=== PATIENT | female | born 1995 ===

== ENCOUNTER → 2020-08-11 12:49 | Outpatient (BNVA) | payer OTHER, SELFPAY | PROVIDERS: PCP Internal Medicine; Referring Provider Internal Medicine; Visit Provider Internal Medicine | DX: Z76.89 Persons encountering health services in other specified circumstances (principal) ==

== ENCOUNTER → 2021-01-26 15:01 | Outpatient (BNVA) | payer OTHER, SELFPAY | PROVIDERS: PCP Internal Medicine; Visit Provider Internal Medicine ==

== ENCOUNTER 2021-02-02 13:12 | Outpatient (REF) | payer OTHER, SELFPAY ==
[2021-02-02 14:24] LABS: Alanine Aminotransferase 112 U/L (0-31); Albumin Level 4.1 g/dL (3.5-5.0); Alkaline Phosphatase 104 U/L (39-117); Anion Gap 12 (12-20); Aspartate Amino Transferase 89 U/L (5-31); Bilirubin Total 0.3 mg/dL (0.0-1.0); Blood Urea Nitrogen 9 mg/dL (9-16); Calcium 9.2 mg/dL (8.4-10.2); Carbon Dioxide 24 mmol/L (22-29); Chloride 102 mmol/L (96-108); Cholesterol 163 mg/dL; Estimated Glomerular Filt Rate > 60; Glucose Random 227 mg/dL (60-115); HDL Cholesterol 39 mg/dL; LDL Cholesterol Calculated 110 mg/dl; Potassium 4.4 mmol/L (3.3-5.1); Sodium 134 mmol/L (135-145); Total Protein 7.5 g/dL (6.5-8.0); Triglycerides 71 mg/dL
[2021-02-02 14:26] LABS: Estimated Average Glucose 200 mg/dL; Hemoglobin A1c % 8.6 %
[2021-02-02 14:39] LABS: Vitamin D 25-OH Total 14.4 ng/mL (>30)
[2021-02-02 14:40] LABS: Creatinine Urine 184.51 mg/dL
[2021-02-03 05:42] LABS: LDL Cholesterol Direct 115 mg/dL (<100)
== END 2021-02-02 13:13 | disposition home or self-care (01) ==
LOC: HO.LAB 13:12
PROVIDERS: PCP Internal Medicine; Visit Provider Internal Medicine
DX: E11.65 Type 2 diabetes mellitus with hyperglycemia (principal); Z79.4 Long term (current) use of insulin; E55.9 Vitamin D deficiency, unspecified
CPT/HCPCS: 36415; 80053; 80061; 82043; 82306; 83036; 83721

== ENCOUNTER → 2021-02-16 14:17 | Outpatient (BNVA) | payer OTHER, SELFPAY | PROVIDERS: PCP Internal Medicine; Visit Provider Internal Medicine | DX: E11.65 Type 2 diabetes mellitus with hyperglycemia (principal); E78.5 Hyperlipidemia, unspecified; E55.9 Vitamin D deficiency, unspecified; I10 Essential (primary) hypertension; N25.81 Secondary hyperparathyroidism of renal origin; Z79.4 Long term (current) use of insulin | CPT/HCPCS: 82947; 99212 ==

== ENCOUNTER 2021-02-23 13:42 | Outpatient (REF) | payer OTHER, SELFPAY ==
[2021-02-23 16:11] LABS: C Reactive Protein 1.14 mg/dL (< or = 0.50); Gamma Glutamyl Transpeptidase 23 U/L (7-33); Lipase 4 U/L (8-78)
[2021-02-23 16:32] LABS: Ferritin 38 ng/mL (10-122); TSH reflex Free T4 0.78 uIU/mL (0.32-4.0)
[2021-02-24 03:52] LABS: HBc Num1 0.13 S/CO (0.00-0.79); HBsAGNum1 0.22 S/CO (0.00-0.99); Hepatitis B Core Antibody Nonreactive (Nonreactive); Hepatitis B Surface Antigen Negative (Negative)
[2021-02-24 03:53] LABS: HBS Num1 1.45 mIU/mL (0-7.99); HIV AB/AG Nonreactive (Nonreactive); HIV Num 1 0.09 S/CO (0.00-0.99); ~Hepatitis B Surface Antibody NONREACTIVE (Nonreactive); ~Hepatitis C Antibody Nonreactive (Nonreactive)
[2021-02-24 15:27] LABS: Mitochondrial Antibodies NEGATIVE (NEGATIVE)
[2021-02-25 03:56] LABS: Hepatitis A Antibody IgM 0.37 Index (0-0.79); ~Hepatitis A Antibody IgM Nonreactive (Nonreactive)
[2021-02-28 23:37] LABS: Smooth Muscle Antibody <20 U (<20)
== END 2021-02-23 13:43 | disposition home or self-care (01) ==
LOC: HO.LAB 13:42
PROVIDERS: PCP Internal Medicine; Referring Provider Internal Medicine; Visit Provider Nurse Practitioner Family
DX: Z11.4 Encounter for screening for human immunodeficiency virus [HIV] (principal); R74.8 Abnormal levels of other serum enzymes; R79.89 Other specified abnormal findings of blood chemistry; Z79.899 Other long term (current) drug therapy
CPT/HCPCS: 36415; 82105; 82728; 82977; 83690; 84443; 86140; 86255; 86256; 86704; 86706; 86709; 86803; 87340; 87389

== ENCOUNTER → 2021-06-14 10:29 | Outpatient (BNVA) | payer OTHER, SELFPAY | PROVIDERS: PCP Internal Medicine; Visit Provider Physician Assistant Surgical ==

== ENCOUNTER → 2021-06-23 08:07 | Outpatient (BNVA) | payer OTHER, SELFPAY | PROVIDERS: PCP Internal Medicine; Visit Provider Surgery ==

== ENCOUNTER → 2021-06-27 10:59 | Outpatient (BNVA) | payer OTHER, SELFPAY | PROVIDERS: PCP Internal Medicine; Visit Provider Surgery ==

== ENCOUNTER 2021-06-29 08:58 | Outpatient (REF) | payer OTHER, SELFPAY ==
[2021-06-29 09:14] LABS: MANUAL DIFF FLAG NO
[2021-06-29 10:08] LABS: Basophils Percent Auto 0.4 % (0-2); Eosinophils Percent Auto 1.2 % (0-4); Hematocrit 37.2 % (37-47); Hemoglobin 12.2 g/dl (12.0-16.0); Imm Gran Pct Auto 0.2 % (0.0-0.4); Lymphocytes Percent Auto 22.7 % (20-40); Mean Corpuscular HGB Conc 32.8 g/dl (31.0-35.0); Mean Corpuscular Volume 79.1 fL (80-98); Mean Platelet Volume 10.8 fL (9.4-12.3); Monocytes Percent Auto 8.1 % (2-11); Neutrophils Absolute Auto 6.2 X10*3/uL (2.0-8.3); Neutrophils Percent Auto 67.4 % (45-73); Platelet Count 419 X10*3/uL (160-400); Red Cell Distribution Width 13.7 % (11.0-16.0); White Blood Count 9.2 X10*3/uL (4.8-10.8)
[2021-06-29 10:09] LABS: Eosinophils Absolute Auto 0.1 X10*3/uL (0.0-0.4); Imm Gran Abs Auto 0.02 X10*3/uL (0.00-0.03); Lymphocytes Absolute Auto 2.1 X10*3/uL (1.2-4.9); Monocytes Absolute Auto 0.8 X10*3/uL (0.1-1.2)
[2021-06-29 10:40] LABS: Alanine Aminotransferase 29 U/L (0-31); Alkaline Phosphatase 92 U/L (39-117); Anion Gap 14 (12-20); Aspartate Amino Transferase 26 U/L (5-31); Bilirubin Total 0.7 mg/dL (0.0-1.0); Blood Urea Nitrogen 5 mg/dL (9-16); C Reactive Protein 1.35 mg/dL (< or = 0.50); Calcium 8.9 mg/dL (8.4-10.2); Carbon Dioxide 23 mmol/L (22-29); Chloride 105 mmol/L (96-108); Cholesterol 125 mg/dL; Estimated Glomerular Filt Rate > 60; Glucose Random 136 mg/dL (60-115); HDL Cholesterol 30 mg/dL; Iron 51 mcg/dL (30-160); LDL Cholesterol Calculated 85 mg/dl; Percent Iron Saturation 13 % (15-50); Sodium 138 mmol/L (135-145); Total Iron Binding Capacity 384 mcg/dL (228-428); Total Protein 7.5 g/dL (6.5-8.0); Triglycerides 52 mg/dL; Unsaturated Iron Binding 333 ug/dL
[2021-06-29 10:41] LABS: Creatinine Urine 229.01 mg/dL
[2021-06-29 10:45] LABS: Estimated Average Glucose 157 mg/dL; Hemoglobin A1c % 7.1 %
[2021-06-29 11:00] LABS: Ferritin 15 ng/mL (10-122); Insulin 45 uU/mL (2-29); TSH reflex Free T4 1.01 uIU/mL (0.32-4.0); Vitamin D 25-OH Total 13.8 ng/mL (>30)
[2021-06-29 11:13] LABS: Folate 8.7 ng/mL (> or = 4.0); Vitamin B12 321 pg/mL (200-900)
[2021-06-30 13:05] LABS: H Pylori Breath Test Negative (Negative)
[2021-07-01 14:37] LABS: Calcium (PTHI) 8.8 mg/dL (8.6-10.2); PTHI 72 pg/mL (14-64)
[2021-07-02 12:51] LABS: Zinc 70 mcg/dL (60-130)
[2021-07-04 01:47] LABS: Vitamin A 20 mcg/dL (38-98)
[2021-07-06 15:01] LABS: Vitamin B1 8 nmol/L (8-30)
== END 2021-06-29 08:59 | disposition home or self-care (01) ==
LOC: HO.LAB 08:58
PROVIDERS: Internal Medicine; PCP Internal Medicine; Visit Provider Surgery
DX: E11.65 Type 2 diabetes mellitus with hyperglycemia (principal); E78.5 Hyperlipidemia, unspecified; E66.01 Morbid (severe) obesity due to excess calories; K21.9 Gastro-esophageal reflux disease without esophagitis; E55.9 Vitamin D deficiency, unspecified; Z79.4 Long term (current) use of insulin
CPT/HCPCS: 36415; 80053; 80061; 82306; 82607; 82728; 82746; 83013; 83036; 83525; 83540; 83970; 84425; 84443; 84590; 84630; 85025; 86140; 99211

== ENCOUNTER → 2021-07-20 10:24 | Outpatient (BNVA) | payer OTHER, SELFPAY | PROVIDERS: PCP Internal Medicine; Visit Provider Surgery ==

== ENCOUNTER → 2021-08-17 08:09 | Outpatient (BNVA) | payer OTHER, SELFPAY | PROVIDERS: PCP Internal Medicine; Visit Provider Dietitian, Registered | DX: E66.01 Morbid (severe) obesity due to excess calories (principal) | CPT/HCPCS: 97802 ==

== ENCOUNTER 2021-08-24 08:12 | Outpatient (REF) | payer OTHER, SELFPAY ==
--- NOTE | ~2021-08-24 | XR_ITS ---
EXAMINATION: XR CHEST CLINICAL INFORMATION: Obesity is a history provided COMPARISON: None TECHNIQUE: 2 views of the chest were obtained. FINDINGS: No significant abnormality is noted involving the heart, lungs, mediastinum, bony thorax or soft tissues. XR/XR chest 2V IMPRESSION: Unremarkable examination.
--- NOTE | 2021-08-24 12:34 | ECG_ITS ---
Test Reason : obesity Blood Pressure : / mmHG Vent. Rate : 096 BPM Atrial Rate : 096 BPM P-R Int : 168 ms QRS Dur : 082 ms QT Int : 358 ms P-R-T Axes : 043 051 022 degrees QTc Int : 452 ms Normal sinus rhythm Possible Left atrial enlargement Borderline ECG When compared with ECG of 25-APR-2019 18:14, No significant change was found Referred By: Reuben Travis Electronically Signed By:SHERIE GIBSON MD
== END 2021-08-24 08:13 | disposition home or self-care (01) ==
LOC: HO.XRAY 08:12
PROVIDERS: PCP Internal Medicine; Visit Provider Surgery
DX: E66.01 Morbid (severe) obesity due to excess calories (principal); Z68.41 Body mass index [BMI] 40.0-44.9, adult; E11.65 Type 2 diabetes mellitus with hyperglycemia; K21.9 Gastro-esophageal reflux disease without esophagitis; Z79.4 Long term (current) use of insulin
CPT/HCPCS: 71046; 93005

== ENCOUNTER → 2021-09-08 15:20 | Outpatient (BNVA) | payer OTHER, SELFPAY | PROVIDERS: PCP Internal Medicine; Referring Provider Internal Medicine; Visit Provider Physician Assistant Surgical ==

== ENCOUNTER → 2021-09-20 08:12 | Outpatient (BNVA) | payer OTHER, SELFPAY | PROVIDERS: PCP Internal Medicine; Referring Provider Surgery; Visit Provider Dietitian, Registered ==

== ENCOUNTER → 2021-09-22 08:10 | Outpatient (BNVA) | payer OTHER, SELFPAY | PROVIDERS: PCP Internal Medicine; Referring Provider Surgery; Visit Provider Dietitian, Registered | DX: E66.01 Morbid (severe) obesity due to excess calories (principal) | CPT/HCPCS: 97803 ==

== ENCOUNTER 2021-09-22 20:58 | Emergency (ER) | payer OTHER, SELFPAY ==
[2021-09-22 22:40] VITALS: BP 141/69; PULSE 91; RESP 18; TEMP 36.7; O2SAT 98; BMI 46.0
[2021-09-22 23:15] LABS: COVID-19 Test Positive (Negative)
--- NOTE | 2021-09-22 23:34 | ED_ITS ---
HPI - URI/Sore Throat General Chief Complaint: Upper Respiratory Symptoms Stated Complaint: Flu like symptoms Time Seen by Provider: 09/22/21 23:34 Source: patient Mode of arrival: ambulatory Limitations: no limitations History of Present Illness HPI Narrative: Headache, fever, lost of taste and cough for 2 days. Patient is vaccinated MD elicited complaint: fever, cough and sore throat Onset (ago): day(s) Consistency: constant Severity: mild Exacerbating factors: nothing Relieving factors: nothing Associated symptoms: fever, myalgias, sore throat and cough Related Data Previous Rx's Medication Instructions Recorded pen needle, diabetic 31 gauge x #100 ea 11/24/2001/23 (1st Tier Unifine Pentips Plus) cholecalciferol (vitamin D3) 50 50 mcg PO DAILY #30 cap 11/25/20 mcg (2,000 unit) capsule flash glucose sensor (FreeStyle #2 ea 02/16/21 Edson 14 Day Sensor) insulin lispro 100 unit/mL 15 unit (0.15 mL) SUBCUT TID 30 02/23/21 subcutaneous pen (Humalog #13.5 ml (U-100) Insulin) vitamin E (dl, acetate) 45 mg (100 45 mg PO BID #60 cap 02/23/21 unit) capsule FreeStyle Precision Simba Strips #25 ea NS 03/09/21 (blood sugar diagnostic) cholecalciferol (vitamin D3) 125 125 mcg PO DAILY #30 cap 07/20/21 mcg (5,000 unit) capsule mecobalamin (vitamin B12) 1,000 1,000 mcg SUBLINGUAL DAILY #30 tab 07/20/21 mcg disintegrating tablet,sublingual vitamin A palmitate 10,000 unit 10,000 unit PO .COMPLEX #30 cap 07/20/21 capsule ergocalciferol (vitamin D2) 1,250 1,250 mcg PO QWEEK 90 Days #13 cap 09/07/21 mcg (50,000 unit) capsule insulin glargine 100 unit/mL (3 45 unit (0.45 mL) SUBCUT QPM #15 ml 09/07/21 mL) subcutaneous pen (Lantus Solostar U-100 Insulin) Allergies Allergy/AdvReac Type Severity Reaction Status Date / Time Iodinated Contrast Media Allergy Intermediate HIVES Verified 07/11/21 17:28 [IV CONTRAST] Review of Systems Constitutional: Constitutional: Reports no additional constitutional complaints Eyes: Eyes: Reports no additional eye complaints ENT: Denies dizziness Cardiovascular: Cardiovascular: Reports no additional cardiovascular complaints Respiratory: Respiratory: Reports as per HPI Gastrointestinal: Gastrointestinal: Reports no additional gastrointestinal complaints Genitourinary: Genitourinary: Reports no additional female genitourinary complaints Musculoskeletal: Musculoskeletal: Reports no additional musculoskeletal complaints Integumentary/Breasts: Skin/Breast: Denies rash Neurologic: Reports system reviewed and no additional complaints, except as documented, Denies dizziness and Denies Sensory deficit (Neuro) Psychiatric: Psychiatric: Denies anxiety [facility] Past Medical History Medical History Anxiety GERD (gastroesophageal reflux disease) HLD (hyperlipidemia) HTN (hypertension) Macromastia Morbid obesity Secondary hyperparathyroidism T2DM (type 2 diabetes mellitus) Transaminitis Vitamin D deficiency Surgical History Hx of cholecystectomy Presence of pancreatic duct stent Family History Family History Father Hypertension High cholesterol Mother Hypertension Diabetes High cholesterol Brother No problems noted. Brother No problems noted. Son No problems noted. Daughter No problems noted. Social History Social History Housing: Apartment Alcohol intake: never Patient Tobacco Use Status: Never used Tobacco Advance Directives: No Advance Directives Information Provided: No service: No Current occupational status: unemployed Physical Exam Vital Signs: Vital Signs: Last Vital Signs Temp 98.0 F 09/22/21 22:40 Pulse 91 09/22/21 22:40 Resp 18 09/22/21 22:40 BP 141/69 H 09/22/21 22:40 Pulse Ox 98 09/22/21 22:40 BMI result Body Mass Index 46.0 Const: General: healthy appearing Nutritional Appearance: obese Orientation/consciousness: oriented to person and patient oriented x3 Limitations: no limitations HENMT: Head: Yes normal to inspection Ears: external ears normal General nose exam: Normal external nose present Mouth: Normal oral and palatal mucosa present and oropharynx normal Throat: Yes posterior oropharynx normal Eyes: General: appearance normal, both eyes and all related structures Neck: Other: supple Neck: Yes normal visual inspection Chest: Chest palpation & inspection: normal inspection of the chest Resp: Auscultation: clear to auscultation bilaterally Cardio: Jugular venous distension: no JVD Rate: regular rate Rhythm: regular rhythm Heart sounds: S1 normal heart sound present and S2 normal heart sound present GI: Inspection: Yes normal to inspection Palpation (GI): Soft to palpation, nontender and No hepatosplenomegaly present Auscultation: normal bowel sounds : General: Yes no CVA tenderness Back/Spine/Pelvis: Back: no CVA tenderness Skin: General skin exam: no rashes or lesions noted Neuro: General: oriented to person and patient oriented x3 Cranial nerves: Yes CN's II-XII intact bilaterally Motor exam (neuro): 5/5 motor strength present throughout Sensory Exam: No Sensory deficit (Neuro) Extrem: General: Yes normal to inspection Psych: Appearance: grossly normal Course Reevaluation(s) Reevaluation #1: patient well appearing with covid will dc home Time: 23:39 MDM - URI/Sore Throat Lab Data Labs: Lab Results 09/22/21 Range/Units 22:56 COVID-19 ([facility]) Positive A (Negative) COVID-19 Clin Com See Note Discharge Plan Discharge Clinical Impression: COVID-19 Patient Disposition: Home, Self-Care Instructions: COVID-19 (Coronavirus Disease 2019) (ED) Prescriptions: No Action (DME) pen needle, diabetic [1st Tier Unifine Pentips Plus] 31 gauge x 5/16 needle See Rx Instructions .ROUTE .MEDSUPPLY Qty: 100 RF: 11 cholecalciferol (vitamin D3) 50 mcg (2,000 unit) capsule 50 mcg PO DAILY Qty: 30 RF: 11 insulin lispro [Humalog KwikPen Insulin] 100 unit/mL insulin pen 15 unit subcut TID 30 Days Qty: 13.5 RF: 11 (DME) FreeStyle Precision Simba Strips Strip See Rx Instructions .MEDSUPPLY Qty: 25 RF: 6 ergocalciferol (vitamin D2) 1,250 mcg (50,000 unit) capsule 1,250 mcg PO QWEEK 90 Days Qty: 13 RF: 0 Lantus Solostar U-100 Insulin 100 unit/mL (3 mL) insulin pen 45 unit subcut QPM Qty: 15 RF: 1 (DME) FreeStyle Edson 14 Day Sensor Kit See Rx Instructions .ROUTE .MEDSUPPLY Qty: 2 RF: 11 vitamin E (dl, acetate) 45 mg (100 unit) capsule 45 mg PO BID Qty: 60 RF: 0 vitamin A palmitate 10,000 unit capsule 10,000 unit PO .COMPLEX Qty: 30 RF: 2 cholecalciferol (vitamin D3) 125 mcg (5,000 unit) capsule 125 mcg PO DAILY Qty: 30 RF: 2 mecobalamin (vitamin B12) 1,000 mcg tablet,disintegrating 1,000 mcg sublingual DAILY Qty: 30 RF: 2 Referrals: Charity Willingham MD [Primary Care Provider] - 10 days
== END 2021-09-23 00:14 | disposition home or self-care (01) ==
PROVIDERS: Emergency Provider Emergency Medicine; PCP Internal Medicine
DX: U07.1 COVID-19 (principal); E11.9 Type 2 diabetes mellitus without complications; I10 Essential (primary) hypertension; E78.5 Hyperlipidemia, unspecified; Z79.4 Long term (current) use of insulin
CPT/HCPCS: 87635; 99283

== ENCOUNTER → 2021-10-04 11:10 | Outpatient (BNVA) | payer OTHER, SELFPAY | PROVIDERS: PCP Internal Medicine; Referring Provider Internal Medicine; Visit Provider Physician Assistant Surgical ==

== ENCOUNTER → 2021-10-12 08:31 | Outpatient (REF) | payer OTHER, SELFPAY ==
--- NOTE | 2021-10-12 08:33 | CA_ITS ---
Transthoracic Echocardiogram Patient (Last, First, Middle): Petra Lawrence, Gender: Female Date of : 1995 Age: 26 Procedure Date: 10/12/2021 Procedure Type: Transthoracic Echocardiogram Location: OP Height: 157.48 cm Weight: 122.47 kg BSA: 2.17 m2 Heart Rate: bpm BP: 136 / 70 mmHg [place] Layer: MARTHA Baez MD: Reuben Travis MD Symptoms: I51.7 - Cardiomegaly Study Quality: Technically Difficult/Contrast ECG Rhythm: Sinus Conclusions: - The left ventricular systolic function is normal. The visually estimated ejection fraction is between 55-60%. - No obvious valvular pathology seen on this study. Findings Procedure Information Contrast agent, definity, is being given per protocol without apparent complications. Left Ventricle Normal left ventricular cavity size. There is mildly increased left ventricular wall thickness. The left ventricular systolic function is normal. The visually estimated ejection fraction is between 55-60%. There is no evidence of regional wall motion abnormalities. Diastolic function is normal for age. Right Ventricle Normal right ventricular cavity size and systolic function. Atria Both atria are normal in size. Aortic Valve The aortic valve was not well visualized. The aortic valve structure and function is likely normal. There is no aortic valve stenosis. There is no aortic valve regurgitation. Mitral Valve There is mild anterior mitral leaflet thickening. There is no mitral valve regurgitation. There is no mitral valve stenosis. Pulmonic Valve The pulmonic valve was not well visualized. Tricuspid Valve There is trace tricuspid valve regurgitation. The pulmonary artery systolic pressure is normal. Great Vessels The aortic annulus, sinuses of valsalva, asc aorta, and aortic arch are normal in size. Venous The inferior vena cava is normal in size and collapses greater than 50% with inspiration. Pericardium/Pleural There is no evidence of pericardial effusion. Prior Study Comparison No prior study available for comparison. Recommendations, Care & Conclusions No obvious valvular pathology seen on this study. Measurements 2D Linear Measurements IVSd: 1.02 0.6-0.9/0.6-1.0 cm LVIDd: 4.19 3.9-5.3/4.2-5.9 cm LVIDd Index: 1.93 2.4-3.2/2.2-3.1 cm/m2 LVIDs: 2.85 2.0-3.6 cm LVPWd: 1.04 0.7-1.1 cm Ao Root: 3.00 2.1-3.5 cm LA Diam: 3.50 2.7-3.8/3.0-4.0 cm LAIDs Index: 1.61 1.5-2.3 cm/m2 LV Mass: 177.40 67-162/88-224 g LV Mass Index: 81.75 43-95/49-115 g/m2 LVOT Diam: 2.20 3.0+(-)1.3 cm 2D Systolic Function EF 4C: 64.70 >55% EF 2C: 64.80 >55% EF BiP: 64.90 >55% Mitral Valve E'Lateral: 13.40 E'Medial: 13.60 Aortic Valve AoV Pk Yunior: 1.49 AoV Mn Yunior: 1.05 AoV VTI: 0.30 AoV Pk Grad: 9.00 Aov Mn Grad: 5.00 SERVANDO Cont.VTI: 2.30 LVOT LVOT Pk Yunior: 0.95 LVOT Mn Yunior: 0.65 LVOT VTI: 0.18 LVOT Pk Grad: 4.00 LVOT Mn Grad: 2.00 LVOT Diam: 2.20 LVOT Area: 3.80 Diastolic Function E'Medial: 13.60 E' Laterial: 13.40 Right Ventricle TAPSE (mm): 23.00 TVS' Yunior: 12.40 Tricuspid Valve TR Pk Yunior: 1.94 TR Pk Grad: 15.00 RA Press: 3.00 RVSP: 18.00 Great Vessels Aorta Ao Root-2D: 3.00 2.0-3.7 cm Ao Asc: 2.70 2.1-3.4 cm Ao Arch: 2.40 Updated in Other Vendor System with Status of Final Andrew Carrizales MD electronically signed on 10/14/2021 12:10:01 PM with status of Final
== END ==
LOC: HO.CARD 08:31
PROVIDERS: Visit Provider Surgery
DX: I51.7 Cardiomegaly (principal); R94.31 Abnormal electrocardiogram [ECG] [EKG]
CPT/HCPCS: 93306; Q9957

== ENCOUNTER → 2021-10-27 08:08 | Outpatient (BNVA) | payer OTHER, SELFPAY | PROVIDERS: PCP Internal Medicine; Referring Provider Surgery; Visit Provider Dietitian, Registered | DX: E66.01 Morbid (severe) obesity due to excess calories (principal); Z68.43 Body mass index [BMI] 50.0-59.9, adult; E11.65 Type 2 diabetes mellitus with hyperglycemia; Z79.4 Long term (current) use of insulin; Z71.3 Dietary counseling and surveillance | CPT/HCPCS: 97803 ==

== ENCOUNTER 2021-11-07 10:36 | Outpatient (REF) | payer OTHER, SELFPAY ==
[2021-11-07 17:05] LABS: CT PCR NOT DETECTED (Not Detect.); NG PCR NOT DETECTED (Not Detect.)
== END 2021-11-07 10:37 | disposition home or self-care (01) ==
LOC: HO.LAB 10:36
PROVIDERS: PCP Internal Medicine; Visit Provider Obstetrics & Gynecology
DX: Z01.411 Encounter for gynecological examination (general) (routine) with abnormal findings (principal); N93.9 Abnormal uterine and vaginal bleeding, unspecified
CPT/HCPCS: 87491; 87591; 88142

== ENCOUNTER 2021-12-08 09:38 | Outpatient (REF) | payer OTHER, SELFPAY ==
[2021-12-08 10:17] LABS: MANUAL DIFF FLAG NO
[2021-12-08 10:22] LABS: Basophils Percent Auto 0.2 % (0-2); Eosinophils Absolute Auto 0.1 X10*3/uL (0.0-0.4); Eosinophils Percent Auto 1.3 % (0-4); Hematocrit 35.8 % (37.0-47.0); Hemoglobin 11.1 g/dl (12.0-16.0); Imm Gran Abs Auto 0.03 X10*3/uL (0.00-0.03); Imm Gran Pct Auto 0.3 % (0.0-0.4); Lymphocytes Absolute Auto 2.4 X10*3/uL (1.2-4.9); Lymphocytes Percent Auto 24.7 % (20-40); Mean Corpuscular Volume 77.5 fL (80.0-98.0); Mean Platelet Volume 10.6 fL (9.4-12.3); Monocytes Absolute Auto 0.7 X10*3/uL (0.1-1.2); Monocytes Percent Auto 7.2 % (2-11); Neutrophils Absolute Auto 6.5 x10*3/uL (2.0-8.3); Neutrophils Percent Auto 66.3 % (45-73); Platelet Count 418 X10*3/uL (160-400); Red Blood Count 4.62 X10*6/uL (4.20-5.50); Red Cell Distribution Width 13.5 % (11.0-16.0); White Blood Count 9.8 X10*3/uL (4.8-10.8)
[2021-12-08 10:33] LABS: Estimated Average Glucose 148 mg/dL; Hemoglobin A1c % 6.8 %
[2021-12-08 11:00] LABS: Alanine Aminotransferase 34 U/L (0-31); Alkaline Phosphatase 97 U/L (39-117); Anion Gap 12 (12-20); Aspartate Amino Transferase 25 U/L (5-31); Bilirubin Total 0.3 mg/dL (0.0-1.0); Blood Urea Nitrogen 7 mg/dL (9-16); Calcium 9.1 mg/dL (8.4-10.2); Carbon Dioxide 27 mmol/L (22-29); Chloride 102 mmol/L (96-108); Cholesterol 129 mg/dL; Estimated Glomerular Filt Rate > 60; Glucose Fasting 135 mg/dL (60-99); HDL Cholesterol 35 mg/dL; LDL Cholesterol Calculated 83 mg/dl; Sodium 137 mmol/L (135-145); Total Protein 7.6 g/dL (6.5-8.0); Triglycerides 56 mg/dL
[2021-12-08 11:08] LABS: HCG Quantitative < 2 mIU/mL; TSH reflex Free T4 1.71 uIU/mL (0.32-4.0)
[2021-12-08 11:10] LABS: Vitamin D 25-OH Total 9.4 ng/mL (>30)
[2021-12-08 11:30] LABS: Folate 9.1 ng/mL (> or = 4.0); Vitamin B12 370 pg/mL (200-900)
[2021-12-08 12:40] LABS: Creatinine Urine 206.33 mg/dL; Microalbum/Creatinine Ratio Ur 7.7 ug/mg cr
[2021-12-09 14:33] LABS: Calcium (PTHI) 8.8 mg/dL (8.6-10.2); PTHI 78 pg/mL (16-77)
[2021-12-09 19:06] LABS: DHEA Sulfate 168 mcg/dL (14-349); Prolactin 6.5 ng/mL
[2021-12-12 10:27] LABS: Calcium, Ionized 4.7 mg/dL (4.8-5.6)
[2021-12-13 17:22] LABS: Testosterone, Free 5.9 pg/mL (0.1-6.4); Testosterone, Total 40 ng/dL (2-45)
== END 2021-12-08 09:39 | disposition home or self-care (01) ==
LOC: HO.LAB 09:38
PROVIDERS: Internal Medicine; Absent Provider Internal Medicine; PCP Internal Medicine; Visit Provider Obstetrics & Gynecology
DX: N93.9 Abnormal uterine and vaginal bleeding, unspecified (principal); L68.0 Hirsutism; D64.9 Anemia, unspecified; E53.8 Deficiency of other specified B group vitamins; N25.81 Secondary hyperparathyroidism of renal origin; E78.5 Hyperlipidemia, unspecified; E55.9 Vitamin D deficiency, unspecified; E11.65 Type 2 diabetes mellitus with hyperglycemia; Z79.4 Long term (current) use of insulin
CPT/HCPCS: 36415; 80053; 80061; 82043; 82306; 82310; 82330; 82607; 82627; 82746; 83036; 83498; 83970; 84146; 84402; 84403; 84443; 84702; 85025

== ENCOUNTER 2021-12-19 10:48 | Outpatient (REF) | payer OTHER, SELFPAY | END 2021-12-19 10:49 | disposition home or self-care (01) | LOC: HO.LAB 10:48 | PROVIDERS: Visit Provider Obstetrics & Gynecology | DX: N93.9 Abnormal uterine and vaginal bleeding, unspecified (principal) | CPT/HCPCS: 58100; 81025; 88305 ==

== ENCOUNTER → 2021-12-21 15:28 | Outpatient (BNVA) | payer OTHER, SELFPAY | PROVIDERS: Visit Provider Counselor Mental Health | DX: F33.0 Major depressive disorder, recurrent, mild (principal); F41.1 Generalized anxiety disorder; F50.81 Binge eating disorder; E66.01 Morbid (severe) obesity due to excess calories | CPT/HCPCS: 90834 ==

== ENCOUNTER 2021-12-27 07:50 | Outpatient (REF) | payer OTHER, SELFPAY ==
--- NOTE | ~2021-12-27 | US_ITS ---
EXAMINATION: US COMPLETE ABDOMEN WITH LIVER ELASTOGRAPHY CLINICAL INFORMATION: Obesity. COMPARISON: None. TECHNIQUE: Real-time imaging of the abdominal viscera. Noninvasive ultrasound liver fibrosis assessment is performed using Arturo ElastPQ point quantification shear wave elastography (2D-SWE) with a C5-2 MHz transducer. Multiple elastography samples are obtained. FINDINGS: PANCREAS: Nonvisualized due to overlying bowel gas, accordingly not evaluated. ABDOMINAL AORTA: The proximal, middle, and distal aortic segments are normal in caliber. INFERIOR VENA CAVA: Visualized portions are normal. LIVER: Mild diffuse heterogeneous abnormal increased echotexture is present, consistent with diffuse liver disease without any sonographic evidence of superimposed focal liver lesion. The right lobe measures 18.4 cm in length. The left lobe measures 10.9 cm in length. Portal flow is towards the liver (hepatopetal). Shear wave liver elastography median stiffness is 1.65 m/s (reference: normal median stiffness is 1.3 m/s or less). IQR/median stiffness to assess sampling precision is 0.22 (reference: good quality data set is IQR/median stiffness of 0.15 or less). GALLBLADDER: Surgically absent. COMMON BILE DUCT: Normal in caliber measuring 0.4 cm in diameter. RIGHT KIDNEY: Normal. No hydronephrosis. No renal calculi or focal parenchymal lesions. The kidney measures 12.0 cm in maximum dimension. LEFT KIDNEY: Normal. No hydronephrosis. No renal calculi or focal parenchymal lesions. The kidney measures 14.2 cm in maximum dimension. SPLEEN: Normal. The spleen measures 10.8 cm in maximum dimension. FREE FLUID: None. US/US abdomen comp w elastography IMPRESSION: 1. 1. Nonvisualized pancreas due to overlying bowel gas, accordingly not evaluated 2. Mild diffuse heterogeneous abnormal increased echotexture within the liver, consistent with diffuse liver disease, without any sonographic evidence of superimposed focal liver lesion. 3. Surgically absent gallbladder and nondilated biliary tree. 2. Liver elastography: In the absence of other known clinical signs, measurements rule out compensated advanced chronic liver disease. If there are known clinical signs, further testing may be needed for confirmation. REFERENCE: Society of Radiologists in Ultrasound Liver Stiffness Thresholds (2020): LIVER STIFFNESS THRESHOLDS: *Liver Stiffness equal or less than 1.3 m/s: High probability of being normal. *Liver Stiffness less than 1.7 m/s: In the absence of other known clinical signs, rules out compensated advanced chronic liver disease. *Liver Stiffness 1.7-2.1 m/s: Suggestive of compensated advanced chronic liver disease but need further test for confirmation. *Liver Stiffness over 2.1 m/s: Rules in compensated advanced chronic liver disease. *Liver Stiffness over 2.4 m/s: Suggestive of clinically significant portal hypertension. QUALITY OF DATA SET: *IQR/Median value equal or less than 0.15 implies a quality data set. *IQR/Median value over 0.15 implies a poor quality data set. SIGNIFICANT CHANGE FROM PRIOR EXAM: Significant change if liver stiffness measurement is 10% or greater from prior exam. OTHER CONSIDERATIONS: The stage of liver fibrosis may be overestimated in the setting of acute hepatitis, liver inflammation, elevated liver function tests, hepatic vascular congestion, obstructive cholestasis, non-fasting state, and infiltrative diseases such as amyloidosis and lymphoma. In some patients with NAFLD, the liver stiffness thresholds for compensated advanced chronic liver disease may be lower. In causes other than viral hepatitis and NAFLD, liver stiffness thresholds are not well established.
== END 2021-12-27 07:51 | disposition home or self-care (01) ==
LOC: HO.US 07:50
PROVIDERS: PCP Internal Medicine; Visit Provider Surgery
DX: E66.01 Morbid (severe) obesity due to excess calories (principal); E11.65 Type 2 diabetes mellitus with hyperglycemia; K21.9 Gastro-esophageal reflux disease without esophagitis; Z79.4 Long term (current) use of insulin
CPT/HCPCS: 76705; 76981

== ENCOUNTER → 2021-12-30 08:17 | Outpatient (BNVA) | payer OTHER, SELFPAY | PROVIDERS: Visit Provider Dietitian, Registered | DX: E66.01 Morbid (severe) obesity due to excess calories (principal); E11.65 Type 2 diabetes mellitus with hyperglycemia; Z79.4 Long term (current) use of insulin; Z68.43 Body mass index [BMI] 50.0-59.9, adult | CPT/HCPCS: 97803 ==

== ENCOUNTER → 2022-01-04 13:45 | Outpatient (BNVA) | payer OTHER, SELFPAY | PROVIDERS: Visit Provider Counselor Mental Health | DX: F33.0 Major depressive disorder, recurrent, mild (principal); F41.1 Generalized anxiety disorder; F50.81 Binge eating disorder; E66.01 Morbid (severe) obesity due to excess calories | CPT/HCPCS: 90834 ==

== ENCOUNTER → 2022-01-18 13:28 | Outpatient (BNVA) | payer OTHER, SELFPAY | PROVIDERS: Visit Provider Obstetrics & Gynecology | DX: N93.9 Abnormal uterine and vaginal bleeding, unspecified (principal) | CPT/HCPCS: 99212 ==

== ENCOUNTER → 2022-01-25 08:29 | Outpatient (BNVA) | payer OTHER, SELFPAY | PROVIDERS: PCP Internal Medicine; Visit Provider Internal Medicine | DX: E11.65 Type 2 diabetes mellitus with hyperglycemia (principal) ==

== ENCOUNTER → 2022-01-30 08:28 | Outpatient (BNVA) | payer OTHER, SELFPAY | PROVIDERS: PCP Internal Medicine; Visit Provider Dietitian, Registered | DX: E66.01 Morbid (severe) obesity due to excess calories (principal); Z68.42 Body mass index [BMI] 45.0-49.9, adult | CPT/HCPCS: 97803 ==

== ENCOUNTER 2022-02-08 10:02 | Outpatient (REF) | payer OTHER, SELFPAY ==
[2022-02-14 21:36] LABS: Cortisol Free, 24 Hr Urine 45.7 mcg/24 h (4.0-50.0); Creatinine, 24 Hr Urine 1.63 g/24 h (0.50-2.15); Total Volume, 24 Hr Urine 1900 mL
== END 2022-02-08 10:03 | disposition home or self-care (01) ==
LOC: HO.LNP 10:02
PROVIDERS: Visit Provider Obstetrics & Gynecology
DX: L68.0 Hirsutism (principal)
CPT/HCPCS: 82530

== ENCOUNTER 2022-02-16 12:54 | Outpatient (REF) | payer OTHER, SELFPAY ==
--- NOTE | ~2022-02-16 | US_ITS ---
EXAMINATION: US PELVIS CLINICAL INFORMATION: Abnormal bleeding COMPARISON: Previous pelvic ultrasound most recent May 2019 TECHNIQUE: Ultrasound of the pelvis is performed using both transabdominal and transvaginal transducers along with Doppler. Transvaginal imaging is performed due to inadequate visualization transabdominally. FINDINGS: The uterus is anteverted and measures 9.3 x 4.3 x 5.4 cm in dimension. No focal uterine lesion is seen. Endometrial thickness is upper normal in size measuring 1.4 cm. The right ovary measures 3.6 x 1.8 x 1.5 cm. There is a question of a 2-1 x 2.3 x 2.8 cm right adnexal or paraovarian cyst. This is seen on transabdominal imaging only and could not be reproduced on transvaginal imaging. Left ovary is normal-appearing and measures 2.7 x 2.4 x 1.9 cm. There is no fluid in the pelvis. US/US pelvic and transvaginal IMPRESSION: Upper normal thickness endometrium. Question small 2.1 x 2.3 x 2.8 cm right paraovarian or adnexal cyst.
== END 2022-02-16 12:55 | disposition home or self-care (01) ==
LOC: HO.US 12:54
PROVIDERS: PCP Internal Medicine; Visit Provider Obstetrics & Gynecology
DX: N93.9 Abnormal uterine and vaginal bleeding, unspecified (principal)
CPT/HCPCS: 76830; 76856

== ENCOUNTER → 2022-02-21 15:24 | Outpatient (BNVA) | payer OTHER, SELFPAY | PROVIDERS: PCP Internal Medicine; Referring Provider Surgery; Visit Provider Dietitian, Registered | DX: E66.01 Morbid (severe) obesity due to excess calories (principal); Z68.42 Body mass index [BMI] 45.0-49.9, adult; E11.9 Type 2 diabetes mellitus without complications; Z71.3 Dietary counseling and surveillance | CPT/HCPCS: 97803 ==

== ENCOUNTER 2022-02-23 09:33 | Outpatient (REF) | payer OTHER, SELFPAY ==
--- NOTE | ~2022-02-23 | FL_ITS ---
EXAMINATION: XR FLUOROSCOPY UPPER GI WITH AIR CLINICAL INFORMATION: Obesity. COMPARISON: None TECHNIQUE: Upper GI was performed using thin and thick barium and effervescent granules. FINDINGS: Esophageal motility is normal. No hernia or reflux is seen. The stomach and duodenum are normal-appearing. No fold thickening, mass, ulcer or stricture is seen. FLUOROSCOPY TIME: 0.7 minutes. DOSE AREA PRODUCT: 7 Gy-cm2. 17 saved fluoroscopic images. FL/FL upper GI w air IMPRESSION: Unremarkable examination.
== END 2022-02-23 09:34 | disposition home or self-care (01) ==
LOC: HO.XRAY 09:33
PROVIDERS: Visit Provider Surgery
DX: E11.65 Type 2 diabetes mellitus with hyperglycemia (principal); E66.01 Morbid (severe) obesity due to excess calories; K21.9 Gastro-esophageal reflux disease without esophagitis; Z79.4 Long term (current) use of insulin
CPT/HCPCS: 74246

== ENCOUNTER 2022-03-09 16:23 | Outpatient (REF) | payer OTHER, SELFPAY ==
[2022-03-09 16:40] LABS: Hematocrit 34.7 % (37.0-47.0); Mean Corpuscular HGB Conc 31.7 g/dl (31.0-35.0); Mean Corpuscular Hemoglobin 23.3 pg (27.0-33.0); Mean Corpuscular Volume 73.4 fL (80.0-98.0); Mean Platelet Volume 10.2 fL (9.4-12.3); Platelet Count 440 X10*3/uL (160-400); Red Blood Count 4.73 X10*6/uL (4.20-5.50); White Blood Count 12.2 X10*3/uL (4.8-10.8)
[2022-03-09 17:07] LABS: Alanine Aminotransferase 29 U/L (0-31); Alkaline Phosphatase 94 U/L (39-117); Anion Gap 13 (12-20); Aspartate Amino Transferase 24 U/L (5-31); Bilirubin Total 0.4 mg/dL (0.0-1.0); Blood Urea Nitrogen 8 mg/dL (9-16); Calcium 8.9 mg/dL (8.4-10.2); Carbon Dioxide 24 mmol/L (22-29); Chloride 107 mmol/L (96-108); Cholesterol 134 mg/dL; Estimated Glomerular Filt Rate > 60; Glucose Random 108 mg/dL (60-115); HDL Cholesterol 32 mg/dL; LDL Cholesterol Calculated 81 mg/dl; Phosphorus 3.8 mg/dL (2.7-4.5); Potassium 3.8 mmol/L (3.3-5.1); Sodium 140 mmol/L (135-145); Total Protein 7.6 g/dL (6.5-8.0); Triglycerides 105 mg/dL
[2022-03-09 17:16] LABS: Microalbum/Creatinine Ratio Ur 34.6 ug/mg cr
[2022-03-09 17:19] LABS: Cortisol Random 7.5 ug/dL; Free T4 (Free Thyroxine) 1.28 ng/dL (0.71-1.85); Vitamin D 25-OH Total 23.1 ng/mL (>30)
[2022-03-09 17:20] LABS: HCG Quantitative < 2 mIU/mL
[2022-03-09 17:26] LABS: Vitamin B12 367 pg/mL (200-900)
[2022-03-10 12:02] LABS: PTHI 43 pg/mL (16-77)
[2022-03-10 13:31] LABS: Adrenocorticotropic Hormone 19 pg/mL (6-50)
[2022-03-11 06:57] LABS: DHEA Sulfate 221 mcg/dL (14-349); Follicle Stimulating Hormone 5.9 mIU/mL; Lutenizing Hormone 8.3 mIU/mL; Prolactin 6.4 ng/mL; Sex Hormone Binding Globulin 30 nmol/L (17-124)
[2022-03-11 09:18] LABS: LDL Cholesterol Direct 87 mg/dL (<100)
[2022-03-15 21:06] LABS: Estradiol Ultra Sensitive 42 pg/mL
[2022-03-16 13:02] LABS: Testosterone, Free 5.4 pg/mL (0.1-6.4); Testosterone, Total 35 ng/dL (2-45)
[2022-03-16 18:31] LABS: Androstenedione 109 ng/dL
== END 2022-03-09 16:24 | disposition home or self-care (01) ==
LOC: HO.LAB 16:23
PROVIDERS: Internal Medicine; PCP Internal Medicine; Visit Provider Obstetrics & Gynecology
DX: E11.65 Type 2 diabetes mellitus with hyperglycemia (principal); N93.9 Abnormal uterine and vaginal bleeding, unspecified; E55.9 Vitamin D deficiency, unspecified; Z79.4 Long term (current) use of insulin
CPT/HCPCS: 36415; 80053; 80061; 82024; 82043; 82157; 82306; 82533; 82607; 82627; 82670; 83001; 83002; 83498; 83721; 83970; 84100; 84146; 84270; 84402; 84403; 84439; 84443; 84702; 85027

== ENCOUNTER 2022-04-10 13:00 | Outpatient (REF) | payer OTHER, SELFPAY | END 2022-04-10 13:01 | disposition home or self-care (01) | LOC: HO.LAB 13:00 | PROVIDERS: PCP Student in an Organized Health Care Education/Training Program; Visit Provider Internal Medicine | DX: Z13.89 Encounter for screening for other disorder (principal) ==

== ENCOUNTER → 2022-04-17 13:29 | Outpatient (BNVA) | payer OTHER, SELFPAY | PROVIDERS: PCP Internal Medicine; Visit Provider Physician Assistant Surgical | DX: Z01.818 Encounter for other preprocedural examination (principal); E66.01 Morbid (severe) obesity due to excess calories; Z68.42 Body mass index [BMI] 45.0-49.9, adult | CPT/HCPCS: 99212; Q3014 ==

== ENCOUNTER 2022-04-21 09:42 | Outpatient (REF) | payer OTHER, SELFPAY ==
[2022-04-21 10:17] LABS: Hematocrit 31.8 % (37.0-47.0); Hemoglobin 9.8 g/dl (12.0-16.0); Mean Corpuscular HGB Conc 30.8 g/dl (31.0-35.0); Mean Corpuscular Hemoglobin 22.4 pg (27.0-33.0); Mean Corpuscular Volume 72.8 fL (80.0-98.0); Mean Platelet Volume 10.6 fL (9.4-12.3); Platelet Count 499 X10*3/uL (160-400); Red Blood Count 4.37 X10*6/uL (4.20-5.50); Red Cell Distribution Width 14.5 % (11.0-16.0); White Blood Count 11.3 X10*3/uL (4.8-10.8)
[2022-04-21 10:31] LABS: Estimated Average Glucose 131 mg/dL; Hemoglobin A1c % 6.2 %
[2022-04-21 11:26] LABS: Alanine Aminotransferase 22 U/L (0-31); Albumin Level 3.7 g/dL (3.5-5.0); Alkaline Phosphatase 83 U/L (39-117); Anion Gap 15 (12-20); Aspartate Amino Transferase 22 U/L (5-31); Bilirubin Total 0.2 mg/dL (0.0-1.0); Blood Urea Nitrogen 10 mg/dL (9-16); Calcium 8.5 mg/dL (8.4-10.2); Carbon Dioxide 22 mmol/L (22-29); Chloride 104 mmol/L (96-108); Estimated Glomerular Filt Rate > 60; Glucose Random 165 mg/dL (60-115); Potassium 4.2 mmol/L (3.3-5.1); Sodium 137 mmol/L (135-145); Total Protein 7.2 g/dL (6.5-8.0)
[2022-04-21 11:41] LABS: Cortisol Random 21.6 ug/dL
[2022-04-21 11:43] LABS: Vitamin D 25-OH Total 29.2 ng/mL (>30)
[2022-04-24 17:21] LABS: Adrenocorticotropic Hormone 21 pg/mL (6-50)
[2022-04-26 19:22] LABS: Dexamethasone <20 ng/dL
== END 2022-04-21 09:43 | disposition home or self-care (01) ==
LOC: HO.LAB 09:42
PROVIDERS: Obstetrics & Gynecology; PCP Internal Medicine; Visit Provider Internal Medicine
DX: Z01.818 Encounter for other preprocedural examination (principal); E11.65 Type 2 diabetes mellitus with hyperglycemia; N93.9 Abnormal uterine and vaginal bleeding, unspecified; E66.01 Morbid (severe) obesity due to excess calories; E55.9 Vitamin D deficiency, unspecified; Z79.4 Long term (current) use of insulin
CPT/HCPCS: 36415; 80053; 80299; 82024; 82306; 82533; 83036; 85027

== ENCOUNTER 2022-05-02 11:11 | Inpatient (IN) | payer OTHER, SELFPAY ==
[2022-04-19 12:02] VITALS: BMI 46.0
[2022-04-21 10:20] LABS: Prothrombin Time 11.6 SEC (10.0-13.1)
[2022-04-21 10:22] LABS: Partial Thromboplastin Time 29.9 SEC (26.0-36.4)
[2022-04-21 11:22] LABS: C Reactive Protein 1.55 mg/dL (< or = 0.50); Cholesterol 124 mg/dL; HDL Cholesterol 35 mg/dL; LDL Cholesterol Calculated 75 mg/dl; Triglycerides 73 mg/dL
[2022-04-21 11:43] LABS: TSH reflex Free T4 2.81 uIU/mL (0.32-4.0)
--- NOTE | 2022-04-29 15:21 | P.HPSUR_ITS ---
Pre-Procedural Eval Section A Date of Service: 04/29/22 The patient is an INPATIENT: Yes The History & Physical has been completed within 30 days and I have reviewed it.: Yes Section B Chief Complaint: obesity Relevant Family History (Specify if Yes): No Relevant Social History: None Present Medications: None Medical History: No relevant PMH History of Previous Operations: No relevant previous surgery Allergies: Allergies Allergy/AdvReac Type Severity Reaction Status Date / Time Iodinated Contrast Media Allergy Intermediate HIVES Verified 04/19/22 12:02 [IV CONTRAST] Review of Systems Sugical H&P ROS: Negative: Constitution, Cardiovascular, Respiratory, Neurological, Psychiatric, Hem-Onc, Allergic/Immunologic, Gastrointestinal, Genitourinary, Musculoskeletal, Integumentary, Endocrine and Eyes/Ear s/Nose/Throat Exam Surgical H&P Exam: Normal: HEENT, Normal: Heart, Normal: Lungs, Normal: Extremities, Normal: Abdomen, Normal: Skin and Normal: Neurological Plan Diagnosis/Plan: Unchanged I have reviewed the history and physical and performed a pertinent physical examination on my patient. No changes have occurred unless specified.
[2022-05-01 13:16] LABS: COVID-19 Test Negative (Negative); IDNOW Serial# 16C4AD1C
[2022-05-02] VITALS (33 sets, daily range): BP systolic 140–186; BP diastolic 90–120; PULSE 81–108; RESP 16–24; TEMP 36.1–36.8; O2SAT 97–100
[2022-05-02 11:31] LABS: Urine Pregnancy NEGATIVE (NEGATIVE)
[2022-05-02 11:32] LABS: UPreg QC Valid YES
[2022-05-02 12:02] LABS: Glucose, Whole Blood 91 mg/dL (60-115)
[2022-05-02] MEDS: Lactated Ringers 1,000 ML 999 ML IV (12:02)
--- NOTE | 2022-05-02 13:02 | P.CONAN_ITS ---
HPI - Anesthesia Eval Consult details Narrative: 26 yo female patient for EGD, Laparoscopic sleeve gastrectomy, possible diaphragmatic hernia , repair, possible ventral hernia repair, possible open PMFSH Active Problems Active Problems: All Active Problems (Updated 04/19/22 @ 12:08 by Zabrina Parra RN) Mild episode of recurrent major depressive disorder (Acute) TODD (generalized anxiety disorder) (Acute) Binge eating disorder (Acute) Vitamin A deficiency (Acute) Vitamin D deficiency (Acute) Vitamin B12 deficiency (Acute) Left atrial enlargement (Acute) Abnormal EKG (Acute) COVID-19 (Acute) Well woman exam (Acute) Abnormal uterine bleeding (Acute) Diabetes mellitus (Acute) Pre-op evaluation (Acute) Anxiety (Acute) GERD (gastroesophageal reflux disease) (Acute) Morbid obesity (Acute)- BMI 46.1 Transaminitis (Acute) Macromastia (Acute) Secondary hyperparathyroidism (Acute) Vitamin D deficiency (Acute) HLD (hyperlipidemia) (Acute) HTN (hypertension) (Acute) T2DM (type 2 diabetes mellitus) (Acute) Denies YURI- sleep study 'a while back' negative for YURI Past Medical History Medical History (Updated 05/02/22 @ 13:13 by Reuben Travis MD) Anxiety GERD (gastroesophageal reflux disease) History of blood transfusion HLD (hyperlipidemia) HTN (hypertension) Macromastia Morbid obesity Secondary hyperparathyroidism T2DM (type 2 diabetes mellitus) Transaminitis Vitamin D deficiency Family History Family History Father Hypertension High cholesterol Mother Hypertension Diabetes High cholesterol Brother No problems noted. Brother No problems noted. Son No problems noted. Daughter No problems noted. Family history of problems with anesthesia: No Surgical History Surgical History Hx of cholecystectomy Presence of pancreatic duct stent History of Problems with Anesthesia: No 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 nursing care partner to a significant other at home: Yes (2 children) Do you presently have visiting nurse or other home services: No Alcohol intake: never Patient Tobacco Use Status: Never used Tobacco e-Cigarette/Vaping Use: Never Used Second Hand Smoke Exposure: No Use of substances other than those prescribed or required for medical reasons: No Have you been hit, kicked, punched, or otherwise hurt by someone within the past year? If so, by whom?: No Are you DNR?: No Advance Directives: No Advance Directives Information Provided: Yes Advance Directives on File: No Recently lost weight without trying: No Nutrition Risks: No Nutritional Risk Patient : No FDLMP: 04/12/2022 : No Poor oral hygiene: No service: No Current occupational status: unemployed Cognitive needs: No Hearing needs: No Vision needs: Yes Meds Allergies Allergy/AdvReac Type Severity Reaction Status Date / Time Iodinated Contrast Media Allergy Intermediate HIVES Verified 05/02/22 13:23 [IV CONTRAST] Active Medications: Current Medications Lactated Ringer's (Lr) 1,000 mls @ 999 mls/hr IV .Q1H1M [facility] Stop: 05/02/22 13:15 Last Admin: 05/02/22 12:02 Dose: 999 mls/hr Lactated Ringer's (Lr) 1,000 mls @ 50 mls/hr IVCONT .Q20H [facility] Home Medications Medication Instructions Recorded Confirmed Last Taken Type insulin lispro 100 unit/mL 15 unit subcut TID 04/19/22 04/19/22 Unknown History subcutaneous pen Exam Exam Date and Time: May 02, 2022 1302 Height,Weight and Vital Signs: Height 5 ft 2 in Weight 114.305 kg Last Vital Signs Temp 97.5 F 05/02/22 12:03 Pulse 81 05/02/22 12:03 Resp 18 05/02/22 12:03 BP 144/91 H 05/02/22 12:03 Pulse Ox 100 05/02/22 12:03 O2 Del Method 05/02/22 12:03 Pertinent Lab Results Pertinent Lab Results: Laboratory Tests 04/21/22 04/21/22 04/21/22 10:00 10:00 10:00 PT 11.6 INR 1.0 APTT 29.9 POC Glucose C-Reactive Protein 1.55 H Triglycerides 73 Cholesterol 124 LDL Cholesterol, Calc 75 HDL Cholesterol 35 TSH 2.81 Urine Test COVID-19 ([facility]) COVID-19 Clin Com Blood Type O Positive Antibody Screen NEGATIVE 05/01/22 05/02/22 05/02/22 12:40 11:15 11:58 PT INR APTT POC Glucose 91 C-Reactive Protein Triglycerides Cholesterol LDL Cholesterol, Calc HDL Cholesterol TSH Urine Test NEGATIVE COVID-19 ([facility]) Negative COVID-19 Clin Com See Note Blood Type Antibody Screen Airway Mallampati Class: II (Small mouth opening ) TM Dist: >3cm Neck ROM: Full Loose/Missing/Broken Teeth: No (No broken, loose or missing teeth per patient ) Heart: RRR Lungs: CTAB Assessment and Plan Assessment Anesthesia Assessment: Anesthesia Plan Discussed and Chart Reviewed Final Anesthetic Review Family History of Problems with Anesthesia: No History of Problems with Anesthesia: No NPO: Yes ASA Class: III Final Preanesthetic Review: No Changes in Pt Med Stat, Meds/Allgs Chart Reviewed, Consent Obtained/Reviewed and Anes Risks/Benef Reviewed Patient Risk: Intermediate Procedure Risk: Intermediate Assessment/Block/Sedation in SS: Assess/Block/Sedation-SS Anesthetic Plan Anesthetic Plan: GA Disposition: Standard PACU and Inp. Admit - Standard Bed
--- NOTE | 2022-05-02 13:08 | P.BOP_ITS ---
Brief Operative Note Date of Service: 05/02/22 Pre-op diagnosis: Morbid obesity with comorbidities (see below) Post-op diagnosis: same (hepatomegaly and congenital abdominal adhesions) Procedure: INITIAL PATIENT BMI ON PRESENTATION AT OUR OFFICE: 48.9 kg/m2 LAST BMI BEFORE SURGERY: 41.6 kg/m2 COMORBIDITIES: insulin dependent diabetes, GERD, anxiety, liver steatosis, liver fibrosis, left ventricular hypertrophy ?The patient presented to the Weight Management Program with significant obesity that was negatively impacting the patient's comorbidities as listed above.? The program is a phased program with a special focus on preoperative medical weight management to promote substantial weight loss and prepare the patients for the second phase of the program: bariatric surgery. The patient participated in an intensive weekly lifestyle ?intervention and exercise program during which the patient ?has lost between the initial office visit and the last preoperative visit 17.8lbs, or 6.6% of initial actual body weight. It was deemed appropriate for the patient to now have bariatric surgery. In light of the current Covid-19 pandemic and the well documented strong association of obesity and increased risk of worse outcomes if infected with Covid-19 (REFERENCES: https://pubmed.ncbi.nlm.nih.gov/68968270/ ,? https://pubmed.ncbi.nlm.nih.gov/26835063/ ), any delay in undergoing bariatric surgery may lead to the patient's worsening health condition and increased?risk of more severe Covid-19 disease if infected. In addition a recent?study from [facility] published in [employer] on 09/05/2021 ([email or web address]) found that, among patients with obesity, substantial weight loss achieved with surgery was associated with improved outcomes of COVID-19 infection. The findings suggest that obesity can be a modifiable risk factor for the severity of COVID-19 infection. In addition, the patient met the BMI-criteria for bariatric surgery based on the BMI on initial presentation. The patient should not be penalized for achieving such weight loss because ?it is not sustainable long-term without surgical intervention and it was achieved in preparation for bariatric surgery ?under my direction and based on my published research ([email or web address]).[email or web address] and? http s://www.soard.org/article/[email or web address](05)[email or web address]-X/pdf ) ?that a 10% preoperative weight loss improves long-term weight loss after surgery and reduces perioperative complications.? Insurance carriers such as [facility] have endorsed my recommendations ?and have included in their policies criteria to include a 10% preoperative weight loss requirement. PROCEDURE: Esophago-gastroscopy, laparoscopic lysis of adhesions, laparoscopic sleeve gastrectomy and laparoscopic gastropexy INDICATIONS: This is a 26 year-old female who was electively scheduled for laparoscopic, possibly open sleeve gastrectomy. The risks and complications of the procedure were discussed with the patient in advance, particularly the possibility of ; pulmonary embolism; staple line leak; bleeding; GERD; cardiac, pulmonary, or renal complications; as well as long-term problems such as insufficient weight loss, vitamin deficiency, strictures, or ulcers. The patient understood all the risks, and was in agreement to proceed with surgery. DESCRIPTION OF PROCEDURE: After informed consent was obtained from the patient, the patient was given preoperative antibiotics, and was transferred to the operating room. After successful induction of general anesthesia, pneumatic compression devices were placed on both lower extremities. An upper endoscopy was performed next. The oropharynx and esophagus appeared to be within normal limits. There was no diaphragmatic hernia present consistent with the findings of the preoperative upper GI. The stomach was entered. Then after all fluid and air were suctioned and the stomach was fully decompressed, the scope was withdrawn and secured in the mid esophagus. The patient was then prepped and draped in the usual sterile manner, and abdominal access was established at the right upper quadrant with the Nandini technique. A 12 mm blunt port was inserted, and the abdomen was insufflated with CO2 to a pressure of 15 mmHg. Under direct visualization, additional ports were placed, specifically two 5 mm Versi-step ports to the left upper quadrant, and a 5 mm Versi-Step port to the right upper quadrant. 1% lidocaine plain was used to infiltrate all port sites as well as all fascia defects. Using the EndoClose suture passer device, I placed a #1 Polysorb tie across the falciform ligament in order to retract it up against the abdominal wall and prevent injury of the ligament with our instruments during the procedure. Following that, the patient was placed in a steep reverse Trendelenburg position. An additional 5 mm port was placed to the right flank for the Mediflex retractor that was used to retract the left lobe of the liver. There was significant hepatomegaly that made exposure to the hiatal area very difficult. Nevertheless adequate exposure was established. The gastro-esophageal fat pad was opened with the ultrasonic device (Thunderbeat, Olympus) and the anterior esophagus and hiatus were exposed. The angle of His was opened with the ultrasonic device the fundus of the stomach from any diaphragmatic and splenic attachments. I then opened the gastrocolic ligament between the transverse colon and the greater curvature of the stomach with the ultrasonic device to enter the lesser sac and facilitate the ligation of the short gastric vessels. I started at a mid-point along the greater curvature and using the Thunderbeat, all short ga stric vessels were divided all the way to the angle of His until the left sha was completely dissected at its entirety. This was extremely difficult. The patient had very large vessels especially in the upper pole of the spleen where a very large vessel twice the size of the expected was adherent to the posterior gastric wall. This required very tedious and careful dissection but eventually I was able to preserve the upper pole vessel and divide only the branches that were entering the gastric gall. The Thunderbeat was used to divide this vessel. Two pieces of Surgicel were left in the area prophylactically to reinforce the hemostasis. I then divided the gastro-colic ligament distally to a distance of about 3-4 cm proximal to the pylorus. There were also extensive congenital adhesions between the pancreas and posterior gastric wall.The posterior gastric wall was completely adherent to the pancreas and the lesser sac was completely obliterated. I was able to mobilize the posterior gastric wall off the pancreas. No injury occurred. Those were lysed completely with the ultrasonic device. Adhesiolysis took approximately 45 min to complete. The case was uniquely difficult due to the hepatomegaly, the dense posterior retrogastric adhesions and the large caliber upper pole splenic vessels as described previously. These prolonged the operation for an additional 70 minutes. The stomach was then divided transversely with two Endo NABIL-45 purple loads and five NABIL-45 articulating orange loads using the AEON stapler and loads. Every effort was made that the gastric sleeve had a tubular shape and an even caliber throughout. Once the sleeve resection was completed, the staple line of the gastric sleeve was reinforced with Hemoclips. The resected stomach was retrieved without difficulty from the Nandini port. A gastropexy was then performed in order to prevent postoperative GERD and partial gastric volvulus. Several interrupted 2.0 Surgidac sutures were placed between the sleeve's staple line and the previously divided greater omentum and gastro-colic ligament using the Endo-Stitch device. ?An upper endoscopy was performed. There was no narrowing at the GE junction. The scope was easily advanced all the way to the pylorus which was clearly visualized. There was no narrowing anywhere and the sleeve's caliber was even throughout. The sleeve's staple line was inspected and there was no evidence of ischemia, bleeding or dehiscence. At that point the gastroscope was withdrawn from the patient?s mouth while we were decompressing the bowel and the stomach from any remaining air. I looked into the lesser sac to see how the sleeve was situating and it was situating well. There was no bleeding from the staple line, spleen, or short gastric vessels. The Mediflex retractor was removed, and the undersurface of the liver was inspected and there was no bleeding. The patient was placed in supine position. I closed the fascial defect of the 12 mm port site with a figure of eight #1 Polysorb suture. Then 60cc of Ropivacaine plain with 10 mg of Dexamethasone were used to infiltrate the fascial closure as well as all skin incisions. At this point, the abdomen was deflated, all ports were removed under direct vision, and no bleeding was noted from any of the port sites. The skin incisions were irrigated with saline and were closed with 4-0 absorbable monofilament sutures. Steri-Strips and OpSites were used to cover all incisions. The patient was extubated and was transferred in stable condition to the recovery room for further care. I was present and performed all jacob parts of the procedure. Erika Brown was the certified surgical first assistant. There were no residents to assist with this case. Andrea Travis MD, PhD, FACS Surgeon: Reuben Travis MD Anesthesia: GETA, local and other (TAP block ) Was an Nuclear Process Engineer used for this Procedure?: No Nuclear Process Engineer: Julian Brown Estimated blood loss (mL): 10 IV fluids (mL): 3,000 Urine output (mL): 0 (No Yepez to record) Pathology: other (Stomach) Condition: stable Disposition: PACU
--- NOTE | 2022-05-02 13:11 | PM.PNGS ---
Subjective Subjective Date of Service: 05/03/22 Interval history: Patient has mild incisional pain, but was able to ambulate and use the incentive spirometer. She is tolerating phase 1 bariatric diet Physical Exam Vital Signs: Vital Signs: Last Vital Signs Temp 97.5 F 05/02/22 12:03 Pulse 81 05/02/22 12:03 Resp 18 05/02/22 12:03 BP 144/91 H 05/02/22 12:03 Pulse Ox 100 05/02/22 12:03 O2 Del Method 05/02/22 12:03 BMI result Body Mass Index 46.0 GI: Inspection: Yes normal to inspection, Yes incision (clean, dry and intact) and Yes obesity Extrem: Right lower extremity: normal to inspection (no calf tenderness) Left lower extremity: normal to inspection (no calf tenderness) Objective Data Active Medications Lactated Ringer's (Lr) 1,000 mls @ 999 mls/hr IV .Q1H1M JORGE Stop: 05/02/22 13:15 Last Admin: 05/02/22 12:02 Dose: 999 mls/hr Documented By: DEBBIE Lactated Ringer's (Lr) 1,000 mls @ 50 mls/hr IVCONT .Q20H [facility] Labs CBC & Chem 7: 05/03/22 05:16 05/03/22 05:16 Labs: Laboratory Results - last 24 hr 05/01/22 05/02/22 05/02/22 12:40 11:15 11:58 POC Glucose 91 Urine Test NEGATIVE COVID-19 (DICK) Negative COVID-19 Clin Com See Note Procedures Date of Service Date of Service: 05/03/22 Progress Note: A&P Assessment and plan (1) Morbid obesity: Status: Acute Assessment and Plan: s/p laparoscopic sleeve gastrectomy, lysis of adhesions and gastropexy Doing well Check am labs. If OK, will discharge home? (2) GERD (gastroesophageal reflux disease): Status: Acute (3) Insulin dependent type 2 diabetes mellitus: Status: Acute (4) TODD (generalized anxiety disorder): Status: Acute (5) Steatosis, liver: Status: Acute (6) Left atrial enlargement: Status: Acute (7) LVH (left ventricular hypertrophy): Status: Acute (8) S/P laparoscopic sleeve gastrectomy: Status: Acute (9) Intra-abdominal adhesions: Status: Acute (10) Congenital intra-abdominal adhesions: Status: Acute Time Spent With Patient Time: Total time spent is greater than 50% in coordination of care (as documented) at patient's floor/unit and/or counseling patient: Quality Stroke Does the patient have a stroke diagnosis?: No VTE Prior VTE?: No VTE Risk Level:: Surgical - moderate VTE Device Contraindication: N/A - Device Ordered VTE Drug Contraindication: Treatment Not Indicated
[2022-05-02] MEDS: ceFAZolin Sodium/Dextrose,Iso 2 GM/50 ML PIGGYBACK IV ×2 (13:33→19:34)
--- NOTE | 2022-05-02 16:47 | P.DS_ITS ---
DS: Providers Provider Date of Service: 05/03/22 Date of admission: 05/02/22 11:11 Primary care physician: Charity Juáerz MD DS: Diagnosis Discharge Diagnosis (1) Morbid obesity: Status: Acute (2) GERD (gastroesophageal reflux disease): Status: Acute (3) Insulin dependent type 2 diabetes mellitus: Status: Acute (4) TODD (generalized anxiety disorder): Status: Acute (5) Steatosis, liver: Status: Acute (6) Left atrial enlargement: Status: Acute (7) LVH (left ventricular hypertrophy): Status: Acute DS: Summary Hospital Course Hospital Course: ADMITTING DIAGNOSIS: morbid obesity, anxiety, depression, dm , htn ? DISCHARGE DIAGNOSIS: same, s/p laparoscopic sleeve gastrectomy ? PAST SURGICAL HISTORY: cholecystectomy ? PROCEDURE: upper endoscopy, laparoscopic sleeve gastrectomy ? DISCHARGE SUMMARY: ? History of Present Illness: ? The patient is a?26 year-old woman with a BMI of?48.8 kg/m2 and associated co- morbidities as described above. The patient had extensive work-up,lost?15 lbs pr eoperatively and was electively scheduled for laparoscopic, possible open sleeve gastrectomy and gastropexy. Risks and complications of the surgery were discussed with the patient in advance, particularly the possibility of , pulmonary embolism, anastomotic leak, bleeding, bowel injury, GERD, cardiac, renal or pulmonary complications. The patient understood all the risks and was in agreement with the surgical plan. ? Hospital Course: ? The patient underwent an uneventful laparoscopic sleeve gastrectomy with gastropexy on the day of admission. Postoperatively, the patient was transferred to the surgical floor. The patient received IV Acetaminophen and IV dilaudid for pain control. Patient was started on bariatric phase 1 diet POD #0. On postoperative day one, the patient was feeling well without nausea, vomiting, fevers, or tachycardia. The patient had some mild incisional pain and the abdomen was soft. She was found to have elevated blood pressures and upon d/c was started on Lisinopril. ? On the morning of postoperative day one, the patient was continued on 1 ounce of water or ice every half hour. During the day, the patient did fairly well, having some incisional pain, but able to ambulate adequately and to tolerate liquids well. ? Since the patient is doing well, we decided that the patient was ready to be discharged. The patient was given instructions to follow-up with me next week and to call my office for any fever over 101, persistent abdominal pain, nausea, vomiting, GERD, symptoms of DVT such as calf tenderness, or leg swelling, or pulmonary embolism such as chest pain or shortness of breath. The patient was also instructed to drink 40-60 ounces of liquids per day using the 1-ounce cups. The patient had been given prescriptions for Tylenol for pain, Zofran prn for nausea, and pantoprazole and carafate previously. The patient was encouraged to ambulate and use the incentive spirometer. The patient was allowed to shower, but no baths, and encouraged to stay active at home. All of these instructions were given to the patient personally. All questions were answered and the patient understood all instructions, the instructions were also given to the patient in print. Time Spent with Patient Time attestation: Total time spent providing and/or coordinating discharge services: Discharge coordination time: Less than 30 minutes Quality: Safe Use of Opioids Does Pt have an Active Cancer Diagnosis on the Problem List?: No Quality: Stroke Does the patient have a stroke diagnosis?: No Physical Exam Vital Signs: Vital Signs: Last Vital Signs Temp 97.5 F 05/02/22 12:03 Pulse 81 05/02/22 12:03 Resp 18 05/02/22 12:03 BP 144/91 H 05/02/22 12:03 Pulse Ox 100 05/02/22 12:03 O2 Del Method 05/02/22 12:03 BMI result Body Mass Index 46.0 DS: Data Data Completed and Pending Pending studies at discharge: Pending at discharge 05/02/22 16:10 Surgical [PTH] Routine Labs on day of discharge: Laboratory Results - last 24 hr 05/02/22 05/02/22 11:15 11:58 POC Glucose 91 Urine Test NEGATIVE Discharge Plan Discharge Patient Disposition: Home, Self-Care Discharge Diagnosis: s/p laparoscopic sleeve gastrectomy Referrals: Charity Willingham MD [Primary Care Provider] - 1 Week Discharge Medications: Continued (DME) pen needle, diabetic [1st Tier Unifine Pentips Plus] 31 gauge x 5/16 needle See Rx Instructions .ROUTE .MEDSUPPLY Qty: 100 11RF Rx Instructions: 4x a day insulin glargine [Lantus Solostar U-100 Insulin] 100 unit/mL (3 mL) insulin pen 45 unit subcut QPM Qty: 15 1RF (DME) blood-glucose meter [FreeStyle Lite Meter] Kit See Rx Instructions .Route Qty: 1 0RF Rx Instructions: as directed (DME) FreeStyle Lite Strips Strip See Rx Instructions .ROUTE .MEDSUPPLY Qty: 100 11RF Rx Instructions: 4x daily (DME) lancets [FreeStyle Lancets] 28 gauge misc See Rx Instructions .ROUTE .MEDSUPPLY Qty: 100 11RF Rx Instructions: 4x daily pantoprazole 40 mg tablet,delayed release (DR/EC) 40 mg PO DAILY Qty: 30 3RF sucralfate 100 mg/mL suspension 10 ml PO BID Qty: 400 3RF ondansetron HCl 4 mg tablet 4 mg PO Q6H PRN (Reason: nausea and vomiting) Qty: 20 0RF Held desogestrel-ethinyl estradiol [Apri] 0.15-0.03 mg tablet 1 tab PO DAILY 28 Days Qty: 28 2RF Hold Instructions: until discussed with Dr Travis insulin lispro 100 unit/mL insulin pen 15 unit subcut TID Hold Instructions: until discussed with Dr Travis Discontinued ferrous sulfate 325 mg (65 mg iron) tablet,delayed release (DR/EC) 325 mg PO BID 30 Days Qty: 60 1RF mecobalamin (vitamin B12) 1,000 mcg tablet,disintegrating 1,000 mcg sublingual DAILY Qty: 30 2RF Rx Instructions: place tablet under tongue and allow to dissolve for at least30 secs before swallowing cholecalciferol (vitamin D3) 1,250 mcg (50,000 unit) capsule 1,250 mcg PO QWEEK 56 Days Qty: 8 0RF cholecalciferol (vitamin D3) 50 mcg (2,000 unit) capsule 50 mcg PO DAILY Qty: 30 11RF polyethylene glycol 3350 [Miralax] 17 gram powder in packet 17 g PO DAILY Qty: 14 0RF Rx Instructions: 7 packets dissolved in 8 oz water each on 04/30/22. Repeat process on 05/01/22 No Action lisinopril 2.5 mg tablet 2.5 mg PO DAILY Qty: 30 2RF (DME) blood pressure monitor Kit See Rx Instructions .ROUTE .MEDSUPPLY Qty: 1 0RF Rx Instructions: As directed Discharge Orders: Discharge Order (Routine); Ordered 05/03/22 Ordered By: Reuben Travis Activity on Discharge: No heavy lifting Stand Alone Forms: Patient Portal Discharge page Care Plan Goals: weight loss Health Concerns: morbid obesity Plan of Treatment: No tub baths, sex or returning to work until discussed at first post op appointment. No exercise, alcohol, tobacco or illegal drug use. Continue to use incentive spirometer hourly while awake. Walk in home for 5- 10 minutes every 2 hours during the first week. Follow all instructions in the bariatric handbook and call with any questions.Discharge Instructions 1. Please call your doctor or come back to the emergency room should any new symptoms arise. 2. You will receive a courtesy call from [facility] [place] 24-48 hours after discharge. 3. Activity: abstain from alcohol, practice limited stair climbing, no bending, no driving, no exercise, no illicit substances, no lifting, no sex, no tub bath, no work. 4. Diet: continue as discussed with Dr. Travis. 5. Dressing Change/Wound Care: Your incision is covered by clear bandages and guaze underneath. If the area is tender, you may apply an ice pack for short intervals (no more than 20 minutes on, followed by at least 20 minutes off). Do not apply heat. Do not use creams, lotions, or topical antibiotics unless instructed to do so by your surgeon. These can cause infection or allergic reaction. 6. Call your doctor if: - Your temperature exceeds 101.5 F - You experience excessive pain or swelling - You have an unexpected reaction to medication - You have excessive bleeding - You experience continued vomiting/nausea - Your incision begins to separate - Your incision shows signs of infection such as increased redness, swelling, excessive pain, heat, or drainage (light blood or clear fluid is normal) 7. General instructions: No lifting greater than 5 lbs for the next 4 weeks[address] within 24 hours of taking narcotic pain medications. If you do not move your bowels in the next 2 days, please take milk of magnesia over the counter. Please follow the post op diet and do not advance your diet until you are seen in the office in about 2 weeks. Please walk around your home every hour or two to prevent blood clots from forming in your legs. You do not need to wake from sleeping to walk. Please sleep in a bed or couch to prevent kinking at the hips and knees. Please take your incentive spirometer (your lung vp director of finance) home with you and use it for the next few days to prevent pneumonias. You may shower, no hot tubs, baths or swimming pools. Please call the office with any questions or concerns such as increasing abdominal pain, fever, chills, shortness of breath, chest pain, leg pain or swelling, or redness or drainage from your incisions. Please stay on stage 3 diet which includes sugar free clear liquids such as ice pops and jello and broth and crystal light. Avoid all carbonation. Please drink 3 protein shakes with at least 25-30 grams of protein daily or 3 of the Celebrate 4:1 shakes which can be purchased in our office. The Celebrate shakes have all of the bariatric vitamins you need if you consume these shakes. If you are drinking other protein shakes, you will need to purchase the Celebrate multivitamins and calcium that we provide in the office (they will provide all the vitamins you need). Please make sure you are consuming at least 40-60 ounces of water in addition to your 3 protein shakes daily. Do not hesitate to contact the office with any questions at . The patient's medical history has been reviewed and they are considered low risk for post op DVT and therefore DVT prophylaxis is not considered necessary. Travel after surgery was reviewed. The patient has not disclosed any travel plans during the first 30 days after surgery and they have been advised that within the first 30 days after surgery any bus, plane, train or car travel over 2 hours in duration is contraindicated due to the possibility of developing blood clots from immobility. Any travel, needs to include periods of ambulation of 10 minutes in duration every 2 hours.? The patient was instructed to discuss any plans for travel during this period with their bariatric surgeon. Assessment: stable s/p laparoscopic sleeve gastrectomy Discharge Date/Time: 05/03/22 09:42
[2022-05-02] MEDS: HYDROmorphone HCl 0.5 MG/0.5 ML SYRINGE 0.25 MG IVPUSH ×4 (16:50→17:15)
[2022-05-02] MEDS: Famotidine/PF 20 MG/2 ML VIAL IVPUSH ×2 (17:02→22:01)
[2022-05-02] MEDS: Labetalol HCL 100 MG/20 ML VIAL 10 MG IVPUSH ×3 (17:40→18:10)
[2022-05-02 17:45] LABS: Anion Gap 17 (12-20); Blood Urea Nitrogen 5 mg/dL (9-16); Calcium 8.3 mg/dL (8.4-10.2); Carbon Dioxide 21 mmol/L (22-29); Chloride 103 mmol/L (96-108); Creatinine Clr Calc Pharmacy 149.9; Estimated Glomerular Filt Rate > 60; Glucose Random 177 mg/dL (60-115); Potassium 4.1 mmol/L (3.3-5.1); Sodium 137 mmol/L (135-145)
[2022-05-02] MEDS: Metoclopramide HCl 10 MG/2 ML VIAL IVPUSH (18:05)
[2022-05-02] MEDS: fentaNYL citrate/PF 100 MCG/2 ML VIAL 25 MCG IVPUSH ×2 (18:09→18:55)
[2022-05-02 18:56] LABS: Glucose, Whole Blood 204 mg/dL (60-115)
[2022-05-02] MEDS: Lactated Ringers 1,000 ML 125 ML IVCONT (19:03)
[2022-05-02] MEDS: Labetalol HCL 100 MG/20 ML VIAL 20 MG IVPUSH (19:05)
[2022-05-02] MEDS: Metoprolol Tartrate 5 MG in 0.9 % Sodium Chloride 50 ML 110 MG IV (19:58)
[2022-05-02 21:38] LABS: Glucose, Whole Blood 238 mg/dL (60-115)
[2022-05-02] MEDS: Insulin Glargine,Hum.rec.anlog 100 UNIT/ML 10 ML VIAL 20 UNIT SUBCUT (22:01)
[2022-05-02] MEDS: ondansetron HCL 4 MG/2 ML VIAL IVPUSH (22:01)
[2022-05-02] MEDS: Insulin Lispro 100 UNIT/ML 3 ML VIAL SUBCUT (22:02)
[2022-05-02] MEDS: 0.9 % Sodium Chloride Flush 3 ML SYRINGE IVFLUSH (22:02)
[2022-05-02 23:58] LABS: Glucose, Whole Blood 243 mg/dL (60-115)
[2022-05-03] MEDS: Insulin Lispro 100 UNIT/ML 3 ML VIAL SUBCUT ×3 (00:26→07:38)
[2022-05-03] MEDS: Metoprolol Tartrate 5 MG in 0.9 % Sodium Chloride 50 ML 110 MG IV ×2 (00:26→07:41)
[2022-05-03] MEDS: HYDROmorphone HCl 0.5 MG/0.5 ML SYRINGE 0.25 MG IVPUSH (00:26)
[2022-05-03] MEDS: Metoclopramide HCl 10 MG/2 ML VIAL IVPUSH (00:26)
[2022-05-03] MEDS: Lactated Ringers 1,000 ML 100 ML IVCONT (02:40)
[2022-05-03 03:36] LABS: Glucose, Whole Blood 246 mg/dL (60-115)
[2022-05-03 03:43] VITALS: BP 138/78; PULSE 96; RESP 18; TEMP 36.8; O2SAT 98
[2022-05-03] MEDS: ondansetron HCL 4 MG/2 ML VIAL IVPUSH (04:36)
[2022-05-03 05:52] LABS: MANUAL DIFF FLAG NO
[2022-05-03 05:59] LABS: Basophils Percent Auto 0.1 % (0-2); Hematocrit 29.2 % (37.0-47.0); Imm Gran Abs Auto 0.05 X10*3/uL (0.00-0.03); Imm Gran Pct Auto 0.4 % (0.0-0.4); Lymphocytes Absolute Auto 0.9 X10*3/uL (1.2-4.9); Lymphocytes Percent Auto 7.7 % (20-40); Mean Corpuscular HGB Conc 30.8 g/dl (31.0-35.0); Mean Corpuscular Hemoglobin 22.1 pg (27.0-33.0); Mean Corpuscular Volume 71.7 fL (80.0-98.0); Mean Platelet Volume 10.9 fL (9.4-12.3); Monocytes Absolute Auto 0.5 X10*3/uL (0.1-1.2); Monocytes Percent Auto 4.1 % (2-11); Neutrophils Absolute Auto 10.1 x10*3/uL (2.0-8.3); Neutrophils Percent Auto 87.7 % (45-73); Platelet Count 385 X10*3/uL (160-400); Red Blood Count 4.07 X10*6/uL (4.20-5.50); Red Cell Distribution Width 14.5 % (11.0-16.0); White Blood Count 11.5 X10*3/uL (4.8-10.8)
[2022-05-03 06:16] LABS: Anion Gap 15 (12-20); Blood Urea Nitrogen 3 mg/dL (9-16); Calcium 8.1 mg/dL (8.4-10.2); Carbon Dioxide 20 mmol/L (22-29); Chloride 101 mmol/L (96-108); Creatinine Clr Calc Pharmacy 172.8; Estimated Glomerular Filt Rate > 60; Glucose Random 241 mg/dL (60-115); Potassium 4.1 mmol/L (3.3-5.1); Sodium 132 mmol/L (135-145)
[2022-05-03 06:58] VITALS: BP 148/90; PULSE 90; RESP 16; TEMP 36.1; O2SAT 100
[2022-05-03 07:06] LABS: Glucose, Whole Blood 215 mg/dL (60-115)
--- NOTE | 2022-05-03 07:07 | PC.NURSE ---
pt c/o 06/19 pain, Reglan given at 0026, dilaudid given after and pt vomited about 1 minutes after dilaudid was given. pt continued to ask for pain meds throughout the night but I was hesitant to give because of the vomiting after the 0026 dose. encouraged pt to walk and she walked 2x in the hallway overnight. hot packs were given for her back pain.
[2022-05-03] MEDS: Famotidine/PF 20 MG/2 ML VIAL IVPUSH (07:34)
--- NOTE | 2022-05-03 08:44 | MHC.CM.PN ---
PATIENT LIVES WITH FAMILY, IS INDEPENDENT AT HOME AND COMMUNITY, DENIES USE OF DME OR RECEIVING HOME SERVICES, GREG BOYLE[employer]D X 2 PFIZER, PCP VERONA VILLAVICENCIO, HCP-PATIENT EDUCATED, SHE DECLINED TO COMPLETE ONE AT THIS TIME, FAMILY WILL TRANSPORT HOME. D/C PLAN: HOME SELF-CARE
--- NOTE | 2022-05-03 09:30 | MHC.CM.PN ---
PATIENT HAS BEEN MEDICALLY CLEARED FOR DISCHARGE TODAY; DISCHARGE DISPOSITION IS HOME SELF-CARE. FAMILY WILL TRANSPORT.
--- NOTE | 2022-05-03 10:32 | HO.POSTANES ---
Post Anesthesia Evaluation Post Anesthesia Evaluation Vital Signs: Vital Signs Temp Pulse Resp BP Pulse Ox O2 Del Method O2 Flow Rate 05/03/22 06:58 97 F 90 16 148/90 H 100 Nasal Cannula 2 05/03/22 03:43 98.3 F 96 18 138/78 98 Nasal Cannula 3 05/02/22 23:56 98.1 F 91 18 140/98 H 98 Room Air 2 Anesthesia: General Endotracheal-GETA Mental Status: Awake Pain Control: Satisfactory (mild incisional pain) Nausea/Vomiting: None Hydration: Adequate Anesthesia-Related Issues: No Anes. Related Issues
== END 2022-05-03 09:42 | disposition home or self-care (01) | DRG 403 ==
LOC: HO.SSSA 16:51 → HO.S3 16:55
PROVIDERS: Anesthesiology; Physician Assistant Surgical; Admitting Provider Surgery; PCP Internal Medicine; Visit Provider Surgery
PROC: 0DB64Z3 Excision of Stomach, Percutaneous Endoscopic Approach, Vertical (ICD-10-PCS; CPT 43845; principal; 2022-05-02 12:50)
DX: E66.01 Morbid (severe) obesity due to excess calories (principal); N25.81 Secondary hyperparathyroidism of renal origin; K74.00 Hepatic fibrosis, unspecified; K76.0 Fatty (change of) liver, not elsewhere classified; E78.5 Hyperlipidemia, unspecified; K21.9 Gastro-esophageal reflux disease without esophagitis; I10 Essential (primary) hypertension; F41.1 Generalized anxiety disorder; E11.9 Type 2 diabetes mellitus without complications; K66.0 Peritoneal adhesions (postprocedural) (postinfection); E55.9 Vitamin D deficiency, unspecified; N62 Hypertrophy of breast; Z20.822 Contact with and (suspected) exposure to COVID-19; Z68.41 Body mass index [BMI] 40.0-44.9, adult; Z91.041 Radiographic dye allergy status; Z79.4 Long term (current) use of insulin; Z79.899 Other long term (current) drug therapy
CPT/HCPCS: 36415; 80048; 80061; 81025; 82947; 84443; 85014; 85018; 85025; 85610; 85730; 86140; 86850; 86900; 86901; 87635; 88307; 88342; A4649; C9088; J0131; J0690; J1100; J1170; J2250; J2405; J2550; J2765; J2795; J3010

== ENCOUNTER → 2022-05-10 13:42 | Outpatient (BNVA) | payer OTHER, SELFPAY | PROVIDERS: PCP Internal Medicine; Visit Provider Obstetrics & Gynecology | DX: N93.9 Abnormal uterine and vaginal bleeding, unspecified (principal); Z32.02 Encounter for pregnancy test, result negative | CPT/HCPCS: 81025; 99212 ==

== ENCOUNTER 2022-06-05 11:09 | Outpatient (REF) | payer OTHER, SELFPAY ==
[2022-06-05 17:21] LABS: CT PCR NOT DETECTED (Not Detect.); NG PCR NOT DETECTED (Not Detect.)
== END 2022-06-05 11:10 | disposition home or self-care (01) ==
LOC: HO.LNP 11:09
PROVIDERS: PCP Internal Medicine; Visit Provider Obstetrics & Gynecology
DX: Z30.430 Encounter for insertion of intrauterine contraceptive device (principal); Z32.02 Encounter for pregnancy test, result negative; Z11.3 Encounter for screening for infections with a predominantly sexual mode of transmission
CPT/HCPCS: 58300; 81025; 87491; 87591; J7298

== ENCOUNTER → 2022-06-06 08:57 | Outpatient (BNVA) | payer OTHER, SELFPAY | PROVIDERS: PCP Internal Medicine; Visit Provider Internal Medicine | DX: E11.65 Type 2 diabetes mellitus with hyperglycemia (principal); E78.5 Hyperlipidemia, unspecified; I10 Essential (primary) hypertension; N25.81 Secondary hyperparathyroidism of renal origin; N93.9 Abnormal uterine and vaginal bleeding, unspecified; E55.9 Vitamin D deficiency, unspecified; E04.9 Nontoxic goiter, unspecified; Z79.4 Long term (current) use of insulin | CPT/HCPCS: 82947; 95250; 99212 ==

== ENCOUNTER 2022-07-05 09:59 | Outpatient (REF) | payer OTHER, SELFPAY ==
[2022-07-05 10:51] LABS: Hemoglobin 9.3 g/dl (12.0-16.0); Mean Corpuscular Hemoglobin 20.6 pg (27.0-33.0); Mean Corpuscular Volume 68.6 fL (80.0-98.0); Mean Platelet Volume 11.2 fL (9.4-12.3); Platelet Count 232 X10*3/uL (160-400); Red Blood Count 4.52 X10*6/uL (4.20-5.50); Red Cell Distribution Width 17.1 % (11.0-16.0); White Blood Count 8.4 X10*3/uL (4.8-10.8)
== END 2022-07-05 10:00 | disposition home or self-care (01) ==
LOC: HO.LAB 09:59
PROVIDERS: PCP Internal Medicine; Visit Provider Obstetrics & Gynecology
DX: D64.9 Anemia, unspecified (principal); Z30.431 Encounter for routine checking of intrauterine contraceptive device
CPT/HCPCS: 36415; 85027; 99212

== ENCOUNTER → 2022-10-03 14:36 | Outpatient (BNVA) | payer OTHER, SELFPAY | PROVIDERS: PCP Internal Medicine; Visit Provider Physician Assistant Surgical | DX: E66.9 Obesity, unspecified (principal); Z98.84 Bariatric surgery status ==

== ENCOUNTER → 2022-10-27 14:00 | Outpatient (BNVA) | payer OTHER, SELFPAY | PROVIDERS: PCP Internal Medicine; Visit Provider Physician Assistant | DX: Z13.89 Encounter for screening for other disorder (principal) ==

== ENCOUNTER 2022-12-19 09:04 | Outpatient (REF) | payer OTHER, SELFPAY ==
[2022-12-19 10:51] LABS: Estimated Average Glucose 177 mg/dL; Hemoglobin A1c % 7.8 %
[2022-12-19 11:31] LABS: Alanine Aminotransferase 11 U/L (0-31); Albumin Level 3.9 g/dL (3.5-5.0); Alkaline Phosphatase 77 U/L (39-117); Anion Gap 11 (12-20); Aspartate Amino Transferase 13 U/L (5-31); Bilirubin Total 0.5 mg/dL (0.0-1.0); Blood Urea Nitrogen 6 mg/dL (9-16); Calcium 8.6 mg/dL (8.4-10.2); Carbon Dioxide 25 mmol/L (22-29); Chloride 105 mmol/L (96-108); Cholesterol 112 mg/dL; Estimated Glomerular Filt Rate > 60; Glucose Random 160 mg/dL (60-115); HDL Cholesterol 28 mg/dL; LDL Cholesterol Calculated 76 mg/dl; Potassium 4.1 mmol/L (3.3-5.1); Sodium 137 mmol/L (135-145); Total Protein 7.1 g/dL (6.5-8.0); Triglycerides 42 mg/dL
[2022-12-19 11:38] LABS: Free T4 (Free Thyroxine) 1.06 ng/dL (0.71-1.85); Iron 27 mcg/dL (30-160); Percent Iron Saturation 8 % (15-50); Thyroid Stimulating Hormone 1.29 uIU/mL (0.32-4.0); Total Iron Binding Capacity 345 mcg/dL (228-428); Unsaturated Iron Binding 318 ug/dL; Vitamin D 25-OH Total 15.3 ng/mL (>30)
[2022-12-19 11:55] LABS: Ferritin 6 ng/mL (10-122); Folate 5.3 ng/mL (> or = 4.0); Vitamin B12 528 pg/mL (200-900)
[2022-12-19 12:25] LABS: Creatinine Urine 177.63 mg/dL; Microalbum/Creatinine Ratio Ur 10.6 ug/mg cr
[2022-12-20 13:49] LABS: Calcium (PTHI) 8.8 mg/dL (8.6-10.2); PTHI 72 pg/mL (16-77)
[2022-12-21 00:44] LABS: LDL Cholesterol Direct 68 mg/dL (<100)
[2022-12-23 15:24] LABS: Zinc 76 mcg/dL (60-130)
[2022-12-25 13:24] LABS: Vitamin B1 7 nmol/L (8-30)
[2022-12-26 06:23] LABS: Vitamin A 13 mcg/dL (38-98)
== END 2022-12-19 09:05 | disposition home or self-care (01) ==
LOC: HO.LAB 09:04
PROVIDERS: Physician Assistant Surgical; Absent Provider Internal Medicine; PCP Internal Medicine; Visit Provider Internal Medicine
DX: E66.9 Obesity, unspecified (principal); E55.9 Vitamin D deficiency, unspecified; E04.9 Nontoxic goiter, unspecified; E11.65 Type 2 diabetes mellitus with hyperglycemia; Z79.4 Long term (current) use of insulin; Z98.84 Bariatric surgery status
CPT/HCPCS: 36415; 80053; 80061; 82043; 82306; 82607; 82728; 82746; 83036; 83540; 83721; 83970; 84425; 84439; 84443; 84590; 84630

== ENCOUNTER → 2022-12-20 11:12 | Outpatient (BNVA) | payer OTHER, SELFPAY | PROVIDERS: PCP Internal Medicine; Visit Provider Internal Medicine | DX: E11.65 Type 2 diabetes mellitus with hyperglycemia (principal); E78.5 Hyperlipidemia, unspecified; E55.9 Vitamin D deficiency, unspecified; E04.9 Nontoxic goiter, unspecified; I10 Essential (primary) hypertension; N25.81 Secondary hyperparathyroidism of renal origin; N93.9 Abnormal uterine and vaginal bleeding, unspecified; Z79.4 Long term (current) use of insulin | CPT/HCPCS: 82947; 99212 ==

== ENCOUNTER → 2023-01-08 16:56 | Outpatient (BNVA) | payer OTHER, SELFPAY | PROVIDERS: PCP Internal Medicine; Visit Provider Physician Assistant | DX: E11.65 Type 2 diabetes mellitus with hyperglycemia (principal); Z79.4 Long term (current) use of insulin ==

== ENCOUNTER 2023-02-13 08:43 | Outpatient (REF) | payer OTHER, SELFPAY ==
[2023-02-13 14:32] LABS: CT PCR NOT DETECTED (Not Detect.); NG PCR NOT DETECTED (Not Detect.)
== END 2023-02-13 08:44 | disposition home or self-care (01) ==
LOC: HO.LNP 08:43
PROVIDERS: PCP Internal Medicine; Visit Provider Obstetrics & Gynecology
DX: Z32.02 Encounter for pregnancy test, result negative (principal); R10.2 Pelvic and perineal pain
CPT/HCPCS: 0353U; 81025; 99212

== ENCOUNTER → 2023-02-19 10:58 | Outpatient (BNV) | payer OTHER, SELFPAY | PROVIDERS: PCP Internal Medicine; Visit Provider Internal Medicine Medical Oncology | DX: D50.9 Iron deficiency anemia, unspecified (principal) | CPT/HCPCS: 99213; 99214 ==

== ENCOUNTER 2023-03-06 13:22 | Outpatient (REF) | payer OTHER, SELFPAY | END 2023-03-06 13:23 | disposition home or self-care (01) | LOC: HO.MDS 13:22 | PROVIDERS: Visit Provider Internal Medicine Medical Oncology | DX: D50.9 Iron deficiency anemia, unspecified (principal) | CPT/HCPCS: 96365; J1756 ==

== ENCOUNTER 2023-03-07 14:26 | Outpatient (REF) | payer OTHER, SELFPAY ==
--- NOTE | ~2023-03-07 | US_ITS ---
EXAMINATION: US PELVIS CLINICAL INFORMATION: Pelvic and perineal pain; the last menstrual period was on 02/27/2023. COMPARISON: None available. TECHNIQUE: Ultrasound of the pelvis is performed using both transabdominal and transvaginal transducers along with Doppler. Transvaginal imaging is performed due to inadequate visualization transabdominally. FINDINGS: Uterus: The uterus is anteverted and anteflexed. The uterus measures 9.5 x 4.3 x 5.2 cm. The double wall endometrial thickness is 3 mm. An intrauterine device is seen, situated somewhat low in the region of the lower uterine segment and cervix. The uterus is smooth in contour and has normal myometrial echogenicity. No visible fibroid. Adnexa: Both ovaries are visualized. There is normal color flow to the adnexa. There is no ovarian torsion. There is a small amount of nonspecific free fluid in the cul-de-sac. Right ovary measures 3.6 x 2.9 x 2.6 cm, volume 14.2 mL. The right ovary contains a 2.8 cm maximal diameter dominant simple follicle. Left ovary measures 3.7 x 2.1 x 2.3 cm, volume 9.4 mL. US/US pelvic and transvaginal IMPRESSION: 1. An intrauterine device is seen, situated somewhat low in the region of the lower uterine segment and cervix. 2. A 2.8 cm benign, simple dominant right ovarian follicle is seen. This requires no imaging follow-up. 3. There is a small amount nonspecific free fluid in the cul-de-sac.
== END 2023-03-07 14:27 | disposition home or self-care (01) ==
LOC: HO.US 14:26
PROVIDERS: PCP Internal Medicine; Visit Provider Obstetrics & Gynecology
DX: R10.2 Pelvic and perineal pain (principal)
CPT/HCPCS: 76830; 76856

== ENCOUNTER → 2023-03-09 14:20 | Outpatient (BNVA) | payer OTHER, SELFPAY | PROVIDERS: PCP Internal Medicine; Visit Provider Obstetrics & Gynecology | DX: Z30.432 Encounter for removal of intrauterine contraceptive device (principal); N93.9 Abnormal uterine and vaginal bleeding, unspecified; T83.32XA Displacement of intrauterine contraceptive device, initial encounter | CPT/HCPCS: 58301; 99212 ==

== ENCOUNTER 2023-03-19 13:12 | Outpatient (REF) | payer OTHER, SELFPAY | END 2023-03-19 13:13 | disposition home or self-care (01) | LOC: HO.MDS 13:12 | PROVIDERS: Visit Provider Internal Medicine Medical Oncology | DX: D50.9 Iron deficiency anemia, unspecified (principal) | CPT/HCPCS: 96365; J1756 ==

== ENCOUNTER 2023-04-04 14:26 | Outpatient (REF) | payer OTHER, SELFPAY | END 2023-04-04 14:27 | disposition home or self-care (01) | LOC: HO.MDS 14:26 | PROVIDERS: Visit Provider Internal Medicine Medical Oncology | DX: D50.8 Other iron deficiency anemias (principal) | CPT/HCPCS: 96365; J1756 ==

== ENCOUNTER 2023-04-09 08:38 | Outpatient (AMB) | payer OTHER, SELFPAY ==
--- NOTE | 2023-04-09 08:39 | A.OFFVIS_ITS ---
Intake Intake Visit Reasons: DM Allergies Iodinated Contrast Media [IV CONTRAST] Allergy (Intermediate, Verified 04/09/23 09:28) HIVES Medication List - Last Reconciled 04/09/23 by Nena Duarte, blood pressure monitor As directed blood sugar diagnostic (FreeStyle Lite Strips) 4x daily blood-glucose meter (FreeStyle Lite Meter kit) as directed cholecalciferol (vitamin D3) 50 mcg PO DAILY 90 days cholecalciferol (vitamin D3) 1,250 mcg PO QWEEK 8 weeks insulin glargine (Lantus Solostar U-100 Insulin) 25 units subcut QPM lancets (FreeStyle Lancets) 4x daily medroxyprogesterone (Depo-Provera) 150 mg IM [id number] multivitamin 1 tab PO DAILY pen needle, diabetic (1st Tier Unifine Pentips Plus) 4x a day sumatriptan succinate 25 mg PO Q2-4H PRN 30 days vitamin A palmitate 3,000 mcg PO DAILY HPI HPI Comments History of Present Illness Details 27 YO F with PMHx T2DM, secondary hyperparathyroidism who is seen in F/U. 1. T2DM: Initially diagnosed with T2DM in 2016 when she was hospitalized for pancreatitis due to gallstones. She later had a cholecystectomy. Was initially started on treatment with Metformin and insulin. She did formerly follow up with Endocrinology at [facility], but then was lost to F/U for over a year. Does have diarrhea with Metformin. She did recently have bariatric surgery with the gastric sleeve and has been able to decrease her insulin doses. Current regimen is Lantus 25 units qHS. She also uses Humalog 5 units as needed for hyperglycemia. Regimen was adjusted by her bariatric surgeon. Has not been checking sugars at all. Most recent A1C: 7.8% 12/19/2022, up from 6.2% 04/21/2022, down from 6.8% 12/08/2021. Family history of T2DM in her mother. She does have 2 children, and denies any history of GDM. Did have T2DM during her 2nd . Son was born LGA at 9 pounds. No issues of hypoglycemia after and required no time in the NICU. Has eyes checked yearly, last eye exam 10/2022, denies retinopathy. No history of neuropathy. Does not see podiatry. No history of nephropathy, not on LALITA/ARB. UAC 10.6 12/19/2022. Not on statin. LDL 76 12/19/2022. Denies history of CAD. She is sexually active, but does have an IUD in place. 2. Hyperparathyroidism: She has lab evidence of secondary hyperparathyroidism. Has never had kidney stones. Has never broken a bone. No family history of nephrolithiasis. Labs revealed evidence of secondary hyperparathyroidism. Vitamin D remains low. Menses currently regular. Labs: Laboratory Tests 02/19/23 11:33 Creatinine 0.63 Estimated GFR > 60 PFSH Medical History Abnormal uterine bleeding Anxiety Binge eating disorder COVID-19 GERD (gastroesophageal reflux disease) Goiter History of blood transfusion HLD (hyperlipidemia) HTN (hypertension) Hypertension Macromastia Morbid obesity Pre-op evaluation Secondary hyperparathyroidism T2DM (type 2 diabetes mellitus) Transaminitis Vitamin A deficiency Vitamin B12 deficiency Vitamin D deficiency Vitamin D deficiency Well woman exam Surgical History Hx of cholecystectomy Hx of gastric bypass Presence of pancreatic duct stent Family History Father Hypertension High cholesterol Mother Hypertension Diabetes High cholesterol Brother No problems noted. Brother No problems noted. Son No problems noted. Daughter No problems noted. 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 multi care technician to a significant other at home: Yes (2 children) Do you presently have visiting nurse or other home services: No Alcohol intake: never Patient Tobacco Use Status: Never used Tobacco e-Cigarette/Vaping Use: Never Used Second Hand Smoke Exposure: No service: No Current occupational status: unemployed Cognitive needs: No Hearing needs: No Vision needs: Yes Female Reproductive History Menstrual Age of Menarche: 10 Assessment & Plan Assessment & Plan (1) T2DM (type 2 diabetes mellitus): Code(s): E11.9 - Type 2 diabetes mellitus without complications Qualifiers: Diabetes mellitus 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 She is not checking her sugars at all. Her bariatric surgeon has been adjusting her Diabetes medications without reviewing sugars and with no communication with Endocrinology. The patient states she does not wish to follow with her bariatric surgeon for her Diabetes management. I advised her not to make any adjustments to her regimen without reviewing with us as this can lead to profound hypoglycemia. I advised she check her sugars 3x per day and bring her meter for me to review in 2 weeks time. I will call with adjustments. The importance of adherence to prescribed regimen was discussed with the patient including checking finger sticks 2 times per day, using medication as prescribed, monitoring for hypoglycemia and treating any episode of hypoglycemia according to the rule of 15's. The signs and symptoms of hypoglycemia were reviewed in detail, as well as the rule of 15's to treat. Proper foot care was also discussed with the patient, and the importance of yearly dilated eye exam. The patient was asked to have copy of eye exam sent to our office for review. All of her questions were answered. She is in agreement with this plan of care. I spent 20 minutes in reviewing the record, seeing the patient and documenting in the medical record, including 5 minutes on the phone with the Patient. (2) HLD (hyperlipidemia): Code(s): E78.5 - Hyperlipidemia, unspecified Qualifiers: Hyperlipidemia type: unspecified Qualified Code(s): E78.5 - Hyperlipidemia, unspecified Plan: Patient is considering conception in the near future. Statin contraindicated due to teratogenic profile. (3) HTN (hypertension): Code(s): I10 - Essential (primary) hypertension Qualifiers: Hypertension type: unspecified Qualified Code(s): I10 - Essential (primary) hypertension Plan: Patient is considering conception in the near future. LALITA/ARB contraindicated due to teratogenic profile. (4) Secondary hyperparathyroidism: Code(s): N25.81 - Secondary hyperparathyroidism of renal origin Plan: She has secondary hyperparathyroidism. Will replete Vitamin D >30 and then repeat levels. (5) Abnormal uterine bleeding: Comment: PCOS Code(s): N93.9 - Abnormal uterine and vaginal bleeding, unspecified Plan: Resolved. Now has monthly menses. Has IUD in place. (6) Vitamin D deficiency: Code(s): E55.9 - Vitamin D deficiency, unspecified Plan: Vitamin D levels are very low, and the Patient needs to start high dose replacement. We will start Vitamin D 50,000 IU once a week to be continued for 8 weeks, and Vitamin D 2000 IU daily to be continued indefinitely. Will repeat levels after next visit. (7) Goiter: Code(s): E04.9 - Nontoxic goiter, unspecified Plan: Will check a thyroid US. She did not complete this after her last visit. Coding Level of Care Code Tele Est Pt Level 3 (32717) Diagnoses T2DM (type 2 diabetes mellitus) E11.65; Z79.4 Diabetes mellitus chcf insulin use: with chcf use Diabetes mellitus complication status: with hyperglycemia HLD (hyperlipidemia) E78.5 Hyperlipidemia type: unspecified HTN (hypertension) I10 Hypertension type: unspecified Secondary hyperparathyroidism N25.81 Abnormal uterine bleeding N93.9 Vitamin D deficiency E55.9 Goiter E04.9
== END 2023-04-09 09:37 | disposition home or self-care (01) ==
LOC: HO.ENCR 08:38
PROVIDERS: PCP Internal Medicine; Visit Provider Internal Medicine
DX: E11.65 Type 2 diabetes mellitus with hyperglycemia (principal); Z79.4 Long term (current) use of insulin; E78.5 Hyperlipidemia, unspecified; I10 Essential (primary) hypertension; N25.81 Secondary hyperparathyroidism of renal origin; N93.9 Abnormal uterine and vaginal bleeding, unspecified; E55.9 Vitamin D deficiency, unspecified; E04.9 Nontoxic goiter, unspecified
CPT/HCPCS: 99213

== ENCOUNTER → 2023-04-09 08:38 | Outpatient (BNVA) | payer OTHER, SELFPAY | PROVIDERS: PCP Internal Medicine; Visit Provider Internal Medicine ==

== ENCOUNTER 2023-04-19 14:20 | Outpatient (REF) | payer OTHER, SELFPAY ==
[2023-04-19 14:36] LABS: MANUAL DIFF FLAG NO
[2023-04-19 14:38] LABS: Basophils Percent Auto 0.3 % (0-2); Eosinophils Absolute Auto 0.1 X10*3/uL (0.0-0.4); Hematocrit 33.6 % (37.0-47.0); Hemoglobin 10.5 g/dl (12.0-16.0); Imm Gran Abs Auto 0.03 X10*3/uL (0.00-0.03); Imm Gran Pct Auto 0.3 % (0.0-0.4); Lymphocytes Absolute Auto 2.5 X10*3/uL (1.2-4.9); Lymphocytes Percent Auto 27.4 % (20-40); Mean Corpuscular HGB Conc 31.3 g/dl (31.0-35.0); Mean Corpuscular Hemoglobin 23.9 pg (27.0-33.0); Mean Corpuscular Volume 76.5 fL (80.0-98.0); Monocytes Absolute Auto 0.6 X10*3/uL (0.1-1.2); Monocytes Percent Auto 6.3 % (2-11); Neutrophils Percent Auto 64.7 % (45-73); Platelet Count 282 X10*3/uL (160-400); Red Blood Count 4.39 X10*6/uL (4.20-5.50); Red Cell Distribution Width 19.6 % (11.0-16.0); White Blood Count 9.2 X10*3/uL (4.8-10.8)
[2023-04-19 15:18] LABS: Ferritin 33 ng/mL (10-122)
== END 2023-04-19 14:21 | disposition home or self-care (01) ==
LOC: HO.MDS 14:20
PROVIDERS: Visit Provider Internal Medicine Medical Oncology
DX: D50.8 Other iron deficiency anemias (principal)
CPT/HCPCS: 36415; 82728; 85025; 96365; J1756

== ENCOUNTER 2023-04-26 14:17 | Outpatient (REF) | payer OTHER, SELFPAY | END 2023-04-26 14:18 | disposition home or self-care (01) | LOC: HO.MDS 14:17 | PROVIDERS: Visit Provider Internal Medicine Medical Oncology | DX: D50.8 Other iron deficiency anemias (principal) | CPT/HCPCS: 96365; J1756 ==

== ENCOUNTER 2023-05-10 10:52 | Outpatient (REF) | payer OTHER, SELFPAY | END 2023-05-10 10:53 | disposition home or self-care (01) | LOC: HO.MDS 10:52 | PROVIDERS: Visit Provider Internal Medicine Medical Oncology | DX: D50.9 Iron deficiency anemia, unspecified (principal) | CPT/HCPCS: 96365; J1756 ==

== ENCOUNTER 2023-05-22 07:46 | Outpatient (AMB) | payer OTHER, SELFPAY ==
[2023-05-22 07:59] VITALS: BP 118/70; BMI 37.9
--- NOTE | 2023-05-22 07:59 | MHC.OFFVIS ---
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 No complaints. Last Pap smear was done in 11/29 was negative [facility] Medical History Goiter Goiter Hypertension History of blood transfusion Pre-op evaluation Abnormal uterine bleeding Well woman exam COVID-19 Vitamin B12 deficiency Vitamin D deficiency Vitamin A deficiency Binge eating disorder Anxiety GERD (gastroesophageal reflux disease) Morbid obesity Transaminitis Macromastia Secondary hyperparathyroidism Vitamin D deficiency HLD (hyperlipidemia) HTN (hypertension) T2DM (type 2 diabetes mellitus) Surgical History Hx of gastric bypass Presence of pancreatic duct stent Hx of cholecystectomy Family History Father Hypertension High cholesterol Mother Hypertension Diabetes High cholesterol Brother No problems noted. Brother No problems noted. Son No problems noted. Daughter No problems noted. 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 childcare center administrator to a significant other at home: Yes (2 children) Do you presently have visiting nurse or other home services: No Alcohol intake: never Patient Tobacco Use Status: Never used Tobacco e-Cigarette/Vaping Use: Never Used Second Hand Smoke Exposure: No service: No Current occupational status: unemployed Cognitive needs: No Hearing needs: No Vision needs: Yes Female Reproductive History Menstrual Age of Menarche: 10 Date of last menstrual period: 04/29/23 control method: none Total pregnancies: 2 Full term: 2 Number of Living Children: 2 Date of last pap smear: 11/08/21 Review of Systems Const All systems reviewed & are unremarkable except as noted in HPI and below Card Reports as per HPI Resp Reports as per HPI GI Reports as per HPI and Reports no additional complaints Reports as per HPI Physical Exam Const General: cooperative, healthy appearing and comfortable Chest Chest palpation & inspection: normal inspection of the chest and normal palpation of entire chest wall Breast/axilla inspection: normal inspection of the breasts and normal inspection of the axillae Breast/axilla palpation: normal palpation of the breasts, normal palpation of the axillae and no axillary lymphadenopathy Resp Effort & Inspection: normal respiratory effort Auscultation: clear to auscultation bilaterally Percussion: percussion normal Cardio Palpation: normal PMI Rate: regular rate Rhythm: regular rhythm Heart sounds: no murmurs and no rubs Peripheral pulses: Peripheral pulses 2+ throughout GI Inspection: Yes normal to inspection Palpation (GI): Soft to palpation, nontender, no guarding, not rigid and No hepatosplenomegaly present Percussion: Yes normal to percussion Auscultation: normal bowel sounds Rectal Exam - Female: deferred General: Yes bladder normal to palpation External Female Exam: No lesion Speculum Exam - Vagina: normal appearance of the vagina, normal palpation, normal vaginal discharge and not erythematous Speculum Exam - Cervix: normal appearance of the cervix and normal palpation Bimanual exam- vagina & uterus: normal bimanual exam, normal palpation, uterine size normal, bladder normal to palpation, consistency normal and normal palpation Bimanual Exam- Adnexa, other: normal adnexae, no masses and no tenderness Assessment & Plan Assessment & Plan (1) Well woman exam: Code(s): Z01.419 - Encounter for gynecological examination (general) (routine) without abnormal findings Plan: Pap smear not indicated this. Counseled the patient about the recommended dietary allowance of 1000 mg of Calcium & 600 IU of vitamin D. The patient was instructed to perform monthly self-breast exams , to call for any changes in menstrual patterns and to schedule an annual exam in a year; all questions answered and the patient verbalized understanding. Coding Level of Care Code Est Pt Prev Care 18-39y(29625) Diagnoses Well woman exam Z01.419
== END 2023-05-22 08:14 | disposition home or self-care (01) ==
PROVIDERS: PCP Internal Medicine; Visit Provider Obstetrics & Gynecology
DX: Z01.419 Encounter for gynecological examination (general) (routine) without abnormal findings (principal)
CPT/HCPCS: 99395

== ENCOUNTER → 2023-05-22 07:46 | Outpatient (BNVA) | payer OTHER, SELFPAY | PROVIDERS: PCP Internal Medicine; Visit Provider Obstetrics & Gynecology ==

== ENCOUNTER 2023-05-28 07:29 | Outpatient (AMB) | payer OTHER, SELFPAY ==
--- NOTE | 2023-05-28 07:30 | A.OFFVIS_ITS ---
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 Her periods are regular and non-painful, no other complaints. [facility] Medical History Goiter Goiter Hypertension History of blood transfusion Pre-op evaluation Abnormal uterine bleeding Well woman exam COVID-19 Vitamin B12 deficiency Vitamin D deficiency Vitamin A deficiency Binge eating disorder Anxiety GERD (gastroesophageal reflux disease) Morbid obesity Transaminitis Macromastia Secondary hyperparathyroidism Vitamin D deficiency HLD (hyperlipidemia) HTN (hypertension) T2DM (type 2 diabetes mellitus) Surgical History Hx of gastric bypass Presence of pancreatic duct stent Hx of cholecystectomy Family History Father Hypertension High cholesterol Mother Hypertension Diabetes High cholesterol Brother No problems noted. Brother No problems noted. Son No problems noted. Daughter No problems noted. 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 career professional to a significant other at home: Yes (2 children) Do you presently have visiting nurse or other home services: No Alcohol intake: never Patient Tobacco Use Status: Never used Tobacco e-Cigarette/Vaping Use: Never Used Second Hand Smoke Exposure: No service: No Current occupational status: unemployed Cognitive needs: No Hearing needs: No Vision needs: Yes Female Reproductive History Menstrual Age of Menarche: 10 Date of last menstrual period: 04/29/23 Review of Systems Const All systems reviewed & are unremarkable except as noted in HPI and below Reports as per HPI and Reports no additional complaints GI Reports no additional complaints Reports no additional complaints Physical Exam Vital Signs: Last Vital Signs BP 120/82 05/28/23 07:31 BMI result Body Mass Index 37.9 Assessment & Plan Assessment & Plan (1) Infertility, female: Code(s): N97.9 - Female infertility, unspecified Plan: Discussed with the patient the causes of infertility, and the workup needed. Will start with semen analysis, paper order given to the patient for her partner to be done at [facility] and to bring back the results, instructions given the patient to check her ovulation using [id number] urine LH test for the coming 3 months, and to schedule day 8 hysterosalpingogram. All questions answered, the patient verbalized understanding Orders: Orders [place] hysterosalpingography Today N97.9 - Female infertility, unspecified Coding Level of Care Code Est Pt Level 3 (73451) Diagnoses Infertility, female N97.9
[2023-05-28 07:31] VITALS: BP 120/82; BMI 37.9
== END 2023-05-28 07:41 | disposition home or self-care (01) ==
PROVIDERS: PCP Internal Medicine; Visit Provider Obstetrics & Gynecology
DX: N97.9 Female infertility, unspecified (principal)
CPT/HCPCS: 99213

== ENCOUNTER → 2023-05-28 07:29 | Outpatient (BNVA) | payer OTHER, SELFPAY | PROVIDERS: PCP Internal Medicine; Visit Provider Obstetrics & Gynecology | DX: N97.9 Female infertility, unspecified (principal) | CPT/HCPCS: 99212 ==

== ENCOUNTER 2023-06-07 | Outpatient (REF) | payer OTHER, SELFPAY | END 2023-06-07 00:01 | LOC: CF | PROVIDERS: PCP Internal Medicine; Visit Provider Obstetrics & Gynecology | DX: N97.9 Female infertility, unspecified (principal); Z32.02 Encounter for pregnancy test, result negative | CPT/HCPCS: 81025; 99212 ==

== ENCOUNTER 2023-06-07 12:33 | Outpatient (AMB) | payer OTHER, SELFPAY ==
--- NOTE | 2023-06-07 12:55 | MHC.OFFVIS ---
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 Semen analysis of the patient's partner showed following: High viscosity, low pH, low concentration and 0% normal morphology . PFSH Medical History Goiter Goiter Hypertension History of blood transfusion Pre-op evaluation Abnormal uterine bleeding Well woman exam COVID-19 Vitamin B12 deficiency Vitamin D deficiency Vitamin A deficiency Binge eating disorder Anxiety GERD (gastroesophageal reflux disease) Morbid obesity Transaminitis Macromastia Secondary hyperparathyroidism Vitamin D deficiency HLD (hyperlipidemia) HTN (hypertension) T2DM (type 2 diabetes mellitus) Surgical History Hx of gastric bypass Presence of pancreatic duct stent Hx of cholecystectomy Family History Father Hypertension High cholesterol Mother Hypertension Diabetes High cholesterol Brother No problems noted. Brother No problems noted. Son No problems noted. Daughter No problems noted. 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 transition of care specialist to a significant other at home: Yes (2 children) Do you presently have visiting nurse or other home services: No Alcohol intake: never Patient Tobacco Use Status: Never used Tobacco e-Cigarette/Vaping Use: Never Used Second Hand Smoke Exposure: No Patient : No service: No Current occupational status: unemployed Cognitive needs: No Hearing needs: No Vision needs: Yes Female Reproductive History Menstrual Age of Menarche: 10 Results AMB Test Urine AMB Test Urine Negative Last Edit by SHAKIRA Walker on 06/07/23 12:57 Results Reviewed Results Reviewed: Laboratory Last Values [facility]st Clinic Negative 06/07/23 12:56 Assessment & Plan Assessment & Plan (1) Infertility, female: Code(s): N97.9 - Female infertility, unspecified Plan: Discussed with the patient the results of the partner semen analysis, recommended for the patient's partner to call his PCP for urology referral. Given the abnormal semen analysis and the patient iodine contrast allergy, will cancel hysterosalpingogram and refer the patient to Reproductive Endocrinology for infertility management. All questions answered, the patient verbalized understanding agreed with the plan. Orders: Orders AMB HCG Urine Test Today Z32.02 - Encounter for test, result negative Referrals Infertility Reproductive Referral (female) N97.9 - Female infertility, unspecified Coding Level of Care Code Est Pt Level 3 (13411) Diagnoses Infertility, female N97.9
== END 2023-06-07 14:30 | disposition left against medical advice (07) ==
PROVIDERS: PCP Internal Medicine; Visit Provider Obstetrics & Gynecology
DX: N97.9 Female infertility, unspecified (principal); Z32.02 Encounter for pregnancy test, result negative
CPT/HCPCS: 99213

== ENCOUNTER 2023-07-11 09:43 | Outpatient (REF) | payer OTHER, SELFPAY ==
--- NOTE | ~2023-07-11 | US_ITS ---
EXAMINATION: US THYROID CLINICAL INFORMATION: Nontoxic goiter, unspecified. COMPARISON: None available. TECHNIQUE: Linear transducer grayscale and color Doppler examination with attention to the region of the thyroid. FINDINGS: SIZE: Measurements of the thyroid lobes and nodules are given in sagittal, anteroposterior and transverse dimensions respectively. Right Thyroid Lobe: 4.4 x 1.6 x 1.5 cm, volume 5.5 mL. Parenchyma: The gland echotexture is homogeneous. Thyroid vascularity is normal. Left Thyroid Lobe: 4.4 x 1.4 x 1.6 cm, volume 5.2 mL. Parenchyma: The gland echotexture is homogeneous. Thyroid vascularity is normal. Isthmus: 0.4 cm in maximum AP dimension. No focal thyroid nodule is seen. A small colloid cyst is seen within the left lobe. NODES: No lymphadenopathy is seen in the tissue surrounding the thyroid gland. US/US thyroid IMPRESSION: Unremarkable examination. ACR TI-RADS RECOMMENDATION REFERENCE: Ultrasound-guided fine-needle aspiration, followup ultrasound, no further follow up. * TR1 (0 point) and TR2 (2 points): No FNA or follow up. * TR3 (3 points): FNA if more than or equal to 2.5 cm in maximum dimension, followup ultrasound in 1, 3 and 5 years if 1.5 to 2.4 cm in maximum dimension. * TR4 (4-6 points): FNA if more than or equal to 1.5 cm in maximum dimension, followup ultrasound in 1, 2, 3 and 5 years if 1 to 1.4 cm in maximum dimension. * TR5 (more than or equal to 7 points): FNA if more than or equal to 1 cm in maximum dimension, followup ultrasound every year for 5 years if 0.5 to 0.9 cm in maximum dimension. * TR3, TR4 or TR5 nodules that are below the size threshold for followup receive no follow up.
== END 2023-07-11 09:44 | disposition home or self-care (01) ==
LOC: HO.US 09:43
PROVIDERS: PCP Internal Medicine; Visit Provider Internal Medicine
DX: E04.9 Nontoxic goiter, unspecified (principal)
CPT/HCPCS: 76536

== ENCOUNTER 2023-08-14 10:56 | Outpatient (AMB) | payer OTHER, SELFPAY ==
--- NOTE | 2023-08-14 11:35 | MHC.AMDMED ---
Intake Intake Visit Reasons: T2DM/CONFIRMED Allergies Iodinated Contrast Media [IV CONTRAST] Allergy (Intermediate, Verified 08/13/23 10:49) [facility] Comprehensive Diabetes Asmnt Most Recent Diabetes Results: Microalb/Creat Ratio 10.6 ug/mg cr 12/19/22 Cholesterol 112 mg/dL 12/19/22 HDL Cholesterol 28 mg/dL 12/19/22 Triglycerides 42 mg/dL 12/19/22 Creatinine 0.69 mg/dL (0.5-1.4) 08/13/23 Blood Urea Nitrogen 8 mg/dL (9-16) L 08/13/23 Sodium 142 mmol/L (135-145) 08/13/23 Potassium 4.3 mmol/L (3.3-5.1) 08/13/23 Chloride 108 mmol/L (96-108) 08/13/23 Carbon Dioxide 29 mmol/L (22-29) 08/13/23 Calcium 9.4 mg/dL (8.4-10.2) 08/13/23 AST 13 U/L (5-31) 08/13/23 ALT 11 U/L (0-31) 08/13/23 Total Protein 7.5 g/dL (6.5-8.0) 08/13/23 Albumin 4.1 g/dL (3.5-5.0) 08/13/23 [facility] Medical History Goiter Goiter Hypertension History of blood transfusion Pre-op evaluation Abnormal uterine bleeding Well woman exam COVID-19 Vitamin B12 deficiency Vitamin D deficiency Vitamin A deficiency Binge eating disorder Anxiety GERD (gastroesophageal reflux disease) Morbid obesity Transaminitis Macromastia Secondary hyperparathyroidism Vitamin D deficiency HLD (hyperlipidemia) HTN (hypertension) T2DM (type 2 diabetes mellitus) Surgical History Hx of gastric bypass Presence of pancreatic duct stent Hx of cholecystectomy Family History Father Hypertension High cholesterol Mother Hypertension Diabetes High cholesterol Brother No problems noted. Brother No problems noted. Son No problems noted. Daughter No problems noted. 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 family day care provider to a significant other at home: Yes (2 children) Do you presently have visiting nurse or other home services: No Alcohol intake: never Patient Tobacco Use Status: Never used Tobacco e-Cigarette/Vaping Use: Never Used Second Hand Smoke Exposure: No service: No Current occupational status: unemployed Cognitive needs: No Hearing needs: No Vision needs: Yes Female Reproductive History Menstrual Age of Menarche: 10 Assessment & Plan Assessment & Plan (1) T2DM (type 2 diabetes mellitus): Code(s): E11.9 - Type 2 diabetes mellitus without complications Qualifiers: Diabetes mellitus intermodal dispatcher insulin use: with intermodal dispatcher use Diabetes mellitus complication status: with hyperglycemia Qualified Code(s): E11.65 - Type 2 diabetes mellitus with hyperglycemia; 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 checks BG with Edson 2 Downloaded meter today?yes patient's average glucose for the past 2 weeks 148 mg/dL patient is above target 31% patient is at target 55% patient's below target 14% patient is having prolonged hypoglycemia overnight, currently reports taking 45 units of Lantus daily instructed patient to reduce Lantus to 30 units daily Patient? reports glycemic control as: fair Most recent Hgb A1C: 7.8% Frequency of low BG: daily Low BG treatment: friut juice or candy Frequency of high BG: daily Does patient check Ketones? No Has pt been on a pump in the past? no Reviewed insulin pump basics today with Patient. Explained pros and cons of insulin pumps. Showed pt various pumps, infusion sets, and cgms currently available. Reviewed need to wear pump 24/ and need to change infusion set every 3 days. Also stressed importance of frequent BG checks, 4x daily minimum or use pump that is integrated with CGM.? Patient demonstrated motivation for continued insulin pump education and understands the need to complete education prior to starting insulin pump for best outcome. Will follow up for continued education. Next visit will include review of Advanced Carb Counting. TDD 75 units starting insulin to carb ratio 1-6 starting correction factor 1-20 patient corrects to 150 mg/dL patient stated she is interested in the Omnipod 5, will follow-up in 1 month carb counting work sheet given to patient Patient Instructions: Reduce Lantus from 45 units to 30 units, due to overnight and fasting hypoglycemia. after 3 days if fasting glucose remains above 150 mg/dL increase Lantus to 35 units follow-up with inclusion special educator in 1 month Coding Level of Care Code Est Pt Level 1 (55073) Diagnoses Type 2 diabetes mellitus with hyperglycemia, with long-term current use of insulin E11.65; Z79.4 Diabetes mellitus intermodal dispatcher insulin use: with alf use Diabetes mellitus complication status: with hyperglycemia
== END 2023-08-14 11:45 | disposition home or self-care (01) ==
PROVIDERS: PCP Internal Medicine; Visit Provider Registered Nurse Diabetes Educator
DX: E11.65 Type 2 diabetes mellitus with hyperglycemia (principal); Z79.4 Long term (current) use of insulin

== ENCOUNTER → 2023-08-14 10:56 | Outpatient (BNVA) | payer OTHER, SELFPAY | PROVIDERS: PCP Internal Medicine; Visit Provider Registered Nurse Diabetes Educator | DX: E11.65 Type 2 diabetes mellitus with hyperglycemia (principal); Z79.4 Long term (current) use of insulin | CPT/HCPCS: 99211 ==

== ENCOUNTER 2023-11-08 08:56 | Emergency (ER) | payer OTHER, SELFPAY ==
--- NOTE | ~2023-11-08 | CT_ITS ---
EXAMINATION: CT HEAD WITHOUT CONTRAST CLINICAL INFORMATION: Headache. COMPARISON: No relevant prior imaging. TECHNIQUE: Contiguous axial imaging was performed from the skull base to vertex without intravenous administration of contrast. This CT examination was performed using dose optimization techniques as appropriate, variously including the following: *Automated exposure control *Adjustment of mA and/or kV according to patient size (this includes techniques or standardized protocols for targeted exams where dose is matched to indication/reason for exam; i.e. extremities or head) *Use of iterative reconstruction technique DLP: 638 mGy-cm FINDINGS: There is no acute intracranial hemorrhage or abnormal extra-axial collection. No intracranial mass effect or midline shift. Lateral and third ventricles are normal. No hydrocephalus. [place]-white matter differentiation is preserved and there is no evidence of acute territorial infarct. The calvarium and skull base are intact. Mastoid air cells and middle ear cavities are well aerated. Moderate paranasal sinus disease is partially included within the [id number] of this examination. CT/CT head/brain wo IV con IMPRESSION: Unremarkable CT scan of the head. No evidence of acute territorial infarct or hemorrhage. Moderate paranasal sinus disease is partially included within the [id number] of this examination.
--- NOTE | 2023-11-08 09:23 | ED_ITS ---
HPI - General Adult General Chief complaint: Headache Stated complaint: Headache, lightheaded Time Seen by Provider: 11/08/23 09:23 Source: patient Mode of arrival: ambulatory Limitations: no limitations History of Present Illness HPI narrative: Patient is a 28 year old assigned female at with a history of DM presenting to the emergency department today with a right sided headache. Patient states that she has had a right sided headache for a few days that is not resolving. Patient denies any dizziness, lightheadedness, abdominal pain, nausea, vomiting, fever, chills, blurry vision, double vision, loss of vision, chest pain, difficulty breathing, shortness of breath, back pain, night sweats, pain with urination, increased urinary frequency, increased urinary urgency, blood in her urine or stool, syncope or a near syncopal episode, recent trauma or falls, bowel incontinence, bladder incontinence, bowel retention, bladder retention, or any other complaints at this time. Onset (ago): day(s) Location: head Radiation: non-radiation Severity: mild Severity scale (1-10): 3 Quality: aching and dull Pain Consistency: constant Relieving factors: none Exacerbating factors: none Associated symptoms: headaches Treatments prior to arrival: none Related Data Home Medications Medication Instructions Recorded Confirmed multivitamin 1 tab PO DAILY 01/08/23 08/13/23 Previous Rx's Medication Instructions Recorded blood pressure monitor #1 ea 05/03/22 blood-glucose meter (FreeStyle #1 12/20/22 Lite Meter kit) cholecalciferol (vitamin D3) 1,250 1,250 mcg PO QWEEK 8 weeks #8 caps 12/20/22 mcg (50,000 unit) capsule cholecalciferol (vitamin D3) 50 50 mcg PO DAILY 90 days #90 caps 12/20/22 mcg (2,000 unit) capsule lancets 28 gauge (FreeStyle #100 ea 12/20/22 Lancets) vitamin A palmitate 3,000 mcg 3,000 mcg PO DAILY #30 tabs 12/26/22 (10,000 unit) tablet flash glucose scanning reader #1 ea 07/02/23 (FreeStyle Edson 2 [place]) flash glucose sensor (FreeStyle #2 ea 07/02/23 Edson 2 Sensor kit) insulin glargine 100 unit/mL (3 45 unit (0.45 mL) subcut QPM #45 mL 11/02/23 mL) subcutaneous pen (Lantus Solostar U-100 Insulin) pen needle, diabetic 31 gauge x #100 ea 07/19/2301/23 (1st Tier Unifine Pentips Plus) blood sugar diagnostic (FreeStyle #100 ea 09/04/23 Lite Strips) bupropion HCl 150 mg 24 hr tablet, 150 mg PO QAM 90 days #90 tabs 10/03/23 extended release sumatriptan succinate 25 mg tablet 25 mg PO Q2-4H PRN migraine 10/13/23 headache 30 days #9 tabs rizatriptan 10 mg tablet 10 mg PO Q2-4H PRN migraine 10/14/23 headache 30 days #9 tabs Allergies Allergy/AdvReac Type Severity Reaction Status Date / Time Iodinated Contrast Media Allergy Intermediate [facility]ES Verified 11/08/23 09:26 [IV CONTRAST] Review of Systems 2 Constitutional: Constitutional: Reports no additional constitutional complaints, Denies chills, Denies fever(s), Reports headache(s) and Denies night sweats Eyes: Eyes: Reports no additional eye complaints, Denies blurry vision, Denies change in vision, Denies diplopia, Denies eye discharge, Denies loss of vision and Denies eye pain ENT: Denies dizziness and Reports headache(s) Cardiovascular: Cardiovascular: Reports no additional cardiovascular complaints, Denies chest pain, Denies lightheadedness, Denies Loss of Consciousness and Denies dyspnea Respiratory: Respiratory: Reports no additional respiratory complaints and Denies dyspnea Gastrointestinal: Gastrointestinal: Reports no additional gastrointestinal complaints, Denies abdominal pain, Denies melena, Denies hematochezia, Denies change in bowel habits and Denies change in stool character Genitourinary: Genitourinary: Denies hematuria, Denies urinary frequency, Denies dysuria, Denies urinary incontinence, Denies urinary hesitancy and Denies urinary urgency Musculoskeletal: Musculoskeletal: Reports no additional musculoskeletal complaints, Denies numbness and Denies tingling Neurologic: Denies dizziness, Reports headache(s), Denies loss of vision, Denies numbness and Denies tingling Psychiatric: Psychiatric: Reports no additional psychiatric complaints Endocrine: Endocrine: Reports no additional endocrine complaints Hematologic/Lymphatic: Hematologic/Lymphatic: Reports no additional hematologic/lymphatic complaints Allergic/Immunologic: Allergic/Immunologic: Reports no additional allergic/immunologic complaints [facility] Past Medical History Attestation statement: The following information was validated with the patient. Source: old records reviewed and nursing notes reviewed Medical History Goiter Goiter Hypertension History of blood transfusion Pre-op evaluation Abnormal uterine bleeding Well woman exam COVID-19 Vitamin B12 deficiency Vitamin D deficiency Vitamin A deficiency Binge eating disorder Anxiety GERD (gastroesophageal reflux disease) Morbid obesity Transaminitis Macromastia Secondary hyperparathyroidism Vitamin D deficiency HLD (hyperlipidemia) HTN (hypertension) T2DM (type 2 diabetes mellitus) Surgical History Hx of gastric bypass Presence of pancreatic duct stent Hx of cholecystectomy Family History Family History Father Hypertension High cholesterol Mother Hypertension Diabetes High cholesterol Brother No problems noted. Brother No problems noted. Son No problems noted. Daughter No problems noted. 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 daycare director to a significant other at home: Yes (2 children) Do you presently have visiting nurse or other home services: No Alcohol intake: never Patient Tobacco Use Status: Never used Tobacco Smoked in Last 30 Days: No e-Cigarette/Vaping Use: Never Used Second Hand Smoke Exposure: No Use of substances other than those prescribed or required for medical reasons: No Advance Directives: No Advance Directives Information Provided: No Patient : No service: No Current occupational status: unemployed Cognitive needs: No Hearing needs: No Vision needs: Yes Physical Exam ED Vital Signs: Vital Signs - 24 hr 11/08/23 09:30 11/08/23 14:13 Temperature 97.8 F 98.7 F Pulse Rate 79 74 Respiratory Rate 20 16 Blood Pressure 143/94 H 145/94 H Pulse Oximetry 98 100 Oxygen Delivery Method Room Air Room Air BMI result Body Mass Index 41.4 Const General: cooperative, no acute distress, alert and awake Nutritional Appearance: well nourished Orientation/consciousness: patient oriented x3 Limitations: no limitations HENMT Head: Yes normal to inspection and Yes atraumatic Ears: hearing grossly normal bilaterally and external ears normal General nose exam: Normal external nose present, no nasal discharge noted and no epistaxis Face and sinus: Yes normal facial exam, No abrasion and No laceration Mouth: Normal oral and palatal mucosa present, no drooling and no muffled voice Eyes General: appearance normal, both eyes and all related structures Periorbital: periorbital findings normal Eyelids: Yes eyelids normal Conjunctivae: conjunctivae normal Pupils: Equal, round and reactive pupils present EOM: EOMs intact bilaterally Neck Neck: Yes normal visual inspection, Yes full ROM and Yes no lymphadenopathy Chest Chest palpation & inspection: normal inspection of the chest Resp Effort & Inspection: normal respiratory effort and able to speak in complete sentences GI Inspection: Yes normal to inspection Neuro General: patient oriented x3 and moves all extremities Cranial nerves: Yes Equal, round and reactive pupils present Cognition (Neuro): normal cognition Motor exam (neuro): 5/5 motor strength present throughout Sensory Exam: Normal double simultaneous stimulation for sensation Coordination: [id number] test normal Extrem General: Yes normal to inspection, Yes full ROM and Yes capillary refill normal Psych Appearance: grossly normal Mental Status: mental status grossly normal Affect: normal affect Attitude: cooperative Thought process: Normal thought process present Thought content: Normal thought content present Insight: Good insight present (Psych) Medications Administered Discontinued Medications Generic Name Dose Route Start Last Admin Trade Name Freq PRN Reason Stop Dose Admin Diphenhydramine HCl 25 mg 11/08/23 09:40 11/08/23 10:31 Diphenhydramine Hcl 50 Mg/Ml Vial IVPUSH 11/08/23 09:41 25 mg ONCE ONE Administration Sodium Chloride 1,000 mls @ 999 mls/hr 11/08/23 09:45 11/08/23 12:46 Ns IV 11/08/23 10:45 Infused .Q1H1M JORGE Infusion Ketorolac Tromethamine 15 mg 11/08/23 09:40 11/08/23 10:31 Ketorolac Tromethamine 15 Mg/Ml Vial IVPUSH 11/08/23 09:41 15 mg ONCE ONE Administration Medical Decision Making Medical Decision Making [facility] Narrative: Patient is a 28 year old assigned female at with a history of DM presenting to the emergency department today with a headache. Patient's physical exam was unremarkable. Patient's blood work was unremarkable. Patient's head CT showed no acute process. Patient's COVID-19 test was positive. Patient's RSV and influenza tests were negative. I explained my physical exam findings as well as all test results to the patient. I answered all questions asked by the patient. I stressed the importance of the patient taking her medication as prescribed. I stressed the importance of the patient following up with her primary care provider. I stressed the importance of the patient returning to the emergency department immediately if her symptoms were to worsen or if she were to develop any dizziness, shortness of breath, difficulty breathing, chest pain, blurry vision, loss of vision, nausea, vomiting, abdominal pain, fever, chills, back pain, or any other complaints. Patient verbalized agreement and understanding with this treatment plan and discharge. Differential Diagnosis Differential Diagnoses: The differential diagnosis associated with the presentation includes COVID-19 Influenza RSV Headache Admission/Observation Consideration of admission/observation: Escalation of care including admission/observation considered Patient would have been admitted to the hospital had her work up had any findings where hospital admission was appropriate and her clinical presentation warranted hospital admission. Lab Data [facility] Lab Attestation statement: I reviewed the patient's lab results. My interpretation of these results are in the [facility] Rationale portion of this note. 11/08/23 10:33 11/08/23 10:33 Labs: Lab Results 11/08/23 Range/Units 10:33 WBC 8.7 (4.8-10.8) X10*3/uL RBC 4.73 (4.20-5.50) X10*6/uL Hgb 12.5 (12.0-16.0) g/dl Hct 38.6 (37.0-47.0) % MCV 81.6 (80.0-98.0) fL MCH 26.4 L (27.0-33.0) pg MCHC 32.4 (31.0-35.0) g/dl RDW 12.9 (11.0-16.0) % Plt Count 362 (160-400) X10*3/uL MPV 10.9 (9.4-12.3) fL Immature Gran % (Auto) 0.2 (0.0-0.4) % Neut % (Auto) 68.3 (45-73) % Lymph % (Auto) 24.4 (20-40) % Sheridan % (Auto) 6.0 (2-11) % Eos % (Auto) 0.8 (0-4) % Baso % (Auto) 0.3 (0-2) % Lymph # (Auto) 2.1 (1.2-4.9) X10*3/uL [place] # (Auto) 0.5 (0.1-1.2) X10*3/uL Eos # (Auto) 0.1 (0.0-0.4) X10*3/uL Baso # (Auto) 0.0 (0.0-0.2) X10*3/uL Abs Immat Gran (auto) 0.02 (0.00-0.03) X10*3/uL Absolute Neuts (auto) 6.0 (2.0-8.3) x10*3/uL Absolute Nucleated RBC 0.000 (0.0-0.012) X10*3/uL Nucleated RBC % (auto) 0.0 (0.0-0.2) /100WBC Sodium 141 (135-145) mmol/L Potassium 4.0 (3.3-5.1) mmol/L Chloride 106 (96-108) mmol/L Carbon Dioxide 27 (22-29) mmol/L Anion Gap 12 (12-20) BUN 8 L (9-16) mg/dL Creatinine 0.62 (0.5-1.4) mg/dL Estim Creat Clear Calc 151.7 Estimated GFR > 60 Random Glucose 71 (60-115) mg/dL Calcium 8.8 D (8.4-10.2) mg/dL Total Bilirubin 0.4 (0.0-1.0) mg/dL AST 16 (5-31) U/L ALT 12 (0-31) U/L Alkaline Phosphatase 73 (39-117) U/L Total Protein 7.9 (6.5-8.0) g/dL Albumin 4.1 (3.5-5.0) g/dL Beta HCG, Quant < 2 mIU/mL Influenza Type A (PCR) NEGATIVE (Negative) Influenza Type B (PCR) NEGATIVE (Negative) RSV RNA Qual (PCR) NEGATIVE (Negative) SARS-CoV-2 RNA (RT-PCR) POSITIVE A (Negative) Independent Interpretation I performed an independent interpretation of an: CT Scan Interpretation: My interpretation is in agreement with the radiologist's impression of this imaging study. - EXAMINATION: CT HEAD WITHOUT CONTRAST CLINICAL INFORMATION: Headache. COMPARISON: No relevant prior imaging. TECHNIQUE: Contiguous axial imaging was performed from the skull base to vertex without intravenous administration of contrast. This CT examination was performed using dose optimization techniques as appropriate, variously including the following: *Automated exposure control *Adjustment of mA and/or kV according to patient size (this includes techniques or standardized protocols for targeted exams where dose is matched to indication/reason for exam; i.e. extremities or head) *Use of iterative reconstruction technique DLP: 638 mGy-cm FINDINGS: There is no acute intracranial hemorrhage or abnormal extra-axial collection. No intracranial mass effect or midline shift. Lateral and third ventricles are normal. No hydrocephalus. [place]-white matter differentiation is preserved and there is no evidence of acute territorial infarct. The calvarium and skull base are intact. Mastoid air cells and middle ear cavities are well aerated. Moderate paranasal sinus disease is partially included within the [id number] of this examination. CT/CT head/brain wo IV con IMPRESSION: Unremarkable CT scan of the head. No evidence of acute territorial infarct or hemorrhage. Moderate paranasal sinus disease is partially included within the [id number] of this examination. Dictated By: Bert Munguia MD Signed By: Electronically signed by Bert Munguia MD 11/08/23 8516 Radiology Impression Discussion of test interpretation with radiology: I have reviewed the radiologist's reading. Discharge Plan Discharge Clinical Impression: COVID-19, Head ache Patient Disposition: Home, Self-Care Instructions: Acute Headache (DC), COVID-19 (Coronavirus Disease 2019) (ED) Additional Instructions: Follow up with your primary care provider. Return to the emergency department immediately if your symptoms worsen or if you develop any dizziness, shortness of breath, difficulty breathing, chest pain, blurry vision, loss of vision, nausea, vomiting, abdominal pain, fever, chills, back pain, or any other complaints. Prescriptions: No Action (DME) blood pressure monitor Kit See Rx Instructions .ROUTE .MEDSUPPLY Qty: 1 0RF Rx Instructions: As directed vitamin A palmitate 3,000 mcg (10,000 unit) tablet 3,000 mcg PO DAILY Qty: 30 6RF (DME) FreeStyle Edson 2 Sensor Kit See Rx Instructions .Route Qty: 2 4RF Rx Instructions: As directed change every 14 days (DME) FreeStyle Edson 2 [place] Misc See Rx Instructions .Route Qty: 1 0RF Rx Instructions: As directed insulin glargine [Lantus Solostar U-100 Insulin] 100 unit/mL (3 mL) insulin pen 45 unit subcut QPM Qty: 45 5RF (DME) pen needle, diabetic [1st Tier Unifine Pentips Plus] 31 gauge x 5/16 needle See Rx Instructions .ROUTE .MEDSUPPLY Qty: 100 11RF Rx Instructions: 4x a day (DME) FreeStyle Lite Strips Strip See Rx Instructions .ROUTE .MEDSUPPLY Qty: 100 11RF Rx Instructions: 3x daily bupropion HCl 150 mg tablet extended release 24 hr 150 mg PO QAM 90 Days Qty: 90 0RF sumatriptan succinate 25 mg tablet 25 mg PO Q2-4H PRN (Reason: migraine headache) 30 Days Qty: 9 0RF Rx Instructions: do not exceed 8 doses per 24 hrs rizatriptan 10 mg tablet 10 mg PO Q2-4H PRN (Reason: migraine headache) 30 Days Qty: 9 0RF Rx Instructions: do not exceed 3 doses per 24 hrs multivitamin Tablet 1 tab PO DAILY (DME) blood-glucose meter [FreeStyle Lite Meter] Kit See Rx Instructions .Route Qty: 1 0RF Rx Instructions: as directed cholecalciferol (vitamin D3) 1,250 mcg (50,000 unit) capsule 1,250 mcg PO QWEEK 56 Days Qty: 8 0RF cholecalciferol (vitamin D3) 50 mcg (2,000 unit) capsule 50 mcg PO DAILY 90 Days Qty: 90 0RF (DME) lancets [FreeStyle Lancets] 28 gauge misc See Rx Instructions .ROUTE .MEDSUPPLY Qty: 100 11RF Rx Instructions: 4x daily Referrals: Charity Willingham MD [Primary Care Provider] - Stand Alone Forms: Work/School Release Interventions: ED Discharge Assessment Last Done: 11/08/23 14:14 Discharge Date/Time: 11/08/23 14:14 Print Language: [place]
[2023-11-08 09:30] VITALS: BP 143/94; PULSE 79; RESP 20; TEMP 36.6; O2SAT 98; BMI 41.4
[2023-11-08] MEDS: 0.9 % Sodium Chloride 1,000 ML 999 ML IV (10:30)
[2023-11-08] MEDS: diphenhydrAMINE HCL 50 MG/ML VIAL 25 MG IVPUSH (10:31)
[2023-11-08] MEDS: Ketorolac Tromethamine 15 MG/ML VIAL IVPUSH (10:31)
[2023-11-08 10:40] LABS: MANUAL DIFF FLAG NO
[2023-11-08 10:46] LABS: Basophils Percent Auto 0.3 % (0-2); Eosinophils Absolute Auto 0.1 X10*3/uL (0.0-0.4); Eosinophils Percent Auto 0.8 % (0-4); Hematocrit 38.6 % (37.0-47.0); Hemoglobin 12.5 g/dl (12.0-16.0); Imm Gran Abs Auto 0.02 X10*3/uL (0.00-0.03); Imm Gran Pct Auto 0.2 % (0.0-0.4); Lymphocytes Absolute Auto 2.1 X10*3/uL (1.2-4.9); Lymphocytes Percent Auto 24.4 % (20-40); Mean Corpuscular HGB Conc 32.4 g/dl (31.0-35.0); Mean Corpuscular Hemoglobin 26.4 pg (27.0-33.0); Mean Corpuscular Volume 81.6 fL (80.0-98.0); Mean Platelet Volume 10.9 fL (9.4-12.3); Monocytes Absolute Auto 0.5 X10*3/uL (0.1-1.2); Neutrophils Percent Auto 68.3 % (45-73); Platelet Count 362 X10*3/uL (160-400); Red Blood Count 4.73 X10*6/uL (4.20-5.50); Red Cell Distribution Width 12.9 % (11.0-16.0); White Blood Count 8.7 X10*3/uL (4.8-10.8)
[2023-11-08 10:58] LABS: Alanine Aminotransferase 12 U/L (0-31); Albumin Level 4.1 g/dL (3.5-5.0); Alkaline Phosphatase 73 U/L (39-117); Anion Gap 12 (12-20); Aspartate Amino Transferase 16 U/L (5-31); Bilirubin Total 0.4 mg/dL (0.0-1.0); Blood Urea Nitrogen 8 mg/dL (9-16); Calcium 8.8 mg/dL (8.4-10.2); Carbon Dioxide 27 mmol/L (22-29); Chloride 106 mmol/L (96-108); Creatinine Clr Calc Pharmacy 151.7; Estimated Glomerular Filt Rate > 60; Glucose Random 71 mg/dL (60-115); Sodium 141 mmol/L (135-145); Total Protein 7.9 g/dL (6.5-8.0)
--- NOTE | 2023-11-08 10:59 | PC.NURSE ---
#20 IV placed in L-AC, labs drawn and sent. Meds administered as ordered
[2023-11-08 11:04] LABS: HCG Quantitative < 2 mIU/mL
[2023-11-08 11:24] LABS: Influenza A PCR NEGATIVE (Negative); Influenza B PCR NEGATIVE (Negative); Resp Syncy Virus RNA Qual PCR NEGATIVE (Negative); SARS COV2 PCR INHOUSE POSITIVE (Negative)
[2023-11-08 14:13] VITALS: BP 145/94; PULSE 74; RESP 16; TEMP 37.1; O2SAT 100
== END 2023-11-08 14:14 | disposition home or self-care (01) ==
PROVIDERS: Physician Assistant Medical; Emergency Provider Emergency Medicine; PCP Internal Medicine
DX: U07.1 COVID-19 (principal); R51.9 Headache, unspecified; R42 Dizziness and giddiness; Z79.899 Other long term (current) drug therapy
CPT/HCPCS: 0241U; 36415; 70450; 80053; 84702; 85025; 96361; 96374; 96375; 99284; 99285; J1200; J1885

== ENCOUNTER 2024-02-26 09:01 | Outpatient (AMB) | payer OTHER, SELFPAY ==
[2024-02-26 09:10] VITALS: BP 112/84; PULSE 90; BMI 43.3
--- NOTE | 2024-02-26 09:10 | MHC.OFFVIS ---
Vital Signs 02/26/24 09:10 Height 5 ft 2 in Weight 236 lb 8.896 oz BMI 43.3 BP 112/84 Blood Pressure Location Rt brachial Position Sitting Pulse 90 Pulse Source Pulse Oximeter Intake Visit Reasons: DM Intake Note: Patient present today to follow up on Type 2 Diabetes Mellitus. Last seen by Dr. Ayala on 04/09/2023. Patient receives DME supplies through: Pharmacy Last Diabetic Eye exam: 11/05/2023 [facility] Last Podiatry Visit: Does not see a Lace Winder Random Glucose: 109 mg/dl HgA1C: 8.2% Software Engineer Mobile Required: No Accompanied by: Children Allergies Iodinated Contrast Media [IV CONTRAST] Allergy (Intermediate, Verified 02/26/24 09:11) HIVES HPI Comments Details: [28] YO [Female] who is seen in f/u for T2DM. She was last seen by CDE in August of last year and by Endo SERVOMECHANISM DESIGNER 04/01. She is s/p bariatric surgery. Current regimen [Lantus 44 units]. She was recommended to start a short acting insulin by primary care and is here today to start this. Per the CGM Edson CGMS is active % of time . data the patient's predicted A1C is [6.6]% which is compared to the patients previous A1C [8.2%] dated [today]. Avg glucose is 137, The patient's blood sugars were in target [53]% of the time, above target [24]% of the time, and below target [23]% of the time Reports low sugars [every morning]. She has lows later in the day when she skips meals. Treats lows with [glucose tablets]. [Checks] sugar after to ensure it is rising. [Treats] according to rule of 15's. Most recent A1C [8.2%] Has eyes checked yearly, last eye exam [11/03], [denies] retinopathy. [Denies ] neuropathy, last foot exam [today], she does not see podiatry [Denies] nephropathy,]. No recent lipid profile. [Denies] CAD. Diet: [at times eats just once daily, very inconsistent with diet] Weight:has increased since last visit, Desires nutrition referral She denies numbness and tingling, cramping in legs. Denies cp Walks with her children but not daily [facility] Medical History Goiter Goiter Hypertension History of blood transfusion Pre-op evaluation Abnormal uterine bleeding Well woman exam COVID-19 Vitamin B12 deficiency Vitamin D deficiency Vitamin A deficiency Binge eating disorder Anxiety GERD (gastroesophageal reflux disease) Morbid obesity Transaminitis Macromastia Secondary hyperparathyroidism Vitamin D deficiency HLD (hyperlipidemia) HTN (hypertension) T2DM (type 2 diabetes mellitus) Surgical History Hx of gastric bypass Presence of pancreatic duct stent Hx of cholecystectomy Family History Father Hypertension High cholesterol Mother Hypertension Diabetes High cholesterol Brother No problems noted. Brother No problems noted. Son No problems noted. Daughter No problems noted. 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 child care development specialist to a significant other at home: Yes (2 children) Do you presently have visiting nurse or other home services: No Alcohol intake: never Patient Tobacco Use Status: Never used Tobacco e-Cigarette/Vaping Use: Never Used Second Hand Smoke Exposure: No service: No Current occupational status: unemployed Cognitive needs: No Hearing needs: No Vision needs: Yes Female Reproductive History Menstrual Age of Menarche: 10 Physical Exam Vital Signs: Last Vital Signs Pulse 90 02/26/24 09:10 BP 112/84 02/26/24 09:10 BMI result Body Mass Index 43.3 Const General: cooperative, healthy appearing, no acute distress, well developed, alert and awake; No acute distress Orientation/consciousness: patient oriented x3 HEENT Other: NC/AT, no deformity Head: Yes normal to inspection, Yes normocephalic and Yes atraumatic Mouth: moist mucous membranes Eyes Other: Sclera anicteric, no exophthalmos, proptotis, chemosis or periorbital edema Pupils: Equal, round and reactive pupils present Neck Other: Trachea midline with full ROM. No thyromegaly, no palpable thyroid nodules, thyroid nontender to palpation. Neck: Yes no lymphadenopathy, Yes trachea midline and Yes supple Thyroid: Thyroid normal Resp Effort & Inspection: normal respiratory effort Auscultation: clear to auscultation bilaterally, no rales, no rhonchi and no wheezes Cardio Rate: regular rate Rhythm: regular rhythm Heart sounds: no gallops, no murmurs and no rubs GI Inspection: Yes normal to inspection and No distended Palpation (GI): Soft to palpation and nontender Auscultation: normal bowel sounds Skin General skin exam: no rashes or lesions noted Hair: normal Neuro General: patient oriented x3 Cranial nerves: Yes Equal, round and reactive pupils present Extrem General: No edema Psych Speech and movement: Normal speech and movement present Affect: normal affect Thought process: Normal thought process present Results AMB Hemoglobin A1c AMB Hemoglobin A1c 8.2 % Last Edit by SHAKIRA Tapia on 02/26/24 09:28 Results Reviewed Results Reviewed: Laboratory Last Values Glucose (Clinic) 109 mg/dL (60-115) 02/26/24 09:17 Hgb A1c (Clinic) 8.2 % (4.0-6.0) H 02/26/24 09:20 Assessment & Plan Assessment & Plan (1) Insulin dependent type 2 diabetes mellitus: Code(s): E11.9 - Type 2 diabetes mellitus without complications; Z79.4 - nursing home (current) use of insulin Category: Medical Plan: She was advised to reduce her dose of Lantus to 40 units at night. Will start on empagliflozin 10mg. She was advised to have her labs checked in 4-6 weeks. I reviewed side effects of medication. She was asked to stop empagliflozin if she developes a uti or fungal infection and to contact her primary for treatment. If her sugars rise with discontinuation, she will contact our office. If her sugars continue to drop she will lower insulin to 36 units. We discussed need to exercise daily. Strategies to incorporate excercise with young children was reviewed. Orders: Orders AMB Hemoglobin A1c 02/26/24 E11.9 - Type 2 diabetes mellitus without complications, Z79.4 - nursing home (current) use of insulin Lipid Panel 4 Weeks E11.65 - Type 2 diabetes mellitus with hyperglycemia, Z79.4 - extermination inspector (current) use of insulin Basic Metabolic Panel 4 Weeks E11.65 - Type 2 diabetes mellitus with hyperglycemia, Z79.4 - extermination inspector (current) use of insulin Medications: New empagliflozin 10 mg PO DAILY 30 tabs 3RF diabetes E11.9 - Type 2 diabetes mellitus without complications, Z79.4 - nursing home (current) use of insulin empagliflozin 10 mg PO DAILY 30 tabs 3RF E11.9 - Type 2 diabetes mellitus without complications, Z79.4 - nursing home (current) use of insulin Coding Level of Care Code Est Pt Level 3 (92354) Complex EM visit Add On G2211 Diagnoses Insulin dependent type 2 diabetes mellitus E11.9; Z79.4 Time Spent (min) 40 Comment 10 chart review 20 min face to face
[2024-02-26 09:21] LABS: Glucose, Whole Blood 109 mg/dL (60-115)
== END 2024-02-26 09:48 | disposition home or self-care (01) ==
PROVIDERS: PCP Internal Medicine; Visit Provider Nurse Practitioner Adult Health
DX: E11.9 Type 2 diabetes mellitus without complications (principal); Z79.4 Long term (current) use of insulin
CPT/HCPCS: 99215; G2211

== ENCOUNTER → 2024-02-26 09:01 | Outpatient (BNVA) | payer OTHER, SELFPAY | PROVIDERS: PCP Internal Medicine; Visit Provider Nurse Practitioner Adult Health | DX: E11.9 Type 2 diabetes mellitus without complications (principal); Z79.4 Long term (current) use of insulin | CPT/HCPCS: 82947; 83036; 99212 ==

== ENCOUNTER 2024-03-07 14:19 | Outpatient (AMB) | payer OTHER, SELFPAY ==
[2024-03-07 14:23] VITALS: BMI 42.1
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
[2024-03-07 14:34] VITALS: BP 108/74; PULSE 80; TEMP 36.9; O2SAT 98; BMI 42.1
== END 2024-03-07 15:01 | disposition home or self-care (01) ==
PROVIDERS: PCP Internal Medicine; Visit Provider Physician Assistant
DX: S13.9XXA Sprain of joints and ligaments of unspecified parts of neck, initial encounter (principal); S06.0X0A Concussion without loss of consciousness, initial encounter
CPT/HCPCS: 99214

== ENCOUNTER 2024-03-18 12:10 | Outpatient (AMB) | payer OTHER, SELFPAY ==
[2024-03-18 12:33] VITALS: BMI 42.5
--- NOTE | 2024-03-18 12:33 | A.OFFVIS_ITS ---
VS Expanded 03/18/24 12:33 Height 5 ft 2 in Weight 232 lb 9.403 oz BMI 42.5 Intake Visit Reasons: DM/CONFIRMED Allergies Iodinated Contrast Media [IV CONTRAST] Allergy (Intermediate, Verified 03/07/24 14:32) CARSON Nutrition Presentation Details: Pt presents for MNT for T2DM. Pt was referred by carroter specialist. RezaErika Isbelln Pt reports having dm for 8 years Typical meal intake * Skips meals in the day and then has increased appetite in the evening. * Not counting carbs * physical activity: sedentary Food frequency fast foods: 2-3x/wk fruits: 0-1/d dairy: 5 +/d vex/wk pastries: 3+/d beverages: water, juice,soda MVI: no BS Monitoring Most Recent Diabetes Results: Creatinine 0.60 mg/dL (0.5-1.4) 02/12/24 Blood Urea Nitrogen 6 mg/dL (9-16) L 02/12/24 Sodium 141 mmol/L (135-145) 02/12/24 Potassium 3.5 mmol/L (3.3-5.1) 02/12/24 Chloride 105 mmol/L (96-108) 02/12/24 Carbon Dioxide 29 mmol/L (22-29) 02/12/24 Calcium 9.2 mg/dL (8.4-10.2) 02/12/24 AST 18 U/L (5-31) 02/12/24 ALT 17 U/L (0-31) 02/12/24 Total Protein 7.3 g/dL (6.5-8.0) 02/12/24 Albumin 4.0 g/dL (3.5-5.0) 02/12/24 MES-Pzyrsfi-Ms.Jeor Equation Height: 5 ft 2 in Weight: 233 lb Resting Metabolic Rate: 1741.30 Calculated Activity Level: Sedentary Calories Needed to Maintain Weight: 2089.56 Diagnosis Nutrition problem #1: excessive energy intake As related to (etiology) #1: diagnosis and physical inactivity As evidenced by (sign/symptom) #1: elevated HgbA1c Monitoring/Goals Nutrition problem monitoring: HgbA1c Nutrition goal/outcome: HgbA1c <7% in 3 months Outcome progress: verbalized understanding Learning/Education Readiness to learn: good [facility] Medical History Goiter Goiter Hypertension History of blood transfusion Pre-op evaluation Abnormal uterine bleeding Well woman exam COVID-19 Vitamin B12 deficiency Vitamin D deficiency Vitamin A deficiency Binge eating disorder Anxiety GERD (gastroesophageal reflux disease) Morbid obesity Transaminitis Macromastia Secondary hyperparathyroidism Vitamin D deficiency HLD (hyperlipidemia) HTN (hypertension) T2DM (type 2 diabetes mellitus) Surgical History Hx of gastric bypass Presence of pancreatic duct stent Hx of cholecystectomy Family History Father Hypertension High cholesterol Mother Hypertension Diabetes High cholesterol Brother No problems noted. Brother No problems noted. Son No problems noted. Daughter No problems noted. 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 nurse behavioral health care to a significant other at home: Yes (2 children) Do you presently have visiting nurse or other home services: No Alcohol intake: never Patient Tobacco Use Status: Never used Tobacco e-Cigarette/Vaping Use: Never Used Second Hand Smoke Exposure: No service: No Current occupational status: unemployed Cognitive needs: No Hearing needs: No Vision needs: Yes Female Reproductive History Menstrual Age of Menarche: 10 Assessment & Plan Assessment & Plan (1) T2DM (type 2 diabetes mellitus): Code(s): E11.9 - Type 2 diabetes mellitus without complications Category: Medical Qualifiers: Diabetes mellitus extermination inspector insulin use: with extermination inspector use Diabetes mellitus complication status: with hyperglycemia Qualified Code(s): E11.65 - Type 2 diabetes mellitus with hyperglycemia; Z79.4 - senior care (current) use of insulin Plan: Wt: 106 Kg ( 03/2024 ) Est kcal needs as per MSJ: 2100 (40% carb, 30% protein/fat) Est fluid needs as per 25-30 ml/d: 3200 Est prot per day as per 1 g/kg bw: 106 Recommend fiber intake : 8-10 g per day and gradually increase to 25-28 g per day for women and 35-38 g for men or as tolerated Recommend sodium intake per day : less than 2000 mg Educated patient on: ( R = reviewed V = verbalizes understanding N/R = needs review N/A = not applicable * Food sources of carbohydrate, adequate serving sizes and its role in various health conditions: R * Differences between complex carbohydrates a simple carbohydrates, role of fi vick in diet: R V N/R * Lean protein sources of foods: R * Differences between types of fats and role in diet (mono on saturated fat fatty acids, saturated fatty acids, trans fats): R V N/R * Food sources of sodium in salt and healthy modifications for heart health in kidney health: R V R/V * Vitamins and minerals: R V N/R * Healthy plate method concept: R V N/R * Physical activity: Benefits a precaution: R * Hypoglycemia protocol (rule of 15): R V N/R * Dietary prevention of Hyperglycemia: R V R/V Patient Instructions: Work on mindful eating Have a meal replacement once a day Engage in physical activity as a routine, start with 10 minutes and gradually increase to 30 min daily Coding Level of Care Code Nutr Indiv Intake (93206) Diagnoses Type 2 diabetes mellitus with hyperglycemia, with long-term current use of insulin E11.65; Z79.4 Diabetes mellitus extermination inspector insulin use: with extermination inspector use Diabetes mellitus complication status: with hyperglycemia Time Spent (min) 30
[2024-03-18 13:15] VITALS: BMI 42.6
== END 2024-03-18 13:04 | disposition home or self-care (01) ==
PROVIDERS: PCP Internal Medicine; Visit Provider Dietitian, Registered
DX: E11.65 Type 2 diabetes mellitus with hyperglycemia (principal); Z79.4 Long term (current) use of insulin

== ENCOUNTER → 2024-03-18 12:10 | Outpatient (BNVA) | payer OTHER, SELFPAY | PROVIDERS: PCP Internal Medicine; Visit Provider Dietitian, Registered | DX: E11.65 Type 2 diabetes mellitus with hyperglycemia (principal); Z79.4 Long term (current) use of insulin; Z71.3 Dietary counseling and surveillance | CPT/HCPCS: 97802 ==

== ENCOUNTER 2024-03-19 09:47 | Outpatient (AMB) | payer OTHER, SELFPAY ==
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
[2024-03-19 09:53] VITALS: BP 108/76; PULSE 72; O2SAT 99; BMI 42.1
== END 2024-03-19 10:28 | disposition home or self-care (01) ==
PROVIDERS: PCP Internal Medicine; Visit Provider Internal Medicine
DX: M54.2 Cervicalgia (principal); E11.9 Type 2 diabetes mellitus without complications; Z79.4 Long term (current) use of insulin; F33.0 Major depressive disorder, recurrent, mild
CPT/HCPCS: 99214; G2211

== ENCOUNTER 2024-05-06 14:00 | Outpatient (RCR) | payer OTHER, SELFPAY ==
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
--- NOTE | 2024-05-06 14:54 | MHC.PT.DC ---
[facility] [place] Office [place] Office [place] Office [address] [phone] F: [phone] F: [phone] F: [phone] F: [phone] Physical Therapy Discharge Report Diagnosis: cervicalgia Date of Surgery: n/a Date of Evaluation: 04/08/24 Date of Discharge: 05/06/24 Treatments to Date: 5 Cancellations to Date: 1 No Shows to Date: 0 Discharge Status: Achieved Goals Improved Function Independent with HEP Discharge Summary: 05/06/2024: She has made some improvements since start of care. Her pain is improved but she is still experiencing soreness at times. She has made improvements towards her goals. At this time max benefits of PT have been provided and skilled PT is no longer indicated. Pt is in agreement with d/c today. Reminder her to continue with program to maintain gains made thus far. Electronically signed by: Laura Rowley, PT, DPT, ATC Please sign and return to therapist. Thank you for your referral.
== END 2024-05-06 14:54 | disposition home or self-care (01) ==
LOC: HO.PTCHIC 14:00
PROVIDERS: PCP Internal Medicine; Visit Provider Internal Medicine
DX: M54.2 Cervicalgia (principal)
CPT/HCPCS: 97110; 97140; 97161

== ENCOUNTER 2024-05-20 10:15 | Outpatient (AMB) | payer OTHER, SELFPAY ==
--- NOTE | 2024-05-20 07:38 | A.OFFVIS_ITS ---
Vital Signs 05/20/24 10:38 05/20/24 11:01 Height 5 ft 2 in 5 ft 2 in Weight 236 lb BMI 43.2 BP 114/78 Blood Pressure Location Rt brachial Pulse 82 Pulse Source Pulse Oximeter Intake Visit Reasons: DM/CONFIRMED Intake Note: Patient present today to follow up on Type 2 Diabetes Mellitus. Patient receives DME supplies through: Pharmacy Last Diabetic Eye exam: 11/05/2023 at [facility]. Last Podiatry Visit: Does not see a Clinical Systems Analyst Random Glucose: 85mg/dL, Today Most Recent HgA1C: 8.2%, 02/26/2024 Clinical Studies Specialist Required: No Accompanied by: Self / Same As Patient Allergies Iodinated Contrast Media [IV CONTRAST] Allergy (Intermediate, Verified 05/20/24 10:35) HIVES empagliflozin Adverse Reaction (Intermediate, Verified 05/20/24 10:35) LIGHT HEADED HPI Comments Details: 28 YO Female who is seen in f/u for T2DM. She was last seen by myself April 02 and was started on empagliflozin at that time. She unfortunately had a reaction with lightheadedness and was feeling poorly and discontinued the medication. By telephone we re-initiated Humalog with meals. Most recent A1C was 8.2% on 03/07/24 prior to restarting Humalog. She is s/p bariatric surgery. She has a prior history of pancreatitis Had been on metformin in the past which was stopped and she does not remember the reason why. Current regimen: Lantus 45 units Humalog 6 unit tid as needed Tests glucose 3 times per day 100-130am during the day 100-130 before dinner 200 after dinner 200+ Reports low sugars [every morning]. She has lows later in the day when she skips meals. Treats lows with [glucose tablets]. [Checks] sugar after to ensure it is ris ing. [Treats] according to rule of 15's. Has eyes checked yearly, last eye exam [11/03], scheduled for next October [denies] retinopathy. Denies neuropathy, last foot exam 06/03 in [facility] she does not see podiatry No nephropathy ill truly he has No recent lipid profile. [Denies] CAD. Diet: [at times eats just once daily, very inconsistent with diet] Weight:has increased since last visit, Desires nutrition referral She denies numbness and tingling, cramping in legs. Denies cp Walks with her children but not daily [facility] screen Fibrosis-4 (Fib-4) Index for liver fibrosis (calculated on lab work done: 02/2024) [0.38 ] points Advanced fibrosis [n/a secondary to age ] Approximate Fibrosis stage Hansel [0-1 ] *Use with caution in patients <35 or >65 years old, as the score has been shown to be less reliable in these patients. Prior Imaging [] Action Plan: [] rescreen two years from date of screening labs[02/2026 ] [facility] Medical History Goiter Goiter Hypertension History of blood transfusion Pre-op evaluation Abnormal uterine bleeding Well woman exam COVID-19 Vitamin B12 deficiency Vitamin D deficiency Vitamin A deficiency Binge eating disorder Anxiety GERD (gastroesophageal reflux disease) Morbid obesity Transaminitis Macromastia Secondary hyperparathyroidism Vitamin D deficiency HLD (hyperlipidemia) HTN (hypertension) T2DM (type 2 diabetes mellitus) Surgical History Hx of gastric bypass Presence of pancreatic duct stent Hx of cholecystectomy Family History Father Hypertension High cholesterol Mother Hypertension Diabetes High cholesterol Brother No problems noted. Brother No problems noted. Son No problems noted. Daughter No problems noted. 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 critical care rn to a significant other at home: Yes (2 children) Do you presently have visiting nurse or other home services: No Alcohol intake: never Patient Tobacco Use Status: Never used Tobacco e-Cigarette/Vaping Use: Never Used Second Hand Smoke Exposure: No service: No Current occupational status: unemployed Cognitive needs: No Hearing needs: No Vision needs: Yes Female Reproductive History Menstrual Age of Menarche: 10 Physical Exam Vital Signs: Last Vital Signs Pulse 82 05/20/24 11:01 BP 114/78 05/20/24 11:01 BMI result Body Mass Index 43.2 Const Other: Absence of Cushingoid features. Absence of acromegalic features. Neck exam reveals nl size thyroid about 15 gms. No thyroid nodules palpable. No carotid bruits present. Lungs CTA. Heart S1 S2, Reg R/R. No M/R G. Skin exam reveals absence of vitiligo or acanthosis nigricans. No edema Extrem Other: Visual exam of foot performed. No ulcerations or open lesions. No onchomycosis, no callouses. Sensation intact to monofilament exam. Vibratory sensation is normal with 128 Hz tuning fork. Results Reviewed Results Reviewed: Laboratory Last Values Glucose (Clinic) 85 mg/dL (60-115) 05/20/24 11:05 Laboratory Tests 12/19/22 02/12/24 02/26/24 09:33 11:07 09:20 Plt Count 324 Potassium 3.5 Creatinine 0.60 Estim Creat Clear Calc 160.2 Estimated GFR > 60 Hgb A1c (Clinic) 8.2 H Calcium 9.2 AST 18 ALT 17 Albumin 4.0 Urine Creatinine 177.63 Urine Microalbumin 19.0 Microalb/Creat Ratio 10.6 Assessment & Plan Assessment & Plan (1) Insulin dependent type 2 diabetes mellitus: Code(s): E11.9 - Type 2 diabetes mellitus without complications; Z79.4 - group home (current) use of insulin Category: Medical Plan: Type 2 diabetic now on basal bolus insulin. Continue same dose of Lantus, can increase humalog to 6-8 units daily. We briefly discussed insulin pump but she is not interested in at this time but would like to try CeQur 4 day insulin patch as she is finding keeping up with 4 shots per day to be difficult. Medications: New Humalog KwikPen Insulin (insulin lispro) 6-8 units tid prn before meals subcutaneously use as directed; 30 days 6 mL 6RF NS E11.9 - Type 2 diabetes mellitus without complications CeQur Simplicity Professor Of Voice (diabetic supplies, miscellan.) As directed every 4 days 8 ea 11RF NS E11.9 - Type 2 diabetes mellitus without complications, Z79.4 - group home (current) use of insulin diabetic supplies, miscellan. (CeQur Simplicity Professor Of Voice) As directed 1 ea 1RF insulin lispro (Humalog U-100 Insulin) 6-8 units tid before meals as needed (each click equals 2 units, 3-4 clicks tid prn subcutaneously use as directed; 20 mL 6RF Patient Instructions: The patient was counseled to achieve a target A1C of 7% (154 avg). Fasting blood sugars should be 90-130 in the morning and less than 180 two hours after meals. Reviewed the relationship between poor diabetic control and the developement of complications The patient was counseled to always carry a source of sugar and on the rule of 15's: Take 3 glucose tablets and repeat again in 15 minutes if blood sugar is not in normal range. Continue to repeat every 15 minutes until blood sugar is normal. Coding Level of Care Code Est Pt Level 4 (73132) Complex EM visit Add On G2211 Diagnoses Insulin dependent type 2 diabetes mellitus E11.9; Z79.4 Time Spent (min) 30 Comment Time spent reviewing labs/provider notes, face to face, chart doc
[2024-05-20 11:01] VITALS: BP 114/78; PULSE 82; BMI 43.2
[2024-05-20 11:09] LABS: Glucose, Whole Blood 85 mg/dL (60-115)
== END 2024-05-20 11:28 | disposition home or self-care (01) ==
PROVIDERS: PCP Internal Medicine; Visit Provider Nurse Practitioner Adult Health
DX: E11.9 Type 2 diabetes mellitus without complications (principal); Z79.4 Long term (current) use of insulin
CPT/HCPCS: 99214; G2211

== ENCOUNTER 2024-05-20 10:15 | Outpatient (AMB) | payer OTHER, SELFPAY ==
[2024-05-20 10:34] VITALS: BMI 43.2
--- NOTE | 2024-05-20 10:34 | A.OFFVIS_ITS ---
VS Expanded 05/20/24 10:34 05/20/24 10:55 Height 5 ft 2 in 5 ft 2 in Weight 236 lb 5.369 oz 236 lb BMI 43.2 43.2 Intake Visit Reasons: DM/CONFIRMED Allergies Iodinated Contrast Media [IV CONTRAST] Allergy (Intermediate, Verified 05/20/24 10:35) HIVES empagliflozin Adverse Reaction (Intermediate, Verified 05/20/24 10:35) LIGHT HEADED Nutrition Presentation Details: Pt presents for MNT f/u for T2DM Pt reports having made minimal diet modifications Has exercise equipment at home- not utilizing BS Monitoring Most Recent Diabetes Results: Creatinine 0.60 mg/dL (0.5-1.4) 02/12/24 Blood Urea Nitrogen 6 mg/dL (9-16) L 02/12/24 Sodium 141 mmol/L (135-145) 02/12/24 Potassium 3.5 mmol/L (3.3-5.1) 02/12/24 Chloride 105 mmol/L (96-108) 02/12/24 Carbon Dioxide 29 mmol/L (22-29) 02/12/24 Calcium 9.2 mg/dL (8.4-10.2) 02/12/24 AST 18 U/L (5-31) 02/12/24 ALT 17 U/L (0-31) 02/12/24 Total Protein 7.3 g/dL (6.5-8.0) 02/12/24 Albumin 4.0 g/dL (3.5-5.0) 02/12/24 STI-Dlyciqv-Ku.Jeor Equation Height: 5 ft 2 in Weight: 236 lb Resting Metabolic Rate: 1754.90 Calculated Activity Level: Sedentary Calories Needed to Maintain Weight: 2105.88 [facility] Medical History Goiter Goiter Hypertension History of blood transfusion Pre-op evaluation Abnormal uterine bleeding Well woman exam COVID-19 Vitamin B12 deficiency Vitamin D deficiency Vitamin A deficiency Binge eating disorder Anxiety GERD (gastroesophageal reflux disease) Morbid obesity Transaminitis Macromastia Secondary hyperparathyroidism Vitamin D deficiency HLD (hyperlipidemia) HTN (hypertension) T2DM (type 2 diabetes mellitus) Surgical History Hx of gastric bypass Presence of pancreatic duct stent Hx of cholecystectomy Family History Father Hypertension High cholesterol Mother Hypertension Diabetes High cholesterol Brother No problems noted. Brother No problems noted. Son No problems noted. Daughter No problems noted. 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 career based intervention coordinator to a significant other at home: Yes (2 children) Do you presently have visiting nurse or other home services: No Alcohol intake: never Patient Tobacco Use Status: Never used Tobacco e-Cigarette/Vaping Use: Never Used Second Hand Smoke Exposure: No service: No Current occupational status: unemployed Cognitive needs: No Hearing needs: No Vision needs: Yes Female Reproductive History Menstrual Age of Menarche: 10 Assessment & Plan Assessment & Plan (1) T2DM (type 2 diabetes mellitus): Code(s): E11.9 - Type 2 diabetes mellitus without complications Category: Medical Qualifiers: Diabetes mellitus longterm insulin use: with longterm use Diabetes mellitus complication status: with hyperglycemia Qualified Code(s): E11.65 - Type 2 diabetes mellitus with hyperglycemia; Z79.4 - buttermaker continuous churn (current) use of insulin Plan: Wt: 106 Kg ( 03/2024 ), 107 kg (06/03) Est kcal needs as per MSJ: 2100 (40% carb, 30% protein/fat) Est fluid needs as per 25-30 ml/d: 3200 Est prot per day as per 1 g/kg bw: 106 Recommend fiber intake : 8-10 g per day and gradually increase to 25-28 g per day for women and 35-38 g for men or as tolerated Recommend sodium intake per day : less than 2000 mg Educated patient on: ( R = reviewed V = verbalizes understanding N/R = needs review N/A = not applicable * Food sources of carbohydrate, adequate serving sizes and its role in various health conditions: R * Differences between complex carbohydrates a simple carbohydrates, role of fiber in diet: R V N/R * Lean protein sources of foods: R * Differences between types of fats and role in diet (mono on saturated fat fatty acids, saturated fatty acids, trans fats): R V N/R * Food sources of sodium in salt and healthy modifications for heart health in kidney health: R V R/V * Vitamins and minerals: R V N/R * Healthy plate method concept: R * Physical activity: Benefits a precaution: R * Hypoglycemia protocol (rule of 15): R V N/R * Dietary prevention of Hyperglycemia: R Patient Instructions: Engage in physical activity 10 minute daily and gradually increase to 30 min daily Follow healthy plate method, working on reducing on total carbs to less than 60 g at dinner Coding Level of Care Code Nutr Indiv Subseq (76948) Diagnoses Type 2 diabetes mellitus with hyperglycemia, with long-term current use of insulin E11.65; Z79.4 Diabetes mellitus longterm insulin use: with superintendent terminal use Diabetes mellitus complication status: with hyperglycemia Time Spent (min) 30
[2024-05-20 10:55] VITALS: BMI 43.2
== END 2024-05-20 11:29 | disposition home or self-care (01) ==
PROVIDERS: PCP Internal Medicine; Visit Provider Dietitian, Registered
DX: E11.65 Type 2 diabetes mellitus with hyperglycemia (principal); Z79.4 Long term (current) use of insulin

== ENCOUNTER → 2024-05-20 10:15 | Outpatient (BNVA) | payer OTHER, SELFPAY | PROVIDERS: PCP Internal Medicine; Visit Provider Dietitian, Registered | DX: E11.65 Type 2 diabetes mellitus with hyperglycemia (principal); Z79.4 Long term (current) use of insulin; Z71.3 Dietary counseling and surveillance | CPT/HCPCS: 82947; 97803; 99212 ==

== ENCOUNTER 2024-06-06 09:52 | Outpatient (AMB) | payer OTHER, SELFPAY ==
--- NOTE | 2024-06-06 10:01 | A.OFFVIS_ITS ---
Vital Signs 06/06/24 10:02 Height 5 ft 2 in Weight 238 lb 1.588 oz BMI 43.5 BP 108/72 Blood Pressure Location Rt brachial Position Sitting Pulse 82 Pulse Source Pulse Oximeter Intake Visit Reasons: T2DM Intake Note: Patient present today to follow up on Type 2 Diabetes Mellitus. Possible skin infection in sensor area Patient receives DME supplies through: Pharmacy Last Diabetic Eye exam: 11/05/2023 at [facility]. Last Podiatry Visit: Does not see a Cloth Feeder Most Recent HgA1C: 7.8%, 06/06/2024 Random Glucose: 221 mg/dL, Today Cash Applications Manager Required: No Accompanied by: Self / Same As Patient Allergies Iodinated Contrast Media [IV CONTRAST] Allergy (Intermediate, Verified 05/20/24 10:35) HIVES empagliflozin Adverse Reaction (Intermediate, Verified 05/20/24 10:35) LIGHT HEADED HPI Comments Details: 28 YO Female who is seen for an infection in her left arm at the site of her freestyle Edson. She took the Edson off yesterday and noticed some purulence and redness around the site. She denies fever, chills or pain in the arm. She continues follow her diabetes regime. [facility] Medical History Goiter Goiter Hypertension History of blood transfusion Pre-op evaluation Abnormal uterine bleeding Well woman exam COVID-19 Vitamin B12 deficiency Vitamin D deficiency Vitamin A deficiency Binge eating disorder Anxiety GERD (gastroesophageal reflux disease) Morbid obesity Transaminitis Macromastia Secondary hyperparathyroidism Vitamin D deficiency HLD (hyperlipidemia) HTN (hypertension) T2DM (type 2 diabetes mellitus) Surgical History Hx of gastric bypass Presence of pancreatic duct stent Hx of cholecystectomy Family History Father Hypertension High cholesterol Mother Hypertension Diabetes High cholesterol Brother No problems noted. Brother No problems noted. Son No problems noted. Daughter No problems noted. 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 rn homecare to a significant other at home: Yes (2 children) Do you presently have visiting nurse or other home services: No Alcohol intake: never Patient Tobacco Use Status: Never used Tobacco e-Cigarette/Vaping Use: Never Used Second Hand Smoke Exposure: No service: No Current occupational status: unemployed Cognitive needs: No Hearing needs: No Vision needs: Yes Female Reproductive History Menstrual Age of Menarche: 10 Physical Exam Vital Signs: Last Vital Signs Pulse 82 06/06/24 10:02 BP 108/72 06/06/24 10:02 BMI result Body Mass Index 43.5 Const Other: Absence of Cushingoid features. Absence of acromegalic features. . No thyroid nodules palpable. No carotid bruits present. Heart S1 S2, Reg R/R. No M/R G. Skin exam: right arm 2mm area of redness, no purulence was expressed from area, no fluctuance Results AMB Hemoglobin A1c AMB Hemoglobin A1c 7.8 % Last Edit by SHAKIRA Serrato on 06/06/24 10:16 Results Reviewed Results Reviewed: Laboratory Last Values Glucose (Clinic) 221 mg/dL (60-115) H 06/06/24 10:08 Assessment & Plan Assessment & Plan (1) Acute cellulitis: Code(s): L03.90 - Cellulitis, unspecified Plan: very minimal cellulitis at insertion point of freestyle edson 3. She was advised not to use this arm for a few weeks for sensor placement. She has no systemic symptoms. Will treat empirically with bactrim ds bid for one week. We reviewed technique for insertion which patient had been following correctly. She will call if symptoms worsen or go to ER. She is not on control. Orders: Orders AMB Hemoglobin A1c Today E11.65 - Type 2 diabetes mellitus with hyperglycemia, E11.9 - Type 2 diabetes mellitus without complications, Z79.4 - director long term care (current) use of insulin Medications: New sulfamethoxazole-trimethoprim 800-160 mg (Bactrim DS) 1 tab PO BID 7 days 14 tabs 0RF E11.65 - Type 2 diabetes mellitus with hyperglycemia, L03.90 - Cellulitis, unspecified, Z79.4 - director long term care (current) use of insulin Coding Level of Care Code Est Pt Level 2 (66769) Diagnoses Acute cellulitis L03.90 Time Spent (min) 10 Comment Time spent face to face, chart doc
[2024-06-06 10:02] VITALS: BP 108/72; PULSE 82; BMI 43.5
[2024-06-06 10:12] LABS: Glucose, Whole Blood 221 mg/dL (60-115)
== END 2024-06-06 10:17 | disposition home or self-care (01) ==
PROVIDERS: PCP Internal Medicine; Visit Provider Nurse Practitioner Adult Health
DX: E11.9 Type 2 diabetes mellitus without complications (principal); Z79.4 Long term (current) use of insulin; E11.65 Type 2 diabetes mellitus with hyperglycemia; L03.90 Cellulitis, unspecified
CPT/HCPCS: 99212

== ENCOUNTER → 2024-06-06 09:52 | Outpatient (BNVA) | payer OTHER, SELFPAY | PROVIDERS: PCP Internal Medicine; Visit Provider Nurse Practitioner Adult Health | DX: L03.90 Cellulitis, unspecified (principal) | CPT/HCPCS: 82947; 83036; 99212 ==

== ENCOUNTER 2024-07-08 11:12 | Outpatient (AMB) | payer OTHER, SELFPAY ==
--- NOTE | 2024-07-08 07:40 | A.OFFVIS_ITS ---
Vital Signs 07/08/24 11:16 Height 5 ft 2 in Weight 240 lb 1.334 oz BMI 43.9 BP 118/78 Blood Pressure Location Lt brachial Position Sitting Pulse 60 Pulse Source Pulse Oximeter Intake Visit Reasons: T2DM/CONFIRMED Intake Note: Patient presents today for D2MT follow up visit. Last Diabetic Eye exam: 11/2023 Last Podiatry Visit: Doesn't have one Random Glucose: 192 mg/dl HgA1c: 7.8% 06/06/24 Grab Jack Worker Required: No Accompanied by: Self / Same As Patient Allergies Iodinated Contrast Media [IV CONTRAST] Allergy (Intermediate, Verified 07/08/24 11:20) HIVES empagliflozin Adverse Reaction (Intermediate, Verified 07/08/24 11:20) LIGHT HEADED Medication List - Last Reconciled 07/08/24 by Jennifer Palmer NP alprazolam 0.5 mg PO DAILY PRN 2 days blood pressure monitor As directed blood sugar diagnostic (FreeStyle Lite Strips) USE DIRECTED 4X DAILY blood-glucose meter (FreeStyle Lite Meter kit) as directed blood-glucose sensor (FreeStyle Edson 3 Plus Sensor device) As directed bupropion HCl XL 300 mg PO QAM 90 days CeQur Simplicity Nocturnist Physician (diabetic supplies, miscellan.) As directed every 4 days NS cetirizine (Allergy Relief (cetirizine)) 10 mg PO DAILY PRN 30 days cholecalciferol (vitamin D3) 50 mcg PO DAILY 90 days cholecalciferol (vitamin D3) 1,250 mcg PO QWEEK 8 weeks cyclobenzaprine 5 mg PO TID PRN diabetic supplies, miscellan. (CeQur Simplicity Nocturnist Physician) As directed flash glucose scanning reader (FreeStyle Edson 2 [place]) As directed flash glucose sensor (FreeStyle Edson 2 Sensor kit) As directed change every 14 days insulin glargine (Lantus Solostar U-100 Insulin) 45 units (0.45 mL) subcut QPM insulin lispro (Humalog U-100 Insulin) 8-14 units tid before meals as needed (e ach click equals 2 units, 3-7 clicks tid prn subcutaneously use as directed; 30 days insulin lispro 1 sliding scale dose subcut TIDWMEAL 30 days MDD 24 NS lancets (FreeStyle Lancets) 4x daily lancing device As directed for use with free style lancets multivitamin 1 tab PO DAILY pen needle, diabetic (1st Tier Unifine Pentips Plus) 4x a day rizatriptan 10 mg PO Q2-4H PRN 30 days sulfamethoxazole-trimethoprim 800-160 mg (Bactrim DS) 1 tab PO BID 7 days sumatriptan succinate 25 mg PO Q2-4H PRN 30 days HPI Comments Details: 28 YO Female who is seen in f/u for T2DM. She was last seen May 2024 at which time Humalog who has started with meals. Hemoglobin A1c 06/06/2024 7.8%, A1C was 8.2% on 03/07/24 prior to restarting Humalog. She was given a prescription for CeQur at her last visit which the pharmacist was unable to fill or order. She checked with several other pharmacist. She is s/p bariatric surgery. She has a prior history of pancreatitis Had been on metformin in the past which was stopped and she does not remember the reason why. Failed trial of Jardiance 04/2024 due to side effects. Current regimen: Lantus 45 units Humalog 5-8 unit tid Freestyle edson sensor 3 average glucose: 190 14 day continuous glucose sensor report reviewed TIme in ranges: 29 % very high (above 250) 24 % high (181-250) 42 % in range (70-180] 5 % low (69-55) 0 % very low (below 54) 49 Glucose variability(target <36%) Interpretation of CGMS glucose at night is close to 240 and gradually decreases down to target range by morning, throughout the day she is progressively getting higher Rare lows Treats lows with candy. Checks sugar after to ensure it is rising. Treats with several oreo cookies Denies retinopathy: Has eyes checked yearly, last eye exam 10/30 4, scheduled for next October Denies neuropathy, last foot exam 06/03 in [facility] she does not see podiatry No nephropathy No recent lipid profile. [Denies] CAD. Diet: at times eats just once daily, very inconsistent with diet Weight: Desires nutrition referral She denies numbness and tingling, cramping in legs. Denies cp Walks with her children but not daily [facility] screen Fibrosis-4 (Fib-4) Index for liver fibrosis (calculated on lab work done: 02/2024) [0.38 ] points Advanced fibrosis [n/a secondary to age ] Approximate Fibrosis stage Hansel [0-1 ] *Use with caution in patients <35 or >65 years old, as the score has been shown to be less reliable in these patients. Prior Imaging [] Action Plan: [] rescreen two years from date of screening labs[02/2026 ] Hyperparathyroidism: She had lab evidence of secondary hyperparathyroidism. Has never had kidney stones. Has never broken a bone. No family history of nephrolithiasis. Labs revealed evidence of secondary hyperparathyroidism. Vitamin D has now been repleted since bariatric surgery and Calcium is WNL. 02/2021 9.2 no recent Vitamin D [facility] Medical History Goiter Goiter Hypertension History of blood transfusion Pre-op evaluation Abnormal uterine bleeding Well woman exam COVID-19 Vitamin B12 deficiency Vitamin D deficiency Vitamin A deficiency Binge eating disorder Anxiety GERD (gastroesophageal reflux disease) Morbid obesity Transaminitis Macromastia Secondary hyperparathyroidism Vitamin D deficiency HLD (hyperlipidemia) HTN (hypertension) T2DM (type 2 diabetes mellitus) Surgical History Hx of gastric bypass Presence of pancreatic duct stent Hx of cholecystectomy Family History Father Hypertension High cholesterol Mother Hypertension Diabetes High cholesterol Brother No problems noted. Brother No problems noted. Son No problems noted. Daughter No problems noted. 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 managed care coordinator to a significant other at home: Yes (2 children) Do you presently have visiting nurse or other home services: No Alcohol intake: never Patient Tobacco Use Status: Never used Tobacco e-Cigarette/Vaping Use: Never Used Second Hand Smoke Exposure: No service: No Current occupational status: unemployed Cognitive needs: No Hearing needs: No Vision needs: Yes Female Reproductive History Menstrual Age of Menarche: 10 Physical Exam Vital Signs: Last Vital Signs Pulse 60 07/08/24 11:16 BP 118/78 07/08/24 11:16 BMI result Body Mass Index 43.9 Const Other: Absence of Cushingoid features. Absence of acromegalic features. Neck exam reveals nl size thyroid about 15 gms. No thyroid nodules palpable. Heart S1 S2, Reg R/R. No M/R G. Skin exam reveals absence of vitiligo or acanthosis nigricans. Visual exam of foot performed. No ulcerations or open lesions. No inter digit maceration or fissuring. No onychomycosis, no callouses. Sensation intact to monofilament exam. Vibratory sensation is normal with 128 Hz tuning fork. Assessment & Plan Assessment & Plan (1) Insulin dependent type 2 diabetes mellitus: Code(s): E11.9 - Type 2 diabetes mellitus without complications; Z79.4 - longterm (current) use of insulin Category: Medical Plan: 20-year-old obese type 2 diabetic with no known macro or microvascular complications 7.8%. Humalog dosing was adjusted upward and I have sent an inquiry to the REP for CeQur to get this insulin patch device approved and have the patient trained. New dosing of insulin: Lantus 45 units at night Humalog t.i.d. before meals 80-150 6 units 3 clicks 151-200 8 units 4 clicks 201 -250 10 units 5 clicks 251-300 12 units 6 clicks Over 300 14 units 7 clicks Today in the office she was shown how to check her average glucose and advised that her target is 154. If she is running higher than target when she sits started on this she would be a call the office otherwise I will see her back week of August. She has been recommended to have fasting blood work to check a lipid profile C-peptide TODD and insulin antibodies and a urine for microalbumin (2) Hypercalcemia: Code(s): E83.52 - Hypercalcemia Plan: She has a history of elevated calcium with low vitamin-D. Calcium returned to normal once she was replaced with vitamin-D. It has been several years since this has been rechecked and lab orders were placed to check calcium, albumin, vitamin-D and PTH Orders: Orders Vitamin D 25-OH Total Today E83.52 - Hypercalcemia Albumin Level Today E83.52 - Hypercalcemia Creatinine Urine Today E11.9 - Type 2 diabetes mellitus without complications, Z79.4 - longterm (current) use of insulin Parathyroid Hormone Intact Today E83.52 - Hypercalcemia Calcium Today E83.52 - Hypercalcemia Microalbumin, Random (w Creat) Today E11.9 - Type 2 diabetes mellitus without complications, Z79.4 - longterm (current) use of insulin Medications: Changed From insulin lispro (Humalog U-100 Insulin) 6-8 units tid before meals as needed (each click equals 2 units, 3-4 clicks tid prn subcutaneously use as directed; 20 mL 6RF To insulin lispro (Humalog U-100 Insulin) 8-14 units tid before meals as needed (each click equals 2 units, 3-7 clicks tid prn subcutaneously use as directed; 20 mL 6RF 30 days Patient Instructions: The patient was counseled to always carry a source of sugar and on the rule of 15's: Take 3 glucose tablets and repeat again in 15 minutes if blood sugar is not in normal range. Continue to repeat every 15 minutes until blood sugar is normal. The patient was counseled to achieve a target A1C of 7% (154 avg). Fasting blood sugars should be 90-130 in the morning and less than 180 two hours after meals. Reviewed the relationship between poor diabetic control and the development of complications. Could care I Coding Level of Care Code Est Pt Level 5 (25046) Complex EM visit Add On G2211 Diagnoses Insulin dependent type 2 diabetes mellitus E11.9; Z79.4 Hypercalcemia E83.52 Time Spent (min) 45 Comment Time spent reviewing labs/provider notes, glucose,sensor reports, face to face, chart doc
[2024-07-08 11:16] VITALS: BP 118/78; PULSE 60; BMI 43.9
[2024-07-08 11:26] LABS: Glucose, Whole Blood 192 mg/dL (60-115)
== END 2024-07-08 11:49 | disposition home or self-care (01) ==
LOC: HO.ENCR 11:12
PROVIDERS: PCP Internal Medicine; Visit Provider Nurse Practitioner Adult Health
DX: E11.9 Type 2 diabetes mellitus without complications (principal); Z79.4 Long term (current) use of insulin; E83.52 Hypercalcemia
CPT/HCPCS: 99215; G2211

== ENCOUNTER → 2024-07-08 11:12 | Outpatient (BNVA) | payer OTHER, SELFPAY | PROVIDERS: PCP Internal Medicine; Visit Provider Nurse Practitioner Adult Health | DX: E83.52 Hypercalcemia (principal); E11.9 Type 2 diabetes mellitus without complications; Z79.4 Long term (current) use of insulin | CPT/HCPCS: 82947; 99212 ==

== ENCOUNTER 2024-07-09 09:02 | Outpatient (REF) | payer OTHER, SELFPAY ==
[2024-07-09 09:49] LABS: Appearance Urine Clear; Color Urine Dark Yellow; Glucose Urine UA Negative (Negative); Leukocyte Esterase Urine Trace (Negative); Nitrite Urine Negative (Negative); PH 5.5 (5.0-9.0); Specific Gravity - Urine >= 1.030 (1.005-1.025); UMIC TRIGGER UACC YES; Urine Blood Negative (Negative); Urine Ketones Trace mg/dL (Negative); Urine Protein Negative (Neg-Trace)
[2024-07-09 09:52] LABS: Bacteria Urine None Seen (None Seen); Hyaline Casts Urine 0-2 /LPF (0-2); RBC Urine 0-2 /HPF (0-2); WBC Urine 0-5 /HPF (0-5)
[2024-07-09 10:43] LABS: Creatinine Urine 226.58 mg/dL; Microalbum/Creatinine Ratio Ur 6.6 ug/mg cr (<30)
[2024-07-09 11:04] LABS: Parathyroid Hormone Intact 79.3 pg/mL (8.7-77.1)
[2024-07-09 12:13] LABS: Albumin Level 4.1 g/dL (3.5-5.0); Anion Gap 14 (12-20); Blood Urea Nitrogen 10 mg/dL (9-16); Calcium 8.8 mg/dL (8.4-10.2); Carbon Dioxide 21 mmol/L (22-29); Chloride 109 mmol/L (96-108); Cholesterol 120 mg/dL (<200); Estimated Glomerular Filt Rate > 60; Glucose Random 111 mg/dL (60-115); HDL Cholesterol 38 mg/dL (>40); LDL Cholesterol Calculated 73 mg/dL (<100); Sodium 140 mmol/L (135-145); Triglycerides 45 mg/dL (<150)
[2024-07-11 00:08] LABS: C Peptide 0.24 ng/mL (0.80-3.85)
[2024-07-14 22:18] LABS: Glutamic acid decarboxylase Ab <5 IU/mL (<5)
[2024-07-18 00:58] LABS: Islet Cell Antibody Screen NEGATIVE (NEGATIVE)
== END 2024-07-09 09:03 | disposition home or self-care (01) ==
LOC: HO.LAB 09:02
PROVIDERS: PCP Internal Medicine; Visit Provider Nurse Practitioner Adult Health
DX: E83.52 Hypercalcemia (principal); E11.9 Type 2 diabetes mellitus without complications; Z79.4 Long term (current) use of insulin; E11.65 Type 2 diabetes mellitus with hyperglycemia
CPT/HCPCS: 36415; 80048; 80061; 81001; 82040; 82043; 82306; 82570; 83970; 84681; 86337; 86341

== ENCOUNTER 2024-07-16 10:39 | Outpatient (AMB) | payer OTHER, SELFPAY ==
--- NOTE | 2024-07-16 11:25 | MHC.AMDMED ---
Intake Intake Visit Reasons: 60 min-conf Allergies Iodinated Contrast Media [IV CONTRAST] Allergy (Intermediate, Verified 07/08/24 11:20) HIVES empagliflozin Adverse Reaction (Intermediate, Verified 07/08/24 11:20) LIGHT HEADED HPI Comprehensive Diabetes Asmnt Most Recent Diabetes Results: Microalb/Creat Ratio 6.6 ug/mg cr (<30) 07/09/24 Cholesterol 120 mg/dL (<200) 07/09/24 HDL Cholesterol 38 mg/dL (>40) L 07/09/24 Triglycerides 45 mg/dL (<150) 07/09/24 Creatinine 0.59 mg/dL (0.5-1.4) 07/09/24 Blood Urea Nitrogen 10 mg/dL (9-16) 07/09/24 Sodium 140 mmol/L (135-145) 07/09/24 Potassium 4.0 mmol/L (3.3-5.1) 07/09/24 Chloride 109 mmol/L (96-108) H 07/09/24 Carbon Dioxide 21 mmol/L (22-29) L 07/09/24 Calcium 8.8 mg/dL (8.4-10.2) 07/09/24 AST 18 U/L (5-31) 02/12/24 ALT 17 U/L (0-31) 02/12/24 Total Protein 7.3 g/dL (6.5-8.0) 02/12/24 Albumin 4.1 g/dL (3.5-5.0) 07/09/24 [facility] Medical History (Updated 07/10/24 @ 08:09 by Jennifer Palmer NP) Low vitamin D level Goiter Goiter Hypertension History of blood transfusion Pre-op evaluation Abnormal uterine bleeding Well woman exam COVID-19 Vitamin B12 deficiency Vitamin D deficiency Vitamin A deficiency Binge eating disorder Anxiety GERD (gastroesophageal reflux disease) Morbid obesity Transaminitis Macromastia Secondary hyperparathyroidism Vitamin D deficiency HLD (hyperlipidemia) HTN (hypertension) T2DM (type 2 diabetes mellitus) Surgical History Hx of gastric bypass Presence of pancreatic duct stent Hx of cholecystectomy Family History Father Hypertension High cholesterol Mother Hypertension Diabetes High cholesterol Brother No problems noted. Brother No problems noted. Son No problems noted. Daughter No problems noted. 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 restorative care technician to a significant other at home: Yes (2 children) Do you presently have visiting nurse or other home services: No Alcohol intake: never Patient Tobacco Use Status: Never used Tobacco e-Cigarette/Vaping Use: Never Used Second Hand Smoke Exposure: No service: No Current occupational status: unemployed Cognitive needs: No Hearing needs: No Vision needs: Yes Female Reproductive History Menstrual Age of Menarche: 10 Assessment & Plan Assessment & Plan (1) Insulin dependent type 2 diabetes mellitus: Code(s): E11.9 - Type 2 diabetes mellitus without complications; Z79.4 - senior care (current) use of insulin Plan Pt at visit Nadia Marshall Training Pt brought CeQue patch, program production specialist, vial of mealtime insulin and change by stickers Patient's prescription reads take Instructed patient to wash your hands Demonstrated for patient how to fill syringe from vial, and insert, needle to fill patch Then remove air bubbles from patch, by viewing through clear window below blue cap To prime patch after air bubble has been removed proceed with 4 clicks Apply placed sticker, to patch, count forward 4 days Prepare site where you will place patch with either alcohol or soap and water, avoid waist band and belt line Do not insert through scar tissue, piercings and tattoos be sure to place patch at least 2 in from belly button. If you have excess body hair adhesive will attach better to clean shaven skin Instructed patient to be sure to rotate patch regularly Place patch in program production specialist while holding program production specialist with both hands use thumbs to push down on blue cap in on patch Push until you hear a click Instructed patient not to unlock green button until program production specialist is against prepared site Squeeze at both ends a blue cap and carefully began to pull cap, this should also remove adhesive pad liner. Be cautious of exposed needle, check to make sure needle is not bent Please patch on your body, slide yellow safety and press green button down Press program production specialist firmly for 10 seconds, remove program production specialist by lifting it away To remove needle squeeze clear sides of risk reduction counselor at the base Discard needle in sharps container Press down firmly on patch with palm of your hand for 10 seconds Patient left visit with CeQue patch in place Instructed patient on how to administer mealtime insulin, instructed patient that each click is equal to 2 units of mealtime insulin Patient will follow-up with certified adapted physical educator as instructed Portions of this note were created using voice recognition software, please excuse any words or phrases that may have been misinterpreted. Patient Instructions: Prepare site where you will place patch with either alcohol or soap and water, avoid waist band and belt line Do not insert through scar tissue, piercings and tattoos be sure to place patch at least 2 in from belly button. If you have excess body hair adhesive will attach better to clean shaven skin Instructed patient to be sure to rotate patch regularly Place patch in program production specialist while holding program production specialist with both hands use thumbs to push down on blue cap in on patch Push until you hear a click Do not to unlock green button until program production specialist is against prepared site Squeeze at both ends a blue cap and carefully began to pull cap, this should also remove adhesive pad liner. Be cautious of exposed needle, check to make sure needle is not bent Please patch on your body, slide yellow safety and press green button down Press program production specialist firmly for 10 seconds, remove program production specialist by lifting it away To remove needle squeeze clear sides of risk reduction counselor at the base Discard needle in sharps container Press down firmly on patch with palm of your hand for 10 seconds Coding Level of Care Code Est Pt Level 1 (52763) Diagnoses Insulin dependent type 2 diabetes mellitus E11.9; Z79.4
== END 2024-07-16 11:27 | disposition home or self-care (01) ==
LOC: HO.ENCR 10:39
PROVIDERS: PCP Internal Medicine; Visit Provider Registered Nurse Diabetes Educator
DX: E11.9 Type 2 diabetes mellitus without complications (principal); Z79.4 Long term (current) use of insulin

== ENCOUNTER → 2024-07-16 10:39 | Outpatient (BNVA) | payer OTHER, SELFPAY | PROVIDERS: PCP Internal Medicine; Visit Provider Registered Nurse Diabetes Educator | DX: E11.9 Type 2 diabetes mellitus without complications (principal); Z79.4 Long term (current) use of insulin | CPT/HCPCS: 99211 ==

== ENCOUNTER 2024-07-24 15:03 | Outpatient (AMB) | payer OTHER, SELFPAY ==
[2024-07-24 15:07] VITALS: BP 122/80; BMI 44.1
--- NOTE | 2024-07-24 15:07 | MHC.PC.OV ---
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: No Accompanied by: Self / Same As Patient Allergies Iodinated Contrast Media [IV CONTRAST] Allergy (Intermediate, Verified 07/24/24 15:33) HIVES empagliflozin Adverse Reaction (Intermediate, Verified 07/24/24 15:33) LIGHT HEADED Medication List - Last Reconciled 07/24/24 by Charity Juárez MD alprazolam 0.5 mg PO DAILY PRN 2 days blood pressure monitor As directed blood sugar diagnostic (FreeStyle Lite Strips) USE DIRECTED 4X DAILY blood-glucose meter (FreeStyle Lite Meter kit) as directed blood-glucose sensor (FreeStyle Edson 3 Plus Sensor device) As directed bupropion HCl XL 300 mg PO QAM 90 days CeQur Simplicity Retail Reset Merchandiser (diabetic supplies, miscellan.) As directed every 4 days NS cetirizine (Allergy Relief (cetirizine)) 10 mg PO DAILY PRN 30 days cholecalciferol (vitamin D3) 50 mcg PO DAILY 90 days cyclobenzaprine 5 mg PO TID PRN diabetic supplies, miscellan. (CeQur Simplicity Retail Reset Merchandiser) As directed flash glucose scanning reader (FreeStyle Edson 2 [place]) As directed flash glucose sensor (FreeStyle Edson 2 Sensor kit) As directed change every 14 days insulin glargine (Lantus Solostar U-100 Insulin) 45 units (0.45 mL) subcut QPM insulin lispro (Humalog U-100 Insulin) 8-14 units tid before meals as needed (each click equals 2 units, 3-7 clicks tid prn subcutaneously use as directed; 30 days insulin lispro 1 sliding scale dose subcut TIDWMEAL 30 days MDD 24 NS lancets (FreeStyle Lancets) 4x daily lancing device As directed for use with free style lancets multivitamin 1 tab PO DAILY pen needle, diabetic (1st Tier Unifine Pentips Plus) 4x a day rizatriptan 10 mg PO Q2-4H PRN 30 days sulfamethoxazole-trimethoprim 800-160 mg (Bactrim DS) 1 tab PO BID 7 days sumatriptan succinate 25 mg PO Q2-4H PRN 30 days Tobacco use date assessed: 07/24/24 Dental Screening Dental Screen Date: 07/24/24 Did you have a dental visit in the last 12 months?: No Did you have a dental problem in the last 6 months where you did not have access to dental care?: No Was dental information given to patient?: Patient has dentist HPI HPI Comments History of Present Illness Details This is a 28-year-old female with morbid obesity that comes today for her physical exam. Last Pap smear was 2021 and was normal. She also has diabetes mellitus type 1 and last A1c was 7.8% and this is follow by endocrinology. She will be referred to weight management for her morbid obesity. She also has mild major depression on bupropion. [facility] Medical History (Updated 07/25/24 @ 18:21 by Charity Juárez MD) Type 1 diabetes mellitus Low vitamin D level Goiter Goiter Hypertension History of blood transfusion Pre-op evaluation Abnormal uterine bleeding Well woman exam COVID-19 Vitamin B12 deficiency Vitamin D deficiency Vitamin A deficiency Binge eating disorder Anxiety GERD (gastroesophageal reflux disease) Morbid obesity Transaminitis Macromastia Secondary hyperparathyroidism Vitamin D deficiency HLD (hyperlipidemia) HTN (hypertension) Surgical History Hx of gastric bypass Presence of pancreatic duct stent Hx of cholecystectomy Family History Father Hypertension High cholesterol Mother Hypertension Diabetes High cholesterol Brother No problems noted. Brother No problems noted. Son No problems noted. Daughter No problems noted. 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 1. Little interest or pleasure in doing things: more than half the days 2. Feeling down, depressed, or hopeless: more than half the days 3. Trouble falling or staying asleep, or sleeping too much: more than half the days 4. Feeling tired or having little energy: more than half the days 5. Poor appetite or overeating: more than half the days 6. Feeling bad about yourself - or that you are a failure or have let yourself or your family down: more than half the days 7. Trouble concentrating on things, such as reading the newspaper or watching television: more than half the days 8. Moving or speaking so slowly that other people could have noticed. Or the opposite - being so fidgety or restless that you have been moving around a lot more than usual: more than half the days 9. Thoughts that you would be better off or of hurting yourself in some way: not at all Total score: 16 Depression Screening Interpretation: Positive (no suicidal thoughts) Depression Screening Follow-up: Existing condition, In treatment and Follow-up Visit Requested Depression Screening Done: Yes 55018 - PHQ-9 Billing: Yes Source: Developed by Drs. Bert Quintana, Sulma Trinh, Kaden Henry and colleagues, with an educational ángel from [employer]. Thrive Questionnaire Date Thrive assessed: 07/24/24 I am a: Patient What is your living situation today?: I have a steady place to live Within the past 12 months, did the food you bought not last and you didn't have the money to get more?: Never true Within the past 12 months, did you worry whether your food would run out before you got money to buy more?: Never true Do you have trouble paying for medicines?: No Do you have trouble getting transportation to medical appointments?: No Do you have trouble paying your heating and electricity bill?: No Do you have trouble taking care of your child, family member or friend?: No Do you have trouble with day-to-day activities such as bathing, preparing meals, shopping, managing finances, etc.?: No Are you currently unemployed and looking for a job?: No Are you interested in more education?: No Please select the resources that you would like help with: Utilities Currently or been in a relationship where the following occur: No concerns reported THRIVE Score: 0 AUDIT C Alcohol Use Questionnaire (AUDIT-C) 1. How often do you have a drink containing alcohol?: Never Total Score: 0 Score Reviewed/Action Taken: No TODD-7 AMB Questionnaire TODD-7 Date TODD - 7 assessed: 03/19/24 Feeling nervous, anxious, or on edge: 1 = Several days Not being able to stop or control worryin = Several days Worrying too much about different things: 1 = Several days Trouble relaxin = More than half the days Being so restless that it is hard to sit still: 2 = More than half the days Becoming easily annoyed or irritable: 2 = More than half the days Feeling afraid as if something awful might happen: 0 = Not at all Total TODD-7 score (0-4 normal; 5-9 mild; 10-14 moderate; 15-21 severe): 9 Source: Developed by Drs. Bert Quintana, Sulma Trinh, Kaden Henry and colleagues, with an educational ángel from [employer]. TODD-7 Assessment Billing TODD-7 Assessment Tool: TODD-7 Assessment 56279 Review of Systems Const All systems reviewed & are unremarkable except as noted in HPI and below Card Denies chest pain at rest, Denies chest pain with activity, Denies edema, Denies irregular heart rhythm, Denies claudication, Denies dyspnea, Denies dyspnea on exertion, Denies orthopnea, Denies paroxysmal nocturnal dyspnea and Denies slow heart rate Resp Denies cough, Denies dyspnea and Denies dyspnea on exertion GI Denies abdominal pain, Denies change in bowel habits, Denies excessive flatus, Denies nausea and Denies vomiting Physical exam (Primary Care) Vital Signs: Last Vital Signs BP 122/80 07/24/24 15:07 BMI result Body Mass Index 44.1 BMI Assessment/Plan discussion: High BMI High, discussed plan: lifestyle, weight reduction, dietary and physical activity Tobacco/Smoking Status: Tobacco use Status Tobacco use date assessed 07/24/24 07/24/24 15:12 Patient Tobacco Use Status Never used Tobacco 07/24/24 15:12 e-Cigarette/Vaping Use Never Used 07/24/24 15:12 PHQ-9: PHQ-9 Score PHQ-9: Total score 16 07/24/24 15:36 Depression Screening Interpretation: Positive (no suicidal thoughts) Depression Screening Follow-up: Existing condition, In treatment and Follow-up Visit Requested Thrive Assessment: Date of Thrive Assessment Date Thrive assessed 07/24/24 07/24/24 15:12 Currently or been in a relationship where the following occur: No concerns reported [facility] Head: Yes normal to inspection, Yes normocephalic and Yes atraumatic Ears: external ears normal Eyes General: appearance normal, both eyes and all related structures Eyelids: Yes eyelids normal Conjunctivae: conjunctivae normal Neck Neck: Yes normal visual inspection and Yes supple Resp Effort & Inspection: normal respiratory effort Auscultation: clear to auscultation bilaterally Cardio Jugular venous distension: no JVD Rate: regular rate Rhythm: regular rhythm Heart sounds: S1 normal heart sound present and S2 normal heart sound present GI Inspection: Yes normal to inspection Palpation (GI): Soft to palpation and nontender Auscultation: normal bowel sounds Skin General skin exam: no rashes or lesions noted Neuro General: no focal motor deficits Extrem General: Yes full ROM Psych Appearance: grossly normal Office Procedures Flu Questionnaire Does the patient have a severe egg allergy?: No Immunizations Fluarix Triv 2099-1208 (PF) 45 mcg (15 mcg x 3)/0.5 mL IM syringe Performing Provider: Charity Juárez MD [facility] Documented (not given) by: SHAKIRA Reyes on 07/24/24 15:12 Reason Not Given: Patient Refused Coding Level of Care Code Est Pt Prev Care 18-39y(03520) Diagnoses Physical exam Z00.00 Type 1 diabetes mellitus E10.9 Mild episode of recurrent major depressive disorder F33.0 Morbid obesity E66.01 Additional Codes TODD-7 Assessment Billing - TODD-7 Assessment Tool: TODD-7 Assessment 32612 ([id number]) PHQ-9 - 09375 - PHQ-9 Billing: Yes ([id number]) Time Spent (min) 31 Assessment & Plan Assessment & Plan (1) Physical exam: Code(s): Z00.00 - Encounter for general adult medical examination without abnormal findings Category: Medical Plan: Repeat in a year. (2) Type 1 diabetes mellitus: Code(s): E10.9 - Type 1 diabetes mellitus without complications Category: Medical Plan: Continue insulin. Follow-up with endocrinology. A1c goal is equal or less than 7%. (3) Mild episode of recurrent major depressive disorder: Code(s): F33.0 - Major depressive disorder, recurrent, mild Category: Medical Plan: Continue bupropion. (4) Morbid obesity: Code(s): E66.01 - Morbid (severe) obesity due to excess calories Category: Medical Plan: Referred to weight management. BMI goal is less than 30. Orders: Orders Influenza [id number] Immunization 07/24/24 Z23 - Encounter for immunization Lipid Panel 4 Months E78.5 - Hyperlipidemia, unspecified Comprehensive Gamaliel. Panel Fast 4 Months E10.9 - Type 1 diabetes mellitus without complications Microalbumin, Random (w Creat) 4 Months R80.9 - Proteinuria, unspecified Vitamin D 25-OH Total 4 Months E55.9 - Vitamin D deficiency, unspecified Referrals Medical Weight Management Referral E66.01 - Morbid (severe) obesity due to excess calories
== END 2024-07-24 15:45 | disposition home or self-care (01) ==
PROVIDERS: PCP Internal Medicine; Visit Provider Internal Medicine
DX: Z00.00 Encounter for general adult medical examination without abnormal findings (principal); E10.9 Type 1 diabetes mellitus without complications; F33.0 Major depressive disorder, recurrent, mild; E66.01 Morbid (severe) obesity due to excess calories; Z68.41 Body mass index [BMI] 40.0-44.9, adult

== ENCOUNTER → 2024-07-24 15:03 | Outpatient (BNVA) | payer OTHER, SELFPAY | PROVIDERS: PCP Internal Medicine; Visit Provider Internal Medicine | DX: Z00.00 Encounter for general adult medical examination without abnormal findings (principal); E10.9 Type 1 diabetes mellitus without complications; F33.0 Major depressive disorder, recurrent, mild; E66.01 Morbid (severe) obesity due to excess calories; Z68.41 Body mass index [BMI] 40.0-44.9, adult; Z71.3 Dietary counseling and surveillance | CPT/HCPCS: 90471; 96127; 99395 ==

== ENCOUNTER 2024-08-13 11:24 | Outpatient (AMB) | payer OTHER, SELFPAY ==
--- NOTE | 2024-08-13 08:06 | A.OFFVIS_ITS ---
Vital Signs 08/13/24 11:31 Height 5 ft 2 in Weight 242 lb 8.136 oz BMI 44.4 BP 118/78 Blood Pressure Location Rt brachial Position Sitting Pulse 70 Pulse Source Pulse Oximeter Intake Visit Reasons: DM Intake Note: Patient present today to follow up on Type 1 Diabetes Mellitus. Patient receives DME supplies through: Pharmacy Last Diabetic Eye exam: 11/05/2023 at [facility]. Last Podiatry Visit: Does not see a Emt Intermediate Most Recent HgA1C: 8.2%, 08/13/2024 Random Glucose: 248 mg/dL, Today Supply Analyst Required: No Accompanied by: Self / Same As Patient Allergies Iodinated Contrast Media [IV CONTRAST] Allergy (Intermediate, Verified 08/13/24 11:32) HIVES empagliflozin Adverse Reaction (Intermediate, Verified 08/13/24 11:32) LIGHT HEADED HPI Comments Details: 28 YO Female who is seen in f/u for T1DM. She was previously treated as a type 2 diabetic and has recently been started o Basal/bolus insulin using a 4 day insulin patch. Hemoglobin A1c 06/06/2024 7.8%, A1C was 8.2% on 03/07/24 prior to restarting Humalog. 2023 low C-peptide 0.24, positive insulin auto antibodies, negative gada She is s/p bariatric surgery. She has a prior history of pancreatitis Had been on metformin in the past which was stopped and she does not remember the reason why. Failed trial of Jardiance 04/2024 due to side effects. Current regimen: Lantus 45 units Humalog 4-14 unit tid Freestyle nathan sensor 3 average glucose: [ ] 14 day continuous glucose sensor report reviewed Glucose Management indicator [ ] % Time CGM active [ ] % TIme in ranges: [ ] % very high (above 250) [ ] % high (181-250) [ ] % in range (70-180] [ ] % low (69-55) [ ] % very low (below 54) [ ] Glucose variability [ ] (target <36%) Interpretation of CGMS [ ] Treats lows with candy. Checks sugar after to ensure it is rising. Treats with several oreo cookies Denies retinopathy: Has eyes checked yearly, last eye exam 10/2023, scheduled for next October Denies neuropathy, last foot exam 06/03 in [facility] she does not see podiatry No nephropathy No recent lipid profile. [Denies] CAD. Diet: at times eats just once daily, very inconsistent with diet Weight: Desires nutrition referral She denies numbness and tingling, cramping in legs. Denies cp Walks with her children but not daily [facility] screen Fibrosis-4 (Fib-4) Index for liver fibrosis (calculated on lab work done: 02/2024) [0.38 ] points Advanced fibrosis [n/a secondary to age ] Approximate Fibrosis stage Hansel [0-1 ] *Use with caution in patients <35 or >65 years old, as the score has been shown to be less reliable in these patients. Prior Imaging [] Action Plan: [] rescreen two years from date of screening labs[02/2026 ] Hyperparathyroidism: She had lab evidence of secondary hyperparathyroidism. Has never had kidney stones. Has never broken a bone. No family history of nephrolithiasis. Labs revealed evidence of secondary hyperparathyroidism. Vitamin D has now been repleted since bariatric surgery and Calcium repeated has been normal. Recent vit d 20 PTH 79.3 PFSH Medical History (Updated 08/13/24 @ 08:14 by Jennifer Palmer NP) Diabetes mellitus Insulin dependent type 2 diabetes mellitus Type 1 diabetes mellitus Low vitamin D level Goiter Goiter Hypertension History of blood transfusion Pre-op evaluation Abnormal uterine bleeding Well woman exam COVID-19 Vitamin B12 deficiency Vitamin D deficiency Vitamin A deficiency Binge eating disorder Anxiety GERD (gastroesophageal reflux disease) Morbid obesity Transaminitis Macromastia Secondary hyperparathyroidism Vitamin D deficiency HLD (hyperlipidemia) HTN (hypertension) Surgical History Hx of gastric bypass Presence of pancreatic duct stent Hx of cholecystectomy Family History Father Hypertension High cholesterol Mother Hypertension Diabetes High cholesterol Brother No problems noted. Brother No problems noted. Son No problems noted. Daughter No problems noted. 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 Absence of acromegalic features. Neck exam reveals nl size thyroid about 15 gms. No thyroid nodules palpable. Heart S1 S2, Reg R/R. No M/R G. Skin exam reveals absence of vitiligo or acanthosis nigricans. Visual exam of foot performed. No ulcerations or open lesions. No inter digit maceration or fissuring. No onychomycosis, no callouses. Sensation intact to monofilament exam. Vibratory sensation is normal with 128 Hz tuning fork. Results AMB Hemoglobin A1c AMB Hemoglobin A1c 8.2 % Last Edit by SHAKIRA Serrato on 08/13/24 11:44 Results Reviewed Results Reviewed: Laboratory Last Values Glucose (Clinic) 248 mg/dL (60-115) H 08/13/24 11:35 Assessment & Plan Assessment & Plan Orders: Orders AMB Hemoglobin A1c Today E10.9 - Type 1 diabetes mellitus without complications Medications: New insulin degludec (Tresiba FlexTouch U-200 insulin) 45 units (0.225 mL) subcut DAILY 90 days 21 mL 3RF Changed From lancets (FreeStyle Lancets) 4x daily 100 ea 11 E11.65 - Type 2 diabetes mellitus with hyperglycemia, Z79.4 - assisted (current) use of insulin To lancets (FreeStyle Lancets) 3 times daily 100 ea 11RF E11.65 - Type 2 diabetes mellitus with hyperglycemia, Z79.4 - dispensing audiologist (current) use of insulin From blood sugar diagnostic (FreeStyle Lite Strips) USE DIRECTED 4X DAILY 100 strips 11RF E11.65 - Type 2 diabetes mellitus with hyperglycemia, Z79.4 - dispensing audiologist (current) use of insulin To blood sugar diagnostic (FreeStyle Lite Strips) USE DIRECTED 3x DAILY 100 strips 11RF E11.65 - Type 2 diabetes mellitus with hyperglycemia, Z79.4 - assisted (current) use of insulin Refilled blood-glucose meter (FreeStyle Lite Meter kit) as directed 1 ea 0RF E11.65 - Type 2 diabetes mellitus with hyperglycemia, Z79.4 - assisted (current) use of insulin blood-glucose meter (FreeStyle Lite Meter kit) as directed 1 ea 0RF E11.65 - Type 2 diabetes mellitus with hyperglycemia, Z79.4 - dispensing audiologist (current) use of insulin blood sugar diagnostic (FreeStyle Lite Strips) USE DIRECTED 3x DAILY 100 strips 11RF E11.65 - Type 2 diabetes mellitus with hyperglycemia, Z79.4 - assisted (current) use of insulin lancets (FreeStyle Lancets) 3 times daily 100 ea 11RF E11.65 - Type 2 diabetes mellitus with hyperglycemia, Z79.4 - dispensing audiologist (current) use of insulin Coding
[2024-08-13 11:31] VITALS: BP 118/78; PULSE 70; BMI 44.4
[2024-08-13 11:39] LABS: Glucose, Whole Blood 248 mg/dL (60-115)
== END 2024-08-13 11:57 | disposition home or self-care (01) ==
PROVIDERS: PCP Internal Medicine; Visit Provider Nurse Practitioner Adult Health
DX: E10.9 Type 1 diabetes mellitus without complications (principal)

== ENCOUNTER → 2024-08-13 11:24 | Outpatient (BNVA) | payer OTHER, SELFPAY | PROVIDERS: PCP Internal Medicine; Visit Provider Nurse Practitioner Adult Health | DX: E10.9 Type 1 diabetes mellitus without complications (principal); Z79.4 Long term (current) use of insulin; Z96.41 Presence of insulin pump (external) (internal) | CPT/HCPCS: 82947; 83036; 99212 ==

== ENCOUNTER 2024-09-24 11:18 | Outpatient (AMB) | payer OTHER, SELFPAY ==
[2024-09-24 11:20] VITALS: BP 120/72; PULSE 90; BMI 43.5
--- NOTE | 2024-09-24 11:20 | A.OFFVIS_ITS ---
Vital Signs 09/24/24 11:20 Height 5 ft 2 in Weight 238 lb 1.588 oz BMI 43.5 BP 120/72 Blood Pressure Location Rt brachial Position Sitting Pulse 90 Pulse Source Pulse Oximeter Intake Visit Reasons: DM Intake Note: Patient present today to follow up on Type 1 Diabetes Mellitus. Patient receives DME supplies through: Pharmacy Last Diabetic Eye exam: 11/05/2023 at [facility]. Last Podiatry Visit: Does not see a Director [employer] Most Recent HgA1C: 8.2%, 08/13/2024 Random Glucose: 159 mg/dL, Today [employer] Required: No Accompanied by: Self / Same As Patient Allergies Iodinated Contrast Media [IV CONTRAST] Allergy (Intermediate, Verified 09/24/24 11:20) HIVES empagliflozin Adverse Reaction (Intermediate, Verified 09/24/24 11:20) LIGHT HEADED HPI Comments Details: 28 YO Female who is seen in f/u for T1DM. She was previously treated as a type 2 diabetic and has recently been started o Basal/bolus insulin using a 4 day insulin patch. A1C 8.2% dec Hemoglobin A1c 06/06/2024 7.8%, A1C was 8.2% on 03/07/24 prior to restarting Humalog. 2023 low C-peptide 0.24, positive insulin auto antibodies, negative gada She is s/p bariatric surgery. She has a prior history of pancreatitis Had been on metformin in the past which was stopped and she does not remember the reason why. Failed trial of Jardiance 04/2024 due to side effects. Current regimen: Lantus 45 units Humalog 6-8 units tid has been taking 4-6 units at bedtime when needed she lorenzo s been reluctant to take more than 8 units with meals for fear she might drop low and subsequently runs higher later in the evening and takes 4-6 units at bedtime which can drop her low in the morning Freestyle edson sensor 3 average glucose: 159 14 day continuous glucose sensor report reviewed Glucose Management indicator 7.1 % Time CGM active [ ] % TIme in ranges: Twelve % very high (above 250) 28 % high (181-250) 49 % in range (70-180] 10 % low (69-55) 1 % very low (below 54) 46 Glucose variability (target <36%) Interpretation of CGMS having lows in the morning but only after she doses the 4-6 units for higher glucose in the evening Denies retinopathy: Has eyes checked yearly, last eye exam 10/2023, scheduled for this October Denies neuropathy, last foot exam today in [facility] she does not see podiatry No nephropathy No recent lipid profile. [Denies] CAD. Diet: at times eats just once daily, very inconsistent with diet Weight:stable She reports she has a history of depression in his currently off her antidepressant. No current or past suicidal thoughts. She has trouble getting motivated to exercise. She will contact her PCP about resuming antidepressant. She denies numbness and tingling, cramping in legs. Denies cp Walks with her children but not daily [facility] screen Fibrosis-4 (Fib-4) Index for liver fibrosis (calculated on lab work done: 02/2024) [0.38 ] points Advanced fibrosis [n/a secondary to age ] Approximate Fibrosis stage Hansel [0-1 ] *Use with caution in patients <35 or >65 years old, as the score has been shown to be less reliable in these patients. Prior Imaging [] Action Plan: [] rescreen two years from date of screening labs[02/2026 ] Exercises on elliptical Hyperparathyroidism: She had lab evidence of secondary hyperparathyroidism. Has never had kidney stones. Has never broken a bone. No family history of nephrolithiasis. Labs revealed evidence of secondary hyperparathyroidism. Vitamin D has now been repleted since bariatric surgery and Calcium repeated has been normal. Recent vit d 20 PTH 79.3 PFSH Medical History Diabetes mellitus Insulin dependent type 2 diabetes mellitus Type 1 diabetes mellitus Low vitamin D level Goiter Goiter Hypertension History of blood transfusion Pre-op evaluation Abnormal uterine bleeding Well woman exam COVID-19 Vitamin B12 deficiency Vitamin D deficiency Vitamin A deficiency Binge eating disorder Anxiety GERD (gastroesophageal reflux disease) Morbid obesity Transaminitis Macromastia Secondary hyperparathyroidism Vitamin D deficiency HLD (hyperlipidemia) HTN (hypertension) Surgical History Hx of gastric bypass Presence of pancreatic duct stent Hx of cholecystectomy Family History Father Hypertension High cholesterol Mother Hypertension Diabetes High cholesterol Brother No problems noted. Brother No problems noted. Son No problems noted. Daughter No problems noted. 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 healthcare management consultant to a significant other at home: Yes (2 children) Do you presently have visiting nurse or other home services: No Alcohol intake: never Patient Tobacco Use Status: Never used Tobacco e-Cigarette/Vaping Use: Never Used Second Hand Smoke Exposure: No service: No Current occupational status: unemployed Cognitive needs: No Hearing needs: No Vision needs: Yes Female Reproductive History Menstrual Age of Menarche: 10 Physical Exam Vital Signs: Last Vital Signs Pulse 90 09/24/24 11:20 BP 120/72 09/24/24 11:20 BMI result Body Mass Index 43.5 Const Other: Absence of Cushingoid features. Absence of acromegalic features. Neck exam reveals nl size thyroid about 15 gms. No thyroid nodules palpable. Heart S1 S2, Reg R/R. No M/R G. Skin exam reveals absence of vitiligo or acanthosis nigricans. Visual exam of foot performed. No ulcerations or open lesions. No inter digit maceration or fissuring. No onychomycosis, no callouses. Sensation intact to monofilament exam. Vibratory sensation is normal with 128 Hz tuning fork. Positive pulse good cap refill Assessment & Plan Assessment & Plan (1) Type 1 diabetes mellitus: Code(s): E10.9 - Type 1 diabetes mellitus without complications Category: Medical Plan: 28-year-old type 1 diabetic on basal bolus insulin using CeQur patch. Last 2 week average is 159 with a GMI glucose management indicator (coincides with A1C) 7.1%Ce. Patient is having improve glucose numbers on CeQur and would recommend that she stay on the insulin patch pump. We will fax over office notes and gluc ose sensor as patient needs additional approval by insurance company. We very briefly discussed an islet which is a consideration. She was asked to add several additional units of insulin to her lunch and dinner meal. If she is elevated at bedtime to just dose with 2 units of insulin. Recommended increasing exercise. She will discuss with PCP going back on antidepressant. Medications: Discontinued sumatriptan succinate do not exceed 8 doses per 24 hrs Discontinued Reason: Change Referral Type 25 mg PO Q2-4H 30 days PRN 9 tabs 0RF migraine headache cyclobenzaprine Discontinued Reason: Doctor's Order 5 mg PO TID PRN 14 tabs 0RF muscle spasm rizatriptan do not exceed 3 doses per 24 hrs Discontinued Reason: Doctor's Order 10 mg PO Q2-4H 30 days PRN 9 tabs 3RF migraine headache flash glucose sensor (FreeStyle Edson 2 Sensor kit) Discontinued Reason: Doctor's Order As directed change every 14 days 2 ea 4RF sulfamethoxazole-trimethoprim 800-160 mg (Bactrim DS) Discontinued Reason: Doctor's Order 1 tab PO BID 7 days 14 tabs 0RF E11.65 - Type 2 diabetes mellitus with hyperglycemia, L03.90 - Cellulitis, unspecified, Z79.4 - nursing home (current) use of insulin Patient Instructions: The patient was counseled to achieve a target A1C of 7% (154 avg). Fasting blood sugars should be 90-130 in the morning and less than 180 two hours after meals. Reviewed the relationship between poor diabetic control and the development of complications. The patient was counseled to always carry a source of sugar and on the rule of 15's: Take 3 glucose tablets and repeat again in 15 minutes if blood sugar is not in normal range. Continue to repeat every 15 minutes until blood sugar is normal. Coding Level of Care Code Est Pt Level 4 (87976) Complex EM visit Add On G2211 Diagnoses Type 1 diabetes mellitus E10.9 Time Spent (min) 35 Comment Time spent reviewing labs/provider notes, glucose,sensor reports, face to face, chart doc
[2024-09-24 11:33] LABS: Glucose, Whole Blood 159 mg/dL (60-115)
== END 2024-09-24 11:49 | disposition home or self-care (01) ==
PROVIDERS: PCP Internal Medicine; Visit Provider Nurse Practitioner Adult Health
DX: E10.9 Type 1 diabetes mellitus without complications (principal)
CPT/HCPCS: 99214; G2211

== ENCOUNTER → 2024-09-24 11:18 | Outpatient (BNVA) | payer OTHER, SELFPAY | PROVIDERS: PCP Internal Medicine; Visit Provider Nurse Practitioner Adult Health | DX: E10.65 Type 1 diabetes mellitus with hyperglycemia (principal); L03.90 Cellulitis, unspecified; Z79.4 Long term (current) use of insulin | CPT/HCPCS: 82947; 99212 ==

== ENCOUNTER 2024-11-10 08:57 | Outpatient (REF) | payer OTHER, SELFPAY ==
[2024-11-10 14:02] LABS: Influenza A PCR NEGATIVE (Negative); Influenza B PCR NEGATIVE (Negative); Resp Syncy Virus RNA Qual PCR NEGATIVE (Negative); SARS COV2 PCR INHOUSE NEGATIVE (Negative)
--- OUTSIDE RECORDS SUMMARY | 2024-11-10 15:31 | XMS_ITS | Encounter Summary ---
Demographics Address [address] [facility] [place] [address] Home Phone Preferred Language South Sudanese Marital Status Unknown Zoroastrianism Affiliation Unknown Race Unknown Ethnic Group Unknown Author Organization [facility] Address [address] [place], [place] [phone] Phone Care Team Providers Care School Photograph Editor Name Role Phone Miriam Unger MD Primary Care Provider Unavailabl e Encounter Details Date Type Department Care Team (Late st Contact Info) Description 07/11/2013 Documentation EM Family Medicine [address] [place] [address] Family Medicine, Physician [address] [place] [address] Social History Tobacco Use Types Packs/Day Years [...] on filedocumented in this encounter Care Teams School Photograph Editor Relationship Specialty Start Date End Date Miriam Unger MD PCP - General 04/20/17 documented as of this encounter
--- OUTSIDE RECORDS SUMMARY | 2024-11-10 15:31 | XMS_ITS | Clinical Summary ---
Demographics Address [address] [place] [address] Home Phone Mobile Phone Home Phone Preferred Language en Marital Status Single Voodoo Affiliation Unknown Race Unknown Ethnic Group or Author Organization [facility] Address [address] [place] [address] Care Team Providers Care Field Support Technician Name Role Phone Unavailable Primary Care Provider [...]
--- OUTSIDE RECORDS SUMMARY | 2024-11-10 15:31 | XMS_ITS | Encounter Summary ---
Demographics Address [address] [facility] [place] [address] Home Phone Preferred Language Mohawk Marital Status Unknown Bahai Affiliation Unknown Race Unknown Ethnic Group Unknown Author Organization [facility] Address [address] [place] [address] Phone Care Team Providers Care Fashion Consultant Name Role Phone Miriam Unger MD Primary Care Provider Unavailabl e Encounter Details Date Type Department Care Team (Late st Contact Info) Description 06/17/2013 Conversion Encounter [facility] [address] [place] [address] Tigre Mckeon MD [address] [place] [address] Social History Tobacco Use Types Packs/Day Years [...] on filedocumented in this encounter Care Teams Fashion Consultant Relationship Specialty Start Date End Date Miriam Unger MD PCP - General 04/20/17 documented as of this encounter
--- OUTSIDE RECORDS SUMMARY | 2024-11-10 15:31 | XMS_ITS | Encounter Summary ---
Demographics Address [address] [address] Home Phone Preferred Language Turkish Marital Status Unknown Mormonism Affiliation Unknown Race Unknown Ethnic Group Unknown Author Organization [facility] Address [address] [place], [place] [phone] Phone Care Team Providers Care Sales Engineering Manager Name Role Phone Miriam Unger MD Primary Care Provider Unavailabl e Encounter Details Date Type Department Care Team (Late st Contact Info) Description 07/11/2013 Documentation EM Family Medicine [address] [place] [address] Family Medicine, Physician [address] [place] [address] Social History Tobacco Use Types Packs/Day Years [...] on filedocumented in this encounter Care Teams Sales Engineering Manager Relationship Specialty Start Date End Date Miriam Unger MD PCP - General 04/20/17 documented as of this encounter
--- OUTSIDE RECORDS SUMMARY | 2024-11-10 15:32 | XMS_ITS | Encounter Summary ---
Demographics Address [address] [place] [address] Home Phone Preferred Language Burkinan Marital Status Unknown Lutheran Affiliation Unknown Race Unknown Ethnic Group Unknown Author Organization [facility] Address [address] [place], [place] [address] Phone Care Team Providers Care Beam Sealer Name Role Phone Miriam Unger MD Primary Care Provider Unavailabl e Encounter Details Date Type Department Care Team (Late st Contact Info) Description 03/23/2016 Documentation EM Family Medicine [address] [place] [address] Family Medicine, Physician [address] [place] [address] Social History Tobacco Use Types Packs/Day Years [...] on filedocumented in this encounter Care Teams Beam Sealer Relationship Specialty Start Date End Date Miriam Unger MD PCP - General 04/20/17 documented as of this encounter
--- OUTSIDE RECORDS SUMMARY | 2024-11-10 15:32 | XMS_ITS | Encounter Summary ---
Demographics Address [address] [place] [address] Home Phone Preferred Language Israeli Marital Status Unknown Hindu Affiliation Unknown Race Unknown Ethnic Group Unknown Author Organization [facility] Address [address] [place], [place] [phone] Phone Care Team Providers Care Hardboard Grinder Name Role Phone Miriam Unger MD Primary Care Provider Unavailabl e Encounter Details Date Type Department Care Team (Late st Contact Info) Description 12/17/2009 Documentation [facility] [address] [place] [address] Family Medicine, Physician [address] [place] [address] Social History Tobacco Use Types Packs/Day Years [...] on filedocumented in this encounter Care Teams Hardboard Grinder Relationship Specialty Start Date End Date Miriam Unger MD PCP - General 04/20/17 documented as of this encounter
--- OUTSIDE RECORDS SUMMARY | 2024-11-10 15:32 | XMS_ITS | Encounter Summary ---
Demographics Address [address] [place] [address] Home Phone Preferred Language Hong Konger Marital Status Unknown Sikh Affiliation Unknown Race Unknown Ethnic Group Unknown Author Organization [facility] Address [address] [place], [place] [phone] Phone Care Team Providers Care Swiss Machinist Name Role Phone Miriam Unger MD Primary Care Provider Unavailabl e Encounter Details Date Type Department Care Team (Late st Contact Info) Description 11/22/2011 Documentation EM Family Medicine [address] [place] [address] Family Medicine, Physician [address] [place] [address] Social History Tobacco Use Types Packs/Day Years [...] on filedocumented in this encounter Care Teams Swiss Machinist Relationship Specialty Start Date End Date Miriam Unger MD PCP - General 04/20/17 documented as of this encounter
--- OUTSIDE RECORDS SUMMARY | 2024-11-10 15:32 | XMS_ITS | Encounter Summary ---
Demographics Address [address] [facility] [address] Home Phone Preferred Language Senegalese Marital Status Unknown Muslim Affiliation Unknown Race Unknown Ethnic Group Unknown Author Organization [facility] Address [address] [place], [place] [address] Phone Care Team Providers Care Hand Glove Cleaner Name Role Phone Miriam Unger MD Primary Care Provider Unavailabl e Encounter Details Date Type Department Care Team (Late st Contact Info) Description 04/24/2016 Documentation EM Family Medicine [address] [place] [address] Family Medicine, Physician [address] [place] [address] Social History Tobacco Use Types Packs/Day Years [...] on filedocumented in this encounter Care Teams Hand Glove Cleaner Relationship Specialty Start Date End Date Miriam Unger MD PCP - General 04/20/17 documented as of this encounter
--- OUTSIDE RECORDS SUMMARY | 2024-11-10 15:32 | XMS_ITS | Encounter Summary ---
Demographics Address [address] [facility] [place] [address] Home Phone Preferred Language Welsh Marital Status Unknown Taoism Affiliation Unknown Race Unknown Ethnic Group Unknown Author Organization [facility] Address [address] [place], [place] [phone] Phone Care Team Providers Care Content Management Specialist Name Role Phone Miriam Unger MD Primary Care Provider Unavailabl e Encounter Details Date Type Department Care Team (Late st Contact Info) Description 03/27/2016 Documentation EM Family Medicine [address] [place] [address] Family Medicine, Physician [address] [place] [address] Social History Tobacco Use Types Packs/Day Years [...] on filedocumented in this encounter Care Teams Content Management Specialist Relationship Specialty Start Date End Date Miriam Unger MD PCP - General 04/20/17 documented as of this encounter
--- OUTSIDE RECORDS SUMMARY | 2024-11-10 15:32 | XMS_ITS | Clinical Summary ---
Demographics Address [address] [place] [address] Home Phone Preferred Language Bulgarian Marital Status Unknown Presybeterian Affiliation Unknown Race Unknown Ethnic Group Unknown Author Organization [facility] Address [address] [place] [address] Phone Care Team Providers Care Weatherization Installer Name Role Phone Miriam Unger MD [...] of Strabismus, No family history of *Sudden /IA under 55, No family history of Seizure [...] complete this topic Procedures * Due to [facility] law, this organization might not be sharing sensitive test results. Procedure Name Priority Date/Time Associated Diagnosis Comments CHLAMYDIA AND GONORRHEA, AMPLIFIED Routine 02/04/2015 1:03 PM EDT from Last 3 Months or Most Recently Relevant to Health Maintenance Results * Due to [place] [employer] law, this organization might not be sharing sensitive test results. * Chlamydia and Gonorrhoea, Amplified (02/04/2015 1:03 PM EDT) Pathologist [facility] URINE GC AMP [facility]BE [facility]IVE [facility] Comment: No Neisseria Gonorrhoeae RNA detected in this patient's sample (REFERENCE RANGE/NORMAL VALUE: NOT DETECTED) NOTE: This test uses prevention rn-mediated amplification method to detect rRNA from C.Trachomatis [...] without risk of sexual abuse. Consult the [facility] if needed. Contact phone number . Therapeutic failure or success cannot be determined with the Aptima Combo2 assay since nucleic acid may persist following appropriate antimicrobial therapy. The Centers for Disease Control and Prevention (CDC) recommends confirmatory retesting using culture or a different nucleic acid amplification test when positive results occur, if indicated. Testing performed or reported by [facility], a Service of [facility], [address] [place] [id number] Jordon Briones MD, PhD, Support Services Specialist URINE CHLAMYDIA AMP PROBE POSITIVE [facility] Comment: Chlamydia Trachomatis RNA detected in this patient's sample (REFERENCE RANGE/NORMAL VALUE: NOT DETECTED) . PURSUANT TO [id number], THESE CLINICAL LABORATORY RESULTS HAVE BEEN REPORTED TO THE [place] [facility] OF PUBLIC HEALTH. PLEASE BE AWARE THAT HEALTHCARE PROVIDERS HAVE ADDITIONAL PUBLIC HEALTH REPORTING REQUIREMENTS. 02/04/2015 1:03 PM EDT Narrative [facility] - 02/04/2015 1:03 PM EDT URINE CHLAMYDIA GC AMP PROBE us Sravanthi Mariscal [facility] MICROBIOLOGY - GENERAL ORDER JANEL Final Result [facility] [address] [id number], from Last 3 Months or Most Recently Relevant to Health Maintenance Care Teams Weatherization Installer Relationship Specialty Start Date End Date Miriam Unger MD PCP - General 04/20/17
--- OUTSIDE RECORDS SUMMARY | 2024-11-10 15:32 | XMS_ITS | Encounter Summary ---
Demographics Address [address] [place] [address] Home Phone Preferred Language Croatian Marital Status Unknown Samaritan Affiliation Unknown Race Unknown Ethnic Group Unknown Author Organization [facility] Address [address] [place], [place] [phone] Phone Care Team Providers Care Water Resource Manager Name Role Phone Miriam Unger MD Primary Care Provider Unavailabl e Encounter Details Date Type Department Care Team (Late st Contact Info) Description 06/28/2015 Documentation EM Family Medicine [address] [place] [address] Family Medicine, Physician [address] [place] [address] Social History Tobacco Use Types Packs/Day Years [...] on filedocumented in this encounter Care Teams Water Resource Manager Relationship Specialty Start Date End Date Miriam Unger MD PCP - General 04/20/17 documented as of this encounter
--- OUTSIDE RECORDS SUMMARY | 2024-11-10 15:32 | XMS_ITS | Encounter Summary ---
Demographics Address [address] [facility] [place] [address] Home Phone Preferred Language Equatorial Guinean Marital Status Unknown Sikh Affiliation Unknown Race Unknown Ethnic Group Unknown Author Organization [facility] Address [address] [place], [place] [address] Phone Care Team Providers Care Chemical Recovery Operator Name Role Phone Miriam Unger MD Primary Care Provider Unavailabl e Encounter Details Date Type Department Care Team (Late st Contact Info) Description 04/26/2017 Conversion Encounter [facility] - [address] [address] Social History Tobacco Use Types Packs/Day Years [...] on filedocumented in this encounter Care Teams Chemical Recovery Operator Relationship Specialty Start Date End Date Miriam Unger MD PCP - General 04/20/17 documented as of this encounter
--- OUTSIDE RECORDS SUMMARY | 2024-11-10 15:32 | XMS_ITS | Encounter Summary ---
Demographics Address [address] [facility] [place] [address] Home Phone Preferred Language Macedonian Marital Status Unknown Taoist Affiliation Unknown Race Unknown Ethnic Group Unknown Author Organization [facility] Address [address] [place], [place] [phone] Phone Care Team Providers Care Engraver Signature Name Role Phone Miriam Unger MD Primary Care Provider Unavailabl e Encounter Details Date Type Department Care Team (Late st Contact Info) Description 12/31/2013 Documentation [facility] Family [facility] [address] [place] [address] Family Medicine, Physician [address] [place] [address] Social History Tobacco Use Types Packs/Day Years [...] on filedocumented in this encounter Care Teams Engraver Signature Relationship Specialty Start Date End Date Miriam Unger MD PCP - General 04/20/17 documented as of this encounter
--- OUTSIDE RECORDS SUMMARY | 2024-11-10 15:32 | XMS_ITS | Encounter Summary ---
Demographics Address [address] [place] [address] Home Phone Preferred Language Mosotho Marital Status Unknown Mormonism Affiliation Unknown Race Unknown Ethnic Group Unknown Author Organization [facility] Address [address] [place], [place] [phone] Phone Care Team Providers Care Gambling Supervisor Name Role Phone Miriam Unger MD Primary Care Provider Unavailabl e Encounter Details Date Type Department Care Team (Late st Contact Info) Description 09/22/2013 Documentation [facility] [address] [place] [address] Family Medicine, Physician [address] [place] [address] Social History Tobacco Use Types Packs/Day Years [...] on filedocumented in this encounter Care Teams Gambling Supervisor Relationship Specialty Start Date End Date Miriam Unger MD PCP - General 04/20/17 documented as of this encounter
--- OUTSIDE RECORDS SUMMARY | 2024-11-10 15:32 | XMS_ITS | Encounter Summary ---
Demographics Address [address] [place] [address] Home Phone Preferred Language Monegasque Marital Status Unknown Religion Affiliation Unknown Race Unknown Ethnic Group Unknown Author Organization [facility] Address [address] [place], [place] [phone] Phone Care Team Providers Care Mailing Machine Assistant Name Role Phone Miriam Unger MD Primary Care Provider Unavailabl e Encounter Details Date Type Department Care Team (Late st Contact Info) Description 07/05/2011 Documentation [facility] [address] [place] [address] Family Medicine, Physician [address] [place] [address] Social History Tobacco Use Types Packs/Day Years [...] on filedocumented in this encounter Care Teams Mailing Machine Assistant Relationship Specialty Start Date End Date Miriam Unger MD PCP - General 04/20/17 documented as of this encounter
== END 2024-11-10 08:58 | disposition home or self-care (01) ==
LOC: HO.LNP 08:57
PROVIDERS: PCP Internal Medicine; Visit Provider Physician Assistant
DX: J01.00 Acute maxillary sinusitis, unspecified (principal); R09.89 Other specified symptoms and signs involving the circulatory and respiratory systems
CPT/HCPCS: 0241U; 99212

== ENCOUNTER 2024-11-10 08:57 | Outpatient (AMB) | payer OTHER, SELFPAY ==
[2024-11-10 09:09] VITALS: BP 130/90; PULSE 79; TEMP 36.9; O2SAT 98; BMI 44.1
--- NOTE | 2024-11-10 09:09 | MHC.OFFWIV ---
Intake Vital Signs 11/10/24 09:09 Height 5 ft 2 in Weight 241 lb BMI 44.1 BP 130/90 H Blood Pressure Location Rt brachial Position Sitting Pulse 79 Pulse Source Pulse Oximeter Temp 98.5 F Temp Source Oral Pulse Oximetry (%) 98 Oxygen Delivery Method Room Air Intake Visit Reasons: EP-rt face pain, sore throat, rt ear pain Intake Note: Patient here for right face pain, right ear pain, sinus pressure, loss of smell that started Sunday. Patient Tobacco Use Status: Never used Tobacco Allergies Iodinated Contrast Media [IV CONTRAST] Allergy (Intermediate, Verified 11/10/24 09:16) HIVES empagliflozin Adverse Reaction (Intermediate, Verified 11/10/24 09:16) LIGHT HEADED Do you need a note to return to daycare/school/sports/work: No HPI HPI Comments History of Present Illness Details History - The patient is a 29-year-old female presenting with acute sinusitis and right ear pain. - She reports right-sided ear pain, nasal pressure, and reduced olfactory senses, with symptoms persisting for three days. - The patient has been taking Tylenol for pain relief, although without significant improvement. - There is no fever or cough, and the patient denies prior sinus or ear infections. - Differential diagnosis includes viral causes such as COVID, flu, and RSV, for which testing was performed. Physical Exam General: Cooperative, healthy appearing, comfortable and no acute distress Orientation/consciousness: Patient oriented x3 Limitations: No limitations Head: Normal to inspection Ears: Right ear pain, right ear slightly red but not infected Nose: Normal external nose present, Normal nares present, No nasal discharge present, difficulty smelling Face and sinus: Normal facial exam and Yes sinuses nontender, sinus pressure present Mouth: Normal oral and palatal mucosa present and moist mucous membranes Throat: Yes tonsils normal, Yes uvula midline. Posterior oropharynx erythema Eyes: Appearance normal, both eyes and all related structures Neck: Normal visual inspection, patient reports swelling in the left side of the neck Respiratory: Clear to auscultation bilaterally. Normal respiratory effort, able to speak in complete sentences, No respiratory distress, not tachypneic, no tripod positioning and no use of accessory muscles Cardiovascular: Regular rate and rhythm. Normal S1 and S2 Skin: No rashes or lesions noted Neuro: Patient oriented x3, reports feeling lightheaded at times Extremities: Normal to inspection and Yes no clubbing, cyanosis or edema PFSH Medical History Diabetes mellitus Insulin dependent type 2 diabetes mellitus Type 1 diabetes mellitus Low vitamin D level Goiter Goiter Hypertension History of blood transfusion Pre-op evaluation Abnormal uterine bleeding Well woman exam COVID-19 Vitamin B12 deficiency Vitamin D deficiency Vitamin A deficiency Binge eating disorder Anxiety GERD (gastroesophageal reflux disease) Morbid obesity Transaminitis Macromastia Secondary hyperparathyroidism Vitamin D deficiency HLD (hyperlipidemia) HTN (hypertension) Surgical History Hx of gastric bypass Presence of pancreatic duct stent Hx of cholecystectomy Family History Father Hypertension High cholesterol Mother Hypertension Diabetes High cholesterol Brother No problems noted. Brother No problems noted. Son No problems noted. Daughter No problems noted. 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 residential care officer to a significant other at home: Yes (2 children) Do you presently have visiting nurse or other home services: No Alcohol intake: never Patient Tobacco Use Status: Never used Tobacco e-Cigarette/Vaping Use: Never Used Second Hand Smoke Exposure: No service: No Current occupational status: unemployed Cognitive needs: No Hearing needs: No Vision needs: Yes Female Reproductive History Menstrual Age of Menarche: 10 Review of Systems Const All systems reviewed & are unremarkable except as noted in HPI and below Physical Exam Vital Signs: Last Vital Signs Temp 98.5 F 11/10/24 09:09 Pulse 79 11/10/24 09:09 BP 130/90 H 11/10/24 09:09 Pulse Ox 98 11/10/24 09:09 Oxygen Delivery Method Room Air 11/10/24 09:09 BMI result Body Mass Index 44.1 Assessment & Plan Assessment & Plan (1) Sinusitis, acute: Code(s): J01.90 - Acute sinusitis, unspecified Qualifiers: Sinusitis location: maxillary Recurrence: non-recurrent Qualified Code(s): J01.00 - Acute maxillary sinusitis, unspecified Plan: The patient is assessed with acute sinusitis and right ear pain, potentially of viral origin. There is instruction on the use of Flonase to reduce sinus inflammation and improve drainage, alongside a continued regimen of Tylenol and ibuprofen to manage pain and inflammation. Saline nasal spray is recommended to assist in nasal clearance. Testing for flu, COVID, and RSV was conducted to rule out correlating viral etiologies, with results pending. Communication of these results will occur once available. The patient opted out of requiring documentation for work absence. Patient was informed and verbally consented to the use of an ambient scribe for clinic note documentation during this visit Medications: New fluticasone propionate 50 mcg/actuation administer into each nostril 1 spray intranasal Q12H 16 grams 0RF Coding Level of Care Code Est Pt Level 3 (30648) Diagnoses Acute non-recurrent maxillary sinusitis J01.00 Sinusitis location: maxillary Recurrence: non-recurrent
--- OUTSIDE RECORDS SUMMARY | 2024-11-10 09:32 | XMS_ITS | Encounter Summary ---
Demographics Address [address] [place] [address] Home Phone Preferred Language Chadian Marital Status Unknown Jehovah'S Witness Affiliation Unknown Race Unknown Ethnic Group Unknown Author Organization [facility] Address [address] [place], [place] [phone] Phone Care Team Providers Care Vehicle Calibration Engineer Name Role Phone Miriam Unger MD Primary Care Provider Unavailabl e Encounter Details Date Type Department Care Team (Late st Contact Info) Description 03/23/2016 Documentation EM Family Medicine [address] [place] [address] Family Medicine, Physician [address] [place] [address] Social History Tobacco Use Types Packs/Day Years Used Date Smoking Tobacco: Never Comments:Never smoker Comments Unknown Sex and Gender Information Value Date Recorded Sex Assigned at Not on file Legal Sex Female 4:57 PM EDT Gender Identity Not on file Sexual Orientation Not on file documented as of this encounter Plan of Treatment Not on file documented as of this encounter Visit Diagnoses Not on filedocumented in this encounter Care Teams Vehicle Calibration Engineer Relationship Specialty Start Date End Date Miriam Unger MD PCP - General 04/20/17 documented as of this encounter
--- OUTSIDE RECORDS SUMMARY | 2024-11-10 09:32 | XMS_ITS | Clinical Summary ---
Demographics Address [address] [facility] [place] [address] Home Phone Preferred Language Kyrgyz Marital Status Unknown [employer] Affiliation Unknown Race Unknown Ethnic Group Unknown Author Organization [facility] Address [address] [place] [phone] Phone Care Team Providers Care Impregnator Operator Name Role Phone Miriam Unger MD Primary Care Provider Unavailabl e Immunizations Immunization Administration Dates Next Due DTP 06/03/1996,03/06/1996,1995 DTaP 5 04/06/2000,12/03/1997 H1N1 07/09/2009 HPV, Quadrivalent 07/13/2008,01/17/2008,11/11/19 08 Hep A, Adult 02/09/2015 Hep B, ped/adol 08/21/1996,1995,1995 Hib (PRP-T) 02/26/1997, 6,03/06/1996,12/06 IPV 04/06/2000 Influenza Split 05/23/2012 Influenza, injectable, quadr ivalent, preservative free 06/24/2013 Influenza, injectable, trivalent 06/22/2009,11/2007 Influenza, injectable, triva lent, preservative free 07/23/2014 MMR 04/06/2000,01/06/1997 Meningococcal Conj (Menactra) MCV4P 11/11/2007 OPV 06/03/1996,03/06/1996,1995 Tdap 11/11/2007 Varicella 01/06/1997 Family History Relation Name Status Comments Brother 1 Brother: ADD/AD HD, Asthma, ADD/ADHD Brother 2 Brother: ADD/AD HD, Asthma, ADD/ADHD Brother 3 Brother: ADD/AD HD, Asthma, ADD/ADHD Father Father: Obesity , Hypertension, Hyperlipidemia Mother Mother: Asthma, Hypertension, Diabetes mellitus Other Family history of *Thrombophilia, Family history of Cancer, lung, Family history of *CVA/Stroke, No family history of Migraines, No family history of Deafness, No family history of ADD/ADHD, Family history of Strabismus, No family history of *Sudden /TX under 55, No family history of Seizure disorder, Family history of *Heart Disease Social History Tobacco Use Types Packs/Day Years Used Date Smoking Tobacco: Never Comments:Never smoker Comments Unknown Sex and Gender Information Value Date Recorded Sex Assigned at Not on file Legal Sex Female 4:57 PM EDT Gender Identity Not on file Sexual Orientation Not on file Last Filed Vital Signs Vital Sign Reading Time Taken Comments Blood Pressure 122/76 03/23/2015 12:00 AM EDT Pulse 91 03/23/2015 12:00 AM EDT Temperature 35.9 ??C (96.6 ??F) 02/09/2015 12:00 AM E DT Respiratory Rate - - Oxygen Saturation - - Inhaled Oxygen Concentration - - Weight 93.6 kg (206 lb 6.4 oz) 03/23/2015 12:00 AM EDT Height 158.8 cm (5' 2.5 ) 02/09/2015 12:00 AM ED T Body Mass Index 37.15 02/09/2015 12:00 AM EDT Plan of Treatment Health Maintenance Due Date Last Done Comments Varicella Vaccines (2 of 2 - 2-dose childhood series) 05/04/2000 01/06/1997 DTaP,Tdap,and Td Vaccines (7 - Td or Tdap) 11/10/2017 11/11/2007, 04/06/2000, 12/03/1997, Additional history exists Influenza Vaccines (#1) 2024 07/23/20 14, 06/24/2013, 05/23/2012, Additional history exists COVID-19 Vaccine ( season) 2024 Hepatitis B Vaccines Completed 08/21/1996, 1995, 1995 HIB Vaccines Completed 02/26/1997, 05/12, 03/06/1996, Additional history exists IPV Vaccines Completed 04/06/2000, 05/12, 03/06/1996, Additional history exists MMR Vaccines Completed 04/06/2000, 01/06/1997 Meningococcal Vaccine Aged Out 11/11/2007 No shiloh dori eligible based on patient's age to complete this topic HPV Vaccines Completed 07/13/2008, 05/2008, 11/11/2007 Hepatitis A Vaccines Aged Out 02/09/2015 No long er eligible based on patient's age to complete this topic Men B Vaccine Aged Out No longer elig ible based on patient's age to complete this topic Pneumococcal Vaccine Aged Out No long er eligible based on patient's age to complete this topic Procedures * Due to [facility] law, this organization might not be sharing sensitive test results. Procedure Name Priority Date/Time Associated Diagnosis Comments CHLAMYDIA AND GONORRHEA, AMPLIFIED Routine 02/04/2015 1:03 PM EDT from Last 3 Months or Most Recently Relevant to Health Maintenance Results * Due to [place] [employer] law, this organization might not be sharing sensitive test results. * Chlamydia and Gonorrhoea, Amplified (02/04/2015 1:03 PM EDT) Pathologist [facility] URINE GC AMP PROBE NEGATIVE [facility] Comment: No Neisseria Gonorrhoeae RNA detected in this patient's sample (REFERENCE RANGE/NORMAL VALUE: NOT DETECTED) NOTE: This test uses medical transcriber-mediated amplification method to detect rRNA from C.Trachomatis and N.Gonorrhoeae. A negative result does not preclude infection. In the case of a negative urine result, testing of an endocervical(female) or urethral(male) specimen is recommended if there is high clinical suspicion of infection. The performance characteristics of this test have not been evaluated in children. The Aptima Combo2 assay is not intended for the evaluation of suspected sexual abuse or for other medico-legal indications. The ordering provider should assess if the patient had consensual sex without risk of sexual abuse. Consult the [facility] if needed. Contact phone number . Therapeutic failure or success cannot be determined with the Aptima Combo2 assay since nucleic acid may persist following appropriate antimicrobial therapy. The Centers for Disease Control and Prevention (CDC) recommends confirmatory retesting using culture or a different nucleic acid amplification test when positive results occur, if indicated. Testing performed or reported by [facility], a Service of [facility], [address] [place] [id number] Jordon Briones MD, PhD, [employer] URINE CHLAMYDIA AMP PROBE POSITIVE [facility] Comment: Chlamydia Trachomatis RNA detected in this patient's sample (REFERENCE RANGE/NORMAL VALUE: NOT DETECTED) . PURSUANT TO [id number], THESE CLINICAL LABORATORY RESULTS HAVE BEEN REPORTED TO THE [place] DEPARTMENT OF PUBLIC HEALTH. PLEASE BE AWARE THAT HEALTHCARE PROVIDERS HAVE ADDITIONAL PUBLIC HEALTH REPORTING REQUIREMENTS. 02/04/2015 1:03 PM EDT Narrative [facility] - 02/04/2015 1:03 PM EDT URINE CHLAMYDIA GC AMP PROBE us Sravanthi Mariscal [facility] - GENERAL ORDER JANEL Final Result [facility] [address] [id number], from Last 3 Months or Most Recently Relevant to Health Maintenance Care Teams Impregnator Operator Relationship Specialty Start Date End Date Miriam Unger MD PCP - General 04/20/17
--- OUTSIDE RECORDS SUMMARY | 2024-11-10 09:32 | XMS_ITS | Encounter Summary ---
Demographics Address [address] [place] [address] Home Phone Preferred Language Bengali Marital Status Unknown Rastafari Affiliation Unknown Race Unknown Ethnic Group Unknown Author Organization [facility] Address [address] [place] [phone] Phone Care Team Providers Care Vice President Quality Assurance Name Role Phone Miriam Unger MD Primary Care Provider Unavailabl e Encounter Details Date Type Department Care Team (Late st Contact Info) Description 06/17/2013 Conversion Encounter [facility] [place] [address] [place] [address] Tigre Mckeon MD [address] [place] [address] Social History Tobacco Use Types Packs/Day Years Used Date Smoking Tobacco: Never Assessed Comments Unknown Sex and Gender Information Value Date Recorded Sex Assigned at Not on file Legal Sex Female 4:57 PM EDT Gender Identity Not on file Sexual Orientation Not on file documented as of this encounter Plan of Treatment Not on file documented as of this encounter Visit Diagnoses Not on filedocumented in this encounter Care Teams Vice President Quality Assurance Relationship Specialty Start Date End Date Miriam Unger MD PCP - General 04/20/17 documented as of this encounter
--- OUTSIDE RECORDS SUMMARY | 2024-11-10 09:32 | XMS_ITS | Encounter Summary ---
Demographics Address [address] [facility] [place] [address] Home Phone Preferred Language Angolan Marital Status Unknown Jehovah'S Witness Affiliation Unknown Race Unknown Ethnic Group Unknown Author Organization [facility] Address [address] [place], [place] [phone] Phone Care Team Providers Care Bulk Cooler Installer Name Role Phone Miriam Unger MD Primary Care Provider Unavailabl e Encounter Details Date Type Department Care Team (Late st Contact Info) Description 04/24/2016 Documentation EM Family Medicine [address] [place] [address] Family Medicine, Physician [address] [place] [address] Social History Tobacco Use Types Packs/Day Years [...] on filedocumented in this encounter Care Teams Bulk Cooler Installer Relationship Specialty Start Date End Date Miriam Unger MD PCP - General 04/20/17 documented as of this encounter
--- OUTSIDE RECORDS SUMMARY | 2024-11-10 09:32 | XMS_ITS | Clinical Summary ---
Demographics Address [address] [place] [address] Home Phone Mobile Phone Home Phone Preferred Language en Marital Status Single Sikhism Affiliation Unknown Race Unknown Ethnic Group or Author Organization [facility] Address [address] [place] [address] Care Team Providers Care Employment Specialist Name Role Phone Unavailable Primary Care Provider Unavailabl e Surgical History Surgery Date Site/Laterality Comments CHOLECYSTECTOMY PROCEDURE: HISTORICAL CHOLECYSTECTOMY Family History Medical History Relation Name Comments Diabetes Mother Relation Name Status Comments Mother Social History Tobacco Use Types Packs/Day Years Used Date Smoking Tobacco: Never Smokeless Tobacco: Never Alcohol Use Standard Drinks/Week Comments No 0 (1 standard drink = 0.6 oz pur e alcohol) Comments Unknown Sex and Gender Information Value Date Recorded Sex Assigned at Not on file Legal Sex Female 3:22 AM EST Gender Identity Not on file Sexual Orientation Not on file Obstetrics History Plan of Treatment Health Maintenance Due Date Last Done Comments Diabetes: Annual GFR (Glomer ular Filtration Rate) 1995 Diabetes: Annual Foot Exam 2005 Diabetes: Annual Retina Eye Exam 2005 DTaP,Tdap,and Td Vaccines (1 - Tdap) 2014 Hepatitis B Vaccines (1 of 3 - 19+ 3-dose series) 2014 Cervical Cancer Screening: P ap Smear 2016 Cholesterol Screening (Lipid Panel) 08/13/2022 Depression Screening 08/13/2022 HIV Screening 08/13/2022 Hepatitis C Screening 08/13/2022 Social Influencers of Health Screening 08/13/2022 Diabetes: Annual Urine Albumin-Creatinine Ratio (uACR) 08/26/2022 Diabetes: Blood Sugar Contro l Test (HGBA1C) 08/26/2022 COVID-19 Vaccine ( - 2023-2 5 season) 2024 Influenza Vaccine (#1) 2024 07/10/2016 Pneumococcal Vaccine: Pediat rics (0 to 5 Years) and At-Risk Patients (6 to 64 Years) Aged Out 07/10/2016 No longer eligi ble based on patient's age to complete this topic HIB Vaccines Aged Out No longer eligi ble based on patient's age to complete this topic HPV Vaccines Aged Out No longer eligi ble based on patient's age to complete this topic Hepatitis A Vaccines Aged Out No long er eligible based on patient's age to complete this topic IPV Vaccines Aged Out No longer eligi ble based on patient's age to complete this topic MMR Vaccines Aged Out No longer eligi ble based on patient's age to complete this topic Meningococcal ACWY Vaccine Aged Out N o longer eligible based on patient's age to complete this topic Meningococcal B Vacine Aged Out No lo nger eligible based on patient's age to complete this topic RSV Immunization Patients Un gonzalez 20 months Aged Out No longer eligible b ased on patient's age to complete this topic Varicella Vaccines Aged Out No longer eligible based on patient's age to complete this topic
--- OUTSIDE RECORDS SUMMARY | 2024-11-10 09:32 | XMS_ITS | Encounter Summary ---
Demographics Address [address] [facility] [place] [address] Home Phone Preferred Language Martiniquais Marital Status Unknown Church Affiliation Unknown Race Unknown Ethnic Group Unknown Author Organization [facility] Address [address] [place], [place] [phone] Phone Care Team Providers Care Sugar House Supervisor Name Role Phone Miriam Unger MD Primary Care Provider Unavailabl e Encounter Details Date Type Department Care Team (Late st Contact Info) Description 07/11/2013 Documentation [facility] Family Medicine [address] [place] [address] Family Medicine, Physician [address] [place] [address] Social History Tobacco Use Types Packs/Day Years [...] on filedocumented in this encounter Care Teams Sugar House Supervisor Relationship Specialty Start Date End Date Miriam Unger MD PCP - General 04/20/17 documented as of this encounter
--- OUTSIDE RECORDS SUMMARY | 2024-11-10 09:32 | XMS_ITS | Encounter Summary ---
Demographics Address [address] [facility] [place] [address] Home Phone Preferred Language Greenlandic Marital Status Unknown Hindu Affiliation Unknown Race Unknown Ethnic Group Unknown Author Organization [facility] Address [address] [place], [place] [phone] Phone Care Team Providers Care Sheriff'S Sergeant Name Role Phone Miriam Unger MD Primary Care Provider Unavailabl e Encounter Details Date Type Department Care Team (Late st Contact Info) Description 03/27/2016 Documentation EM Family Medicine [address] [place] [address] Family Medicine, Physician [address] [place] [address] Social History Tobacco Use Types Packs/Day Years [...] on filedocumented in this encounter Care Teams Sheriff'S Sergeant Relationship Specialty Start Date End Date Miriam Ugner MD PCP - General 04/20/17 documented as of this encounter
--- OUTSIDE RECORDS SUMMARY | 2024-11-10 09:32 | XMS_ITS | Encounter Summary ---
Demographics Address [address] [place] [address] Home Phone Preferred Language Burmese Marital Status Unknown Gnosticist Affiliation Unknown Race Unknown Ethnic Group Unknown Author Organization [facility] Address [address] [place], [place] [phone] Phone Care Team Providers Care Private Advisor Name Role Phone Miriam Unger MD Primary Care Provider Unavailabl e Encounter Details Date Type Department Care Team (Late st Contact Info) Description 09/22/2013 Documentation [facility] [address] [place] [address] Family Medicine, Physician [address] [place] [address] Social History Tobacco Use Types Packs/Day Years [...] on filedocumented in this encounter Care Teams Private Advisor Relationship Specialty Start Date End Date Miriam Unger MD PCP - General 04/20/17 documented as of this encounter
--- OUTSIDE RECORDS SUMMARY | 2024-11-10 09:32 | XMS_ITS | Encounter Summary ---
Demographics Address [address] [address] Home Phone Preferred Language Jamaican Marital Status Unknown Yazdanism Affiliation Unknown Race Unknown Ethnic Group Unknown Author Organization [facility] Address [address] [place], [place] [address] Phone Care Team Providers Care Dining Service Inspector Name Role Phone Miriam Unger MD Primary Care Provider Unavailabl e Encounter Details Date Type Department Care Team (Late st Contact Info) Description 06/28/2015 Documentation EM Family Medicine [address] [place] [address] Family Medicine, Physician [address] [place] [address] Social History Tobacco Use Types Packs/Day Years [...] on filedocumented in this encounter Care Teams Dining Service Inspector Relationship Specialty Start Date End Date Miriam Unger MD PCP - General 04/20/17 documented as of this encounter
--- OUTSIDE RECORDS SUMMARY | 2024-11-10 09:32 | XMS_ITS | Encounter Summary ---
Demographics Address [address] [facility] [place] [address] Home Phone Preferred Language Swazi Marital Status Unknown Buddhism Affiliation Unknown Race Unknown Ethnic Group Unknown Author Organization [facility] Address [address] [place], [place] [phone] Phone Care Team Providers Care Tape Librarian Name Role Phone Miriam Unger MD Primary Care Provider Unavailabl e Encounter Details Date Type Department Care Team (Late st Contact Info) Description 12/31/2013 Documentation [facility] [address] [place] [address] Family Medicine, Physician [address] [place] [address] Social History Tobacco Use Types Packs/Day Years [...] on filedocumented in this encounter Care Teams Tape Librarian Relationship Specialty Start Date End Date Miriam Unger MD PCP - General 04/20/17 documented as of this encounter
--- OUTSIDE RECORDS SUMMARY | 2024-11-10 09:32 | XMS_ITS | Encounter Summary ---
Demographics Address [address] [place] [address] Home Phone Preferred Language Venezuelan Marital Status Unknown Cheondoism Affiliation Unknown Race Unknown Ethnic Group Unknown Author Organization [facility] Address [address] [place], [place] [phone] Phone Care Team Providers Care Multiple Needle Stitcher Name Role Phone Miriam Unger MD Primary Care Provider Unavailabl e Encounter Details Date Type Department Care Team (Late st Contact Info) Description 04/26/2017 Conversion Encounter [facility] - [address] [address] Social History Tobacco Use Types Packs/Day Years [...] on filedocumented in this encounter Care Teams Multiple Needle Stitcher Relationship Specialty Start Date End Date Miriam Unger MD PCP - General 04/20/17 documented as of this encounter
--- OUTSIDE RECORDS SUMMARY | 2024-11-10 09:32 | XMS_ITS | Encounter Summary ---
Demographics Address [address] [place] [place] [address] Home Phone Preferred Language Citizen Of [place] Marital Status Unknown Anglican Affiliation Unknown Race Unknown Ethnic Group Unknown Author Organization [facility] Address [address] [place], [place] [address] Phone Care Team Providers Care Specification Manager Name Role Phone Miriam Unger MD Primary Care Provider Unavailabl e Encounter Details Date Type Department Care Team (Late st Contact Info) Description 07/11/2013 Documentation EM Family Medicine [address] [place] [address] Family Medicine, Physician [address] [place] [address] Social History Tobacco Use Types Packs/Day Years [...] on filedocumented in this encounter Care Teams Specification Manager Relationship Specialty Start Date End Date Miriam Unger MD PCP - General 04/20/17 documented as of this encounter
--- OUTSIDE RECORDS SUMMARY | 2024-11-10 09:33 | XMS_ITS | Encounter Summary ---
Demographics Address [address] [address] Home Phone Preferred Language Croatian Marital Status Unknown Spiritism Affiliation Unknown Race Unknown Ethnic Group Unknown Author Organization [facility] Address [address] [place], [place] [address] Phone Care Team Providers Care District Leader Name Role Phone Miriam Unger MD Primary Care Provider Unavailabl e Encounter Details Date Type Department Care Team (Late st Contact Info) Description 12/17/2009 Documentation [facility] [address] [place] [address] Family Medicine, Physician [address] [place] [address] Social History Tobacco Use Types Packs/Day Years [...] on filedocumented in this encounter Care Teams District Leader Relationship Specialty Start Date End Date Miriam Unger MD PCP - General 04/20/17 documented as of this encounter
--- OUTSIDE RECORDS SUMMARY | 2024-11-10 09:33 | XMS_ITS | Encounter Summary ---
Demographics Address [address] [facility] [address] Home Phone Preferred Language Namibian Marital Status Unknown Islam Affiliation Unknown Race Unknown Ethnic Group Unknown Author Organization [facility] Address [address] [place], [place] [phone] Phone Care Team Providers Care Fender Mechanic Apprentice Name Role Phone Miriam Unger MD Primary Care Provider Unavailabl e Encounter Details Date Type Department Care Team (Late st Contact Info) Description 11/22/2011 Documentation EM Family Medicine [address] [place] [address] Family Medicine, Physician [address] [place] [address] Social History Tobacco Use Types Packs/Day Years [...] on filedocumented in this encounter Care Teams Fender Mechanic Apprentice Relationship Specialty Start Date End Date Miriam Unger MD PCP - General 04/20/17 documented as of this encounter
--- OUTSIDE RECORDS SUMMARY | 2024-11-10 09:33 | XMS_ITS | Encounter Summary ---
Demographics Address [address] [place] [address] Home Phone Preferred Language Iraqi Marital Status Unknown Faith Affiliation Unknown Race Unknown Ethnic Group Unknown Author Organization [facility] Address [address] [place], [place] [address] Phone Care Team Providers Care Bosom Presser Name Role Phone Miriam Unger MD Primary Care Provider Unavailabl e Encounter Details Date Type Department Care Team (Late st Contact Info) Description 07/05/2011 Documentation [facility] [address] [place] [address] Family Medicine, Physician [address] [place] [address] Social History Tobacco Use Types Packs/Day Years [...] on filedocumented in this encounter Care Teams Bosom Presser Relationship Specialty Start Date End Date Miriam Unger MD PCP - General 04/20/17 documented as of this encounter
== END 2024-11-10 09:38 | disposition home or self-care (01) ==
PROVIDERS: PCP Internal Medicine; Visit Provider Physician Assistant
DX: J01.00 Acute maxillary sinusitis, unspecified (principal)

== ENCOUNTER 2024-12-23 09:12 | Outpatient (AMB) | payer OTHER, SELFPAY ==
[2024-12-23 09:22] VITALS: BP 112/78; PULSE 77; O2SAT 96
--- NOTE | 2024-12-23 09:22 | AM.OFFWIN_ITS ---
Intake Vital Signs 12/23/24 09:22 Weight 254 lb BP 112/78 Blood Pressure Location Rt brachial Position Sitting Pulse 77 Pulse Source Pulse Oximeter Pulse Oximetry (%) 96 Oxygen Delivery Method Room Air Intake Visit Reasons: EP-lt underarm abscess Intake Note: Patient here for abscess under left arm that has been present for at least 2 months. Patient Tobacco Use Status: Never used Tobacco Allergies Iodinated Contrast Media [IV CONTRAST] Allergy (Intermediate, Verified 12/23/24 09:23) HIVES empagliflozin Adverse Reaction (Intermediate, Verified 12/23/24 09:23) LIGHT HEADED Do you need a note to return to daycare/school/sports/work: No HPI HPI Comments History of Present Illness Details History of Present Illness - The patient is a 29-year-old female wi th a past med hx of T1D presenting with a persistent and recurrent left armpit abscess over the past two to three months. - Initially presenting as a pimple, the lesion resolves upon drainage but recurs with adjacent hard bumps, causing significant discomfort. - The lesion reappeared two days ago, wi th the presence of surrounding lumps. - Previous interventions, including warm compresses and pharmacy-bought oin tments, have been ineffective. - She denies any history of MRSA infecti ons and has not received dermatological consultation. - She reports no other similar lesions o n her body and has not previously experienced any related adverse effects from antibiotic treatments such as yeast infections. - Aggrieving factors may be environmenta l or physiological, such as exposure to heat and sweating. - No antibiotics have been utilized to d ate. Physical Exam General: Cooperative, healthy appearing, comfortable, no acute distress and well developed Orientation: Patient oriented x3 Limitations: No limitations Head: Normal to inspection Ears: Hearing grossly normal bilaterally Nose: Normal External nose present Face and sinus: Normal facial exam Eyes: Appearance normal, both eyes and all related structures Neck: Normal visual inspection and Yes full ROM Respiratory: Normal respiratory effort and able to speak in complete sentences. Skin: left axilla has indurated 1cm round deep abscess, 0.5cm flat area of erythema adjacent to it, warmth, no drainage noted. Neuro: Patient oriented x3 Extremities: Normal to inspection [facility] Medical History Diabetes mellitus Insulin dependent type 2 diabetes mellitus Type 1 diabetes mellitus Low vitamin D level Goiter Goiter Hypertension History of blood transfusion Pre-op evaluation Abnormal uterine bleeding Well woman exam COVID-19 Vitamin B12 deficiency Vitamin D deficiency Vitamin A deficiency Binge eating disorder Anxiety GERD (gastroesophageal reflux disease) Morbid obesity Transaminitis Macromastia Secondary hyperparathyroidism Vitamin D deficiency HLD (hyperlipidemia) HTN (hypertension) Surgical History Hx of gastric bypass Presence of pancreatic duct stent Hx of cholecystectomy Family History Father Hypertension High cholesterol Mother Hypertension Diabetes High cholesterol Brother No problems noted. Brother No problems noted. Son No problems noted. Daughter No problems noted. 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 career services representative to a significant other at home: Yes (2 children) Do you presently have visiting nurse or other home services: No Alcohol intake: never Patient Tobacco Use Status: Never used Tobacco e-Cigarette/Vaping Use: Never Used Second Hand Smoke Exposure: No service: No Current occupational status: unemployed Cognitive needs: No Hearing needs: No Vision needs: Yes Female Reproductive History Menstrual Age of Menarche: 10 Review of Systems Const All systems reviewed & are unremarkable except as noted in HPI and below Physical Exam Vital Signs: Last Vital Signs Pulse 77 12/23/24 09:22 BP 112/78 12/23/24 09:22 Pulse Ox 96 12/23/24 09:22 Oxygen Delivery Method Room Air 12/23/24 09:22 Assessment & Plan Assessment & Plan (1) Abscess of left axilla: Code(s): L02.412 - Cutaneous abscess of left axilla Plan: The patient will begin treatment for the recurrent axillary abscess with a dual antibiotic regimen, including Doxycycline 100 mg twice daily and Cephalexin 500 mg every six hours for seven days. She will monitor for and report any side effects, such as yeast infections, for which Fluconazole can be prescribed. Should the condition persist despite treatment, a potential dermatological consultation may be necessary to assess for underlying chronic abscesses or cystic structures requiring surgical intervention but she should check with her PCP if symptoms continue. Open communication via the healthcare portal is encouraged for questions or further concerns. Patient was informed and verbally consented to the use of an ambient scribe for clinic note documentation during this visit. Medications: New cephalexin 500 mg PO Q6H 28 caps 0RF doxycycline hyclate 100 mg PO BID 14 tabs 0RF Coding Level of Care Code Est Pt Level 3 (80267) Diagnoses Abscess of left axilla L02.412
--- OUTSIDE RECORDS SUMMARY | 2024-12-23 09:53 | XMS_ITS | Encounter Summary ---
Demographics Address [address] [place] [address] Home Phone Preferred Language Urdu Marital Status Unknown Episcopal Affiliation Unknown Race Unknown Ethnic Group Unknown Author Organization [facility] Address [address] [place], [place] [phone] Phone Care Team Providers Care Reference And Instruction Librarian Name Role Phone Miriam Unger MD Primary Care Provider Unavailabl e Encounter Details Date Type Department Care Team (Late st Contact Info) Description 12/17/2009 Documentation [facility] [address] [place] [address] Family Medicine, Physician [address] [place] [address] Social History Tobacco Use Types Packs/Day Years [...] on filedocumented in this encounter Care Teams Reference And Instruction Librarian Relationship Specialty Start Date End Date Miriam Unger MD PCP - General 04/20/17 documented as of this encounter
--- OUTSIDE RECORDS SUMMARY | 2024-12-23 09:53 | XMS_ITS | Encounter Summary ---
Demographics Address [address] [facility] [place] [address] Home Phone Preferred Language Mongolian Marital Status Unknown Adventism Affiliation Unknown Race Unknown Ethnic Group Unknown Author Organization [facility] Address [address] [place], [place] [phone] Phone Care Team Providers Care Supervisor Industrial Arts Education Name Role Phone Miriam Unger MD Primary Care Provider Unavailabl e Encounter Details Date Type Department Care Team (Late st Contact Info) Description 12/31/2013 Documentation [facility] [address] [place] [address] Family Medicine, Physician [address] [place] [address] Social History Tobacco Use Types Packs/Day Years [...] on filedocumented in this encounter Care Teams Supervisor Industrial Arts Education Relationship Specialty Start Date End Date Miriam Unger MD PCP - General 04/20/17 documented as of this encounter
--- OUTSIDE RECORDS SUMMARY | 2024-12-23 09:53 | XMS_ITS | Encounter Summary ---
Demographics Address [address] [place] [address] Home Phone Preferred Language Hebrew Marital Status Unknown Cheondoism Affiliation Unknown Race Unknown Ethnic Group Unknown Author Organization [facility] Address [address] [place], [place] [address] Phone Care Team Providers Care Direct Sales Consultant Name Role Phone Miriam Unger MD Primary Care Provider Unavailabl e Encounter Details Date Type Department Care Team (Late st Contact Info) Description 07/11/2013 Documentation EM Family Medicine [address] [place] [address] Family Medicine, Physician [address] [place] [address] Social History Tobacco Use Types Packs/Day Years [...] on filedocumented in this encounter Care Teams Direct Sales Consultant Relationship Specialty Start Date End Date Miriam Unger MD PCP - General 04/20/17 documented as of this encounter
--- OUTSIDE RECORDS SUMMARY | 2024-12-23 09:53 | XMS_ITS | Encounter Summary ---
Demographics Address [address] [place] [address] Home Phone Preferred Language Serbian Marital Status Unknown Congregation Affiliation Unknown Race Unknown Ethnic Group Unknown Author Organization [facility] Address [address] [place], [place] [phone] Phone Care Team Providers Care Sausage Inspector Name Role Phone Miriam Unger MD Primary Care Provider Unavailabl e Encounter Details Date Type Department Care Team (Late st Contact Info) Description 04/26/2017 Conversion Encounter [facility] - [address] [address] Social History Tobacco Use Types Packs/Day Years [...] on filedocumented in this encounter Care Teams Sausage Inspector Relationship Specialty Start Date End Date Miriam Unger MD PCP - General 04/20/17 documented as of this encounter
--- OUTSIDE RECORDS SUMMARY | 2024-12-23 09:53 | XMS_ITS | Encounter Summary ---
Demographics Address [address] [address] Home Phone Preferred Language Amharic Marital Status Unknown Congregation Affiliation Unknown Race Unknown Ethnic Group Unknown Author Organization [facility] Address [address] [place], [place] [address] Phone Care Team Providers Care Hose Cementer Name Role Phone Miriam Unger MD Primary Care Provider Unavailabl e Encounter Details Date Type Department Care Team (Late st Contact Info) Description 07/05/2011 Documentation [facility] [address] [place] [address] Family Medicine, Physician [address] [place] [address] Social History Tobacco Use Types Packs/Day Years [...] on filedocumented in this encounter Care Teams Hose Cementer Relationship Specialty Start Date End Date Miriam Unger MD PCP - General 04/20/17 documented as of this encounter
--- OUTSIDE RECORDS SUMMARY | 2024-12-23 09:53 | XMS_ITS | Clinical Summary ---
Demographics Address [address] [place] [address] Home Phone Mobile Phone Home Phone Preferred Language en Marital Status Single Confucianist Affiliation Unknown Race Unknown Ethnic Group or Author Organization [facility] Address [address] [place] [address] Care Team Providers Care Marble Carver Name Role Phone Unavailable Primary Care Provider [...] Contro l Test (HGBA1C) 08/26/2022 COVID-19 Vaccine (2023-2 5 season) 2024 Influenza Vaccine (Season Ended) 2025 07/10/20 16 Pneumococcal Vaccine: Pediat rics (0 to 5 [...] age to complete this topic Meningococcal B Vaccine Aged Out No l onger eligible based on patient's age to complete this topic RSV Immunization Patients Un gonzalez 20 months Aged Out No longer eligible b ased on patient's age to complete this topic Varicella Vaccines Aged Out No longer eligible based on patient's age to complete this topic
--- OUTSIDE RECORDS SUMMARY | 2024-12-23 09:53 | XMS_ITS | Encounter Summary ---
Demographics Address [address] [facility] [place] [address] Home Phone Preferred Language Polish Marital Status Unknown Faith Affiliation Unknown Race Unknown Ethnic Group Unknown Author Organization [facility] Address [address] [place], [place] [phone] Phone Care Team Providers Care Cartographic Technician Name Role Phone Miriam Unger MD Primary Care Provider Unavailabl e Encounter Details Date Type Department Care Team (Late st Contact Info) Description 04/24/2016 Documentation EM Family Medicine [address] [place] [address] Family Medicine, Physician [address] [place] [address] Social History Tobacco Use Types Packs/Day Years [...] on filedocumented in this encounter Care Teams Cartographic Technician Relationship Specialty Start Date End Date Miriam Unger MD PCP - General 04/20/17 documented as of this encounter
--- OUTSIDE RECORDS SUMMARY | 2024-12-23 09:53 | XMS_ITS | Clinical Summary ---
Demographics Address [address] [place] [address] Home Phone Preferred Language Sinhala Marital Status Unknown Uatsdin Affiliation Unknown Race Unknown Ethnic Group Unknown Author Organization [facility] Address [address] [place] [address] Phone Care Team Providers Care Teasel Gig Operator Name Role Phone Miriam Unger MD [...] of Strabismus, No family history of *Sudden /SC under 55, No family history of Seizure [...] complete this topic Procedures * Due to [facility] law, this organization might not be sharing sensitive test results. Procedure Name Priority Date/Time Associated Diagnosis Comments CHLAMYDIA AND GONORRHEA, AMPLIFIED Routine 02/04/2015 1:03 PM EDT from Last 3 Months or Most Recently Relevant to Health Maintenance Results * Due to [place] [facility] [email or web address] law, this organization might not be sharing sensitive test results. * Chlamydia and Gonorrhoea, Amplified (02/04/2015 1:03 PM EDT) Pathologist [facility] URINE GC AMP PROBE NEGATIVE [facility] Comment: No Neisseria Gonorrhoeae RNA detected in this patient's sample (REFERENCE RANGE/NORMAL VALUE: NOT DETECTED) NOTE: This test uses decal decorator-mediated amplification method to detect rRNA from C.Trachomatis [...] without risk of sexual abuse. Consult the [facility] if needed. Contact phone number . Therapeutic failure or success cannot be determined with the Aptima Combo2 assay since nucleic acid may persist following appropriate antimicrobial therapy. The Centers for Disease Control and Prevention (CDC) recommends confirmatory retesting using culture or a different nucleic acid amplification test when positive results occur, if indicated. Testing performed or reported by [facility], a Service of [facility], [address] [place] [address] Jordon Briones MD, PhD, Drywall Sprayer URINE CHLAMYDIA AMP PROBE POSITIVE [facility] Comment: Chlamydia Trachomatis RNA detected in this patient's sample (REFERENCE RANGE/NORMAL VALUE: NOT DETECTED) . PURSUANT TO [id number], THESE CLINICAL LABORATORY RESULTS HAVE BEEN REPORTED TO THE [place] [facility] OF PUBLIC HEALTH. PLEASE BE AWARE THAT HEALTHCARE PROVIDERS HAVE ADDITIONAL PUBLIC HEALTH REPORTING REQUIREMENTS. 02/04/2015 1:03 PM EDT Narrative [facility] - 02/04/2015 1:03 PM EDT URINE CHLAMYDIA GC AMP PROBE us Sravanthi Mariscal DRAWING FRAME TENDER LAB MICROBIOLOGY - GENERAL ORDER JANEL Final Result [facility] [address] [id number], from Last 3 Months or Most Recently Relevant to Health Maintenance Care Teams Teasel Gig Operator Relationship Specialty Start Date End Date Miriam Unger MD PCP - General 04/20/17
--- OUTSIDE RECORDS SUMMARY | 2024-12-23 09:53 | XMS_ITS | Encounter Summary ---
Demographics Address [address] [place] [address] Home Phone Preferred Language Kyrgyz Marital Status Unknown Mandaen Affiliation Unknown Race Unknown Ethnic Group Unknown Author Organization [facility] Address [address] [place], [place] [phone] Phone Care Team Providers Care Snake Charmer Name Role Phone Miriam Unger MD Primary Care Provider Unavailabl e Encounter Details Date Type Department Care Team (Late st Contact Info) Description 03/27/2016 Documentation EM Family Medicine [address] [place] [address] Family Medicine, Physician [address] [place] [address] Social History Tobacco Use Types Packs/Day Years [...] on filedocumented in this encounter Care Teams Snake Charmer Relationship Specialty Start Date End Date Miriam Unger MD PCP - General 04/20/17 documented as of this encounter
--- OUTSIDE RECORDS SUMMARY | 2024-12-23 09:53 | XMS_ITS | Encounter Summary ---
Demographics Address [address] [facility] [place] [address] Home Phone Preferred Language Irish Marital Status Unknown Catholic Affiliation Unknown Race Unknown Ethnic Group Unknown Author Organization [facility] Address [address] [place], [place] [phone] Phone Care Team Providers Care Automobile Mechanic Helper Name Role Phone Miriam Unger MD Primary Care Provider Unavailabl e Encounter Details Date Type Department Care Team (Late st Contact Info) Description 11/22/2011 Documentation EM Family Medicine [address] [place] [address] Family Medicine, Physician [address] [place] [address] Social History Tobacco Use Types Packs/Day Years [...] on filedocumented in this encounter Care Teams Automobile Mechanic Helper Relationship Specialty Start Date End Date Miriam Unger MD PCP - General 04/20/17 documented as of this encounter
--- OUTSIDE RECORDS SUMMARY | 2024-12-23 09:53 | XMS_ITS | Encounter Summary ---
Demographics Address [address] [facility] [place] [address] Home Phone Preferred Language Indonesian Marital Status Unknown Episcopalian Affiliation Unknown Race Unknown Ethnic Group Unknown Author Organization [facility] Address [address] [place] [address] Phone Care Team Providers Care Wage Hand Name Role Phone Miriam Unger MD Primary Care Provider Unavailabl e Encounter Details Date Type Department Care Team (Late st Contact Info) Description 06/17/2013 Conversion Encounter [facility] [address] [place] [address] Tigre Mckeon MD [address] [place] [address] Social History Tobacco Use Types Packs/Day Years [...] on filedocumented in this encounter Care Teams Wage Hand Relationship Specialty Start Date End Date Miriam Unger MD PCP - General 04/20/17 documented as of this encounter
--- OUTSIDE RECORDS SUMMARY | 2024-12-23 09:53 | XMS_ITS | Encounter Summary ---
Demographics Address [address] [place] [address] Home Phone Preferred Language Setswana Marital Status Unknown Rastafari Affiliation Unknown Race Unknown Ethnic Group Unknown Author Organization [facility] Address [address] [place], [place] [phone] Phone Care Team Providers Care Arabic Professor Name Role Phone Miriam Unger MD Primary Care Provider Unavailabl e Encounter Details Date Type Department Care Team (Late st Contact Info) Description 07/11/2013 Documentation EM Family Medicine [address] [place] [address] Family Medicine, Physician [address] [place] [address] Social History Tobacco Use Types Packs/Day Years [...] on filedocumented in this encounter Care Teams Arabic Professor Relationship Specialty Start Date End Date Miriam Unger MD PCP - General 04/20/17 documented as of this encounter
--- OUTSIDE RECORDS SUMMARY | 2024-12-23 09:53 | XMS_ITS | Encounter Summary ---
Demographics Address [address] [facility] [address] Home Phone Preferred Language Maori Marital Status Unknown Mandaen Affiliation Unknown Race Unknown Ethnic Group Unknown Author Organization [facility] Address [address] [place], [place] [address] Phone Care Team Providers Care Reference Assistant Name Role Phone Miriam Unger MD Primary Care Provider Unavailabl e Encounter Details Date Type Department Care Team (Late st Contact Info) Description 03/23/2016 Documentation EM Family Medicine [address] [place] [address] Family Medicine, Physician [address] [place] [address] Social History Tobacco Use Types Packs/Day Years [...] filedocumented in this encounter Care Teams Reference Assistant Relationship Specialty Start Date End Date Miriam Unger MD PCP - General 04/20/17 documented as of this encounter
--- OUTSIDE RECORDS SUMMARY | 2024-12-23 09:53 | XMS_ITS | Encounter Summary ---
Demographics Address [address] [facility] [address] Home Phone Preferred Language Serbian Marital Status Unknown Zoroastrian Affiliation Unknown Race Unknown Ethnic Group Unknown Author Organization [facility] Address [address] [place], [place] [phone] Phone Care Team Providers Care Anthropologist Name Role Phone Miriam Unger MD Primary Care Provider Unavailabl e Encounter Details Date Type Department Care Team (Late st Contact Info) Description 06/28/2015 Documentation EM Family Medicine [address] [place] [address] Family Medicine, Physician [address] [place] [address] Social History Tobacco Use Types Packs/Day Years [...] on filedocumented in this encounter Care Teams Anthropologist Relationship Specialty Start Date End Date Miriam Unger MD PCP - General 04/20/17 documented as of this encounter
--- OUTSIDE RECORDS SUMMARY | 2024-12-23 09:53 | XMS_ITS | Encounter Summary ---
Demographics Address [address] [place] [place] [address] Home Phone Preferred Language Tajik Marital Status Unknown Druze Affiliation Unknown Race Unknown Ethnic Group Unknown Author Organization [facility] Address [address] [place], [place] [address] Phone Care Team Providers Care Residential Care Officer Name Role Phone Miriam Unger MD Primary Care Provider Unavailabl e Encounter Details Date Type Department Care Team (Late st Contact Info) Description 09/22/2013 Documentation [facility] Family [facility] [address] [place] [address] Family Medicine, Physician [address] [place] [address] Social History Tobacco Use Types Packs/Day Years [...] on filedocumented in this encounter Care Teams Residential Care Officer Relationship Specialty Start Date End Date Miriam Unger MD PCP - General 04/20/17 documented as of this encounter
== END 2024-12-23 10:17 | disposition home or self-care (01) ==
PROVIDERS: PCP Internal Medicine; Visit Provider Physician Assistant
DX: L02.412 Cutaneous abscess of left axilla (principal)

== ENCOUNTER → 2024-12-23 09:12 | Outpatient (BNVA) | payer OTHER, SELFPAY | PROVIDERS: PCP Internal Medicine; Visit Provider Physician Assistant | DX: L02.412 Cutaneous abscess of left axilla (principal) | CPT/HCPCS: 99212 ==

== ENCOUNTER 2025-01-06 11:15 | Outpatient (AMB) | payer OTHER, SELFPAY ==
--- NOTE | 2025-01-06 07:49 | MHC.OFFVIS ---
Vital Signs 01/06/25 11:19 Height 5 ft 2 in Weight 256 lb 6.362 oz BMI 46.9 BP 110/68 Blood Pressure Location Rt brachial Position Sitting Pulse 94 Pulse Source Pulse Oximeter Pulse Oximetry (%) 98 Oxygen Delivery Method Room Air Intake Visit Reasons: DM Intake Note: Patient present today for Type 1 Diabetes Mellitus Last Diabetic eye exam: 10/2024 Last Podiatry Visit: Doesn't have one Random Glucose: 309 mg/dl HgA1C: 8.4% Dairy Chemist Required: No Accompanied by: Self / Same As Patient Allergies Iodinated Contrast Media [IV CONTRAST] Allergy (Intermediate, Verified 01/06/25 11:23) HIVES empagliflozin Adverse Reaction (Intermediate, Verified 01/06/25 11:23) LIGHT HEADED insulin degludec [From Tresiba FlexTouch U-100] Adverse Reaction (Intermediate, Verified 01/06/25 11:48) felt poorly HPI Comments Details: 29 YO Female who is seen in f/u for T1DM. She was previously treated as a type 2 diabetic. She was started in 2023 on Basal/bolus insulin using a 4 day insulin patch. 08/13/24 A1C 8.2% 2023 low C-peptide 0.24, positive insulin auto antibodies, negative gada She is s/p bariatric surgery. She has a prior history of pancreatitis Had been on metformin in the past which was stopped and she does not remember the reason why. Failed trial of Jardiance 04/2024 due to side effects. Current regimen: Lantus 45 units Humalog 4-10 units tid generally doesn't take units unless she is at home and not driving Denies retinopathy: Has eyes checked yearly, last eye exam 10/2023, scheduled for this October Denies neuropathy, last foot exam today in [facility] she does not see podiatry No nephropathy No recent lipid profile. [Denies] CAD. Diet: at times eats just once daily, very inconsistent with diet Weight:stable She reports she has a history of depression in his currently off her antidepressant. No current or past suicidal thoughts. She has trouble getting motivated to exercise. She will contact her PCP about resuming antidepressant. She denies numbness and tingling, cramping in legs. Denies cp Walks with her children but not daily [facility] screen Fibrosis-4 (Fib-4) Index for liver fibrosis (calculated on lab work done: 02/2024) [0.38 ] points Advanced fibrosis [n/a secondary to age ] Approximate Fibrosis stage Hansel [0-1 ] *Use with caution in patients <35 or >65 years old, as the score has been shown to be less reliable in these patients. Prior Imaging [] Action Plan: [] rescreen two years from date of screening labs[02/2026 ] Exercises on elliptical Hyperparathyroidism: She had lab evidence of secondary hyperparathyroidism. Has never had kidney stones. Has never broken a bone. No family history of nephrolithiasis. Labs revealed evidence of secondary hyperparathyroidism. Vitamin D has now been repleted since bariatric surgery and Calcium repeated has been normal. Recent vit d 20 PTH 79.3 PFSH Medical History Diabetes mellitus Insulin dependent type 2 diabetes mellitus Type 1 diabetes mellitus Low vitamin D level Goiter Goiter Hypertension History of blood transfusion Pre-op evaluation Abnormal uterine bleeding Well woman exam COVID-19 Vitamin B12 deficiency Vitamin D deficiency Vitamin A deficiency Binge eating disorder Anxiety GERD (gastroesophageal reflux disease) Morbid obesity Transaminitis Macromastia Secondary hyperparathyroidism Vitamin D deficiency HLD (hyperlipidemia) HTN (hypertension) Surgical History Hx of gastric bypass Presence of pancreatic duct stent Hx of cholecystectomy Family History Father Hypertension High cholesterol Mother Hypertension Diabetes High cholesterol Brother No problems noted. Brother No problems noted. Son No problems noted. Daughter No problems noted. 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 veterinarian laboratory animal care to a significant other at home: Yes (2 children) Do you presently have visiting nurse or other home services: No Alcohol intake: never Patient Tobacco Use Status: Never used Tobacco e-Cigarette/Vaping Use: Never Used Second Hand Smoke Exposure: No service: No Current occupational status: unemployed Cognitive needs: No Hearing needs: No Vision needs: Yes Female Reproductive History Menstrual Age of Menarche: 10 Physical Exam Vital Signs: Last Vital Signs Pulse 94 01/06/25 11:19 BP 110/68 01/06/25 11:19 Pulse Ox 98 01/06/25 11:19 Oxygen Delivery Method Room Air 04/29/25 11:19 BMI result Body Mass Index 46.9 Results AMB Hemoglobin A1c AMB Hemoglobin A1c 8.4 % Last Edit by SHAKIRA Calderon on 01/06/25 11:34 Results Reviewed Results Reviewed: Laboratory Last Values Glucose (Clinic) 309 mg/dL (60-115) H 01/06/25 11:25 Hgb A1c (Clinic) 8.4 % (4.0-6.0) H 01/06/25 11:28 Assessment & Plan Assessment & Plan (1) Type 1 diabetes mellitus: Code(s): E10.9 - Type 1 diabetes mellitus without complications Category: Medical Plan: 29-year-old type 1 diabetic on basal bolus insulin with a Cequr insulin patch A1c today in the office is The patient had an opportunity to ask questions regarding treatment plan. The patient expressed understanding and agreement with the above treatment plan. The patient is aware they should contact our office by phone for worsening glucose readings or for any low blood sugars which may warrant a change in diabetes medication. Compliance is encouraged with medications and any followup testing/consults which may have been ordered. Orders: Orders AMB Hemoglobin A1c Today E10.9 - Type 1 diabetes mellitus without complications, Z13.9 - Encounter for screening, unspecified Coding Diagnoses Type 1 diabetes mellitus E10.9
[2025-01-06 11:19] VITALS: BP 110/68; PULSE 94; O2SAT 98; BMI 46.9
[2025-01-06 11:28] LABS: Glucose, Whole Blood 309 mg/dL (60-115)
--- OUTSIDE RECORDS SUMMARY | 2025-01-06 13:16 | XMS_ITS | Encounter Summary ---
Demographics Address [address] [place] [address] Home Phone Preferred Language Swedish Marital Status Unknown Mu-Ism Affiliation Unknown Race Unknown Ethnic Group Unknown Author Organization [facility] Address [address] [place], [place] [phone] Phone Care Team Providers Care Biological Photographer Name Role Phone Miriam Unger MD Primary Care Provider Unavailabl e Encounter Details Date Type Department Care Team (Late st Contact Info) Description 03/27/2016 Documentation EM Family Medicine [address] [place] [address] Family Medicine, Physician [address] [place] [address] Social History Tobacco Use Types Packs/Day Years [...] on filedocumented in this encounter Care Teams Biological Photographer Relationship Specialty Start Date End Date Miriam Unger MD PCP - General 04/20/17 documented as of this encounter
--- OUTSIDE RECORDS SUMMARY | 2025-01-06 13:16 | XMS_ITS | Encounter Summary ---
Demographics Address [address] [place] [address] Home Phone Preferred Language Telugu Marital Status Unknown Scientology Affiliation Unknown Race Unknown Ethnic Group Unknown Author Organization [facility] Address [address] [place], [place] [phone] Phone Care Team Providers Care Early Childhood Director Name Role Phone Miriam Unger MD Primary Care Provider Unavailabl e Encounter Details Date Type Department Care Team (Late st Contact Info) Description 07/11/2013 Documentation EM Family Medicine [address] [place] [address] Family Medicine, Physician [address] [place] [address] Social History Tobacco Use Types Packs/Day Years [...] on filedocumented in this encounter Care Teams Early Childhood Director Relationship Specialty Start Date End Date Miriam Unger MD PCP - General 04/20/17 documented as of this encounter
--- OUTSIDE RECORDS SUMMARY | 2025-01-06 13:16 | XMS_ITS | Encounter Summary ---
Demographics Address [address] [facility] [place] [address] Home Phone Preferred Language Croatian Marital Status Unknown Catholic Affiliation Unknown Race Unknown Ethnic Group Unknown Author Organization [facility] Address [address] [place], [place] [phone] Phone Care Team Providers Care Furnace Helper Name Role Phone Miriam Unger MD Primary Care Provider Unavailabl e Encounter Details Date Type Department Care Team (Late st Contact Info) Description 12/31/2013 Documentation [facility] [address] [place] [address] Family Medicine, Physician [address] [place] [address] Social History Tobacco Use Types Packs/Day Years [...] on filedocumented in this encounter Care Teams Furnace Helper Relationship Specialty Start Date End Date Miriam Unger MD PCP - General 04/20/17 documented as of this encounter
--- OUTSIDE RECORDS SUMMARY | 2025-01-06 13:16 | XMS_ITS | Encounter Summary ---
Demographics Address [address] [facility] [place] [address] Home Phone Preferred Language Yakut Marital Status Unknown Confucianist Affiliation Unknown Race Unknown Ethnic Group Unknown Author Organization [facility] Address [address] [place], [place] [address] Phone Care Team Providers Care Motorcycle Tester Name Role Phone Miriam Unger MD Primary Care Provider Unavailabl e Encounter Details Date Type Department Care Team (Late st Contact Info) Description 11/22/2011 Documentation EM Family Medicine [address] [place] [address] Family Medicine, Physician [address] [place] [address] Social History Tobacco Use Types Packs/Day Years [...] on filedocumented in this encounter Care Teams Motorcycle Tester Relationship Specialty Start Date End Date Miriam Unger MD PCP - General 04/20/17 documented as of this encounter
--- OUTSIDE RECORDS SUMMARY | 2025-01-06 13:16 | XMS_ITS | Encounter Summary ---
Demographics Address [address] [place] [address] Home Phone Preferred Language Hebrew Marital Status Unknown Yazidi Affiliation Unknown Race Unknown Ethnic Group Unknown Author Organization [facility] Address [address] [place], [place] [address] Phone Care Team Providers Care Manager Supply Chain Planning Name Role Phone Miriam Unger MD Primary Care Provider Unavailabl e Encounter Details Date Type Department Care Team (Late st Contact Info) Description 09/22/2013 Documentation EM Family Medicine [address] [place] [address] Family Medicine, Physician [address] [place] [address] Social History Tobacco Use Types Packs/Day Years [...] on filedocumented in this encounter Care Teams Manager Supply Chain Planning Relationship Specialty Start Date End Date Miriam Unger MD PCP - General 04/20/17 documented as of this encounter
--- OUTSIDE RECORDS SUMMARY | 2025-01-06 13:16 | XMS_ITS | Encounter Summary ---
Demographics Address [address] [facility] [place] [address] Home Phone Preferred Language Czech Marital Status Unknown Anabaptism Affiliation Unknown Race Unknown Ethnic Group Unknown Author Organization [facility] Address [address] [place], [place] [address] Phone Care Team Providers Care Fabric Machine Operator Name Role Phone Miriam Unger MD Primary Care Provider Unavailabl e Encounter Details Date Type Department Care Team (Late st Contact Info) Description 07/05/2011 Documentation [facility] [address] [place] [address] Family Medicine, Physician [address] [place] [address] Social History Tobacco Use Types Packs/Day Years [...] on filedocumented in this encounter Care Teams Fabric Machine Operator Relationship Specialty Start Date End Date Miriam Unger MD PCP - General 04/20/17 documented as of this encounter
--- OUTSIDE RECORDS SUMMARY | 2025-01-06 13:16 | XMS_ITS | Encounter Summary ---
Demographics Address [address] [facility] [place] [address] Home Phone Preferred Language Uzbek Marital Status Unknown Hindu Affiliation Unknown Race Unknown Ethnic Group Unknown Author Organization [facility] Address [address] [place] [phone] Phone Care Team Providers Care Correction Officer Supervisor Name Role Phone Miriam Unger MD Primary Care Provider Unavailabl e Encounter Details Date Type Department Care Team (Late st Contact Info) Description 06/17/2013 Conversion Encounter [facility] [place] [address] [place] [address] Tigre Mckeon MD [address] [place] [address] Social History Tobacco Use Types Packs/Day Years [...] on filedocumented in this encounter Care Teams Correction Officer Supervisor Relationship Specialty Start Date End Date Miriam Unger MD PCP - General 04/20/17 documented as of this encounter
--- OUTSIDE RECORDS SUMMARY | 2025-01-06 13:16 | XMS_ITS | Encounter Summary ---
Demographics Address [address] [facility] [place] [address] Home Phone Preferred Language Mongolian Marital Status Unknown Hinduism Affiliation Unknown Race Unknown Ethnic Group Unknown Author Organization [facility] Address [address] [place], [place] [address] Phone Care Team Providers Care Field Sales Representative Name Role Phone Miriam Unger MD Primary Care Provider Unavailabl e Encounter Details Date Type Department Care Team (Late st Contact Info) Description 12/17/2009 Documentation [facility] [address] [place] [address] Family Medicine, Physician [address] [place] [address] Social History Tobacco Use Types Packs/Day Years [...] on filedocumented in this encounter Care Teams Field Sales Representative Relationship Specialty Start Date End Date Miriam Unger MD PCP - General 04/20/17 documented as of this encounter
--- OUTSIDE RECORDS SUMMARY | 2025-01-06 13:16 | XMS_ITS | Encounter Summary ---
Demographics Address [address] [place] [address] Home Phone Preferred Language Turkmen Marital Status Unknown Restorationist Affiliation Unknown Race Unknown Ethnic Group Unknown Author Organization [facility] Address [address] [place], [place] [address] Phone Care Team Providers Care Unit Manager Name Role Phone Miriam Unger MD Primary Care Provider Unavailabl e Encounter Details Date Type Department Care Team (Late st Contact Info) Description 03/23/2016 Documentation EM Family Medicine [address] [place] [address] Family Medicine, Physician [address] [place] [address] Social History Tobacco Use Types [...] on filedocumented in this encounter Care Teams Unit Manager Relationship Specialty Start Date End Date Miriam Unger MD PCP - General 04/20/17 documented as of this encounter
--- OUTSIDE RECORDS SUMMARY | 2025-01-06 13:16 | XMS_ITS | Encounter Summary ---
Demographics Address [address] [place] [address] Home Phone Preferred Language Turkmen Marital Status Unknown Christianity Affiliation Unknown Race Unknown Ethnic Group Unknown Author Organization [facility] Address [address] [place], [place] [address] Phone Care Team Providers Care Laundry Helper Name Role Phone Miriam Unger MD Primary Care Provider Unavailabl e Encounter Details Date Type Department Care Team (Late st Contact Info) Description 06/28/2015 Documentation EM Family Medicine [address] [place] [address] Family Medicine, Physician [address] [place] [address] Social History Tobacco Use Types Packs/Day Years [...] on filedocumented in this encounter Care Teams Laundry Helper Relationship Specialty Start Date End Date Miriam Unger MD PCP - General 04/20/17 documented as of this encounter
--- OUTSIDE RECORDS SUMMARY | 2025-01-06 13:16 | XMS_ITS | Encounter Summary ---
Demographics Address [address] [place] [address] Home Phone Preferred Language Malay Marital Status Unknown Church Affiliation Unknown Race Unknown Ethnic Group Unknown Author Organization [facility] Address [address] [place], [place] [address] Phone Care Team Providers Care Physician Practice Consultant Name Role Phone Miriam Unger MD Primary Care Provider Unavailabl e Encounter Details Date Type Department Care Team (Late st Contact Info) Description 04/24/2016 Documentation EM Family Medicine [address] [place] [address] Family Medicine, Physician [address] [place] [address] Social History Tobacco Use Types Packs/Day Years [...] on filedocumented in this encounter Care Teams Physician Practice Consultant Relationship Specialty Start Date End Date Miriam Unger MD PCP - General 04/20/17 documented as of this encounter
--- OUTSIDE RECORDS SUMMARY | 2025-01-06 13:16 | XMS_ITS | Clinical Summary ---
Demographics Address [address] [place] [address] Home Phone Mobile Phone Home Phone Preferred Language en Marital Status Single Restorationism Affiliation Unknown Race Unknown Ethnic Group or Author Organization [facility] Address [address] [place] [address] Care Team Providers Care Manager Stylist Name Role Phone Unavailable Primary Care Provider [...] Health Maintenance Due Date Last Done Comments DTaP,Tdap,and Td Vaccines (1 - Tdap) 2014 Hepatitis B Vaccines (1 of 3 - 19+ 3-dose series) 2014 Cervical Cancer Screening: P ap Smear 2016 COVID-19 Vaccine (2023-2 5 season) 2024 Influenza [...]
--- OUTSIDE RECORDS SUMMARY | 2025-01-06 13:16 | XMS_ITS | Clinical Summary ---
Demographics Address [address] [place] [address] Home Phone Preferred Language Upper Sorbian Marital Status Unknown Mormon Affiliation Unknown Race Unknown Ethnic Group Unknown Author Organization [facility] Address [address] [place] [address] Phone Care Team Providers Care Kiln Furniture Saw Tender Name Role Phone Miriam Unger MD Primary [...] of Strabismus, No family history of *Sudden /[place] under 55, No family history of Seizure [...] complete this topic Procedures * Due to [facility] law, this organization might not be sharing sensitive test results. Procedure Name Priority Date/Time Associated Diagnosis Comments CHLAMYDIA AND GONORRHEA, AMPLIFIED Routine 02/04/2015 1:03 PM EDT from Last 3 Months or Most Recently Relevant to Health Maintenance Results * Due to [employer] law, this organization might not be sharing sensitive test results. * Chlamydia and Gonorrhoea, Amplified (02/04/2015 1:03 PM EDT) Pathologist [facility] URINE GC AMP PROBE [facility]GATIVE [facility] Comment: No Neisseria Gonorrhoeae RNA detected in this patient's sample (REFERENCE RANGE/NORMAL VALUE: NOT DETECTED) NOTE: This test uses dinkey engine operator-mediated amplification method to detect rRNA from C.Trachomatis [...] without risk of sexual abuse. Consult the [facility] [place] [facility] if needed. Contact phone number . Therapeutic failure or success cannot be determined with the Aptima Combo2 assay since nucleic acid may persist following appropriate antimicrobial therapy. The Centers for Disease Control and Prevention (CDC) recommends confirmatory retesting using culture or a different nucleic acid amplification test when positive results occur, if indicated. Testing performed or reported by [facility], a Service of [facility], [address] [place] [address] Jordon Briones MD, PhD, Systems Development Manager URINE CHLAMYDIA AMP PROBE POSITIVE [facility] Comment: Chlamydia Trachomatis RNA detected in this patient's sample (REFERENCE RANGE/NORMAL VALUE: NOT DETECTED) . PURSUANT TO [id number], THESE CLINICAL LABORATORY RESULTS HAVE BEEN REPORTED TO THE [place] [facility] OF PUBLIC HEALTH. PLEASE BE AWARE THAT HEALTHCARE PROVIDERS HAVE ADDITIONAL PUBLIC HEALTH REPORTING REQUIREMENTS. 02/04/2015 1:03 PM EDT Narrative [facility] - 02/04/2015 1:03 PM EDT URINE CHLAMYDIA GC AMP PROBE us Sravanthi Mariscal SECRET SERVICE AGENT LAB MICROBIOLOGY - GENERAL ORDER JANEL Final Result [facility] [address] [place] [id number], from Last 3 Months or Most Recently Relevant to Health Maintenance Care Teams Kiln Furniture Saw Tender Relationship Specialty Start Date End Date Miriam Unger MD PCP - General 04/20/17
--- OUTSIDE RECORDS SUMMARY | 2025-01-06 13:16 | XMS_ITS | Encounter Summary ---
Demographics Address [address] [facility] [place] [address] Home Phone Preferred Language Irish Marital Status Unknown Faith Affiliation Unknown Race Unknown Ethnic Group Unknown Author Organization [facility] Address [address] [place], [place] [phone] Phone Care Team Providers Care Mine Inspector Name Role Phone Miriam Unger MD Primary Care Provider Unavailabl e Encounter Details Date Type Department Care Team (Late st Contact Info) Description 07/11/2013 Documentation EM Family Medicine [address] [place] [address] Family Medicine, Physician [address] [place] [address] Social History Tobacco Use Types Packs/Day Years [...] on filedocumented in this encounter Care Teams Mine Inspector Relationship Specialty Start Date End Date Miriam Unger MD PCP - General 04/20/17 documented as of this encounter
--- OUTSIDE RECORDS SUMMARY | 2025-01-06 13:16 | XMS_ITS | Encounter Summary ---
Demographics Address [address] [facility] [address] Home Phone Preferred Language Persian Marital Status Unknown Caodaism Affiliation Unknown Race Unknown Ethnic Group Unknown Author Organization [facility] Address [address] [place], [place] [phone] Phone Care Team Providers Care Huller Operator Name Role Phone Miriam Unger MD Primary Care Provider Unavailabl e Encounter Details Date Type Department Care Team (Late st Contact Info) Description 04/26/2017 Conversion Encounter [facility] - [address] [address] Social History Tobacco Use Types Packs/Day Years [...] on filedocumented in this encounter Care Teams Huller Operator Relationship Specialty Start Date End Date Miriam Unger MD PCP - General 04/20/17 documented as of this encounter
== END 2025-01-06 12:01 | disposition home or self-care (01) ==
LOC: HO.ENCR 11:16
PROVIDERS: PCP Internal Medicine; Visit Provider Nurse Practitioner Adult Health
DX: Z13.9 Encounter for screening, unspecified (principal); E10.9 Type 1 diabetes mellitus without complications

== ENCOUNTER → 2025-01-06 11:15 | Outpatient (BNVA) | payer OTHER, SELFPAY | PROVIDERS: PCP Internal Medicine; Visit Provider Nurse Practitioner Adult Health | DX: E10.9 Type 1 diabetes mellitus without complications (principal); Z79.4 Long term (current) use of insulin | CPT/HCPCS: 82947; 83036; 99212 ==

== ENCOUNTER 2025-02-04 09:49 | Outpatient (AMB) | payer OTHER, SELFPAY ==
--- NOTE | 2025-02-04 10:26 | MHC.AMDMED ---
Intake Intake Visit Reasons: 60 min Market Relationship Manager Required: No Accompanied by: Self / Same As Patient Allergies Iodinated Contrast Media [IV CONTRAST] Allergy (Intermediate, Verified 01/06/25 11:23) HIVES empagliflozin Adverse Reaction (Intermediate, Verified 01/06/25 11:23) LIGHT HEADED insulin degludec [From Tresiba FlexTouch U-100] Adverse Reaction (Intermediate, Verified 01/06/25 11:48) felt poorly HPI Comprehensive Diabetes Asmnt Most Recent Diabetes Results: Microalb/Creat Ratio 6.6 ug/mg cr (<30) 07/09/24 Cholesterol 120 mg/dL (<200) 07/09/24 HDL Cholesterol 38 mg/dL (>40) L 07/09/24 Triglycerides 45 mg/dL (<150) 07/09/24 Creatinine 0.59 mg/dL (0.5-1.4) 07/09/24 Blood Urea Nitrogen 10 mg/dL (9-16) 07/09/24 Sodium 140 mmol/L (135-145) 07/09/24 Potassium 4.0 mmol/L (3.3-5.1) 07/09/24 Chloride 109 mmol/L (96-108) H 07/09/24 Carbon Dioxide 21 mmol/L (22-29) L 07/09/24 Calcium 8.8 mg/dL (8.4-10.2) 07/09/24 AST 18 U/L (5-31) 02/12/24 ALT 17 U/L (0-31) 02/12/24 Total Protein 7.3 g/dL (6.5-8.0) 02/12/24 Albumin 4.1 g/dL (3.5-5.0) 07/09/24 [facility]LY [facility] Medical History Diabetes mellitus Insulin dependent type 2 diabetes mellitus Type 1 diabetes mellitus Low vitamin D level Goiter Goiter Hypertension History of blood transfusion Pre-op evaluation Abnormal uterine bleeding Well woman exam COVID-19 Vitamin B12 deficiency Vitamin D deficiency Vitamin A deficiency Binge eating disorder Anxiety GERD (gastroesophageal reflux disease) Morbid obesity Transaminitis Macromastia Secondary hyperparathyroidism Vitamin D deficiency HLD (hyperlipidemia) HTN (hypertension) Surgical History Hx of gastric bypass Presence of pancreatic duct stent Hx of cholecystectomy Family History Father Hypertension High cholesterol Mother Hypertension Diabetes High cholesterol Brother No problems noted. Brother No problems noted. Son No problems noted. Daughter No problems noted. 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 transitional care nurse to a significant other at home: Yes (2 children) Do you presently have visiting nurse or other home services: No Alcohol intake: never Patient Tobacco Use Status: Never used Tobacco e-Cigarette/Vaping Use: Never Used Second Hand Smoke Exposure: No service: No Current occupational status: unemployed Cognitive needs: No Hearing needs: No Vision needs: Yes Female Reproductive History Menstrual Age of Menarche: 10 Assessment & Plan Assessment & Plan (1) Type 1 diabetes mellitus: Code(s): E10.9 - Type 1 diabetes mellitus without complications Plan: Carb Counting Basic Patient presents for appointment carbohydrate counting education. Reviewed the basic principles of carbohydrate counting.? Insulin to carb ratio, and insulin sensitivity factor calculated based on rule of 450 for insulin to carb ratio, and rule of 1500 for insulin sensitivity factor. Instructed patient on the importance of accurate calculation of the amount of carbs per meal for optimal glucose control Reviewed how to calculate mealtime bolus with insulin to carb ratio Reviewed how to calculate correction dose with insulin sensitivity factor Patient's TDD estimate 60 units Insulin to Carbohydrate ratio: 1:8 Correction factor:1:25 Target: 120 mg/dL Diet Recall: Lunch: sandwich with small apple 45 gms Dinner: Chicken with mac&cheese 75 gms Patient given healthy plate handout, for resource for carbohydrate counting Encourage patient to fill out food logs, estimating carbohydrates at meals, noting glucose number prior to meal, and how many units of insulin taken prior to meals Boluscalc magali downloaded on Pt's cellphone Pt able to calculated needed insulin based on estimated carbohydrate content Instructed patient that there may need to be adjustment to insulin to carb ratio and sensitivity factor based on blood glucose trends. Patient is interested in Omnipod 5 Patient is currently using Edson 3 +sensor. Did discuss at today's visit that Edson 3 is not currently compatible with Omnipod 5. Patient will have to switch to Edson 2+ or Dexcom G7 Portions of this note were created using voice recognition software, please excuse any words or phrases that may have been misinterpreted. Patient Instructions: Fill out carb counting work sheet Follow-up with coding educator in 2 weeks Coding Level of Care Code Est Pt Level 1 (04347) Diagnoses Type 1 diabetes mellitus E10.9
--- OUTSIDE RECORDS SUMMARY | 2025-02-04 10:36 | XMS_ITS | Encounter Summary ---
Demographics Address [address] [place] [address] Home Phone Preferred Language Tristanian Marital Status Unknown Yarsani Affiliation Unknown Race Unknown Ethnic Group Unknown Author Organization [facility] Address [address] [place] [phone] Phone Care Team Providers Care Cook Ice Cream Name Role Phone Miriam Unger MD Primary Care Provider Unavailabl e Encounter Details Date Type Department Care Team (Late st Contact Info) Description 06/17/2013 Conversion Encounter [facility] [place] [address] [place] [address] Tigre Mckeon MD [address] [place] [address] Social History Tobacco Use Types Packs/Day Years [...] on filedocumented in this encounter Care Teams Cook Ice Cream Relationship Specialty Start Date End Date Miriam Unger MD PCP - General 04/20/17 documented as of this encounter
== END 2025-02-04 10:30 | disposition home or self-care (01) ==
LOC: HO.ENCR 09:50
PROVIDERS: PCP Internal Medicine; Visit Provider Registered Nurse Diabetes Educator
DX: E10.9 Type 1 diabetes mellitus without complications (principal)

== ENCOUNTER → 2025-02-04 09:49 | Outpatient (BNVA) | payer OTHER, SELFPAY | PROVIDERS: PCP Internal Medicine; Visit Provider Registered Nurse Diabetes Educator | DX: E10.9 Type 1 diabetes mellitus without complications (principal) | CPT/HCPCS: 99211 ==

== ENCOUNTER 2025-05-20 15:34 | Outpatient (REF) | payer OTHER, SELFPAY ==
[2025-05-20 16:24] LABS: Hematocrit 34.5 % (37.0-47.0); Hemoglobin 11.6 g/dl (12.0-16.0); Mean Corpuscular HGB Conc 33.6 g/dl (31.0-35.0); Mean Corpuscular Hemoglobin 25.1 pg (27.0-33.0); Mean Corpuscular Volume 74.7 fL (80.0-98.0); Red Blood Count 4.62 X10*6/uL (4.20-5.50); White Blood Count 11.2 X10*3/uL (4.8-10.8)
[2025-05-20 16:25] LABS: NRBC Abs Auto 0.000 X10*3/uL (0.0-0.012); NRBC Pct Auto 0.0 /100WBC (0.0-0.2); Platelet Count 353 X10*3/uL (160-400)
--- OUTSIDE RECORDS SUMMARY | 2025-05-20 18:26 | XMS_ITS | Encounter Summary ---
Demographics Address [address] [place] [address] Home Phone Preferred Language [place] Citizen Marital Status Unknown Christianity Affiliation Unknown Race Unknown Ethnic Group Unknown Author Organization [facility] Address [address] [place], [place] [phone] Phone Care Team Providers Care Recruitment Consultant Name Role Phone Miriam Unger MD Primary Care Provider Unavailabl e Encounter Details Date Type Department Care Team (Late st Contact Info) Description 06/28/2015 Documentation [facility] [address] [place] [address] Family Medicine, Physician [address] [place] [address] Social History Tobacco Use Types Packs/Day Years [...] on filedocumented in this encounter Care Teams Recruitment Consultant Relationship Specialty Start Date End Date Miriam Unger MD PCP - General 04/20/17 documented as of this encounter
--- OUTSIDE RECORDS SUMMARY | 2025-05-20 18:26 | XMS_ITS | Encounter Summary ---
Demographics Address [address] [place] [address] Home Phone Preferred Language Somali Marital Status Unknown Pentecostal Affiliation Unknown Race Unknown Ethnic Group Unknown Author Organization [facility] Address [address] [place], [place] [phone] Phone Care Team Providers Care Laboratory Immunologist Name Role Phone Miriam Unger MD Primary Care Provider Unavailabl e Encounter Details Date Type Department Care Team (Late st Contact Info) Description 07/05/2011 Documentation [facility] [address] [place] [address] Family Medicine, Physician [address] [place] [address] Social History Tobacco Use Types Packs/Day Years [...] on filedocumented in this encounter Care Teams Laboratory Immunologist Relationship Specialty Start Date End Date Miriam Unger MD PCP - General 04/20/17 documented as of this encounter
--- OUTSIDE RECORDS SUMMARY | 2025-05-20 18:26 | XMS_ITS | Encounter Summary ---
Demographics Address [address] [place] [address] Home Phone Preferred Language Sierra Leonean Marital Status Unknown Christian Affiliation Unknown Race Unknown Ethnic Group Unknown Author Organization [facility] Address [address] [place], [place] [phone] Phone Care Team Providers Care Taxi Servicer Name Role Phone Miriam Unger MD Primary Care Provider Unavailabl e Encounter Details Date Type Department Care Team (Late st Contact Info) Description 11/22/2011 Documentation [facility] [address] [place] [address] Family Medicine, Physician [address] [place] [address] Social History Tobacco Use Types Packs/Day Years [...] on filedocumented in this encounter Care Teams Taxi Servicer Relationship Specialty Start Date End Date Miriam Unger MD PCP - General 04/20/17 documented as of this encounter
--- OUTSIDE RECORDS SUMMARY | 2025-05-20 18:26 | XMS_ITS | Clinical Summary ---
Author Organization [facility] Address [address] [place] [address] Phone Care Team Providers Care Sprigger Name Role Phone Charity Willingham MD Primary Care Provid er Allergies Active Allergy Reactions Criticality Noted Date Comments Gadolinium-Containing Contrast Media Hives 09/28/2023 Medications FREESTYLE HAMZAH 2 SENSOR kit DIRECTED CHANGE EVERY 14 DAYS 3 Active LANTUS SOLOSTAR U-100 INSULIN 100 unit/mL (3 mL) InPn injection pen Inject 45 Units under the skin nightly at bedtime. 3 Active FREESTYLE 28 gauge lancets USE DIRECTED 4X DAILY 3 Active BD INSULIN PEN NEEDLE UF SHORT 31 gauge x 5/16 Ndle 4 Active SUMAtriptan (IMITREX) 25 MG tablet Take 25 mg by mouth once as needed. 3 Active terconazole (TERAZOL 7) 0.4 % vaginal cream Place 1 applicator vaginally nightly at bedtime. 45 g 4 Active Active Problems Problem Noted Date Diagnosed Date Vaginitis and vulvovaginitis 11/23/2023 Assessment & Plan (11/23/2023 9:56 AM EDT): Presumed yeast given the diabetes symptoms and a small amount of clumped discharge, recommend treatment with Terazol, prescription sent Type 2 diabetes mellitus wit hout complication, with long-term current use of insulin 09/28/2023 Overview (10/17/2023): Requiring insulin, using only once nightly dosing after gastric sleeve and weight loss September 2023: A1c 7.8 Assessment & Plan (10/17/2023 12:50 PM EST): Will follow-up with her doctor regarding adjusting medication and other measures to reduce this prior to conceiving, due to increased risk of cardiac and spinal abnormalities with an elevated A1c at time of conception Assessment & Plan (09/28/2023 12:40 PM EST): Reports fastings 95 and most postprandials are 1 20-1 40. There is a blood test done randomly at [place] that was low 200s, and advised that is very high especially if she is trying to conceive Class 3 severe obesity with body mass index (BMI) of 40.0 to 44.9 in adult 09/28/2023 Overview (09/28/2023): Lost 80 pounds in a year after gastric sleeve Encounter for preconception consultation 024 Overview (09/28/2023): History of PCOS, no regular monthly periods after gastric sleeve with subsequent weight loss Assessment & Plan (10/17/2023 12:51 PM EST): Recommend using condoms in the short-term until A1c is lower. If A1c is still elevated in March, would be a year after trying to conceive, would not recommend pursuing any fertility treatments at that time due to increased risks Assessment & Plan (09/28/2023 12:40 PM EST): Advised that she is ovulatory, and that infertility evaluation and potential treatment are done after 1 full year. Very important to check her A1c, because of elevated would recommend actively using contraception until that is in the normal range to reduce risk of embryonic neural tube defect or structural heart defect. Also check TSH, steps of an infertility evaluation were reviewed with her and information also placed in the after visit summary. Recommend having at least 400 mcg of folate daily History of PCOS 09/28/2023 Overview (09/28/2023): Diagnosis noted in 2020, after the of her children; now currently having monthly periods after weight loss with gastric sleeve Social History Tobacco Use Types Packs/Day Years Used Date Smoking Tobacco: Never Smokeless Tobacco: Never Tobacco Cessation:Counseling Given: Not Answered Alcohol Use Standard Drinks/Week Comments Not Currently 0 (1 standard drink = 0.6 oz pur e alcohol) Education Answer Date Recorded Are you interested in more education? Not on alexandra e 09/06/2023 Are you concerned about learning? Not on file 09/06/2023 No 09/06/2023 No 09/06/2023 Digital Access Answer Date Recorded No 09/06/2023 No 09/06/2023 Reliable internet access at home? Not on file 09/06/2023 Device with a working camera? Not on file Comments Unknown Sex and Gender Information Value Date Recorded Sex Assigned at Not on file Legal Sex Female 1:36 PM EST Gender Identity Not on file Sexual Orientation Not on file Last Filed Vital Signs Vital Sign Reading Time Taken Comments Blood Pressure 132/88 10/17/2023 11:00 AM EST Pulse - - Temperature - - Respiratory Rate - - Oxygen Saturation - - Inhaled Oxygen Concentration - - Weight 103.4 kg (228 lb) 11/23/2023 9:16 AM EDT Height 157.5 cm (5' 2 ) 11/23/2023 9:16 AM EDT Body Mass Index 41.7 11/23/2023 9:16 AM EDT Plan of Treatment Health Maintenance Due Date Last Done Comments DEPRESSION SCREENING 2007 HEPATITIS C SCREENING 2013 HIV ONE-TIME SCREENING (18-6 5 YEARS) 2013 LIPID PANEL 2013 PNEUMOCOCCAL VACCINES (0-49 years) (2 of 2 - PCV) 07/10/2017 07/10/2016, 02/13/2016 Adult Td,Tdap Booster 11/10/2017 11/11/2007 DIABETIC EYE EXAM 09/28/2023 URINE MICROALBUMIN/CREATININ E RATIO 09/28/2023 HEMOGLOBIN A1C 03/28/2024 09/28/2023 BLOOD PRESSURE 04/16/2024 10/17/2023 INFLUENZA VACCINE (#1) 2025 8, 07/10/2016 COVID-19 VACCINE (2024-2 6 season) 2025 06/10/2021, 05/19/2021 PAP SMEAR 10/17/2026 10/17/2023 HEPATITIS A VACCINES Aged Out 02/09/2015 No long er eligible based on patient's age to complete this topic SMOKING STATUS SCREENING (On ce After 26 Yrs) Completed 11/23/2023 HIB VACCINES Aged Out No longer eligi ble based on patient's age to complete this topic MENINGOCOCCAL VACCINES (ACWY) Aged Out No longer eligible based on patient's age to complete this topic MENINGOCOCCAL VACCINES (B) Aged Out N o longer eligible based on patient's age to complete this topic Medical Devices Not on file Procedures Procedure Name Priority Date/Time Associated Diagnosis Comments PAP TEST Routine 10/17/2023 12:00 AM EST HEMOGLOBIN A1C Routine 09/28/2023 11:47 AM EST Encounter for preconception consultation Type 2 diabetes mellitus without complication, with long-term current use of insulin from Last 3 Months or Most Recently Relevant to Health Maintenance Results * Pap Test (10/17/2023 12:00 AM EST) 10/17/2023 10/18/2023 10: 00 AM EST Narrative SEE NARRATIVE - 10/23/2023 9:55 AM EST [address] [address] Fitter/Welder: Kaylee Srinivasan MD RADIO INTERFERENCE INVESTIGATOR Cytology Report FINAL DIAGNOSIS A. PAP SMEAR (SUREPATH) CE: SPECIMEN ADEQUACY: Satisfactory for evaluation; transformation zone absent/insufficient. INTERPRETATION: NEGATIVE FOR INTRAEPITHELIAL LESION OR MALIGNANCY. Fungal organisms morphologically consistent with Eva species. Electronically Signed Out By: BRANDEE Villafana(ASCP) The Pap test is a screening test primarily for squamous cancers and precursors and has associated false-negative and false-positive results. New technologies such as liquid-based preparations may decrease but will not eliminate all false-negative results. Regular sampling and follow-up of unexplained clinical signs and symptoms are recommended to minimize false negative results. CLINICAL HISTORY Date of Last Menstrual Period: Not Provided Menstrual History: Unknown Other Clinical Conditions: Screening Pap SPECIMEN SOURCE A: PAP SMEAR (SUREPATH) CE Patient Name: RASHEL CORTES : 1995 (Age: 28) Sex: F Institution[facility] Location: [facility] Date of Collection: 10/17/2023 Date of Reported: 10/23/2023 09:55 Results to: Josee Franks MD us Josee Franks MD CYTOLOGY ORDERABLES Final Result SEE NARRATIVE * (ABNORMAL) Hemoglobin A1c (09/28/2023 11:47 AM EST) HEMOGLOBIN A1C 7.4(H) 4.3 - 5.8 % [facility] Blood 09/28/2023 11:4 7 AM EST 09/28/2023 11:51 AM EST us Josee Franks MD LAB BLOOD ORDERABLES Final Resul t [address] [id number] from Last 3 Months or Most Recently Relevant to Health Maintenance [place] [place] [address] [address] [place] [address] [place] [address] [place] [address] ACO ACO [facility] Care Teams Sprigger Relationship Specialty Start Date End Date Charity Willingham MD [address] [place] [address] PCP - General Internal Medicine 09/05/23 Additional Source Comments The information contained in this document represents components of the legal health record. It is not the complete legal health record.[facility]
--- OUTSIDE RECORDS SUMMARY | 2025-05-20 18:26 | XMS_ITS | Encounter Summary ---
Demographics Address [address] [place] [address] Home Phone Preferred Language Cymro Marital Status Unknown Spiritism Affiliation Unknown Race Unknown Ethnic Group Unknown Author Organization [facility] Address [address] [place], [place] [phone] Phone Care Team Providers Care Dining Room Attendant Name Role Phone Miriam Unger MD Primary Care Provider Unavailabl e Encounter Details Date Type Department Care Team (Late st Contact Info) Description 03/23/2016 Documentation [facility] Family [facility] [address] [place] [address] Family Medicine, Physician [address] [place] [address] Social History Tobacco Use Types Packs/Day Years [...] filedocumented in this encounter Care Teams Dining Room Attendant Relationship Specialty Start Date End Date Miriam Unger MD PCP - General 04/20/17 documented as of this encounter
--- OUTSIDE RECORDS SUMMARY | 2025-05-20 18:26 | XMS_ITS | Encounter Summary ---
Demographics Address [address] [place] [address] Home Phone Preferred Language Australian Marital Status Unknown Jew Affiliation Unknown Race Unknown Ethnic Group Unknown Author Organization [facility] Address [address] [place], [place] [phone] Phone Care Team Providers Care Lumber Straightened Name Role Phone Miriam Unger MD Primary Care Provider Unavailabl e Encounter Details Date Type Department Care Team (Late st Contact Info) Description 12/17/2009 Documentation [facility] [address] [place] [address] Family Medicine, Physician [address] [place] [address] Social History Tobacco Use Types Packs/Day Years [...] on filedocumented in this encounter Care Teams Lumber Straightened Relationship Specialty Start Date End Date Miriam Unger MD PCP - General 04/20/17 documented as of this encounter
--- OUTSIDE RECORDS SUMMARY | 2025-05-20 18:26 | XMS_ITS | Encounter Summary ---
Demographics Address [address] [place] [address] Home Phone Preferred Language [place] Citizen Marital Status Unknown Orthodoxy Affiliation Unknown Race Unknown Ethnic Group Unknown Author Organization [facility] Address [address] [place], [place] [phone] Phone Care Team Providers Care Sas Programmer Name Role Phone Miriam Unger MD Primary Care Provider Unavailabl e Encounter Details Date Type Department Care Team (Late st Contact Info) Description 04/26/2017 Conversion Encounter [facility] - [address] [address] Social History Tobacco Use Types Packs/Day Years [...] on filedocumented in this encounter Care Teams Sas Programmer Relationship Specialty Start Date End Date Miriam Unger MD PCP - General 04/20/17 documented as of this encounter
--- OUTSIDE RECORDS SUMMARY | 2025-05-20 18:26 | XMS_ITS | Clinical Summary ---
Demographics Address [address] [place] [address] Home Phone Mobile Phone Home Phone Preferred Language en Marital Status Single Scientology Affiliation Unknown Race Unknown Ethnic Group or Author Organization [facility] it Address [address] [place] [address] Care Team Providers Care Parking Station Attendant Name Role Phone Unavailable Primary Care Provider [...] Cervical Cancer Screening: P ap Smear 2016 Depression Screening 09/10/2024 COVID-19 Vaccine ( - 2023-2 5 season) 2025 Influenza Vaccine (#1) 2025 07/10/2016 Pneumococcal Vaccine: Pediat rics (0 to 5 Years) and At-Risk Patients (6 to 49 Years) Aged Out 07/10/2016 No longer eligi [...]
--- OUTSIDE RECORDS SUMMARY | 2025-05-20 18:26 | XMS_ITS | Encounter Summary ---
Demographics Address [address] [facility] [place] [address] Home Phone Preferred Language Paraguayan Marital Status Unknown Taoist Affiliation Unknown Race Unknown Ethnic Group Unknown Author Organization [facility] Address [address] [place], [place] [phone] Phone Care Team Providers Care Business Project Analyst Name Role Phone Miriam Unger MD Primary Care Provider Unavailabl e Encounter Details Date Type Department Care Team (Late st Contact Info) Description 12/31/2013 Documentation [facility] [address] [place] [address] Family Medicine, Physician [address] [place] [address] Social History Tobacco Use Types Packs/Day Years [...] on filedocumented in this encounter Care Teams Business Project Analyst Relationship Specialty Start Date End Date Miriam Unger MD PCP - General 04/20/17 documented as of this encounter
--- OUTSIDE RECORDS SUMMARY | 2025-05-20 18:26 | XMS_ITS | Clinical Summary ---
Demographics Address [address] [place] [place] [address] Home Phone Preferred Language Kyrgyz Marital Status Unknown Baptist Affiliation Unknown Race Unknown Ethnic Group Unknown Author Organization [facility] Address [address] [place] [address] Phone Care Team Providers Care Truck Assembler Name Role Phone Miriam Unger MD Primary [...] of Strabismus, No family history of *Sudden /NC under 55, No family history of Seizure [...] 91 03/23/2015 12:00 AM EDT Temperature 35.9 C (96.6 F) 02/09/2015 12:00 AM EDT Respiratory Rate - - Oxygen Saturation - [...] 12/03/1997, Additional history exists Influenza Vaccines (#1) 2025 07/23/20 14, 06/24/2013, 05/23/2012, Additional history exists COVID-19 Vaccine ( season) 2025 Hepatitis B Vaccines Completed 08/21/1996, 1995, 1995 HIB Vaccines Completed 02/26/1997, 05/12, 03/06/1996, Additional history exists IPV Vaccines Completed 04/06/2000, 05/12, 03/06/1996, Additional history exists MMR Vaccines Completed 04/06/2000, 01/06/1997 Meningococcal Vaccine Aged Out 11/11/2007 No shiloh dori eligible based on patient's age to complete this topic HPV Vaccines Completed 07/13/2008, 050 05/2008, 11/11/2007 Hepatitis A Vaccines Aged Out 02/09/2015 No long er eligible based on patient's age to complete this topic Men B Vaccine Aged Out No longer elig ible based on patient's age to complete this topic Pneumococcal Vaccine Aged Out No long er eligible based on patient's age to complete this topic Procedures * Due to [facility] law, this organization might not be sharing sensitive test results. Procedure Name Priority Date/Time Associated Diagnosis Comments CHLAMYDIA AND GONORRHEA, AMPLIFIED Routine 02/04/2015 1:03 PM EDT from Last 3 Months or Most Recently Relevant to Health Maintenance Results * Due to [place] [employer] law, this organization might not be sharing sensitive test results. * Chlamydia and Gonorrhoea, Amplified (02/04/2015 1:03 PM EDT) Pathologist [facility] URINE GC AMP PROBE NEGATIVE F [facility] Comment: No Neisseria Gonorrhoeae RNA detected in this patient's sample (REFERENCE RANGE/NORMAL VALUE: NOT DETECTED) NOTE: This test uses contract negotiation specialist-mediated amplification method to detect rRNA from C.Trachomatis [...] without risk of sexual abuse. Consult the [facility] if needed. Contact phone number . Therapeutic failure or success cannot be determined with the Aptima Combo2 assay since nucleic acid may persist following appropriate antimicrobial therapy. The Centers for Disease Control and Prevention (CDC) recommends confirmatory retesting using culture or a different nucleic acid amplification test when positive results occur, if indicated. Testing performed or reported by [facility], a Service of [facility], [address] [place] [id number] Jordon Briones MD, PhD, Telephone Clerks Supervisor URINE CHLAMYDIA AMP PROBE POSITIVE [facility] Comment: Chlamydia Trachomatis RNA detected in this patient's sample (REFERENCE RANGE/NORMAL VALUE: NOT DETECTED) . PURSUANT TO [id number], THESE CLINICAL LABORATORY RESULTS HAVE BEEN REPORTED TO THE [place] [employer]MENT OF PUBLIC HEALTH. PLEASE BE AWARE THAT HEALTHCARE PROVIDERS HAVE ADDITIONAL PUBLIC HEALTH REPORTING REQUIREMENTS. 02/04/2015 1:03 PM EDT Narrative [facility] - 02/04/2015 1:03 PM EDT URINE CHLAMYDIA GC AMP PROBE us Sravanthi Mariscal NP LAB MICROBIOLOGY - GENERAL ORDER JANEL Final Result [facility] [address] [place] [address], from Last 3 Months or Most Recently Relevant to Health Maintenance Care Teams Truck Assembler Relationship Specialty Start Date End Date Miriam Unger MD PCP - General 04/20/17
--- OUTSIDE RECORDS SUMMARY | 2025-05-20 18:26 | XMS_ITS | Encounter Summary ---
Demographics Address [address] [place] [address] Home Phone Preferred Language Belarusian Marital Status Unknown Episcopalian Affiliation Unknown Race Unknown Ethnic Group Unknown Author Organization [facility] Address [address] [place], [place] [phone] Phone Care Team Providers Care Process Control Manager Name Role Phone Miriam Unger MD Primary Care Provider Unavailabl e Encounter Details Date Type Department Care Team (Late st Contact Info) Description 04/24/2016 Documentation EM Family Medicine [address] [place] [address] Family Medicine, Physician [address] [place] [address] Social History Tobacco Use Types Packs/Day Years [...] on filedocumented in this encounter Care Teams Process Control Manager Relationship Specialty Start Date End Date Miriam Unger MD PCP - General 04/20/17 documented as of this encounter
--- OUTSIDE RECORDS SUMMARY | 2025-05-20 18:26 | XMS_ITS | Encounter Summary ---
Demographics Address [address] [place] [address] Home Phone Preferred Language Finnish Marital Status Unknown Taoism Affiliation Unknown Race Unknown Ethnic Group Unknown Author Organization [facility] Address [address] [place], [place] [phone] Phone Care Team Providers Care Repairing Calibrator Name Role Phone Miriam Unger MD Primary Care Provider Unavailabl e Encounter Details Date Type Department Care Team (Late st Contact Info) Description 07/11/2013 Documentation EM Family Medicine [address] [place] [address] Family Medicine, Physician [address] [place] [address] Social History Tobacco Use Types Packs/Day Years [...] on filedocumented in this encounter Care Teams Repairing Calibrator Relationship Specialty Start Date End Date Miriam Unger MD PCP - General 04/20/17 documented as of this encounter
--- OUTSIDE RECORDS SUMMARY | 2025-05-20 18:26 | XMS_ITS | Encounter Summary ---
Demographics Address [address] [place] [address] Home Phone Preferred Language Saudi Arabian Marital Status Unknown Buddhist Affiliation Unknown Race Unknown Ethnic Group Unknown Author Organization [facility] Address [address] [place], [place] [phone] Phone Care Team Providers Care Colon Therapist Name Role Phone Miriam Unger MD Primary Care Provider Unavailabl e Encounter Details Date Type Department Care Team (Late st Contact Info) Description 07/11/2013 Documentation EM Family Medicine [address] [place] [address] Family Medicine, Physician [address] [place] [address] Social History Tobacco Use Types Packs/Day Years [...] on filedocumented in this encounter Care Teams Colon Therapist Relationship Specialty Start Date End Date Miriam Unger MD PCP - General 04/20/17 documented as of this encounter
--- OUTSIDE RECORDS SUMMARY | 2025-05-20 18:26 | XMS_ITS | Encounter Summary ---
Author Organization [facility] Address [address] [place] [address] Phone Care Team Providers Care Clinical Programmer Name Role Phone Charity Willingham MD Primary Care Provid er Encounter Details Date Type Department Care Team (Late st Contact Info) Description 11/26/2023 Transcribe Orders [facility] Specimen Processing [address] [place] [address] Charity Willingham MD [address] [place] [address] Social History Tobacco Use Types Packs/Day Years Used Date Smoking Tobacco: Never Smokeless Tobacco: Never Alcohol Use Standard Drinks/Week Comments Not Currently [...] on filedocumented in this encounter Care Teams Clinical Programmer Relationship Specialty Start Date End Date Charity Willingham MD [address] [place] [address] PCP - General Internal Medicine 09/05/23 documented as of this encounter Additional Source Comments The information contained in this document represents components of the legal health record. It is not the complete legal health record.[facility]
--- OUTSIDE RECORDS SUMMARY | 2025-05-20 18:26 | XMS_ITS | Encounter Summary ---
Demographics Address [address] [facility] [place] [address] Home Phone Preferred Language Tongan Marital Status Unknown Restorationist Affiliation Unknown Race Unknown Ethnic Group Unknown Author Organization [facility] Address [address] [place] [address] Phone Care Team Providers Care Pulp Mill Operator Name Role Phone Miriam Unger MD Primary Care Provider Unavailabl e Encounter Details Date Type Department Care Team (Late st Contact Info) Description 06/17/2013 Conversion Encounter [facility] [place] [address] [place] [address] Tigre Mckeon MD [address] [place] [address] Social History Tobacco Use Types Packs/Day Years [...] on filedocumented in this encounter Care Teams Pulp Mill Operator Relationship Specialty Start Date End Date Miriam Unger MD PCP - General 04/20/17 documented as of this encounter
--- OUTSIDE RECORDS SUMMARY | 2025-05-20 18:26 | XMS_ITS | Encounter Summary ---
Demographics Address [address] [place] [address] Home Phone Preferred Language [place] Islander Marital Status Unknown Gnosticist Affiliation Unknown Race Unknown Ethnic Group Unknown Author Organization [facility] Address [address] [place], [place] [phone] Phone Care Team Providers Care Audit Associate Name Role Phone Miriam Unger MD Primary Care Provider Unavailabl e Encounter Details Date Type Department Care Team (Late st Contact Info) Description 03/27/2016 Documentation EM Family Medicine [address] [place] [address] Family Medicine, Physician [address] [place] [address] Social History Tobacco Use Types Packs/Day Years [...] on filedocumented in this encounter Care Teams Audit Associate Relationship Specialty Start Date End Date Miriam Unger MD PCP - General 04/20/17 documented as of this encounter
--- OUTSIDE RECORDS SUMMARY | 2025-05-20 18:26 | XMS_ITS | Encounter Summary ---
Demographics Address [address] [place] [place] [address] Home Phone Preferred Language Bolivian Marital Status Unknown Latter Day Affiliation Unknown Race Unknown Ethnic Group Unknown Author Organization [facility] Address [address] [place], [place] [phone] Phone Care Team Providers Care Grades 7 And 8 Teacher Name Role Phone Miriam Unger MD Primary Care Provider Unavailabl e Encounter Details Date Type Department Care Team (Late st Contact Info) Description 09/22/2013 Documentation [facility] [address] [place] [address] Family Medicine, Physician [address] [place] [address] Social History Tobacco Use Types Packs/Day Years [...] on filedocumented in this encounter Care Teams Grades 7 And 8 Teacher Relationship Specialty Start Date End Date Miriam Unger MD PCP - General 04/20/17 documented as of this encounter
== END 2025-05-20 15:35 | disposition home or self-care (01) ==
LOC: HO.LAB 15:34
PROVIDERS: PCP Internal Medicine; Visit Provider Obstetrics & Gynecology
DX: N93.9 Abnormal uterine and vaginal bleeding, unspecified (principal)
CPT/HCPCS: 36415; 85027

== ENCOUNTER 2025-05-21 10:23 | Outpatient (AMB) | payer OTHER, SELFPAY ==
--- NOTE | 2025-05-21 10:25 | MHC.OFFVIS ---
Vital Signs 05/21/25 10:40 Height 5 ft 2 in Weight 247 lb 2.211 oz BMI 45.2 BP 114/78 Blood Pressure Location Rt brachial Position Sitting Intake Visit Reasons: T1DM Intake Note: Patient present today for Type 1 Diabetes Mellitus Last Diabetic eye exam: 10/2024 Last Podiatry Visit: Doesn't have one Random Glucose: 285 mg/dl HgA1C: 9.1% 05/21/2025 Child And Family Services Specialist Required: No Accompanied by: Self / Same As Patient Allergies Iodinated Contrast Media (IV CONTRAST) Allergy (Intermediate, Verified 05/21/25 10:41) HIVES empagliflozin Adverse Reaction (Intermediate, Verified 05/21/25 10:41) LIGHT HEADED insulin degludec (From Tresiba FlexTouch U-100) Adverse Reaction (Intermediate, Verified 05/21/25 10:41) felt poorly Medication List - Last Reconciled 05/21/25 by Bert Fernandez MD alprazolam 0.5 mg PO DAILY PRN 2 days blood pressure monitor As directed blood sugar diagnostic (FreeStyle Lite Strips) USE DIRECTED 3x DAILY blood-glucose meter (FreeStyle Lite Meter kit) as directed blood-glucose sensor (ePantryStyle Edson 3 Plus Sensor device) As directed bolus insulin pump, 200 unit (CeQur Simplicity) For continuous use with insulin change every 4 day bupropion HCl XL 300 mg PO QAM 90 days CeQur Simplicity Soap Press Feeder (diabetic supplies, [facility] As directed every 4 days NS cetirizine (Allergy Relief (cetirizine)) 10 mg PO DAILY PRN 30 days cholecalciferol (vitamin D3) 50 mcg PO DAILY 90 days flash glucose scanning reader (FreeStyle Edson 2 [place]) As directed fluticasone propionate 50 mcg/actuation 1 spray intranasal Q12H hydroxyzine HCl 25 mg PO TID PRN 30 days insulin glargine (Lantus Solostar U-100 Insulin) 45 units (0.45 mL) subcut QPM 30 days insulin lispro (Humalog U-100 Insulin) 8-14 units tid before meals as needed (each click equals 2 units, 3-7 clicks tid prn subcutaneously use as directed; 30 days insulin lispro 1 sliding scale dose subcut TIDWMEAL 30 days MDD 24 NS lancets (FreeStyle Lancets) 3 times daily lancing device As directed for use with free style lancets montelukast 10 mg PO BEDTIME 90 days pen needle, diabetic (BD Ultra-Fine Short Pen Needle) USE DIRECTED 4 TIMES A DAY HPI Comments Details: 29 YO Female who is seen in f/u for T1DM. She was previously treated as a type 2 diabetic. She was started in 2023 on Basal/bolus insulin using a 4 day insulin patch. The patient last saw Jennifer Owens NP on 02/17/252023 low C-peptide 0.24, positive insulin auto antibodies, negative gada She is s/p bariatric surgery. She has a prior history of pancreatitis Had been on metformin in the past which was stopped and she does not remember the reason why. Failed trial of Jardiance 04/2024 due to side effects. Current regimen: Lantus 45 units Humalog 4-10 units tid generally doesn't take units unless she is at home and not driving as she is fearful of lows, Nightime hypoglycemia Sensor download shows she is using the sensor 80% of the time Edson. Average glucose is 224 with G mi of 8.7% and variability 34.7%. 30% range with 33% hyperglycemia and 36% very hyperglycemic and 1% hypoglycemia. Pen shows decreasing blood sugars overnight with elevation post-meals. Denies retinopathy: Has eyes checked yearly, last eye exam 10/2024 , scheduled for this October Denies neuropathy, last foot exam today in [facility] she does not see podiatry No nephropathy No recent lipid profile. [Denies] CAD. Diet: at times eats just once daily, very inconsistent with diet Weight:stable She denies numbness and tingling, cramping in legs. Denies cp Walks with her children but not daily [facility] screen Fibrosis-4 (Fib-4) Index for liver fibrosis (calculated on lab work done: 02/2024) [0.38 ] points Advanced fibrosis [n/a secondary to age ] Approximate Fibrosis stage Hansel [0-1 ] *Use with caution in patients <35 or >65 years old, as the score has been shown to be less reliable in these patients. Prior Imaging [] Action Plan: [] rescreen two years from date of screening labs[02/2026 ] Exercises on elliptical Hyperparathyroidism: She had lab evidence of secondary hyperparathyroidism. Has never had kidney stones. Has never broken a bone. No family history of nephrolithiasis. Labs revealed evidence of secondary hyperparathyroidism. Vitamin D has now been repleted since bariatric surgery and Calcium repeated has been normal. Recent vit d 20 PTH 79.3 PFSH Medical History (Updated 05/20/25 @ 15:09 by Foster Arguello MD) Abnormal uterine bleeding Diabetes mellitus Insulin dependent type 2 diabetes mellitus Type 1 diabetes mellitus Low vitamin D level Goiter Goiter Hypertension History of blood transfusion Pre-op evaluation Well woman exam COVID-19 Vitamin B12 deficiency Vitamin D deficiency Vitamin A deficiency Binge eating disorder Anxiety GERD (gastroesophageal reflux disease) Morbid obesity Transaminitis Macromastia Secondary hyperparathyroidism Vitamin D deficiency HLD (hyperlipidemia) HTN (hypertension) Surgical History Hx of gastric bypass Presence of pancreatic duct stent Hx of cholecystectomy Family History Father Hypertension High cholesterol Mother Hypertension Diabetes High cholesterol Brother No problems noted. Brother No problems noted. Son No problems noted. Daughter No problems noted. 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 child care director to a significant other at home: Yes (2 children) Do you presently have visiting nurse or other home services: No Alcohol intake: never Patient Tobacco Use Status: Never used Tobacco e-Cigarette/Vaping Use: Never Used Second Hand Smoke Exposure: No service: No Current occupational status: unemployed Cognitive needs: No Hearing needs: No Vision needs: Yes Female Reproductive History Menstrual Age of Menarche: 10 Physical Exam Vital Signs: Last Vital Signs BP 114/78 05/21/25 10:40 BMI result Body Mass Index 45.2 Const Other: Absence of Cushingoid features. Absence of acromegalic features. Neck exam reveals nl size thyroid about 15 gms. No thyroid nodules palpable. Heart S1 S2, Reg R/R. No M/R G. Skin exam reveals absence of vitiligo or acanthosis nigricans. Visual exam of foot performed. No ulcerations or open lesions. No inter digit maceration or fissuring. No onychomycosis, no callouses. Sensation intact to monofilament exam. Vibratory sensation is normal with 128 Hz tuning fork. Results AMB Hemoglobin A1c AMB Hemoglobin A1c 9.1 % Last Edit by SHAKIRA Tapia on 05/21/25 11:03 Results Reviewed Results Reviewed: Laboratory Last Values Glucose (Clinic) 285 mg/dL (60-115) H 05/21/25 10:46 Hgb A1c (Clinic) 9.1 % (4.0-6.0) H 05/21/25 10:57 Assessment & Plan Assessment & Plan (1) Type 1 diabetes mellitus: Code(s): E10.9 - Type 1 diabetes mellitus without complications Category: Medical Plan: This is a 29-year-old female with a history of type 1 diabetes being treated with basal-bolus insulin with poor glycemic control and no known microvascular or macrovascular complication The plan is to stressed with the patient the take her prandial insulin before meals. Also prescribed Baqimi rescue. She is currently being evaluated for an Omnipod 5 pump by the certified adapted physical educator and we will follow up for that. We will check lipid profile and microalbumin to creatinine ratio. Went over with the patient the correlation of poor glycemic control to development of progression of complications Plan This is a 29-year-old Orders: Orders Microalbumin, Random (w Creat) Today E10.9 - Type 1 diabetes mellitus without complications AMB Hemoglobin A1c Today E10.9 - Type 1 diabetes mellitus without complications Lipid Panel Today E10.9 - Type 1 diabetes mellitus without complications Medications: New glucagon 3 mg/actuation (Baqsimi) 3 mg intranasal ONCE 2 ea 4RF Coding Level of Care Code Est Pt Level 4 (54977) Complex EM visit Add On G2211 Diagnoses Type 1 diabetes mellitus E10.9
[2025-05-21 10:40] VITALS: BP 114/78; BMI 45.2
[2025-05-21 10:50] LABS: Glucose, Whole Blood 285 mg/dL (60-115)
--- OUTSIDE RECORDS SUMMARY | 2025-05-21 13:13 | XMS_ITS | Encounter Summary ---
Demographics Address [address] [place] [address] Home Phone Preferred Language Algerian Marital Status Unknown Adventist Affiliation Unknown Race Unknown Ethnic Group Unknown Author Organization [facility] Address [address] [place], [place] [phone] Phone Care Team Providers Care Stripping Cutter And Winder Name Role Phone Miriam Unger MD Primary Care Provider Unavailabl e Encounter Details Date Type Department Care Team (Late st Contact Info) Description 03/23/2016 Documentation EM Family Medicine [address] [place] [address] Family Medicine, Physician [address] [place] [address] Social History Tobacco Use Types Packs/Day Years [...] on filedocumented in this encounter Care Teams Stripping Cutter And Winder Relationship Specialty Start Date End Date Miriam Unger MD PCP - General 04/20/17 documented as of this encounter
--- OUTSIDE RECORDS SUMMARY | 2025-05-21 13:13 | XMS_ITS | Encounter Summary ---
Demographics Address [address] [facility] [address] Home Phone Preferred Language Maldivian Marital Status Unknown Jainism Affiliation Unknown Race Unknown Ethnic Group Unknown Author Organization [facility] Address [address] [place] [phone] Phone Care Team Providers Care Fac Engineer Name Role Phone Miriam Unger MD Primary Care Provider Unavailabl e Encounter Details Date Type Department Care Team (Late st Contact Info) Description 06/17/2013 Conversion Encounter [facility] [address] [place] [address] Tigre Mckeon MD [address] [place] [address] Social History Tobacco Use Types Packs/Day Years [...] on filedocumented in this encounter Care Teams Fac Engineer Relationship Specialty Start Date End Date Miriam Unger MD PCP - General 04/20/17 documented as of this encounter
--- OUTSIDE RECORDS SUMMARY | 2025-05-21 13:13 | XMS_ITS | Encounter Summary ---
Demographics Address [address] [place] [address] Home Phone Preferred Language Serbian Marital Status Unknown Jain Affiliation Unknown Race Unknown Ethnic Group Unknown Author Organization [facility] Address [address] [place], [place] [phone] Phone Care Team Providers Care Payroll Benefits Clerk Name Role Phone Miriam Unger MD Primary Care Provider Unavailabl e Encounter Details Date Type Department Care Team (Late st Contact Info) Description 04/26/2017 Conversion Encounter [facility] - [address] [address] Social History Tobacco Use Types Packs/Day Years [...] on filedocumented in this encounter Care Teams Payroll Benefits Clerk Relationship Specialty Start Date End Date Miriam Unger MD PCP - General 04/20/17 documented as of this encounter
--- OUTSIDE RECORDS SUMMARY | 2025-05-21 13:13 | XMS_ITS | Encounter Summary ---
Demographics Address [address] [place] [address] Home Phone Preferred Language Sammarinese Marital Status Unknown Anglican Affiliation Unknown Race Unknown Ethnic Group Unknown Author Organization [facility] Address [address] [place], [place] [phone] Phone Care Team Providers Care Transformer Inspector Name Role Phone Miriam Unger MD Primary Care Provider Unavailabl e Encounter Details Date Type Department Care Team (Late st Contact Info) Description 07/11/2013 Documentation EM Family Medicine [address] [place] [address] Family Medicine, Physician [address] [place] [address] Social History Tobacco Use Types Packs/Day Years [...] on filedocumented in this encounter Care Teams Transformer Inspector Relationship Specialty Start Date End Date Miriam Unger MD PCP - General 04/20/17 documented as of this encounter
--- OUTSIDE RECORDS SUMMARY | 2025-05-21 13:13 | XMS_ITS | Encounter Summary ---
Demographics Address [address] [place] [address] Home Phone Preferred Language Cayman Islander Marital Status Unknown Mandaen Affiliation Unknown Race Unknown Ethnic Group Unknown Author Organization [facility] Address [address] [place], [place] [phone] Phone Care Team Providers Care Reproduction Order Processor Name Role Phone Miriam Unger MD Primary Care Provider Unavailabl e Encounter Details Date Type Department Care Team (Late st Contact Info) Description 07/11/2013 Documentation EM Family Medicine [address] [place] [address] Family Medicine, Physician [address] [place] [address] Social History Tobacco Use Types Packs/Day Years [...] on filedocumented in this encounter Care Teams Reproduction Order Processor Relationship Specialty Start Date End Date Miriam Unger MD PCP - General 04/20/17 documented as of this encounter
--- OUTSIDE RECORDS SUMMARY | 2025-05-21 13:13 | XMS_ITS | Encounter Summary ---
Demographics Address [address] [place] [address] Home Phone Preferred Language Syrian Marital Status Unknown Orthodoxy Affiliation Unknown Race Unknown Ethnic Group Unknown Author Organization [facility] Address [address] [place], [place] [phone] Phone Care Team Providers Care Inbound Ingredient Logistics Specialist Name Role Phone Miriam Unger MD Primary Care Provider Unavailabl e Encounter Details Date Type Department Care Team (Late st Contact Info) Description 03/27/2016 Documentation EM Family Medicine [address] [place] [address] Family Medicine, Physician [address] [place] [address] Social History Tobacco Use Types Packs/Day Years [...] on filedocumented in this encounter Care Teams Inbound Ingredient Logistics Specialist Relationship Specialty Start Date End Date Miriam Unger MD PCP - General 04/20/17 documented as of this encounter
--- OUTSIDE RECORDS SUMMARY | 2025-05-21 13:13 | XMS_ITS | Encounter Summary ---
Demographics Address [address] [place] [address] Home Phone Preferred Language Vincentian Marital Status Unknown Hindu Affiliation Unknown Race Unknown Ethnic Group Unknown Author Organization [facility] Address [address] [place], [place] [phone] Phone Care Team Providers Care Package Pick Up Name Role Phone Miriam Unger MD Primary Care Provider Unavailabl e Encounter Details Date Type Department Care Team (Late st Contact Info) Description 04/24/2016 Documentation EM Family Medicine [address] [place] [address] Family Medicine, Physician [address] [place] [address] Social History Tobacco Use Types Packs/Day Years [...] on filedocumented in this encounter Care Teams Package Pick Up Relationship Specialty Start Date End Date Miriam Unger MD PCP - General 04/20/17 documented as of this encounter
--- OUTSIDE RECORDS SUMMARY | 2025-05-21 13:13 | XMS_ITS | Clinical Summary ---
Demographics Address [address] [place] [address] Home Phone Preferred Language Georgian Marital Status Unknown Holiness Affiliation Unknown Race Unknown Ethnic Group Unknown Author Organization [facility] Address [address] [place] [phone] Phone Care Team Providers Care Hadoop Engineer Name Role Phone Miriam Unger MD [...] of Strabismus, No family history of *Sudden /[place] under 55, No family history of Seizure [...] complete this topic Procedures * Due to [facility] law, this organization might not be sharing sensitive test results. Procedure Name Priority Date/Time Associated Diagnosis Comments CHLAMYDIA AND GONORRHEA, AMPLIFIED Routine 02/04/2015 1:03 PM EDT from Last 3 Months or Most Recently Relevant to Health Maintenance Results * Due to [place] [employer] law, this organization might not be sharing sensitive test results. * Chlamydia and Gonorrhoea, Amplified (02/04/2015 1:03 PM EDT) Pathologist [facility] URINE GC AMP PROBE NEGATIVE F [facility] Comment: No Neisseria Gonorrhoeae RNA detected in this patient's sample (REFERENCE RANGE/NORMAL VALUE: NOT DETECTED) NOTE: This test uses package sorter-mediated amplification method to detect rRNA from C.Trachomatis [...] without risk of sexual abuse. Consult the [facility] if needed. Contact phone number . Therapeutic failure or success cannot be determined with the Aptima Combo2 assay since nucleic acid may persist following appropriate antimicrobial therapy. The Centers for Disease Control and Prevention (CDC) recommends confirmatory retesting using culture or a different nucleic acid amplification test when positive results occur, if indicated. Testing performed or reported by [facility], a Service of [facility], [address] [place] [id number] Jordon Briones MD, PhD, Inventory Audit Clerk URINE CHLAMYDIA AMP PROBE POSITIVE [facility] Comment: Chlamydia Trachomatis RNA detected in this patient's sample (REFERENCE RANGE/NORMAL VALUE: NOT DETECTED) . PURSUANT TO [id number], THESE CLINICAL LABORATORY RESULTS HAVE BEEN REPORTED TO THE [place] [employer]MENT OF PUBLIC HEALTH. PLEASE BE AWARE THAT HEALTHCARE PROVIDERS HAVE ADDITIONAL PUBLIC HEALTH REPORTING REQUIREMENTS. 02/04/2015 1:03 PM EDT Narrative [facility] - 02/04/2015 1:03 PM EDT URINE CHLAMYDIA GC AMP PROBE us Srvaanthi Mariscal NP LAB MICROBIOLOGY - GENERAL ORDER JANEL Final Result [facility] [address] [place] [address], from Last 3 Months or Most Recently Relevant to Health Maintenance Care Teams Hadoop Engineer Relationship Specialty Start Date End Date Miriam Unger MD PCP - General 04/20/17
--- OUTSIDE RECORDS SUMMARY | 2025-05-21 13:13 | XMS_ITS | Encounter Summary ---
Demographics Address [address] [facility] [address] Home Phone Preferred Language Dutch Marital Status Unknown Hindu Affiliation Unknown Race Unknown Ethnic Group Unknown Author Organization [facility] Address [address] [place], [place] [phone] Phone Care Team Providers Care Delivery Director Name Role Phone Miriam Unger MD Primary Care Provider Unavailabl e Encounter Details Date Type Department Care Team (Late st Contact Info) Description 06/28/2015 Documentation EM Family Medicine [address] [place] [address] Family Medicine, Physician [address] [place] [address] Social History Tobacco Use Types Packs/Day Years [...] on filedocumented in this encounter Care Teams Delivery Director Relationship Specialty Start Date End Date Miriam Unger MD PCP - General 04/20/17 documented as of this encounter
--- OUTSIDE RECORDS SUMMARY | 2025-05-21 13:13 | XMS_ITS | Encounter Summary ---
Demographics Address [address] [facility] [place] [address] Home Phone Preferred Language Austrian Marital Status Unknown Restoration Affiliation Unknown Race Unknown Ethnic Group Unknown Author Organization [facility] Address [address] [place] [address] [place], [place] [phone] Phone Care Team Providers Care Executive Account Manager Name Role Phone Miriam Unger MD Primary Care Provider Unavailabl e Encounter Details Date Type Department Care Team (Late st Contact Info) Description 09/22/2013 Documentation [facility] [address] [place] [address] Family Medicine, Physician [address] [place] [address] Social History Tobacco Use Types Packs/Day Years [...] on filedocumented in this encounter Care Teams Executive Account Manager Relationship Specialty Start Date End Date Miriam Unger MD PCP - General 04/20/17 documented as of this encounter
--- OUTSIDE RECORDS SUMMARY | 2025-05-21 13:13 | XMS_ITS | Clinical Summary ---
Author Organization [facility] Address [address] [place] [address] Phone Care Team Providers Care Manufacturing Chief Engineer Name Role Phone Charity Willingham MD Primary [...] is a blood test done randomly at [place] that was low 200s, and advised that [...] SEE NARRATIVE - 10/23/2023 9:55 AM EST [address] [address] Candy Roller: Kaylee Srinivasan MD CRUSHING MILL OPERATOR Cytology Report FINAL DIAGNOSIS A. PAP SMEAR [...] : 1995 (Age: 28) Sex: F Institution: [facility] Location: [facility] Date of Collection: 10/17/2023 Date of Reported: 10/23/2023 09:55 Results to: Josee Franks MD us Josee Franks MD CYTOLOGY ORDERABLES Final Result SEE NARRATIVE * (ABNORMAL) Hemoglobin A1c (09/28/2023 11:47 AM EST) HEMOGLOBIN A1C 7.4(H) 4.3 - 5.8 % [facility] Blood 09/28/2023 11:4 7 AM EST 09/28/2023 11:51 AM EST us Josee Franks MD LAB BLOOD ORDERABLES Final Resul t [address] [id number] from Last 3 Months or Most Recently Relevant to Health Maintenance [place] [address] [place] [address] [place] [address] [address] [place] [address] ACO ACO [facility] ACO Care Teams Manufacturing Chief Engineer Relationship Specialty Start Date End Date Charity Willingham MD [address] [place] [address] PCP - General Internal Medicine 09/05/23 Additional Source Comments The information contained in this document represents components of the legal health record. It is not the complete legal health record.[facility]
--- OUTSIDE RECORDS SUMMARY | 2025-05-21 13:13 | XMS_ITS | Clinical Summary ---
Demographics Address [address] [place] [address] Home Phone Mobile Phone Home Phone Preferred Language en Marital Status Single Sikh Affiliation Unknown Race Unknown Ethnic Group or Author Organization [facility] it Address [address] [place] [address] Care Team Providers Care Building Principal Name Role Phone Unavailable Primary Care Provider [...]
--- OUTSIDE RECORDS SUMMARY | 2025-05-21 13:14 | XMS_ITS | Encounter Summary ---
Demographics Address [address] [place] [address] Home Phone Preferred Language Turkmen Marital Status Unknown Anglican Affiliation Unknown Race Unknown Ethnic Group Unknown Author Organization [facility] Address [address] [place], [place] [phone] Phone Care Team Providers Care Toggle Press Folder And Feeder Name Role Phone Miriam Unger MD Primary Care Provider Unavailabl e Encounter Details Date Type Department Care Team (Late st Contact Info) Description 12/17/2009 Documentation [facility] [address] [place] [address] Family Medicine, Physician [address] [place] [address] Social History Tobacco Use Types Packs/Day Years [...] on filedocumented in this encounter Care Teams Toggle Press Folder And Feeder Relationship Specialty Start Date End Date Miriam Unger MD PCP - General 04/20/17 documented as of this encounter
--- OUTSIDE RECORDS SUMMARY | 2025-05-21 13:14 | XMS_ITS | Encounter Summary ---
Demographics Address [address] [place] [address] Home Phone Preferred Language Zambian Marital Status Unknown Faith Affiliation Unknown Race Unknown Ethnic Group Unknown Author Organization [facility] Address [address] [place], [place] [phone] Phone Care Team Providers Care Beer Coil Cleaner Name Role Phone Miriam Unger MD Primary Care Provider Unavailabl e Encounter Details Date Type Department Care Team (Late st Contact Info) Description 12/31/2013 Documentation [facility] [address] [place] [address] Family Medicine, Physician [address] [place] [address] Social History Tobacco Use Types Packs/Day Years [...] on filedocumented in this encounter Care Teams Beer Coil Cleaner Relationship Specialty Start Date End Date Miriam Unger MD PCP - General 04/20/17 documented as of this encounter
--- OUTSIDE RECORDS SUMMARY | 2025-05-21 13:14 | XMS_ITS | Encounter Summary ---
Demographics Address [address] [facility] [address] Home Phone Preferred Language Malawian Marital Status Unknown Evangelical Affiliation Unknown Race Unknown Ethnic Group Unknown Author Organization [facility] Address [address] [place], [place] [phone] Phone Care Team Providers Care Correction Officer Name Role Phone Miriam Unger MD Primary Care Provider Unavailabl e Encounter Details Date Type Department Care Team (Late st Contact Info) Description 07/05/2011 Documentation [facility] [address] [place] [address] Family Medicine, Physician [address] [place] [address] Social History Tobacco Use Types Packs/Day Years [...] in this encounter Care Teams Correction Officer Relationship Specialty Start Date End Date Miriam Unger MD PCP - General 04/20/17 documented as of this encounter
--- OUTSIDE RECORDS SUMMARY | 2025-05-21 13:14 | XMS_ITS | Encounter Summary ---
Demographics Address [address] [place] [address] Home Phone Preferred Language Cambodian Marital Status Unknown Rastafarian Affiliation Unknown Race Unknown Ethnic Group Unknown Author Organization [facility] Address [address] [place], [place] [address] Phone Care Team Providers Care Sewer System Supervisor Name Role Phone Miriam Unger MD Primary Care Provider Unavailabl e Encounter Details Date Type Department Care Team (Late st Contact Info) Description 11/22/2011 Documentation [facility] Family Medicine [address] [place] [address] Family Medicine, Physician [address] [place] [address] Social History Tobacco Use Types Packs/Day Years [...] on filedocumented in this encounter Care Teams Sewer System Supervisor Relationship Specialty Start Date End Date Miriam Unger MD PCP - General 04/20/17 documented as of this encounter
--- OUTSIDE RECORDS SUMMARY | 2025-05-21 13:14 | XMS_ITS | Encounter Summary ---
Author Organization [facility] Address [address] [place] [address] Phone Care Team Providers Care Manager Retirement Name Role Phone Charity Willingham MD Primary Care Provid er Encounter Details Date Type Department Care Team (Late st Contact Info) Description 11/26/2023 Transcribe Orders [facility] Specimen Processing [address] [place] [address] Charity Willingham MD [address] [place] [address] Social History Tobacco Use Types Packs/Day Years [...] filedocumented in this encounter Care Teams Manager Retirement Relationship Specialty Start Date End Date Charity Willingham MD [address] [place] [address] PCP - General Internal Medicine 09/05/23 documented as of this encounter Additional Source Comments The information contained in this document represents components of the legal health record. It is not the complete legal health record.[facility]
== END 2025-05-21 11:13 | disposition home or self-care (01) ==
LOC: HO.ENCR 10:24
PROVIDERS: PCP Internal Medicine; Visit Provider Internal Medicine Endocrinology, Diabetes & Metabolism
DX: E10.9 Type 1 diabetes mellitus without complications (principal)
CPT/HCPCS: 99214

== ENCOUNTER 2025-05-21 10:23 | Outpatient (REF) | payer OTHER, SELFPAY ==
[2025-05-21 21:33] LABS: CT PCR NOT DETECTED (Not Detect.); NG PCR NOT DETECTED (Not Detect.)
== END 2025-05-21 10:24 | disposition home or self-care (01) ==
LOC: HO.LNP 10:23
PROVIDERS: Obstetrics & Gynecology; PCP Internal Medicine; Visit Provider Internal Medicine Endocrinology, Diabetes & Metabolism
DX: E10.9 Type 1 diabetes mellitus without complications (principal); N93.9 Abnormal uterine and vaginal bleeding, unspecified; Z32.02 Encounter for pregnancy test, result negative; Z79.899 Other long term (current) drug therapy; Z79.4 Long term (current) use of insulin
CPT/HCPCS: 58100; 58300; 81025; 82947; 83036; 87491; 87591; 88175; 88305; 99212; J7298

== ENCOUNTER 2025-05-21 11:22 | Outpatient (AMB) | payer OTHER, SELFPAY ==
--- NOTE | 2025-05-21 11:22 | A.OFFVIS_ITS ---
Intake Visit Reasons: Vaginal bleeding Clerk Specialist: Clerk Specialist Present (Alexandra) Accompanied by: Self / Same As Patient Allergies Iodinated Contrast Media (IV CONTRAST) Allergy (Intermediate, Verified 05/21/25 11:29) HIVES empagliflozin Adverse Reaction (Intermediate, Verified 05/21/25 11:29) LIGHT HEADED insulin degludec (From Tresiba FlexTouch U-100) Adverse Reaction (Intermediate, Verified 05/21/25 11:29) felt poorly Is last menstrual period known: Yes Last menstrual period: 05/12/25 (Still bleeding ) Post menopausal: No Patient : No HPI Comments Details: Presenting with 9 days history of vaginal bleeding after 2-1/2 months of amenorrhea. The patient has been having oligomenorrhea over the last few months 05/20/2025 H&H= 11.6/34.5 Last Pap smear in 11/29 was negative [facility] Medical History Abnormal uterine bleeding Diabetes mellitus Insulin dependent type 2 diabetes mellitus Type 1 diabetes mellitus Low vitamin D level Goiter Goiter Hypertension History of blood transfusion Pre-op evaluation Well woman exam COVID-19 Vitamin B12 deficiency Vitamin D deficiency Vitamin A deficiency Binge eating disorder Anxiety GERD (gastroesophageal reflux disease) Morbid obesity Transaminitis Macromastia Secondary hyperparathyroidism Vitamin D deficiency HLD (hyperlipidemia) HTN (hypertension) Surgical History Hx of gastric bypass Presence of pancreatic duct stent Hx of cholecystectomy Family History Father Hypertension High cholesterol Mother Hypertension Diabetes High cholesterol Brother No problems noted. Brother No problems noted. Son No problems noted. Daughter No problems noted. 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 healthcare facility administrator to a significant other at home: Yes (2 children) Do you presently have visiting nurse or other home services: No Alcohol intake: never Patient Tobacco Use Status: Never used Tobacco e-Cigarette/Vaping Use: Never Used Second Hand Smoke Exposure: No service: No Current occupational status: unemployed Cognitive needs: No Hearing needs: No Vision needs: Yes Female Reproductive History Menstrual Age of Menarche: 10 Date of last menstrual period: 05/12/25 (Still bleeding ) Review of Systems Const All systems reviewed & are unremarkable except as noted in HPI and below Reports as per HPI and Reports no additional complaints Card Reports as per HPI Resp Reports as per HPI GI Reports no additional complaints Reports no additional complaints Physical Exam Const General: cooperative, healthy appearing and comfortable Chest Chest palpation & inspection: normal inspection of the chest and normal palpation of entire chest wall Breast/axilla inspection: normal inspection of the breasts and normal inspection of the axillae Breast/axilla palpation: normal palpation of the breasts, normal palpation of the axillae and no axillary lymphadenopathy Resp Effort & Inspection: normal respiratory effort Auscultation: clear to auscultation bilaterally Percussion: percussion normal Cardio Palpation: normal PMI Rate: regular rate Rhythm: regular rhythm Heart sounds: no murmurs and no rubs Peripheral pulses: Peripheral pulses 2+ throughout GI Inspection: Yes normal to inspection Palpation (GI): Soft to palpation, nontender, no guarding, not rigid and No hepatosplenomegaly present Percussion: Yes normal to percussion Auscultation: normal bowel sounds Rectal Exam - Female: deferred General: Yes bladder normal to palpation External Female Exam: No lesion Speculum Exam - Vagina: normal appearance of the vagina, normal palpation, normal vaginal discharge and not erythematous Speculum Exam - Cervix: normal appearance of the cervix and normal palpation Bimanual exam- vagina & uterus: normal bimanual exam, normal palpation, uterine size normal, bladder normal to palpation, consistency normal and normal palpation Bimanual Exam- Adnexa, other: normal adnexae, no masses and no tenderness Office Procedures Endometrial Biopsy Details: The patient was counseled regarding the indication and benefits of endometrial sampling to rule out endometrial pathology including not limited to endometrial hyperplasia or endometrial cancer and others; The alternatives (Either do nothing vs. hysteroscopy D&C) & the risks were discussed with the patient including but not limited: pain, uterine perforation, bleeding, infection, possible injury to bladder, bowel, ureter, possible need for blood transfusion with all its possible risks. The patient verbalized understanding all questions answered and signed consent. Urine test done in the office was negative The patient was placed into the dorsal lithotomy position; a speculum was inserted in the vagina. Using aseptic technique for the procedure, the cervix was cleansed with Betadine. The anterior lip of the cervix was grasped with a single tooth tenaculum. The uterus was sounded to 7 cm with a 4 mm Pipelle was used. Tissues samples were obtained and placed in formalin, in a patient labeled container and sent to the pathology department. At the end of the procedure, there was minimal bleeding noted The patient tolerated the procedure well and was discharged in good condition with the following instructions: Nothing in the vagina until the bleeding stops. No sex until the bleeding stops, to call if any of the following occurs: fever (>100.4), flu-like symptoms, abdominal pain, heavy bleeding, four smelling vaginal discharge. The patient was instructed to schedule a Follow up appointment in 2 weeks to discuss pathology results of the biopsy and treatment options. This note was generated with a voice recognition program. Some errors may have been overlooked during the review of this note. Sometimes these errors may affect the content or meaning of a given sentence. 74317-Yjqhfpgolzf Biopsy IUD Insert/Removal Details Details: The patient is presenting for Mirena IUD insertion Urine test was done in the office and was negative; All the contraindications were excluded. The following possible complications were discussed with the patient: Intrauterine , Ectopic , Sepsis, Pelvic Infection, Irregular Bleeding and Amenorrhea, Perforation, Expulsion, Ovarian Cysts, Breast Cancer, The following adverse effects were discussed with the patient: alteration of menstrual bleeding pattern, including: unscheduled uterine bleeding decreased uterine bleeding increased scheduled uterine bleeding female genital tract bleeding ,amenorrhea , genital discharge , vulvovaginitis , breast pain , benign ovarian cyst and associated complications , dysmenorrhea , Gastrointestinal dis orders abdominal/pelvic pain, headache/migraine , back pain , acne , depression Alternative options were discussed with the patient including but not limited: control pills, patch, NuvaRing, Depo-medroxyprogesterone acetate, Nexplanon, copper IUD, sterilization, vasectomy, others The procedure was explained in detail to patient , at the end patient signed the informed consent obtained. A no touch technique was used throughout the procedure. A speculum was placed into vagina and cervix was cleaned with betadine). A tenaculum was placed. A plastic sound was advanced through the external and internal os until it reached the fundus of the uterus, the depth was 8 cm. The sound was then withdrawn. The IUD was loaded in a sterile manner and advanced into position. The string was visualized and cut to 3 cm. Tenaculum site hemostatic. All instruments removed from vagina. Patient tolerated the procedure well. NO complications were noted. Patient was instructed to call for fever over 100.4, significant pain unrelieved by Motrin, IUD expulsion, heavy bleeding, or abnormal discharge. In addition, the following clinical considerations were discussed with the patient to call for removal: A stroke or heart attack ,Very severe or migraine headaches ,Unexplained fever ,Yellowing of the skin or whites of the eyes, as these may be signs of serious liver problems , or suspected , Pelvic pain or pain during sex ,HIV positive seroconversion in herself or her partner , Possible exposure to sexually transmitted infections Unusual vaginal discharge or genital sores , severe vaginal bleeding or bleeding that lasts a long time, or if she misses a menstrual period, Inability to feel Mirena's threads Counseled the patient that the IUD does not protect against STI's, recommended use of condoms for the first 7 days post insertion and explained to the patient that condoms are recommended for patients at risk for sexually transmitted infections. Informed the patient that Mirena IUD is FDA approved for 8 years for contraception for 5 years for the treatment of heavy menses Instructed the patient to schedule a Follow up appointment in 4 to 6 weeks following insertion. This note was generated with a voice recognition program. Some errors may have been overlooked during the review of this note. Sometimes these errors may affect the content or meaning of a given sentence. 79112-GNT Insertion Procedure code (CPT) selection complete Office Meds Mirena 21 mcg/24 hr (up to 8 years) 52 mg intrauterine device Performing Provider: Foster Arguello MD Performing Location: [facility] Documented (not given) by: Foster Agruello MD on 05/21/25 11:50 Dose Route Admin Location Dispensed Lot Number Expiration Date [facility] [employer] 1 device intrauterine ea Total Dispensed Waste n/a n/a Results AMB Hemoglobin A1c AMB Hemoglobin A1c 9.1 % Last Edit by SHAKIRA Tapia on 0 05/21/25 11:03 Assessment & Plan Assessment & Plan (1) Abnormal uterine bleeding: Comment: PCOS Code(s): N93.9 - Abnormal uterine and vaginal bleeding, unspecified Category: Medical Plan: UPT done in the office was negative. Iron sulfate 325 mg p.o. q.d. recommended the patient Pap smear done, GC and chlamydia taken TSH, HCG, and pelvic ultrasound ordered. Discussed with the patient the different causes of abnormal bleeding including thyroid disorders, uterine and ovarian pathology, endometrial hyperplasia, carcinoma and other potential causes. Discussed with the patient the work up including TSH, pelvic Ultrasound, endometrial biopsy to r/o endometrial pathology. EMB done, see procedure note Discussed with the patient the results of the work up done and options of treatment including Lysteda, control pills, Mirena IUD, endometrial ablation and hysterectomy. All pros, cons, risks and benefits if each option was discussed with the patient and the patient decided to go ahead with Mirena IUD so a more detailed discussion about it was conducted including mechanism of action, risks (uterine perforation, infection, injury to bladder, bowel, displacement, and others) benefits (hypo menorrhea, amenorrhea, ...). GC/CT were taken and Mirena IUD insertion done, see procedure note. Instructions given the patient to follow up in 6 weeks for ultrasound and EMB follow-up and IUD check. All questions answered, the patient verbalized understanding Orders: Orders TSH reflex Free T4 Today N93.9 - Abnormal uterine and vaginal bleeding, unspecified HCG Quantitative Today N93.9 - Abnormal uterine and vaginal bleeding, unspecified US pelvic and transvaginal Today N93.9 - Abnormal uterine and vaginal bleeding, unspecified AMB Endometrial Biopsy Today N93.9 - Abnormal uterine and vaginal bleeding, unspecified AMB IUD Insertion/Removal - Practice Supplied Today N93.9 - Abnormal uterine and vaginal bleeding, unspecified Medications: New Mirena (levonorgestrel) 1 device intrauterine ONCE 1 ea 0RF AUB NS N93.9 - Abnormal uterine and vaginal bleeding, unspecified Coding Level of Care Code Est Pt Level 3 (55071) Procedure Only Diagnoses Abnormal uterine bleeding N93.9 CPT Codes Endometrial Biopsy - CPT: 93030-Qjqrqruziky Biopsy ([id number]) Details - CPT: 49178-QZB Insertion ([id number])
== END 2025-05-21 12:11 | disposition home or self-care (01) ==
LOC: HO.HWS 11:22
PROVIDERS: PCP Internal Medicine; Visit Provider Obstetrics & Gynecology
DX: N93.9 Abnormal uterine and vaginal bleeding, unspecified (principal); Z32.02 Encounter for pregnancy test, result negative; Z30.430 Encounter for insertion of intrauterine contraceptive device
CPT/HCPCS: 58100; 58300; 99213

== ENCOUNTER 2025-06-02 15:30 | Outpatient (AMB) | payer OTHER, SELFPAY ==
--- NOTE | 2025-06-02 16:06 | MHC.AMDMED ---
Intake Intake Visit Reasons: 60 mins Stage Electrician Required: No Accompanied by: Self / Same As Patient Allergies Iodinated Contrast Media (IV CONTRAST) Allergy (Intermediate, Verified 05/21/25 11:29) HIVES empagliflozin Adverse Reaction (Intermediate, Verified 05/21/25 11:29) LIGHT HEADED insulin degludec (From Tresiba FlexTouch U-100) Adverse Reaction (Intermediate, Verified 05/21/25 11:29) felt poorly HPI Comprehensive Diabetes Asmnt Most Recent Diabetes Results: Microalb/Creat Ratio, (<30) 6.6 ug/mg cr 07/09/24 Cholesterol, (<200) 120 mg/dL 07/09/24 HDL Cholesterol, (>40) 38 mg/dL L 07/09/24 Triglycerides, (<150) 45 mg/dL 07/09/24 Creatinine, (0.5-1.4) 0.59 mg/dL 07/09/24 BUN, (9-16) 10 mg/dL 07/09/24 Sodium, (135-145) 140 mmol/L 07/09/24 Potassium, (3.3-5.1) 4.0 mmol/L 07/09/24 Chloride, (96-108) 109 mmol/L H 07/09/24 Carbon Dioxide, (22-29) 21 mmol/L L 07/09/24 Calcium, (8.4-10.2) 8.8 mg/dL 07/09/24 AST, (5-31) 18 U/L 02/12/24 ALT, (0-31) 17 U/L 02/12/24 Total Protein, (6.5-8.0) 7.3 g/dL 02/12/24 Albumin, (3.5-5.0) 4.1 g/dL 07/09/24 PENDING SALE TO [facility] Medical History Abnormal uterine bleeding Diabetes mellitus Insulin dependent type 2 diabetes mellitus Type 1 diabetes mellitus Low vitamin D level Goiter Goiter Hypertension History of blood transfusion Pre-op evaluation Well woman exam COVID-19 Vitamin B12 deficiency Vitamin D deficiency Vitamin A deficiency Binge eating disorder Anxiety GERD (gastroesophageal reflux disease) Morbid obesity Transaminitis Macromastia Secondary hyperparathyroidism Vitamin D deficiency HLD (hyperlipidemia) HTN (hypertension) Surgical History Hx of gastric bypass Presence of pancreatic duct stent Hx of cholecystectomy Family History Father Hypertension High cholesterol Mother Hypertension Diabetes High cholesterol Brother No problems noted. Brother No problems noted. Son No problems noted. Daughter No problems noted. 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 primary care coordinator to a significant other at home: Yes (2 children) Do you presently have visiting nurse or other home services: No Alcohol intake: never Patient Tobacco Use Status: Never used Tobacco e-Cigarette/Vaping Use: Never Used Second Hand Smoke Exposure: No service: No Current occupational status: unemployed Cognitive needs: No Hearing needs: No Vision needs: Yes Female Reproductive History Menstrual Age of Menarche: 10 Assessment & Plan Assessment & Plan (1) Type 1 diabetes mellitus: Code(s): E10.9 - Type 1 diabetes mellitus without complications Plan: Carb Counting Basic Patient presents for appointment carbohydrate counting education. Reviewed the basic principles of carbohydrate counting.? Insulin to carb ratio, and insulin sensitivity factor calculated based on rule of 450 for insulin to carb ratio, and rule of 1500 for insulin sensitivity factor. Instructed patient on the importance of accurate calculation of the amount of carbs per meal for optimal glucose control Reviewed how to calculate mealtime bolus with insulin to carb ratio Reviewed how to calculate correction dose with insulin sensitivity factor Patient's TDD estimate 60 units Insulin to Carbohydrate ratio: 1:8 Correction factor:1:30 Diet Recall: Breakfast: Breakfast sandwich -60 g Lunch: Ham and cheese sandwich with small piece of fruit-45 g Patient given healthy plate handout, for resource for carbohydrate counting Encourage patient to fill out food logs, estimating carbohydrates at meals, noting glucose number prior to meal, and how many units of insulin taken prior to meals Pt able to calculated needed insulin based on estimated carbohydrate content Instructed patient that there may need to be adjustment to insulin to carb ratio and sensitivity factor based on blood glucose trends. Portions of this note were created using voice recognition software, please excuse any words or phrases that may have been misinterpreted. Coding Level of Care Code Est Pt Level 1 (98424) Diagnoses Type 1 diabetes mellitus E10.9
--- OUTSIDE RECORDS SUMMARY | 2025-06-02 18:20 | XMS_ITS | Clinical Summary ---
Demographics Address [address] [place] [address] Home Phone Mobile Phone Home Phone Preferred Language en Marital Status Single Christianity Affiliation Unknown Race Unknown Ethnic Group or Author Organization [facility] it Address [address] [place] [address] Care Team Providers Care Ground Defence Officer Name Role Phone Unavailable Primary Care Provider [...]
--- OUTSIDE RECORDS SUMMARY | 2025-06-02 18:20 | XMS_ITS | Encounter Summary ---
Author Organization [facility] Address [address] [place] [address] Phone Care Team Providers Care Rv Repairer Name Role Phone Charity Willingham MD Primary Care Provid er Encounter Details Date Type Department Care Team (Late st Contact Info) Description 11/26/2023 Transcribe Orders [facility] Specimen Processing [address] [place] [address] Charity Willingham MD [address] [place] [address] Social History Tobacco Use Types Packs/Day Years [...] on filedocumented in this encounter Care Teams Rv Repairer Relationship Specialty Start Date End Date Charity Willingham MD [address] [place] [address] PCP - General Internal Medicine 09/05/23 documented as of this encounter Additional Source Comments The information contained in this document represents components of the legal health record. It is not the complete legal health record.[facility]
--- OUTSIDE RECORDS SUMMARY | 2025-06-02 18:20 | XMS_ITS | Clinical Summary ---
Author Organization [facility] Address [address] [place] [address] Phone Care Team Providers Care Truck Cleaner Name Role Phone Chartiy Willingham MD Primary Care Provid er Allergies [...] is a blood test done randomly at [place] that was low 200s, and advised that [...] SEE NARRATIVE - 10/23/2023 9:55 AM EST [address] [address] Clin Application Specialist: Kaylee Srinivasan MD DIRECTOR SOCIAL Cytology Report FINAL DIAGNOSIS A. PAP SMEAR [...] : 1995 (Age: 28) Sex: F Institution: [facility] Location: [facility] Date of Collection: 10/17/2023 Date of Reported: 10/23/2023 09:55 Results to: Josee Franks MD us Josee Franks MD CYTOLOGY ORDERABLES Final Result SEE NARRATIVE * (ABNORMAL) Hemoglobin A1c (09/28/2023 11:47 AM EST) HEMOGLOBIN A1C 7.4(H) 4.3 - 5.8 % [facility] Blood 09/28/2023 11:4 7 AM EST 09/28/2023 11:51 AM EST us Josee Franks MD LAB BLOOD ORDERABLES Final Resul t [address] [id number] from Last 3 Months or Most Recently Relevant to Health Maintenance [place] [address] [place] [address] [place] [address] [place] [address] [place] [address] [place] [address] ACO ACO [facility] ACO Care Teams Truck Cleaner Relationship Specialty Start Date End Date Charity Willingham MD [address] [place] [address] PCP - General Internal Medicine 09/05/23 Additional Source Comments The information contained in this document represents components of the legal health record. It is not the complete legal health record.[facility]
== END 2025-06-02 16:07 | disposition home or self-care (01) ==
LOC: HO.ENCR 15:30
PROVIDERS: PCP Internal Medicine; Visit Provider Registered Nurse Diabetes Educator
DX: E10.9 Type 1 diabetes mellitus without complications (principal)

== ENCOUNTER → 2025-06-02 15:30 | Outpatient (BNVA) | payer OTHER, SELFPAY | PROVIDERS: PCP Internal Medicine; Visit Provider Registered Nurse Diabetes Educator | DX: E10.9 Type 1 diabetes mellitus without complications (principal) | CPT/HCPCS: 99211 ==

== ENCOUNTER 2025-06-04 12:16 | Outpatient (REF) | payer OTHER, SELFPAY ==
[2025-06-04 13:40] LABS: Hematocrit 35.2 % (37.0-47.0); Hemoglobin 11.3 g/dl (12.0-16.0); Mean Corpuscular HGB Conc 32.1 g/dl (31.0-35.0); Mean Corpuscular Hemoglobin 24.6 pg (27.0-33.0); Mean Corpuscular Volume 76.7 fL (80.0-98.0); NRBC Abs Auto 0.000 X10*3/uL (0.0-0.012); NRBC Pct Auto 0.0 /100WBC (0.0-0.2); Platelet Count 316 X10*3/uL (160-400); Red Blood Count 4.59 X10*6/uL (4.20-5.50); White Blood Count 9.5 X10*3/uL (4.8-10.8)
[2025-06-04 14:05] LABS: Cholesterol 127 mg/dL (<200); HDL Cholesterol 35 mg/dL (>40); Triglycerides 104 mg/dL (<150)
--- OUTSIDE RECORDS SUMMARY | 2025-06-04 17:30 | XMS_ITS | Clinical Summary ---
Demographics Address [address] [place] [address] Home Phone Mobile Phone Home Phone Preferred Language en Marital Status Single Buddhism Affiliation Unknown Race Unknown Ethnic Group or Author Organization [facility] it Address [address] [place] [address] Care Team Providers Care Fourdrinier Wire Weaver Name Role Phone Unavailable Primary Care Provider [...]
== END 2025-06-04 12:17 | disposition home or self-care (01) ==
LOC: HO.LAB 12:16
PROVIDERS: Internal Medicine Endocrinology, Diabetes & Metabolism; PCP Internal Medicine; Visit Provider Obstetrics & Gynecology
DX: N93.9 Abnormal uterine and vaginal bleeding, unspecified (principal); E10.9 Type 1 diabetes mellitus without complications; Z32.02 Encounter for pregnancy test, result negative
CPT/HCPCS: 36415; 80061; 81025; 84443; 84702; 85027; 99212

== ENCOUNTER 2025-06-04 12:16 | Outpatient (AMB) | payer OTHER, SELFPAY ==
--- NOTE | 2025-06-04 12:20 | MHC.OFFVIS ---
Vital Signs 06/04/25 12:27 Height 5 ft 2 in Weight 247 lb BMI 45.2 Intake Visit Reasons: Bleeding with IUD Eastern Philosophy Professor Required: No Information Interpreted: non-clinical & clinical Search Engine Marketing Specialist: Search Engine Marketing Specialist Present (Elke ROSENBERG) Accompanied by: Self / Same As Patient Allergies Iodinated Contrast Media (IV CONTRAST) Allergy (Intermediate, Verified 06/04/25 12:27) HIVES empagliflozin Adverse Reaction (Intermediate, Verified 06/04/25 12:27) LIGHT HEADED insulin degludec (From Tresiba FlexTouch U-100) Adverse Reaction (Intermediate, Verified 06/04/25 12:27) felt poorly Is last menstrual period known: No (mirena) HPI Comments Details: Presenting complaining of vaginal bleeding since IUD insertion on 05/21/2025 05/21/2025 GC/CT was negative [facility] Medical History (Updated 06/04/25 @ 12:34 by Foster Arguello MD) Abnormal uterine bleeding Diabetes mellitus Insulin dependent type 2 diabetes mellitus Type 1 diabetes mellitus Low vitamin D level Goiter Goiter Hypertension History of blood transfusion Pre-op evaluation Well woman exam COVID-19 Vitamin B12 deficiency Vitamin D deficiency Vitamin A deficiency Binge eating disorder Anxiety GERD (gastroesophageal reflux disease) Morbid obesity Transaminitis Macromastia Secondary hyperparathyroidism Vitamin D deficiency HLD (hyperlipidemia) HTN (hypertension) Surgical History Hx of gastric bypass Presence of pancreatic duct stent Hx of cholecystectomy Family History Father Hypertension High cholesterol Mother Hypertension Diabetes High cholesterol Brother No problems noted. Brother No problems noted. Son No problems noted. Daughter No problems noted. 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 career technical education teacher to a significant other at home: Yes (2 children) Do you presently have visiting nurse or other home services: No Alcohol intake: never Patient Tobacco Use Status: Never used Tobacco e-Cigarette/Vaping Use: Never Used Second Hand Smoke Exposure: No service: No Current occupational status: unemployed Cognitive needs: No Hearing needs: No Vision needs: Yes Female Reproductive History Menstrual Age of Menarche: 10 control method: progestin IUCD Review of Systems Const All systems reviewed & are unremarkable except as noted in HPI and below Physical Exam Vital Signs: BMI result Body Mass Index 45.2 General: Yes no CVA tenderness External Female Exam: normal external appearance and normal appearance of the urethra Speculum Exam - Vagina: normal appearance of the vagina, normal palpation, no lesions and no masses Speculum Exam - Cervix: normal appearance of the cervix, normal palpation, no lesions, no masses, nontender and Other cervical findings present (IUD thread seen) Bimanual exam- vagina & uterus: normal bimanual exam, normal palpation, uterine size normal, normal palpation, uterine shape normal, No Cervical tenderness present and non-tender Bimanual Exam- Adnexa, other: normal adnexae Back/Spine/Pelvis Back: no CVA tenderness Results AMB Test Urine AMB Test Urine Negative Last Edit by Elke Garcia CMA on 06/04/25 12:35 Assessment & Plan Assessment & Plan (1) Abnormal uterine bleeding: Comment: On Mirena IUD Code(s): N93.9 - Abnormal uterine and vaginal bleeding, unspecified Category: Medical Plan: UPT done in the office was negative. CBC and pelvic Ultrasound ordered. Instructions given the patient to use a backup method for control till ultrasound report is back and to schedule a follow-up appointment within 3 D. All questions answered, the patient verbalized understanding Orders: Orders US pelvic and transvaginal Today N93.9 - Abnormal uterine and vaginal bleeding, unspecified AMB HCG Urine Test Today Z32.02 - Encounter for test, result negative Complete Blood Count no Diff Today N93.9 - Abnormal uterine and vaginal bleeding, unspecified Coding Level of Care Code Est Pt Level 3 (78110) Diagnoses Abnormal uterine bleeding N93.9
[2025-06-04 12:27] VITALS: BMI 45.2
--- OUTSIDE RECORDS SUMMARY | 2025-06-04 17:12 | XMS_ITS | Encounter Summary ---
Demographics Address [address] [place] [address] Home Phone Preferred Language Trinidadian Marital Status Unknown Restorationist Affiliation Unknown Race Unknown Ethnic Group Unknown Author Organization [facility] Address [address] [place], [place] [id number] Phone Care Team Providers Care Food And Beverage Controller Name Role Phone Miriam Unger MD Primary Care Provider Unavailabl e Encounter Details Date Type Department Care Team (Late st Contact Info) Description 09/22/2013 Documentation [facility] [address] [place] [address] Family Medicine, Physician [address] [place] [address] Social History Tobacco Use Types Packs/Day Years [...] on filedocumented in this encounter Care Teams Food And Beverage Controller Relationship Specialty Start Date End Date Miriam Unger MD PCP - General 04/20/17 documented as of this encounter
--- OUTSIDE RECORDS SUMMARY | 2025-06-04 17:12 | XMS_ITS | Encounter Summary ---
Author Organization [facility] Address [address] [place] [address] Phone Care Team Providers Care Surfacer Name Role Phone Charity Willingham MD Primary Care Provid er Encounter Details Date Type Department Care Team (Late st Contact Info) Description 11/26/2023 Transcribe Orders [facility] Specimen Processing [address] [place] [address] Charity Willingham MD [address] [place] [address] Social History Tobacco Use Types Packs/Day Years [...] on filedocumented in this encounter Care Teams Surfacer Relationship Specialty Start Date End Date Charity Willingham MD [address] [place] [address] PCP - General Internal Medicine 09/05/23 documented as of this encounter Additional Source Comments The information contained in this document represents components of the legal health record. It is not the complete legal health record.[facility]
--- OUTSIDE RECORDS SUMMARY | 2025-06-04 17:12 | XMS_ITS | Clinical Summary ---
Author Organization [facility] Address [address] [place] [address] Phone Care Team Providers Care Punchboard Filling Machine Operator Name Role Phone Charity Willingham MD Primary [...] is a blood test done randomly at [place] that was low 200s, and advised that [...] SEE NARRATIVE - 10/23/2023 9:55 AM EST [address] [address] Swimming Pool Cleaner: Kaylee Srinivasan MD MEDICAL DETAILIST Cytology Report FINAL DIAGNOSIS A. PAP SMEAR [...] : 1995 (Age: 28) Sex: F Institution: [facility] Location: [facility] Date of Collection: 10/17/2023 Date of Reported: 10/23/2023 09:55 Results to: Josee Franks MD us Josee Franks MD CYTOLOGY ORDERABLES Final Result SEE NARRATIVE * (ABNORMAL) Hemoglobin A1c (09/28/2023 11:47 AM EST) HEMOGLOBIN A1C 7.4(H) 4.3 - 5.8 % [facility] Blood 09/28/2023 11:4 7 AM EST 09/28/2023 11:51 AM EST us Josee Franks MD LAB BLOOD ORDERABLES Final Resul t [address] [id number] from Last 3 Months or Most Recently Relevant to Health Maintenance [place] [address] [address] [place] [address] [place] [address] [place] [place] [address] [place] [address] ACO ACO [employer] [facility] ACO Care Teams Punchboard Filling Machine Operator Relationship Specialty Start Date End Date Charity Willingham MD [address] [place] [address] PCP - General Internal Medicine 09/05/23 Additional Source Comments The information contained in this document represents components of the legal health record. It is not the complete legal health record.[facility]
--- OUTSIDE RECORDS SUMMARY | 2025-06-04 17:12 | XMS_ITS | Encounter Summary ---
Demographics Address [address] [place] [address] Home Phone Preferred Language Japanese Marital Status Unknown Amish Affiliation Unknown Race Unknown Ethnic Group Unknown Author Organization [facility] Address [address] [place], [place] [address] Phone Care Team Providers Care Small Order Cutter Name Role Phone Miriam Unger MD Primary Care Provider Unavailabl e Encounter Details Date Type Department Care Team (Late st Contact Info) Description 07/11/2013 Documentation [facility] Family Medicine [address] [place] [address] Family Medicine, Physician [address] [place] [address] Social History Tobacco Use Types Packs/Day Years [...] on filedocumented in this encounter Care Teams Small Order Cutter Relationship Specialty Start Date End Date Miriam Unger MD PCP - General 04/20/17 documented as of this encounter
--- OUTSIDE RECORDS SUMMARY | 2025-06-04 17:12 | XMS_ITS | Encounter Summary ---
Demographics Address [address] [facility] [place] [address] Home Phone Preferred Language Latvian Marital Status Unknown Worship Affiliation Unknown Race Unknown Ethnic Group Unknown Author Organization [facility] Address [address] [place] [phone] Phone Care Team Providers Care Natural Resources Manager Name Role Phone Miriam Unger MD Primary Care Provider Unavailabl e Encounter Details Date Type Department Care Team (Late st Contact Info) Description 06/17/2013 Conversion Encounter [facility] [place] [address] [place] [address] Tigre Mckeon MD [address] [place] [address] Social History Tobacco Use Types Packs/Day Years [...] on filedocumented in this encounter Care Teams Natural Resources Manager Relationship Specialty Start Date End Date Miriam Unger MD PCP - General 04/20/17 documented as of this encounter
--- OUTSIDE RECORDS SUMMARY | 2025-06-04 17:12 | XMS_ITS | Encounter Summary ---
Demographics Address [address] [place] [address] Home Phone Preferred Language Azerbaijani Marital Status Unknown Mandaeism Affiliation Unknown Race Unknown Ethnic Group Unknown Author Organization [facility] Address [address] [place], [place] [phone] Phone Care Team Providers Care Featheredger And Reducer Machine Name Role Phone Miriam Unger MD Primary Care Provider Unavailabl e Encounter Details Date Type Department Care Team (Late st Contact Info) Description 07/05/2011 Documentation [facility] [address] [place] [address] Family Medicine, Physician [address] [place] [address] Social History Tobacco Use Types Packs/Day Years [...] on filedocumented in this encounter Care Teams Featheredger And Reducer Machine Relationship Specialty Start Date End Date Miriam Unger MD PCP - General 04/20/17 documented as of this encounter
--- OUTSIDE RECORDS SUMMARY | 2025-06-04 17:12 | XMS_ITS | Encounter Summary ---
Demographics Address [address] [place] [address] Home Phone Preferred Language Bangladeshi Marital Status Unknown Bahai Affiliation Unknown Race Unknown Ethnic Group Unknown Author Organization [facility] Address [address] [place], [place] [phone] Phone Care Team Providers Care Power Plant Mechanic Name Role Phone Miriam Unger MD Primary Care Provider Unavailabl e Encounter Details Date Type Department Care Team (Late st Contact Info) Description 06/28/2015 Documentation [facility] [address] [place] [address] Family Medicine, Physician [address] [place] [address] Social History Tobacco Use Types Packs/Day Years [...] on filedocumented in this encounter Care Teams Power Plant Mechanic Relationship Specialty Start Date End Date Miriam Unger MD PCP - General 04/20/17 documented as of this encounter
--- OUTSIDE RECORDS SUMMARY | 2025-06-04 17:12 | XMS_ITS | Encounter Summary ---
Demographics Address [address] [place] [address] Home Phone Preferred Language Thai Marital Status Unknown Baptist Affiliation Unknown Race Unknown Ethnic Group Unknown Author Organization [facility] Address [address] [place], [place] [phone] Phone Care Team Providers Care Tax Evaluator Name Role Phone Miriam Unger MD Primary Care Provider Unavailabl e Encounter Details Date Type Department Care Team (Late st Contact Info) Description 04/26/2017 Conversion Encounter [facility] [address] [address] Social History Tobacco Use Types Packs/Day Years [...] on filedocumented in this encounter Care Teams Tax Evaluator Relationship Specialty Start Date End Date Miriam Unger MD PCP - General 04/20/17 documented as of this encounter
--- OUTSIDE RECORDS SUMMARY | 2025-06-04 17:12 | XMS_ITS | Encounter Summary ---
Demographics Address [address] [facility] [place] [address] Home Phone Preferred Language Gabonese Marital Status Unknown Christian Affiliation Unknown Race Unknown Ethnic Group Unknown Author Organization [facility] Address [address] [place], [place] [address] Phone Care Team Providers Care Changer Fixer Name Role Phone Miriam Unger MD Primary Care Provider Unavailabl e Encounter Details Date Type Department Care Team (Late st Contact Info) Description 07/11/2013 Documentation [facility] [address] [place] [address] Family Medicine, Physician [address] [place] [address] Social History Tobacco Use Types Packs/Day Years [...] on filedocumented in this encounter Care Teams Changer Fixer Relationship Specialty Start Date End Date Miriam Unger MD PCP - General 04/20/17 documented as of this encounter
--- OUTSIDE RECORDS SUMMARY | 2025-06-04 17:12 | XMS_ITS | Encounter Summary ---
Demographics Address [address] [facility] [place] [place] [address] Home Phone Preferred Language Romanian Marital Status Unknown Yarsani Affiliation Unknown Race Unknown Ethnic Group Unknown Author Organization [facility] Address [address] [place], [place] [phone] Phone Care Team Providers Care Analog Ic Design Architect Name Role Phone Miriam Unger MD Primary Care Provider Unavailabl e Encounter Details Date Type Department Care Team (Late st Contact Info) Description 03/27/2016 Documentation [facility] [address] [place] [address] Family Medicine, Physician [address] [place] [address] Social History Tobacco Use Types Packs/Day Years [...] on filedocumented in this encounter Care Teams Analog Ic Design Architect Relationship Specialty Start Date End Date Miriam Unger MD PCP - General 04/20/17 documented as of this encounter
--- OUTSIDE RECORDS SUMMARY | 2025-06-04 17:12 | XMS_ITS | Encounter Summary ---
Demographics Address [address] [place] [place] [address] Home Phone Preferred Language Ivorian Marital Status Unknown Islam Affiliation Unknown Race Unknown Ethnic Group Unknown Author Organization [facility] Address [address] [place], [place] [phone] Phone Care Team Providers Care Stevedoring Superintendent Name Role Phone Miriam Unger MD Primary Care Provider Unavailabl e Encounter Details Date Type Department Care Team (Late st Contact Info) Description 03/23/2016 Documentation [facility] [address] [place] [address] Family Medicine, Physician [address] [place] [address] Social History Tobacco Use Types Packs/Day Years [...] on filedocumented in this encounter Care Teams Stevedoring Superintendent Relationship Specialty Start Date End Date Miriam Unger MD PCP - General 04/20/17 documented as of this encounter
--- OUTSIDE RECORDS SUMMARY | 2025-06-04 17:12 | XMS_ITS | Encounter Summary ---
Demographics Address [address] [place] [address] Home Phone Preferred Language Qatari Marital Status Unknown Mandaeism Affiliation Unknown Race Unknown Ethnic Group Unknown Author Organization [facility] Address [address] [place], [place] [phone] Phone Care Team Providers Care Commercial Or Institutional Cleaner Name Role Phone Miriam Unger MD Primary Care Provider Unavailabl e Encounter Details Date Type Department Care Team (Late st Contact Info) Description 12/17/2009 Documentation [facility] [address] [place] [address] Family Medicine, Physician [address] [place] [address] Social History Tobacco Use Types Packs/Day Years [...] on filedocumented in this encounter Care Teams Commercial Or Institutional Cleaner Relationship Specialty Start Date End Date Miriam Unger MD PCP - General 04/20/17 documented as of this encounter
--- OUTSIDE RECORDS SUMMARY | 2025-06-04 17:12 | XMS_ITS | Encounter Summary ---
Demographics Address [address] [facility] [address] Home Phone Preferred Language Eritrean Marital Status Unknown Denominational Affiliation Unknown Race Unknown Ethnic Group Unknown Author Organization [facility] Address [address] [place], [place] [phone] Phone Care Team Providers Care Composition Tile Layer Name Role Phone Miriam Unger MD Primary Care Provider Unavailabl e Encounter Details Date Type Department Care Team (Late st Contact Info) Description 04/24/2016 Documentation [facility] [address] [place] [address] Family Medicine, Physician [address] [place] [address] Social History Tobacco Use Types Packs/Day Years [...] on filedocumented in this encounter Care Teams Composition Tile Layer Relationship Specialty Start Date End Date Miriam Unger MD PCP - General 04/20/17 documented as of this encounter
--- OUTSIDE RECORDS SUMMARY | 2025-06-04 17:12 | XMS_ITS | Encounter Summary ---
Demographics Address [address] [facility] [address] Home Phone Preferred Language Turkmen Marital Status Unknown Jainism Affiliation Unknown Race Unknown Ethnic Group Unknown Author Organization [facility] Address [address] [place], [place] [phone] Phone Care Team Providers Care Rn Clinical Quality Name Role Phone Miriam Unger MD Primary Care Provider Unavailabl e Encounter Details Date Type Department Care Team (Late st Contact Info) Description 12/31/2013 Documentation [facility] [address] [place] [address] Family Medicine, Physician [address] [place] [address] Social History Tobacco Use Types Packs/Day Years [...] on filedocumented in this encounter Care Teams Rn Clinical Quality Relationship Specialty Start Date End Date Miriam Unger MD PCP - General 04/20/17 documented as of this encounter
--- OUTSIDE RECORDS SUMMARY | 2025-06-04 17:12 | XMS_ITS | Encounter Summary ---
Demographics Address [address] [facility] [place] [address] Home Phone Preferred Language Vietnamese Marital Status Unknown Taoism Affiliation Unknown Race Unknown Ethnic Group Unknown Author Organization [facility] Address [address] [place], [place] [phone] Phone Care Team Providers Care Operations Research Engineer Name Role Phone Miriam Unger MD Primary Care Provider Unavailabl e Encounter Details Date Type Department Care Team (Late st Contact Info) Description 11/22/2011 Documentation [facility] [address] [place] [address] Family Medicine, Physician [address] [place] [address] Social History Tobacco Use Types Packs/Day Years [...] on filedocumented in this encounter Care Teams Operations Research Engineer Relationship Specialty Start Date End Date Miriam Unger MD PCP - General 04/20/17 documented as of this encounter
--- OUTSIDE RECORDS SUMMARY | 2025-06-04 17:12 | XMS_ITS | Clinical Summary ---
Demographics Address [address] [place] [address] Home Phone Preferred Language Kinyarwanda Marital Status Unknown Restorationism Affiliation Unknown Race Unknown Ethnic Group Unknown Author Organization [facility] Address [address] [place] [address] Phone Care Team Providers Care Horizontal Boring Mill Set Up Operator Name Role Phone Miriam Unger MD [...] complete this topic Procedures * Due to [facility] law, this organization might not be sharing sensitive test results. Procedure Name Priority Date/Time Associated Diagnosis Comments CHLAMYDIA AND GONORRHEA, AMPLIFIED Routine 02/04/2015 1:03 PM EDT from Last 3 Months or Most Recently Relevant to Health Maintenance Results * Due to [place] [employer] law, this organization might not be sharing sensitive test results. * Chlamydia and Gonorrhoea, Amplified (02/04/2015 1:03 PM EDT) Pathologist [facility] URINE GC AMP PROBE NEGATIVE F [facility] Comment: No Neisseria Gonorrhoeae RNA detected in this patient's sample (REFERENCE RANGE/NORMAL VALUE: NOT DETECTED) NOTE: This test uses wool hanker-mediated amplification method to detect rRNA from C.Trachomatis [...] without risk of sexual abuse. Consult the [facility] if needed. Contact phone number . Therapeutic failure or success cannot be determined with the Aptima Combo2 assay since nucleic acid may persist following appropriate antimicrobial therapy. The Centers for Disease Control and Prevention (CDC) recommends confirmatory retesting using culture or a different nucleic acid amplification test when positive results occur, if indicated. Testing performed or reported by [facility], a Service of [facility], [address] [place] [address] Jordon Briones MD, PhD, Optical Goods Drill Operator URINE CHLAMYDIA AMP PROBE POSITIVE [facility] Comment: Chlamydia Trachomatis RNA detected in this patient's sample (REFERENCE RANGE/NORMAL VALUE: NOT DETECTED) . PURSUANT TO [id number], THESE CLINICAL LABORATORY RESULTS HAVE BEEN REPORTED TO THE [place] [facility] OF PUBLIC HEALTH. PLEASE BE AWARE THAT HEALTHCARE PROVIDERS HAVE ADDITIONAL PUBLIC HEALTH REPORTING REQUIREMENTS. 02/04/2015 1:03 PM EDT Narrative [facility] - 02/04/2015 1:03 PM EDT URINE CHLAMYDIA GC AMP PROBE us Sravanthi Mariscal NP LAB MICROBIOLOGY - GENERAL ORDER JANEL Final Result [facility] [address] [place] [address], from Last 3 Months or Most Recently Relevant to Health Maintenance Care Teams Horizontal Boring Mill Set Up Operator Relationship Specialty Start Date End Date Miriam Unger MD PCP - General 04/20/17
== END 2025-06-04 12:47 | disposition home or self-care (01) ==
LOC: HO.HWS 12:16
PROVIDERS: PCP Internal Medicine; Visit Provider Obstetrics & Gynecology
DX: Z32.02 Encounter for pregnancy test, result negative (principal); N93.9 Abnormal uterine and vaginal bleeding, unspecified
CPT/HCPCS: 99213

== ENCOUNTER 2025-06-04 15:05 | Outpatient (REF) | payer OTHER, SELFPAY ==
--- NOTE | ~2025-06-04 | US_ITS ---
EXAMINATION: US PELVIS CLINICAL INFORMATION: Abnormal uterine bleeding. COMPARISON: 02/27/2023. TECHNIQUE: Ultrasound of the pelvis is performed using both transabdominal and transvaginal transducers along with Doppler. Transvaginal imaging is performed due to inadequate visualization transabdominally. FINDINGS: Study is limited by patient body habitus per technologist note. Uterus: The uterus is anteverted and measures 8.0 x 3.9 x 4.8 cm. The cervix appears normal. The double wall endometrial thickness is 7 mm. IUD is in place and appears appropriately situated. The uterus is smooth in contour and has normal myometrial echogenicity. No visible fibroid. Adnexa: Both ovaries are visualized. There is normal color flow to the adnexa. There is no ovarian torsion. There is no pelvic ascites or fluid collection. There are no adnexal masses. Right ovary measures 3.1 x 2.2 x 2.3 cm. Volume = 8.0 mL. There is a follicular simple cyst measuring 2.7 cm. Normal sonographic appearance. Left ovary measures 2.7 x 2.0 x 2.7 cm. Volume = 7.4 mL. Normal sonographic appearance. US/US pelvic and transvaginal IMPRESSION: 1. IUD in place in appropriate position. 2. Normal endometrial stripe measuring 7 mm in thickness. 3. Normal myometrium without focal mass. 4. Normal ovaries bilaterally. Electronically signed by: Ben Zuniga MD 06/04/2025 03:57 PM EDT
== END 2025-06-04 15:06 | disposition home or self-care (01) ==
LOC: HO.US 15:05
PROVIDERS: PCP Internal Medicine; Visit Provider Obstetrics & Gynecology
DX: N93.9 Abnormal uterine and vaginal bleeding, unspecified (principal)
CPT/HCPCS: 76830; 76856

== ENCOUNTER → 2025-06-04 15:10 | Outpatient (BNV) | payer OTHER, SELFPAY | PROVIDERS: PCP Internal Medicine; Visit Provider Radiology Diagnostic Radiology | DX: N93.9 Abnormal uterine and vaginal bleeding, unspecified (principal) | CPT/HCPCS: 76830; 76856 ==

== ENCOUNTER 2025-06-29 15:47 | Outpatient (AMB) | payer OTHER, SELFPAY ==
--- NOTE | 2025-06-29 16:04 | MHC.AMDMED ---
Intake Intake Visit Reasons: 60 min Allergies Iodinated Contrast Media (IV CONTRAST) Allergy (Intermediate, Verified 06/04/25 12:27) HIVES empagliflozin Adverse Reaction (Intermediate, Verified 06/04/25 12:27) LIGHT HEADED insulin degludec (From Tresiba FlexTouch U-100) Adverse Reaction (Intermediate, Verified 06/04/25 12:27) felt poorly HPI Comprehensive Diabetes Asmnt Most Recent Diabetes Results: Cholesterol, (<200) 127 mg/dL 06/04/25 HDL Cholesterol, (>40) 35 mg/dL L 06/04/25 Triglycerides, (<150) 104 mg/dL 06/04/25 [facility] Medical History (Updated 06/04/25 @ 12:34 by Foster Arguello MD) Abnormal uterine bleeding Diabetes mellitus Insulin dependent type 2 diabetes mellitus Type 1 diabetes mellitus Low vitamin D level Goiter Goiter Hypertension History of blood transfusion Pre-op evaluation Well woman exam COVID-19 Vitamin B12 deficiency Vitamin D deficiency Vitamin A deficiency Binge eating disorder Anxiety GERD (gastroesophageal reflux disease) Morbid obesity Transaminitis Macromastia Secondary hyperparathyroidism Vitamin D deficiency HLD (hyperlipidemia) HTN (hypertension) Surgical History Hx of gastric bypass Presence of pancreatic duct stent Hx of cholecystectomy Family History Father Hypertension High cholesterol Mother Hypertension Diabetes High cholesterol Brother No problems noted. Brother No problems noted. Son No problems noted. Daughter No problems noted. 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 college and career counselor to a significant other at home: Yes (2 children) Do you presently have visiting nurse or other home services: No Alcohol intake: never Patient Tobacco Use Status: Never used Tobacco e-Cigarette/Vaping Use: Never Used Second Hand Smoke Exposure: No service: No Current occupational status: unemployed Cognitive needs: No Hearing needs: No Vision needs: Yes Female Reproductive History Menstrual Age of Menarche: 10 Assessment & Plan Assessment & Plan (1) Type 1 diabetes mellitus: Code(s): E10.9 - Type 1 diabetes mellitus without complications Plan: DIABETES PROBLEMS HOMECARE INSTRUCTIONS? for High Blood Sugar and When to Test for Ketones Hyperglycemia is the technical term for high blood glucose (blood sugar). High blood sugar happens when the body has too little insulin or when the body can't use insulin properly. What causes hyperglycemia? A number of things can cause hyperglycemia: If you have type 1, you may not have given yourself enough insulin. ? If you have type 2, your body may have enough insulin, but it is not as effective as it should be. You ate more than planned or exercised less than planned. You have stress from an illness, such as a cold or flu. You have other stress, such as family conflicts or school or dating problems. How to lower your blood sugar level. ? Take medications as directed by physician. ? Drink extra water or noncaffeinated, nonsugared drinks to prevented hydration. ? Exercise if you are not sick However, if your blood sugar is above 250 mg/dl, check your urine for ketones. If you have ketones, do not exercise Exercising when ketones are present may make your blood sugar level go even higher. You'll need to work with your doctor to find the safest way for you to lower your blood sugar level. Regularly check blood sugar or urine for sugar and acetone during illness. Diabetic ketoacidosis (DKA) Is serious condition that can lead to diabetic coma (passing out for a long time) or even . When your cells don't get the glucose they need for energy, your body begins to burn fat for energy, which produces ketones. Ketones are chemicals that the body creates when it breaks down fat to use for energy. The body does this when it doesn?t have enough insulin to use glucose, the body?s normal source of energy. When ketones build up in the blood, they make it more acidic. They are a warning sign that your diabetes is out of control or that you are getting sick. Symptoms of Diabetic Ketoacidosis (DKA) ? DKA usually develops slowly. But when vomiting occurs, this life-threatening condition can develop in a few hours. Early symptoms include the following: ? Thirst or a very dry mouth ? Frequent urination ? High blood glucose (blood sugar) levels ? High levels of ketones in the urine ? Then, other symptoms appear: ? Constantly feeling tired ? Dry or flushed skin ? Nausea, vomiting, or abdominal pain ? (Vomiting can be caused by many illnesses, not just ketoacidosis. If vomiting continues for more than 2 hours, contact your health care provider.) ? Difficulty breathing ? Fruity odor on breath ? A hard time paying attention, or confusion When should you test for ketones? It is advisable to check for ketones under the following conditions when: Your blood glucose is higher than 250mg/dl. Feeling nauseated, throwing up, or have pains in your abdominal region. Have a cold or flu. Have general body fatigue. Feel thirsty or have a very dry mouth. Have flushed skin. Have a fruity breath or a hard time breathing. You feel perplexed or in fog. How to Test Urine for Ketones You can detect ketones with a simple urine test using a test strip, similar to a blood testing strip. Ask your health care provider when and how you should test for ketones. Many experts advise to check your urine for ketones when your blood glucose is more than 250 mg/dl. When you are ill (when you have a cold or the flu, for example), check for ketones every 4 to 6 hours. And check every 4 to 6 hours when your blood sugar is more than 250 mg/dl. Also, check for ketones when you have any symptoms of DKA. Plan Patient is interested in Omnipod 5 with Edson 2+ sensor Patient given sample Edson 3+ sensor, instructed patient not to pharmacy picking technician new prescription Edson 3 +sensors because insurance may not cover Edson 2+ sensors for another month Request for prescriptions will be sent to provider Patient given copy of off pump insulin backup plan Patient stated at today's visit she knows how to use insulin syringe, and vial to administer insulin injections Patient Instructions: How to lower your blood sugar level. ? Take medications as directed by physician. ? Drink extra water or noncaffeinated, nonsugared drinks to prevented hydration. ? Exercise if you are not sick However, if your blood sugar is above 250 mg/dl, check your urine for ketones. If you have ketones, do not exercise Exercising when ketones are present may make your blood sugar level go even higher. You'll need to work with your doctor to find the safest way for you to lower your blood sugar level. Regularly check blood sugar or urine for sugar and acetone during illness How to Test Urine for Ketones You can detect ketones with a simple urine test using a test strip, similar to a blood testing strip. Ask your health care provider when and how you should test for ketones. Many experts advise to check your urine for ketones when your blood glucose is more than 250 mg/dl. When you are ill (when you have a cold or the flu, for example), check for ketones every 4 to 6 hours. And check every 4 to 6 hours when your blood sugar is more than 250 mg/dl. Also, check for ketones when you have any symptoms of DKA. Coding Level of Care Code Est Pt Level 1 (32232) Diagnoses Type 1 diabetes mellitus E10.9
--- OUTSIDE RECORDS SUMMARY | 2025-06-29 20:06 | XMS_ITS | Clinical Summary ---
Author Organization [facility]ly [facility] Address [address] [place] [address] Phone Care Team Providers Care Tracer Bullet Charging Machine Operator Name Role Phone Charity Willingham [...] is a blood test done randomly at [place] that was low 200s, and advised that [...] * Pap Test (10/17/2023 12:00 AM EST) Report [address] [address] Colloid Mill Operator: Kaylee Srinivaasn MD MEDICAL INVESTIGATOR Cytology Report FINAL DIAGNOSIS A. PAP SMEAR (SUREPATH) CE: SPECIMEN ADEQUACY: Satisfactory for evaluation; transformation zone absent/insufficien t. INTERPRETATION: NEGATIVE FOR INTRAEPITHELIAL LESION OR MALIGNANCY. [...] : 1995 (Age: 28) Sex: F Institution: [facility] Location: [facility] Date of Collection: 10/17/2023 Date of Reported: 10/23/2023 09:55 Results to: Josee Franks MD [facility] Final Diagnosis A. PAP SMEAR (SUREPATH) CE: SPECIMEN ADEQUACY: Satisfactory for evaluation; transformation zone absent/insufficien t. INTERPRETATION: NEGATIVE FOR INTRAEPITHELIAL LESION OR MALIGNANCY. Fungal organisms morphologically consistent with Eva species. [facility] Conversion Type (Conversion Source) 10/17/2023 10/18/2023 10:00 AM EST us Josee Franks MD CYTOLOGY ORDERABLES Edited Resul t - Final Performing Organization Address City/[facility] Co de Phone Number [address] [address] * (ABNORMAL) Hemoglobin A1c (09/28/2023 11:47 AM EST) HEMOGLOBIN A1C 7.4(H) 4.3 - 5.8 % [facility] Blood 09/28/2023 11:4 7 AM EST 09/28/2023 11:51 AM EST us Josee Franks MD LAB BLOOD ORDERABLES Final Resul t Performing Organization Address City/[facility] Co de Phone Number [address] [address] from Last 3 Months or Most Recently Relevant to Health Maintenance Insurance [employer] [facility] [place] [employer] [place] [address] [place] [address] ACO [employer] [facility] [place] [employer] Care Teams Tracer Bullet Charging Machine Operator Relationship Specialty Start Date End Date Charity Willingham MD [address] [place] [address] PCP - General Internal Medicine 09/05/23 Additional Source Comments The information contained in this document represents components of the legal health record. It is not the complete legal health record.[facility]
--- OUTSIDE RECORDS SUMMARY | 2025-06-29 20:06 | XMS_ITS | Encounter Summary ---
Author Organization [facility] Address [address] [place] [address] Phone Care Team Providers Care Manager Administration Name Role Phone Charity Willingham MD Primary Care Provid er Encounter Details Date Type Department Care Team (Late st Contact Info) Description 11/26/2023 Transcribe Orders [facility] Specimen Processing [address] [place] [address] Charity Willingham MD [address] [place] [address] Social History Tobacco Use Types Packs/Day Years [...] filedocumented in this encounter Care Teams Manager Administration Relationship Specialty Start Date End Date Charity Willingham MD [address] [place] [address] PCP - General Internal Medicine 09/05/23 documented as of this encounter Additional Source Comments The information contained in this document represents components of the legal health record. It is not the complete legal health record.[facility]
== END 2025-06-29 16:05 | disposition home or self-care (01) ==
LOC: HO.ENCR 15:48
PROVIDERS: PCP Internal Medicine; Visit Provider Registered Nurse Diabetes Educator
DX: E10.9 Type 1 diabetes mellitus without complications (principal)

== ENCOUNTER → 2025-06-29 15:47 | Outpatient (BNVA) | payer OTHER, SELFPAY | PROVIDERS: PCP Internal Medicine; Visit Provider Registered Nurse Diabetes Educator | DX: E10.9 Type 1 diabetes mellitus without complications (principal) | CPT/HCPCS: 99211 ==

== ENCOUNTER 2025-07-23 14:13 | Outpatient (AMB) | payer OTHER, SELFPAY ==
--- NOTE | 2025-07-23 15:35 | A.OFFVIS_ITS ---
Intake Intake Visit Reasons: Omni pod training Mold Capper Required: No Accompanied by: Self / Same As Patient Allergies Iodinated Contrast Media (IV CONTRAST) Allergy (Intermediate, Verified 06/04/25 12:27) HIVES empagliflozin Adverse Reaction (Intermediate, Verified 06/04/25 12:27) LIGHT HEADED insulin degludec (From Tresiba FlexTouch U-100) Adverse Reaction (Intermediate, Verified 06/04/25 12:27) felt poorly HPI Comprehensive Diabetes Asmnt Most Recent Diabetes Results: Cholesterol, (<200) 127 mg/dL 06/04/25 HDL Cholesterol, (>40) 35 mg/dL L 06/04/25 Triglycerides, (<150) 104 mg/dL 06/04/25 [facility] Medical History (Updated 06/04/25 @ 12:34 by Foster Arguello MD) Abnormal uterine bleeding Diabetes mellitus Insulin dependent type 2 diabetes mellitus Type 1 diabetes mellitus Low vitamin D level Goiter Goiter Hypertension History of blood transfusion Pre-op evaluation Well woman exam COVID-19 Vitamin B12 deficiency Vitamin D deficiency Vitamin A deficiency Binge eating disorder Anxiety GERD (gastroesophageal reflux disease) Morbid obesity Transaminitis Macromastia Secondary hyperparathyroidism Vitamin D deficiency HLD (hyperlipidemia) HTN (hypertension) Surgical History Hx of gastric bypass Presence of pancreatic duct stent Hx of cholecystectomy Family History Father Hypertension High cholesterol Mother Hypertension Diabetes High cholesterol Brother No problems noted. Brother No problems noted. Son No problems noted. Daughter No problems noted. 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 rn long term care to a significant other at home: Yes (2 children) Do you presently have visiting nurse or other home services: No Alcohol intake: never Patient Tobacco Use Status: Never used Tobacco e-Cigarette/Vaping Use: Never Used Second Hand Smoke Exposure: No service: No Current occupational status: unemployed Cognitive needs: No Hearing needs: No Vision needs: Yes Female Reproductive History Menstrual Age of Menarche: 10 Assessment & Plan Assessment & Plan (1) Type 1 diabetes mellitus: Code(s): E10.9 - Type 1 diabetes mellitus without complications Plan Patient presents for pump training for Omnipod 5 pump and Dexcom G7 CGM training today. The following topics were reviewed today: -Pump therapy basic concepts: Basal/bolus, insulin to carb ratio, correction factor, insulin on board -Device settings: Bluetooth/mobile connection (if applicable), correct date and time, sound volume -CGM settings(if integrated system): CGM graft views and trend arrows, alerts and alarms, Start new sensor ??? High Alert: 250 mg/dL ??? Low Alert: 70 mg/dL ??? Insulin delivery settings Program insulin to carb ratio, correction factor, target blood glucose, suspend or resume insulin delivery, bolus limit and basal limit settings Instructed patient to only use room temperature insulin, how to load cartridge or fill pod, with insulin. Fill tubing and cannula (if applicable) Inserting infusion set or starting pod Troubleshooting after starting new pod or inserting new insulin set: Occlusion, adhesive tape sensitivity, redness Check BG 2 hours after site change Safety information: Importance of a backup plan, for manual injections, proper prescriptions and emergency supplies ketone strips, and rules for testing for ketones Patient was able to insert insulin set today without difficulty. Patient understands the basic concepts of pump therapy, how to give insulin for meals and snacks, how to troubleshoot for hyper and hypoglycemia. Setting verified by [facility] Basal rate(s) (units/hour) : 12 AM? to 12 AM 1.0 units / hr Bolus setting Insulin Carbohydrate Ratio (s) 12 AM? to 12 AM? 1:10 Correction Factor / Sensitivity Factor 12 AM? to 12 AM? 1:33 Active Insulin Time:? 3 hours Target(s): 12 AM? to 12 AM? 110 mg/dL Correction threshold: 12 AM? to 12 AM? 120 mg/dL Patient will follow up with [facility] as instructed Patient will contact [facility] with questions or concerns, patient given IT number to support in any technical issues related to insulin pump Portions of this note were created using voice recognition software, please excuse any words or phrases that may have been misinterpreted. Medications: Discontinued insulin pump cart,auto,BT,G6/L (Omnipod 5 (G6/Edson 2 Plus) subcutaneous cartridge) Discontinued Reason: Doctor's Order Change pot every 48 or 72 hours. 10 ea 3RF E10.9 - Type 1 diabetes mellitus without complications insulin sap bi developer cart,BT,G6/L2-cntr (Omnipod 5 Intro Kit(G6/Ylyhu8Jsns) subcutaneous cartridge) Discontinued Reason: Doctor's Order Vila spots every 48-70 hours. 1 ea 0RF E10.9 - Type 1 diabetes mellitus without complications blood-glucose sensor (FreeStyle Edson 3 Plus Sensor device) Discontinued Reason: Doctor's Order As directed 2 ea 11RF E11.9 - Type 2 diabetes mellitus without complications, Z79.4 - senior living (current) use of insulin Coding Level of Care Code Est Pt Level 1 (29545) Diagnoses Type 1 diabetes mellitus E10.9
--- OUTSIDE RECORDS SUMMARY | 2025-07-23 17:38 | XMS_ITS | Encounter Summary ---
Demographics Address [address] [facility] [facility] [place] [address] Home Phone Preferred Language German Marital Status Unknown Advent Affiliation Unknown Race Unknown Ethnic Group Unknown Author Organization [facility] Address [address] [place] [address] Phone Care Team Providers Care Emergency Doctor Name Role Phone Miriam Unger MD Primary Care Provider Unavailabl e Encounter Details Date Type Department Care Team (Late st Contact Info) Description 06/17/2013 Conversion Encounter [facility] [address] [place] [address] Tigre Mckeon MD [address] [place] [address] Social History Tobacco Use Types Packs/Day Years [...] on filedocumented in this encounter Care Teams Emergency Doctor Relationship Specialty Start Date End Date Miriam Unger MD PCP - General 04/20/17 documented as of this encounter
--- OUTSIDE RECORDS SUMMARY | 2025-07-23 17:38 | XMS_ITS | Clinical Summary ---
Demographics Address [address] [place] [address] Home Phone Mobile Phone Home Phone Preferred Language en Marital Status Single Samaritan Affiliation Unknown Race Unknown Ethnic Group or Author Organization [facility] Address [address] [place] [address] Care Team Providers Care Rn Surgery Name Role Phone Unavailable Primary Care Provider [...] Cervical Cancer Screening: P ap Smear 2016 HPV Vaccines (1 - 3-dose SCD M series) 2022 Depression Screening 09/10/2024 COVID-19 Vaccine ( - 2024-2 6 season) 2025 Influenza Vaccine (#1) 2025 07/10/2016 RSV Immunization Adult Patie nts (1 - 1-dose 75+ series) 2070 Pneumococcal Vaccine: Pediat rics (0 to 5 [...]
--- OUTSIDE RECORDS SUMMARY | 2025-07-23 17:39 | XMS_ITS | Encounter Summary ---
Demographics Address [address] [place] [address] Home Phone Preferred Language Frisian Marital Status Unknown Buddhist Affiliation Unknown Race Unknown Ethnic Group Unknown Author Organization [facility] Address [address] [place], [place] [phone] Phone Care Team Providers Care Laborer Turkey Farm Name Role Phone Miriam Unger MD Primary Care Provider Unavailabl e Encounter Details Date Type Department Care Team (Late st Contact Info) Description 07/11/2013 Documentation EM Family Medicine [address] [place] [address] Family Medicine, Physician [address] [place] [address] Social History Tobacco Use Types Packs/Day Years [...] on filedocumented in this encounter Care Teams Laborer Turkey Farm Relationship Specialty Start Date End Date Miriam Unger MD PCP - General 04/20/17 documented as of this encounter
--- OUTSIDE RECORDS SUMMARY | 2025-07-23 17:39 | XMS_ITS | Encounter Summary ---
Demographics Address [address] [place] [address] Home Phone Preferred Language Bengali Marital Status Unknown Judaism Affiliation Unknown Race Unknown Ethnic Group Unknown Author Organization [facility] Address [address] [place], [place] [phone] Phone Care Team Providers Care Batch And Furnace Operator Name Role Phone Miriam Unger MD Primary Care Provider Unavailabl e Encounter Details Date Type Department Care Team (Late st Contact Info) Description 03/27/2016 Documentation EM Family Medicine [address] [place] [address] Family Medicine, Physician [address] [place] [address] Social History Tobacco Use Types Packs/Day Years [...] on filedocumented in this encounter Care Teams Batch And Furnace Operator Relationship Specialty Start Date End Date Miriam Unger MD PCP - General 04/20/17 documented as of this encounter
--- OUTSIDE RECORDS SUMMARY | 2025-07-23 17:39 | XMS_ITS | Encounter Summary ---
Demographics Address [address] [place] [address] Home Phone Preferred Language Syriac Marital Status Unknown Confucianism Affiliation Unknown Race Unknown Ethnic Group Unknown Author Organization [facility] Address [address] [place], [place] [phone] Phone Care Team Providers Care Technology Risk Intern Name Role Phone Miriam Unger MD Primary Care Provider Unavailabl e Encounter Details Date Type Department Care Team (Late st Contact Info) Description 09/22/2013 Documentation [facility] [address] [place] [address] Family Medicine, Physician [address] [place] [address] Social History Tobacco Use Types Packs/Day Years [...] on filedocumented in this encounter Care Teams Technology Risk Intern Relationship Specialty Start Date End Date Miriam Unger MD PCP - General 04/20/17 documented as of this encounter
--- OUTSIDE RECORDS SUMMARY | 2025-07-23 17:39 | XMS_ITS | Clinical Summary ---
Author Organization [facility] Address [address] [place] [address] Phone Care Team Providers Care Charge Entry Clerk Name Role Phone Charity Willingham MD Primary [...] is a blood test done randomly at [place] that was low 200s, and advised that [...] patient's age to complete this topic IPV VACCINES Aged Out No longer eligi ble [...] Pap Test (10/17/2023 12:00 AM EST) Report [address] [address] Developmental Specialist: Kaylee Srinivasan MD SUPERVISOR NURSE Cytology Report FINAL DIAGNOSIS A. PAP SMEAR [...] (Age: 28) Sex: F Institution: [facility] Location: [facility] Date of Collection: 10/17/2023 Date of Reported: 10/23/2023 09:55 Results to: Josee Franks MD [facility] Final Diagnosis A. PAP SMEAR (SUREPATH) CE: SPECIMEN ADEQUACY: Satisfactory for evaluation; transformation zone absent/insufficien t. INTERPRETATION: NEGATIVE FOR INTRAEPITHELIAL LESION OR MALIGNANCY. Fungal organisms morphologically consistent with Eva species. [facility] Conversion Type (Conversion Source) 10/17/2023 10/18/2023 10:00 AM EST us Josee Franks MD CYTOLOGY ORDERABLES Edited Resul t - Final Performing Organization Address City/[facility]/ZIP Co de Phone Number [address] [address] * (ABNORMAL) Hemoglobin A1c (09/28/2023 11:47 AM EST) HEMOGLOBIN A1C 7.4(H) 4.3 - 5.8 % [facility] Blood 09/28/2023 11:4 7 AM EST 09/28/2023 11:51 AM EST us Josee Franks MD LAB BLOOD BKR ORDERABLES Final R esult Performing Organization Address City/[facility]/ZIP Co de Phone Number [address] [address] from Last 3 Months or Most Recently Relevant to Health Maintenance [place] [address] ACO ACO [place] [address] [place] [address] ACO Care Teams Charge Entry Clerk Relationship Specialty Start Date End Date Charity Willingham MD [address] [place] [address] PCP - General Internal Medicine 09/05/23 Additional Source Comments The information contained in this document represents components of the legal health record. It is not the complete legal health record.[facility]
--- OUTSIDE RECORDS SUMMARY | 2025-07-23 17:39 | XMS_ITS | Encounter Summary ---
Demographics Address [address] [facility] [place] [address] Home Phone Preferred Language Chinese Marital Status Unknown Samaritan Affiliation Unknown Race Unknown Ethnic Group Unknown Author Organization [facility] Address [address] [place], [place] [phone] Phone Care Team Providers Care Intellectual Property Paralegal Name Role Phone Miriam Unger MD Primary Care Provider Unavailabl e Encounter Details Date Type Department Care Team (Late st Contact Info) Description 07/11/2013 Documentation EM Family Medicine [address] [place] [address] Family Medicine, Physician [address] [place] [address] Social History Tobacco Use Types Packs/Day Years [...] on filedocumented in this encounter Care Teams Intellectual Property Paralegal Relationship Specialty Start Date End Date Miriam Unger MD PCP - General 04/20/17 documented as of this encounter
--- OUTSIDE RECORDS SUMMARY | 2025-07-23 17:39 | XMS_ITS | Encounter Summary ---
Demographics Address [address] [place] [address] Home Phone Preferred Language Kyrgyz Marital Status Unknown Yarsani Affiliation Unknown Race Unknown Ethnic Group Unknown Author Organization [facility] Address [address] [place], [place] [phone] Phone Care Team Providers Care Watch Manufacturing Supervisor Name Role Phone Miriam Unger MD Primary Care Provider Unavailabl e Encounter Details Date Type Department Care Team (Late st Contact Info) Description 06/28/2015 Documentation EM Family Medicine [address] [place] [address] Family Medicine, Physician [address] [place] [address] Social History Tobacco Use Types Packs/Day Years [...] on filedocumented in this encounter Care Teams Watch Manufacturing Supervisor Relationship Specialty Start Date End Date Miriam Unger MD PCP - General 04/20/17 documented as of this encounter
--- OUTSIDE RECORDS SUMMARY | 2025-07-23 17:39 | XMS_ITS | Clinical Summary ---
Demographics Address [address] [facility] [place] [address] Home Phone Preferred Language Gambian Marital Status Unknown Congregational Affiliation Unknown Race Unknown Ethnic Group Unknown Author Organization [facility] Address [address] [place] [address] Phone Care Team Providers Care Grain Elevator Agent Name Role Phone Miriam Unger MD Primary [...] of Strabismus, No family history of *Sudden /[place] under 55, No family history of Seizure [...] complete this topic Procedures * Due to [facility] law, this organization might not be sharing sensitive test results. Procedure Name Priority Date/Time Associated Diagnosis Comments CHLAMYDIA AND GONORRHEA, AMPLIFIED Routine 02/04/2015 1:03 PM EDT from Last 3 Months or Most Recently Relevant to Health Maintenance Results * Due to [place] [employer] law, this organization might not be sharing sensitive test results. * Chlamydia and Gonorrhoea, Amplified (02/04/2015 1:03 PM EDT) Pathologist [facility] URINE GC AMP PROBE NEGATIVE [facility] Comment: No Neisseria Gonorrhoeae RNA detected in this patient's sample (REFERENCE RANGE/NORMAL VALUE: NOT DETECTED) NOTE: This test uses tearer-mediated amplification method to detect rRNA from C.Trachomatis [...] without risk of sexual abuse. Consult the [facility] if needed. Contact phone number . Therapeutic failure or success cannot be determined with the Aptima Combo2 assay since nucleic acid may persist following appropriate antimicrobial therapy. The Centers for Disease Control and Prevention (CDC) recommends confirmatory retesting using culture or a different nucleic acid amplification test when positive results occur, if indicated. Testing performed or reported by [facility], a Service of [facility], [address] [place] [address] Jordon Briones MD, PhD, General Foundry Worker URINE CHLAMYDIA AMP PROBE POSITIVE [facility] Comment: Chlamydia Trachomatis RNA detected in this patient's sample (REFERENCE RANGE/NORMAL VALUE: NOT DETECTED) . PURSUANT TO [id number], THESE CLINICAL LABORATORY RESULTS HAVE BEEN REPORTED TO THE [place] [facility] OF PUBLIC HEALTH. PLEASE BE AWARE THAT HEALTHCARE PROVIDERS HAVE ADDITIONAL PUBLIC HEALTH REPORTING REQUIREMENTS. 02/04/2015 1:03 PM EDT Narrative [facility] - 02/04/2015 1:03 PM EDT URINE CHLAMYDIA GC AMP PROBE us Sravanthi Mariscal NP LAB MICROBIOLOGY - GENERAL ORDER JANEL Final Result [facility] [address] [place] [address], from Last 3 Months or Most Recently Relevant to Health Maintenance Care Teams Grain Elevator Agent Relationship Specialty Start Date End Date Miriam Unger MD PCP - General 04/20/17
--- OUTSIDE RECORDS SUMMARY | 2025-07-23 17:39 | XMS_ITS | Encounter Summary ---
Demographics Address [address] [facility] [place] [address] Home Phone Preferred Language Croatian Marital Status Unknown Church Affiliation Unknown Race Unknown Ethnic Group Unknown Author Organization [facility] Address [address] [place], [place] [phone] Phone Care Team Providers Care Apprentice Electrician Name Role Phone Miriam Unger MD Primary Care Provider Unavailabl e Encounter Details Date Type Department Care Team (Late st Contact Info) Description 12/17/2009 Documentation [facility] [address] [place] [address] Family Medicine, Physician [address] [place] [address] Social History Tobacco Use Types Packs/Day Years [...] on filedocumented in this encounter Care Teams Apprentice Electrician Relationship Specialty Start Date End Date Miriam Unger MD PCP - General 04/20/17 documented as of this encounter
--- OUTSIDE RECORDS SUMMARY | 2025-07-23 17:39 | XMS_ITS | Encounter Summary ---
Demographics Address [address] [place] [address] Home Phone Preferred Language Persian Marital Status Unknown Restoration Affiliation Unknown Race Unknown Ethnic Group Unknown Author Organization [facility] Address [address] [place], [place] [phone] Phone Care Team Providers Care High School Coach Name Role Phone Miriam Unger MD Primary Care Provider Unavailabl e Encounter Details Date Type Department Care Team (Late st Contact Info) Description 03/23/2016 Documentation EM Family Medicine [address] [place] [address] Family Medicine, Physician [address] [place] [address] Social History Tobacco Use Types Packs/Day Years [...] on filedocumented in this encounter Care Teams High School Coach Relationship Specialty Start Date End Date Miriam Unger MD PCP - General 04/20/17 documented as of this encounter
--- OUTSIDE RECORDS SUMMARY | 2025-07-23 17:39 | XMS_ITS | Encounter Summary ---
Demographics Address [address] [place] [address] Home Phone Preferred Language Lao Marital Status Unknown Hinduism Affiliation Unknown Race Unknown Ethnic Group Unknown Author Organization [facility] Address [address] [place], [place] [phone] Phone Care Team Providers Care Environmental Permitting Specialist Name Role Phone Miriam Unger MD Primary Care Provider Unavailabl e Encounter Details Date Type Department Care Team (Late st Contact Info) Description 04/26/2017 Conversion Encounter [facility] - [address] [address] Social History Tobacco Use Types Packs/Day Years [...] on filedocumented in this encounter Care Teams Environmental Permitting Specialist Relationship Specialty Start Date End Date Miriam Unger MD PCP - General 04/20/17 documented as of this encounter
--- OUTSIDE RECORDS SUMMARY | 2025-07-23 17:39 | XMS_ITS | Encounter Summary ---
Demographics Address [address] [place] [address] Home Phone Preferred Language Macedonian Marital Status Unknown Sabianist Affiliation Unknown Race Unknown Ethnic Group Unknown Author Organization [facility] Address [address] [place], [place] [address] Phone Care Team Providers Care Metal Model Builder Name Role Phone Miriam Unger MD Primary Care Provider Unavailabl e Encounter Details Date Type Department Care Team (Late st Contact Info) Description 11/22/2011 Documentation EM Family Medicine [address] [place] [address] Family Medicine, Physician [address] [place] [address] Social History Tobacco Use Types Packs/Day Years [...] on filedocumented in this encounter Care Teams Metal Model Builder Relationship Specialty Start Date End Date Miriam Unger MD PCP - General 04/20/17 documented as of this encounter
--- OUTSIDE RECORDS SUMMARY | 2025-07-23 17:39 | XMS_ITS | Encounter Summary ---
Demographics Address [address] [place] [facility] [address] Home Phone Preferred Language Pashto Marital Status Unknown Taoism Affiliation Unknown Race Unknown Ethnic Group Unknown Author Organization [facility] Address [address] [place], [place] [address] Phone Care Team Providers Care Lacquer Shader Name Role Phone Miriam Unger MD Primary Care Provider Unavailabl e Encounter Details Date Type Department Care Team (Late st Contact Info) Description 04/24/2016 Documentation EM Family Medicine [address] [place] [address] Family Medicine, Physician [address] [place] [address] Social History Tobacco Use Types Packs/Day Years [...] on filedocumented in this encounter Care Teams Lacquer Shader Relationship Specialty Start Date End Date Miriam Unger MD PCP - General 04/20/17 documented as of this encounter
--- OUTSIDE RECORDS SUMMARY | 2025-07-23 17:39 | XMS_ITS | Encounter Summary ---
Author Organization [facility] Address [address] [place] [address] Phone Care Team Providers Care Trouble Shooting Mechanic Name Role Phone Charity Willingham MD Primary Care Provid er Encounter Details Date Type Department Care Team (Late st Contact Info) Description 11/26/2023 Transcribe Orders [facility] Specimen Processing [address] [place] [address] Charity Willingham MD [address] [place] [address] Social History Tobacco Use Types Packs/Day Years [...] on filedocumented in this encounter Care Teams Trouble Shooting Mechanic Relationship Specialty Start Date End Date Charity Willingham MD [address] [place] [address] PCP - General Internal Medicine 09/05/23 documented as of this encounter Additional Source Comments The information contained in this document represents components of the legal health record. It is not the complete legal health record.[facility]
--- OUTSIDE RECORDS SUMMARY | 2025-07-23 17:39 | XMS_ITS | Encounter Summary ---
Demographics Address [address] [place] [place] [address] Home Phone Preferred Language Polish Marital Status Unknown Restorationist Affiliation Unknown Race Unknown Ethnic Group Unknown Author Organization [facility] Address [address] [place], [place] [phone] Phone Care Team Providers Care Surg Rn Name Role Phone Miriam Unger MD Primary Care Provider Unavailabl e Encounter Details Date Type Department Care Team (Late st Contact Info) Description 12/31/2013 Documentation [facility] Family Medicine [address] [place] [address] Family Medicine, Physician [address] [place] [address] Social History Tobacco Use Types Packs/Day Years [...] on filedocumented in this encounter Care Teams Surg Rn Relationship Specialty Start Date End Date Miriam Unger MD PCP - General 04/20/17 documented as of this encounter
--- OUTSIDE RECORDS SUMMARY | 2025-07-23 17:39 | XMS_ITS | Encounter Summary ---
Demographics Address [address] [place] [address] Home Phone Preferred Language Indonesian Marital Status Unknown Druze Affiliation Unknown Race Unknown Ethnic Group Unknown Author Organization [facility] Address [address] [place], [place] [address] Phone Care Team Providers Care Radio Interference Investigator Name Role Phone Miriam Unger MD Primary Care Provider Unavailabl e Encounter Details Date Type Department Care Team (Late st Contact Info) Description 07/05/2011 Documentation [facility] Family [facility] [address] [place] [address] Family Medicine, Physician [address] [place] [address] Social History Tobacco Use Types Packs/Day Years [...] on filedocumented in this encounter Care Teams Radio Interference Investigator Relationship Specialty Start Date End Date Miriam Unger MD PCP - General 04/20/17 documented as of this encounter
== END 2025-07-23 15:37 | disposition home or self-care (01) ==
LOC: HO.ENCR 14:13
PROVIDERS: PCP Internal Medicine; Visit Provider Registered Nurse Diabetes Educator
DX: E10.9 Type 1 diabetes mellitus without complications (principal)

== ENCOUNTER → 2025-07-23 14:13 | Outpatient (BNVA) | payer OTHER, SELFPAY | PROVIDERS: PCP Internal Medicine; Visit Provider Registered Nurse Diabetes Educator | DX: E10.9 Type 1 diabetes mellitus without complications (principal); Z96.41 Presence of insulin pump (external) (internal); Z46.81 Encounter for fitting and adjustment of insulin pump | CPT/HCPCS: 99211 ==

== ENCOUNTER 2025-08-03 15:06 | Outpatient (AMB) | payer OTHER, SELFPAY ==
--- NOTE | 2025-08-03 15:18 | MHC.AMDMED ---
Intake Intake Visit Reasons: 30 mins Allergies Iodinated Contrast Media (IV CONTRAST) Allergy (Intermediate, Verified 06/04/25 12:27) HIVES empagliflozin Adverse Reaction (Intermediate, Verified 06/04/25 12:27) LIGHT HEADED insulin degludec (From Tresiba FlexTouch U-100) Adverse Reaction (Intermediate, Verified 06/04/25 12:27) felt poorly HPI Comprehensive Diabetes Asmnt Most Recent Diabetes Results: Cholesterol, (<200) 127 mg/dL 06/04/25 HDL Cholesterol, (>40) 35 mg/dL L 06/04/25 Triglycerides, (<150) 104 mg/dL 06/04/25 [facility] Medical History (Updated 06/04/25 @ 12:34 by Foster Arguello MD) Abnormal uterine bleeding Diabetes mellitus Insulin dependent type 2 diabetes mellitus Type 1 diabetes mellitus Low vitamin D level Goiter Goiter Hypertension History of blood transfusion Pre-op evaluation Well woman exam COVID-19 Vitamin B12 deficiency Vitamin D deficiency Vitamin A deficiency Binge eating disorder Anxiety GERD (gastroesophageal reflux disease) Morbid obesity Transaminitis Macromastia Secondary hyperparathyroidism Vitamin D deficiency HLD (hyperlipidemia) HTN (hypertension) Surgical History Hx of gastric bypass Presence of pancreatic duct stent Hx of cholecystectomy Family History Father Hypertension High cholesterol Mother Hypertension Diabetes High cholesterol Brother No problems noted. Brother No problems noted. Son No problems noted. Daughter No problems noted. 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 manager care to a significant other at home: Yes (2 children) Do you presently have visiting nurse or other home services: No Alcohol intake: never Patient Tobacco Use Status: Never used Tobacco e-Cigarette/Vaping Use: Never Used Second Hand Smoke Exposure: No service: No Current occupational status: unemployed Cognitive needs: No Hearing needs: No Vision needs: Yes Female Reproductive History Menstrual Age of Menarche: 10 Assessment & Plan Assessment & Plan (1) Type 1 diabetes mellitus: Code(s): E10.9 - Type 1 diabetes mellitus without complications Plan: Patient presents for pump training for Omnipod 5 pump and Dexcom G7 CGM training today. The following topics were reviewed today: -how to treat hypoglycemia with rule of 15s -importance of accurately estimating carbohydrates for optimal glucose control Although patient is having some postprandial hyperglycemia patient reports she has been under estimating amount of carbohydrates at meals. Patient has not had difficulty changing pods Reviewed pod placement Patient has stayed in auto mode 100% of the time with an average total daily dose of 64 units daily Encourage patient to enter the correct amount of carbohydrates into insulin pump, for the best evaluation of insulin to carb ratio. If patient is having increased episodes of hypoglycemia after entering correct amount of carbohydrate contact lunch truck operator for adjustment to insulin pump settings Troubleshooting after starting new pod or inserting new insulin set: Occlusion, adhesive tape sensitivity, redness Check BG 2 hours after site change Safety information: Importance of a backup plan, for manual injections, proper prescriptions and emergency supplies ketone strips, and rules for testing for ketones Patient was able to insert insulin set today without difficulty. Patient understands the basic concepts of pump therapy, how to give insulin for meals and snacks, how to troubleshoot for hyper and hypoglycemia. Setting verified by [facility] Basal rate(s) (units/hour) : 12 AM? to 12 AM 1.0 units / hr Bolus setting Insulin Carbohydrate Ratio (s) 12 AM? to 12 AM? 1:10 Correction Factor / Sensitivity Factor 12 AM? to 12 AM? 1:33 Active Insulin Time:? 3 hours Target(s): 12 AM? to 12 AM? 110 mg/dL Correction threshold: 12 AM? to 12 AM? 120 mg/dL Patient will follow up with [facility] as instructed Patient will contact [facility] with questions or concerns, patient given IT number to support in any technical issues related to insulin pump Coding Level of Care Code Est Pt Level 1 (52317) Diagnoses Type 1 diabetes mellitus E10.9
--- OUTSIDE RECORDS SUMMARY | 2025-08-03 19:52 | XMS_ITS | Encounter Summary ---
Demographics Address [address] [place] [address] Home Phone Preferred Language Croatian Marital Status Unknown Voodoo Affiliation Unknown Race Unknown Ethnic Group Unknown Author Organization [facility] Address [address] [place], [place] [phone] Phone Care Team Providers Care Mechanical Process Engineer Name Role Phone Miriam Unger MD Primary Care Provider Unavailabl e Encounter Details Date Type Department Care Team (Late st Contact Info) Description 07/11/2013 Documentation EM Family Medicine [address] [place] [address] Family Medicine, Physician [address] [place] [address] Social History Tobacco Use Types Packs/Day Years [...] on filedocumented in this encounter Care Teams Mechanical Process Engineer Relationship Specialty Start Date End Date Miriam Unger MD PCP - General 04/20/17 documented as of this encounter
--- OUTSIDE RECORDS SUMMARY | 2025-08-03 19:52 | XMS_ITS | Encounter Summary ---
Demographics Address [address] [place] [address] Home Phone Preferred Language Tamazight Marital Status Unknown Congregation Affiliation Unknown Race Unknown Ethnic Group Unknown Author Organization [facility] Address [address] [place], [place] [phone] Phone Care Team Providers Care Playground Worker Name Role Phone Miriam Unger MD Primary Care Provider Unavailabl e Encounter Details Date Type Department Care Team (Late st Contact Info) Description 11/22/2011 Documentation EM Family Medicine [address] [place] [address] Family Medicine, Physician [address] [place] [address] Social History Tobacco Use Types Packs/Day Years [...] on filedocumented in this encounter Care Teams Playground Worker Relationship Specialty Start Date End Date Miriam Unger MD PCP - General 04/20/17 documented as of this encounter
--- OUTSIDE RECORDS SUMMARY | 2025-08-03 19:52 | XMS_ITS | Clinical Summary ---
Author Organization [facility] Address [address] [place] [address] Phone Care Team Providers Care Diamond Blender Name Role Phone Charity Willingham MD Primary [...] is a blood test done randomly at [place] that was low 200s, and advised that [...] Pap Test (10/17/2023 12:00 AM EST) Report [address] [address] Histopathologist: Kaylee Srinivasan MD INDUCTION COORDINATION ENGINEER Cytology Report FINAL DIAGNOSIS A. PAP SMEAR [...] : 1995 (Age: 28) Sex: F Institution: [facility] Location: [facility] Date of Collection: 10/17/2023 Date of Reported: 10/23/2023 09:55 Results to: Josee Franks MD [facility] Final Diagnosis A. PAP SMEAR (SUREPATH) CE: SPECIMEN ADEQUACY: Satisfactory for evaluation; transformation zone absent/insufficien t. INTERPRETATION: NEGATIVE FOR INTRAEPITHELIAL LESION OR MALIGNANCY. Fungal organisms morphologically consistent with Eva species. [facility] Conversion Type (Conversion Source) 10/17/2023 10/18/2023 10:00 AM EST us Josee Franks MD CYTOLOGY ORDERABLES Edited Resul t - Final Performing Organization Address [facility] Co de Phone Number [address] [address] * (ABNORMAL) Hemoglobin A1c (09/28/2023 11:47 AM EST) HEMOGLOBIN A1C 7.4(H) 4.3 - 5.8 % [facility] Blood 09/28/2023 11:4 7 AM EST 09/28/2023 11:51 AM EST us Josee Franks MD LAB BLOOD BKR ORDERABLES Final R esult Performing Organization Address City/[facility]/ZIP Co de Phone Number [address] [phone] from Last 3 Months or Most Recently Relevant to Health Maintenance Insurance [facility] [place] [address] [place] [address] ACO [facility] Care Teams Diamond Blender Relationship Specialty Start Date End Date Charity Willingham MD [address] [place] [address] PCP - General Internal Medicine 09/05/23 Additional Source Comments The information contained in this document represents components of the legal health record. It is not the complete legal health record.[facility]
--- OUTSIDE RECORDS SUMMARY | 2025-08-03 19:52 | XMS_ITS | Encounter Summary ---
Demographics Address [address] [facility] [place] [address] Home Phone Preferred Language Lithuanian Marital Status Unknown Gnosticism Affiliation Unknown Race Unknown Ethnic Group Unknown Author Organization [facility] Address [address] [place], [place] [phone] Phone Care Team Providers Care Bricklayer Sewer Name Role Phone Miriam Unger MD Primary Care Provider Unavailabl e Encounter Details Date Type Department Care Team (Late st Contact Info) Description 07/11/2013 Documentation EM Family Medicine [address] [place] [address] Family Medicine, Physician [address] [place] [address] Social History Tobacco Use Types Packs/Day Years [...] on filedocumented in this encounter Care Teams Bricklayer Sewer Relationship Specialty Start Date End Date Miriam Unger MD PCP - General 04/20/17 documented as of this encounter
--- OUTSIDE RECORDS SUMMARY | 2025-08-03 19:52 | XMS_ITS | Encounter Summary ---
Demographics Address [address] [place] [address] Home Phone Preferred Language Macedonian Marital Status Unknown Anabaptist Affiliation Unknown Race Unknown Ethnic Group Unknown Author Organization [facility] Address [address] [place], [place] [phone] Phone Care Team Providers Care Heel Slugger Name Role Phone Miriam Unger MD Primary Care Provider Unavailabl e Encounter Details Date Type Department Care Team (Late st Contact Info) Description 04/24/2016 Documentation EM Family Medicine [address] [place] [address] Family Medicine, Physician [address] [place] [address] Social History Tobacco Use Types Packs/Day Years [...] on filedocumented in this encounter Care Teams Heel Slugger Relationship Specialty Start Date End Date Miriam Unger MD PCP - General 04/20/17 documented as of this encounter
--- OUTSIDE RECORDS SUMMARY | 2025-08-03 19:52 | XMS_ITS | Clinical Summary ---
Demographics Address [address] [place] [address] Home Phone Mobile Phone Home Phone Preferred Language en Marital Status Single Cheondoism Affiliation Unknown Race Unknown Ethnic Group or Author Organization [facility] Address [address] [place] [address] Care Team Providers Care Desktop Analyst Name Role Phone Unavailable Primary Care Provider [...]
--- OUTSIDE RECORDS SUMMARY | 2025-08-03 19:52 | XMS_ITS | Encounter Summary ---
Demographics Address [address] [place] [address] Home Phone Preferred Language Romansh Marital Status Unknown Hinduism Affiliation Unknown Race Unknown Ethnic Group Unknown Author Organization [facility] Address [address] [place], [place] [address] Phone Care Team Providers Care Mandrel Puller Name Role Phone Miriam Unger MD Primary Care Provider Unavailabl e Encounter Details Date Type Department Care Team (Late st Contact Info) Description 03/23/2016 Documentation EM Family Medicine [address] [place] [address] Family Medicine, Physician [address] [place] [address] Social History Tobacco Use Types Packs/Day Years [...] on filedocumented in this encounter Care Teams Mandrel Puller Relationship Specialty Start Date End Date Miriam Unger MD PCP - General 04/20/17 documented as of this encounter
--- OUTSIDE RECORDS SUMMARY | 2025-08-03 19:52 | XMS_ITS | Encounter Summary ---
Demographics Address [address] [place] [address] Home Phone Preferred Language Azeri Marital Status Unknown Restoration Affiliation Unknown Race Unknown Ethnic Group Unknown Author Organization [facility] Address [address] [place], [place] [address] Phone Care Team Providers Care Change Management Consultant Name Role Phone Miriam Unger MD Primary Care Provider Unavailabl e Encounter Details Date Type Department Care Team (Late st Contact Info) Description 12/31/2013 Documentation [facility] Family Medicine [address] [place] [address] Family Medicine, Physician [address] [place] [address] Social History Tobacco Use Types Packs/Day Years [...] on filedocumented in this encounter Care Teams Change Management Consultant Relationship Specialty Start Date End Date Miriam Unger MD PCP - General 04/20/17 documented as of this encounter
--- OUTSIDE RECORDS SUMMARY | 2025-08-03 19:52 | XMS_ITS | Encounter Summary ---
Demographics Address [address] [place] [address] Home Phone Preferred Language Croatian Marital Status Unknown Rastafari Affiliation Unknown Race Unknown Ethnic Group Unknown Author Organization [facility] Address [address] [place], [place] [phone] Phone Care Team Providers Care Gas Regulator Repairer Helper Name Role Phone Miriam Unger MD Primary Care Provider Unavailabl e Encounter Details Date Type Department Care Team (Late st Contact Info) Description 04/26/2017 Conversion Encounter [facility] - [address] [address] Social History Tobacco Use Types Packs/Day Years [...] on filedocumented in this encounter Care Teams Gas Regulator Repairer Helper Relationship Specialty Start Date End Date Miriam Unger MD PCP - General 04/20/17 documented as of this encounter
--- OUTSIDE RECORDS SUMMARY | 2025-08-03 19:52 | XMS_ITS | Encounter Summary ---
Demographics Address [address] [facility] [place] [address] Home Phone Preferred Language Luxembourgish Marital Status Unknown Orthodox Affiliation Unknown Race Unknown Ethnic Group Unknown Author Organization [facility] Address [address] [place], [place] [address] Phone Care Team Providers Care Display And Banner Designer Name Role Phone Miriam Unger MD Primary Care Provider Unavailabl e Encounter Details Date Type Department Care Team (Late st Contact Info) Description 07/05/2011 Documentation [facility] Family [facility] [address] [place] [address] Family Medicine, Physician [address] [place] [address] Social History Tobacco Use Types Packs/Day Years [...] on filedocumented in this encounter Care Teams Display And Banner Designer Relationship Specialty Start Date End Date Miriam Unger MD PCP - General 04/20/17 documented as of this encounter
--- OUTSIDE RECORDS SUMMARY | 2025-08-03 19:52 | XMS_ITS | Encounter Summary ---
Demographics Address [address] [facility] [place] [address] Home Phone Preferred Language Wolof Marital Status Unknown Mandaeism Affiliation Unknown Race Unknown Ethnic Group Unknown Author Organization [facility] Address [address] [place], [place] [address] Phone Care Team Providers Care Retail Loan Originator Assistant Name Role Phone Miriam Unger MD Primary Care Provider Unavailabl e Encounter Details Date Type Department Care Team (Late st Contact Info) Description 06/28/2015 Documentation EM Family Medicine [address] [place] [address] Family Medicine, Physician [address] [place] [address] Social History Tobacco Use Types Packs/Day Years [...] on filedocumented in this encounter Care Teams Retail Loan Originator Assistant Relationship Specialty Start Date End Date Miriam Unger MD PCP - General 04/20/17 documented as of this encounter
--- OUTSIDE RECORDS SUMMARY | 2025-08-03 19:52 | XMS_ITS | Clinical Summary ---
Demographics Address [address] [place] [address] Home Phone Preferred Language Angolan Marital Status Unknown Roman Catholic Affiliation Unknown Race Unknown Ethnic Group Unknown Author Organization [facility] Address [address] [place] [address] Phone Care Team Providers Care Application Coordinator Name Role Phone Miriam Unger MD Primary [...] of Strabismus, No family history of *Sudden /[place] under 55, No family history of Seizure [...] complete this topic Procedures * Due to [facility] law, this organization might not be sharing sensitive test results. Procedure Name Priority Date/Time Associated Diagnosis Comments CHLAMYDIA AND GONORRHEA, AMPLIFIED Routine 02/04/2015 1:03 PM EDT from Last 3 Months or Most Recently Relevant to Health Maintenance Results * Due to [place] law, this organization might not be sharing sensitive test results. * Chlamydia and Gonorrhoea, Amplified (02/04/2015 1:03 PM EDT) Pathologist [facility] URINE GC AMP PROBE NEGATIVE F [facility] Comment: No Neisseria Gonorrhoeae RNA detected in this patient's sample (REFERENCE RANGE/NORMAL VALUE: NOT DETECTED) NOTE: This test uses case folder-mediated amplification method to detect rRNA from C.Trachomatis [...] without risk of sexual abuse. Consult the [facility] if needed. Contact phone number . Therapeutic failure or success cannot be determined with the Aptima Combo2 assay since nucleic acid may persist following appropriate antimicrobial therapy. The Centers for Disease Control and Prevention (CDC) recommends confirmatory retesting using culture or a different nucleic acid amplification test when positive results occur, if indicated. Testing performed or reported by [facility], a Service of [facility], [address] [place] [id number] Jorodn Briones MD, PhD, Grinding Wheel Facer URINE CHLAMYDIA AMP PROBE POSITIVE [facility] Comment: Chlamydia Trachomatis RNA detected in this patient's sample (REFERENCE RANGE/NORMAL VALUE: NOT DETECTED) . PURSUANT TO [id number], THESE CLINICAL LABORATORY RESULTS HAVE BEEN REPORTED TO THE [place] DEPARTMENT OF PUBLIC HEALTH. PLEASE BE AWARE THAT HEALTHCARE PROVIDERS HAVE ADDITIONAL PUBLIC HEALTH REPORTING REQUIREMENTS. 02/04/2015 1:03 PM EDT Narrative [facility] - 02/04/2015 1:03 PM EDT URINE CHLAMYDIA GC AMP PROBE us Sravanthi Mariscal NP LAB MICROBIOLOGY - GENERAL ORDER JANEL Final Result [facility] [address] [place] [address], from Last 3 Months or Most Recently Relevant to Health Maintenance Care Teams Application Coordinator Relationship Specialty Start Date End Date Miriam Unegr MD PCP - General 04/20/17
--- OUTSIDE RECORDS SUMMARY | 2025-08-03 19:52 | XMS_ITS | Encounter Summary ---
Demographics Address [address] [place] [address] Home Phone Preferred Language Luxembourgish Marital Status Unknown Worship Affiliation Unknown Race Unknown Ethnic Group Unknown Author Organization [facility] Address [address] [place], [place] [id number] Phone Care Team Providers Care Traffic Enumerator Name Role Phone Miriam Unger MD Primary Care Provider Unavailabl e Encounter Details Date Type Department Care Team (Late st Contact Info) Description 03/27/2016 Documentation EM Family Medicine [address] [place] [address] Family Medicine, Physician [address] [place] [address] Social History Tobacco Use Types Packs/Day Years [...] on filedocumented in this encounter Care Teams Traffic Enumerator Relationship Specialty Start Date End Date Miriam Unger MD PCP - General 04/20/17 documented as of this encounter
--- OUTSIDE RECORDS SUMMARY | 2025-08-03 19:52 | XMS_ITS | Encounter Summary ---
Author Organization [facility] Address [address] [place] [address] Phone Care Team Providers Care Acetylene Torch Burner Name Role Phone Charity Willingham MD Primary Care Provid er Encounter Details Date Type Department Care Team (Late st Contact Info) Description 11/26/2023 Transcribe Orders [facility] Specimen Processing [address] [place] [address] Charity Willingham MD [address] [place] [address] Social History Tobacco Use Types Packs/Day Years [...] on filedocumented in this encounter Care Teams Acetylene Torch Burner Relationship Specialty Start Date End Date Charity Willingham MD [address] [place] [address] PCP - General Internal Medicine 09/05/23 documented as of this encounter Additional Source Comments The information contained in this document represents components of the legal health record. It is not the complete legal health record.[facility]
--- OUTSIDE RECORDS SUMMARY | 2025-08-03 19:52 | XMS_ITS | Encounter Summary ---
Demographics Address [address] [place] [address] Home Phone Preferred Language Maori Marital Status Unknown Gnosticism Affiliation Unknown Race Unknown Ethnic Group Unknown Author Organization [facility] Address [address] [place] [address] Phone Care Team Providers Care Scada Engineer Name Role Phone Miriam Unger MD Primary Care Provider Unavailabl e Encounter Details Date Type Department Care Team (Late st Contact Info) Description 06/17/2013 Conversion Encounter [facility] [place] [address] [place] [address] Tigre Mckeon MD [address] [place] [address] Social History Tobacco Use Types Packs/Day Years [...] on filedocumented in this encounter Care Teams Scada Engineer Relationship Specialty Start Date End Date Miriam Unger MD PCP - General 04/20/17 documented as of this encounter
--- OUTSIDE RECORDS SUMMARY | 2025-08-03 19:52 | XMS_ITS | Encounter Summary ---
Demographics Address [address] [place] [address] Home Phone Preferred Language Korean Marital Status Unknown Jainism Affiliation Unknown Race Unknown Ethnic Group Unknown Author Organization [facility] Address [address] [place], [place] [phone] Phone Care Team Providers Care Research Statistician Name Role Phone Miriam Unger MD Primary Care Provider Unavailabl e Encounter Details Date Type Department Care Team (Late st Contact Info) Description 09/22/2013 Documentation [facility] [address] [place] [address] Family Medicine, Physician [address] [place] [address] Social History Tobacco Use Types Packs/Day Years [...] on filedocumented in this encounter Care Teams Research Statistician Relationship Specialty Start Date End Date Miriam Unger MD PCP - General 04/20/17 documented as of this encounter
--- OUTSIDE RECORDS SUMMARY | 2025-08-03 19:52 | XMS_ITS | Encounter Summary ---
Demographics Address [address] [place] [address] Home Phone Preferred Language Georgian Marital Status Unknown Religion Affiliation Unknown Race Unknown Ethnic Group Unknown Author Organization [facility] Address [address] [place], [place] [address] Phone Care Team Providers Care Coding Team Lead Name Role Phone Miriam Unger MD Primary Care Provider Unavailabl e Encounter Details Date Type Department Care Team (Late st Contact Info) Description 12/17/2009 Documentation [facility] [address] [place] [address] Family Medicine, Physician [address] [place] [address] Social History Tobacco Use Types Packs/Day Years [...] on filedocumented in this encounter Care Teams Coding Team Lead Relationship Specialty Start Date End Date Miriam Unger MD PCP - General 04/20/17 documented as of this encounter
== END 2025-08-03 15:27 | disposition home or self-care (01) ==
LOC: HO.ENCR 15:07
PROVIDERS: PCP Internal Medicine; Visit Provider Registered Nurse Diabetes Educator
DX: E10.9 Type 1 diabetes mellitus without complications (principal)

== ENCOUNTER → 2025-08-03 15:06 | Outpatient (BNVA) | payer OTHER, SELFPAY | PROVIDERS: PCP Internal Medicine; Visit Provider Registered Nurse Diabetes Educator | DX: E10.9 Type 1 diabetes mellitus without complications (principal) | CPT/HCPCS: 99211 ==

== ENCOUNTER 2025-08-18 14:50 | Outpatient (AMB) | payer OTHER, SELFPAY ==
--- OUTSIDE RECORDS SUMMARY | 2025-08-13 23:59 | XMS_ITS | Continuity of Care Document ---
Author Organization [facility] As [facility] Address [address] [place] [address] [address] [place] [address]- Care Team Providers Care Motorcycle Fabricator Name Role Phone Efra Juárez MD, Khadijah Primary Care Physician Encounter [facility] [place] Date(s): 05/28/25 - 08/13/[address] [place] [address]- Encounter Diagnosis Weight gain(Discharge Diagnosis) - 07/09/25 Attending Physician: Katerina Masters MD Encounter Type: Pre Office Visit Allergies, Adverse Reactions, Alerts Substance Criticality Severity Reaction Reaction Severity Status Contrast Dye Hives Active Immunizations Given and Recorded Vaccine Date Status Refusal Reason influenza virus vaccine, inactivated 1 06/19/17 Gi patrice tetanus/diphtheria/pertussis, acel(Tdap) 05/29/17 Given 1Result Comment: [06/19/2017] [id number] Medications Freestyle Lite Lancets See Instructions, # 250 each, Refills 6, Tot. Refills 6, Maintenance, test blood sugar 7x/day during and as needed for low blood sugar, 01/09/17 4:58:48 PM EDT, Compound Start Date: 01/09/17 Status: Ordered Medication Dispense Status: Completed Quantity: 250.0 Unit: each Total Allowed Fills: 7 Fills Dispensed: 0 Freestyle Lite Test Strips See Instructions, # 250 each, Refills 6, Tot. Refills 6, Maintenance, test blood sugar 7x/day during and as needed for low blood sugar, 01/09/17 4:57:40 PM EDT, Compound Start Date: 01/09/17 Status: Ordered Medication Dispense Status: Completed Quantity: 250.0 Unit: each Total Allowed Fills: 7 Fills Dispensed: 0 Humalog Kwik Pen 100 units/mL subcutaneous injection 8-13units, Subcutaneous Infusion, 3 times a day with meals, Please keep 08/12/18 appt or call your PCP for refills, no refills until seen, # 15 mL, 3 Refills, Maintenance, 05/01/18 1:44:28 PM EDT, [facility]/pharmacy #[id number] Start Date: 05/01/18 Status: Ordered Medication Dispense Status: Completed Quantity: 15.0 Unit: mL Total Allowed Fills: 4 Fills Dispensed: 0 Insulin Syringe, BD Ultra-Fine 0.3 cc 31 G x 8 mm (5/16in) See Instructions, # 50 each, Refills 3, Tot. Refills 3, Maintenance, use to inject Lantus 1x daily,Please keep 08/12/18 appt or call your PCP for refills, no refills until seen in the office, 05/01/18 1:47:23 PM EDT, please d/c previous syringe Rx, Compound Start Date: 05/01/18 Status: Ordered Medication Dispense Status: Completed Quantity: 50.0 Unit: each Total Allowed Fills: 4 Fills Dispensed: 0 Lantus 100 u/ml subcutaneous solution See Instructions, Subcutaneous Injection, Lantus 40 units at hs, # 2 vials, 5 Refills, Maintenance,01/03/17 3:44:25 PM EDT Start Date: 01/03/17 Stop Date: 02/02/17 Status: Ordered Medication Dispense Status: Completed Quantity: 2.0 Unit: vials Total Allowed Fills: 1 Fills Dispensed: 0 Pen [place], 31 G x 5 mm BD Ultra Fine III See Instructions, # 200 each, Refills 11, Tot. Refills 11, Maintenance, use to inject insulin upto 4 times per day for DM-2, 01/25/18 8:14:17 PM EDT, Compound Start Date: 01/25/18 Status: Ordered Medication Dispense Status: Completed Quantity: 200.0 Unit: each Total Allowed Fills: 12 Fills Dispensed: 0 Multivitamins with Vitamin B Complex, Vitamin C, Minerals and L- Methylfolate oral capsule 1 capsule, By Mouth, Daily, May substitute for vitamin on formulary, # 30 capsule, 0 Refills, Maintenance, 07/17/17 9:12:14 AM EST, Capsule, [facility] 3, 1 capsule By Mouth Daily,Instr:May substitute for vitamin on formulary Start Date: 07/17/17 Status: Ordered Medication Dispense Status: Completed Quantity: 30.0 Unit: capsule Total Allowed Fills: 1 Fills Dispensed: 0 Provera 10 mg oral tablet 10 mg, 1, tablet, By Mouth, Daily, Take 1st 10 days of the month every other month Get labs on 3rd day of bleeding, # 10 tablet, Refills 5, Tot. Refills 5, Maintenance, 11/25/20 1:27:00 PM EDT, Route to Pharmacy Electronically, [facility]/pharmacy #[id number], Partial fill upon patient request if the prescription is for a schedule II opioid drug., 158, cm, 08/27/20 16:25:00 EST, Height Start Date: 11/25/20 Stop Date: 01/24/21 Status: Ordered Medication Dispense Status: Completed Quantity: 10.0 Unit: tablet Total Allowed Fills: 6 Fills Dispensed: 0 Problem List Condition Confirmation Course Effective Dates Status Health St atus Informant Abnormal uterine bleeding Confirmed Active DM type II on insulin Confirmed Active Hx of pancreatitis Confirmed Active Genital HSV Confirmed Active Secondary female infertility Confirmed Active Severe obesity Confirmed Active History of splenic vein thrombosis Confirmed Active Type 2 diabetes mellitus Confirmed Active Diagnosis Diagnosis Type Effective Dates Health Status Clini bob Service Informant Weight gain Discharge Diagnosis 07/09/25 Social History Social History Type Response Smoking Status Never (less than 100 in lifetime) entered on: 10/16/24 Sex Sex Representation Female (finding) Patient Care team information Care Team Personnel Name: Kaylee Long RN Position: [facility] OB RN Member Role: Primary Care Nurse Name: Patria Colvin Position: [facility] Outreach Member Role: Primary Care Nurse Name: Efra Juárez MD , Charity Aguillon Position: Reference Physician Member Role: PCP Address: [address] [place] [address] [address] [place] [address] Telecom: Care Team Related Persons Name: MITCH ALEXANDRE Name: ROXANN ALEXANDRE Name: ROXANN ALEXANDRE Name: KYLEIGH HUANG Name: INDY HUERTAS Insurance Providers Guarantor name: RASHEL [facility] Information #: 1 Payer: [employer] Payer Identifier: MELLY Member Number: [id number] Group Number: [id number] Subscriber Identifier: [id number] Relationship to Subscriber: self Coverage Type: NA Coverage Verification Date: NA Telecom: Address:
--- OUTSIDE RECORDS SUMMARY | 2025-08-13 23:59 | XMS_ITS | Continuity of Care Document ---
Author Organization [facility] Address [address] [place] [address] [address] [place] [address] Care Team Providers Care Avionics Systems Repairer Name Role Phone Efra Juárez MD, Khadijah Primary Care Physician Encounter [facility] Date(s): 07/14/25 - 08/13/[address] [place], [place] [address] Attending Physician: Chelle Fernández Admitting Physician: AdmtrChelle Referring Physician: Admtr ArPretty Encounter Type: Triage Allergies, Adverse Reactions, Alerts Substance Criticality Severity Reaction Reaction Severity Status Contrast Dye Hives Active Immunizations Given and Recorded Vaccine Date Status Refusal Reason influenza virus vaccine, inactivated 1 06/19/17 Gi patrice tetanus/diphtheria/pertussis, acel(Tdap) 05/29/17 Given 1Result Comment: [06/19/2017] [id number] Medications Freestyle Lite Lancets See Instructions, # [...] 3 Refills, Maintenance, 05/01/18 1:44:28 PM EDT, [facility]/pharmacy #[id number] Start Date: 05/01/18 Status: Ordered Medication [...] Allowed Fills: 1 Fills Dispensed: 0 Pen [place], 31 G x 5 mm BD Ultra [...] Refills, Maintenance, 07/17/17 9:12:14 AM EST, Capsule, [facility] 3, 1 capsule By Mouth Daily,Instr:May [...] 1:27:00 PM EDT, Route to Pharmacy Electronically, [facility]/pharmacy #[id number], Partial fill upon patient request if the [...] Active Type 2 diabetes mellitus Confirmed Active Social History Social History Type Response Smoking Status Never (less than 100 in lifetime) entered on: 10/16/24 Sex Sex Representation Female (finding) Patient Care team information Care Team Personnel Name: Kaylee Long RN Position: [facility] OB RN Member Role: Primary Care Nurse Name: Patria Colvin Position: S Outreach Member Role: Primary Care Nurse Name: Efra Juárez MD , Charity Aguillon Position: Reference Physician Member Role: PCP Address: [address] [place] [address] [address] [place] [address]- Telecom: Care Team Related Persons Name: MITCH ALEXANDRE Name: ROXANN ALEXANDRE Name: ROXANN ALEXANDRE Name: KYLEIGH HUANG Name: INDY HUERTAS Insurance Providers Guarantor name: RASHEL [facility] Plan Information #: 1 Payer: [employer] Payer Identifier: MELLY Member Number: [id number] Group Number: [id number] Subscriber Identifier: MELLY Relationship to Subscriber: self Coverage Type: NA Coverage Verification Date: NA Telecom: Address:
--- NOTE | 2025-08-18 14:52 | A.OFFVIS_ITS ---
Vital Signs 08/18/25 14:55 Height 5 ft 2 in Weight 255 lb 1.197 oz BMI 46.6 BP 128/84 Blood Pressure Location Rt brachial Position Sitting Intake Visit Reasons: T1DM Intake Note: Patient present today for Type 1 Diabetes Mellitus Last Diabetic eye exam: 10/2024 Last Podiatry Visit: Doesn't have one Random Glucose: 134 mg/dl HgA1C: 8.2% 08/18/2025 Paid Search Marketing Analyst Required: No Accompanied by: Self / Same As Patient Allergies Iodinated Contrast Media (IV CONTRAST) Allergy (Intermediate, Verified 08/18/25 14:55) HIVES empagliflozin Adverse Reaction (Intermediate, Verified 08/18/25 14:55) LIGHT HEADED insulin degludec (From Tresiba FlexTouch U-100) Adverse Reaction (Intermediate, Verified 08/18/25 14:55) felt poorly Medication List - Last Reconciled 08/18/25 by Bert Fernandez MD alprazolam 0.5 mg PO DAILY PRN 2 days blood pressure monitor As directed blood sugar diagnostic (FreeStyle Lite Strips) USE DIRECTED 3x DAILY blood-glucose meter (FreeStyle Lite Meter kit) as directed blood-glucose sensor (Equivalent DATA G7 Sensor device) As directed change every 10 days bolus insulin pump, 200 unit (CeQur Simplicity) For continuous use with insulin change every 4 day bupropion HCl XL 300 mg PO QAM 90 days CeQur Simplicity Video Games Storywriter (diabetic supplies, [employer].) As directed every 4 days NS cetirizine (Allergy Relief (cetirizine)) 10 mg PO DAILY PRN 30 days cholecalciferol (vitamin D3) 50 mcg PO DAILY 90 days flash glucose scanning reader (FreeStyle Edson 2 [place]) As directed fluticasone propionate 50 mcg/actuation 1 spray intranasal Q12H glucagon 3 mg/actuation (Baqsimi) 3 mg intranasal ONCE hydroxyzine HCl 25 mg PO TID PRN 30 days insulin glargine (Lantus Solostar U-100 Insulin) 45 units (0.45 mL) subcut QPM 30 days insulin lispro (Humalog U-100 Insulin) Infuse up to 75 units per day via insulin pump subcutaneously use as directed; 30 days insulin lispro 1 sliding scale dose subcut TIDWMEAL 30 days MDD 24 NS insulin kettle tender cart,aut,G6/7,cntr (Omnipod 5 G6-G7 Intro Kit(Gen 5) subcutaneous cartridge and controller) Vila shots every 48-72 hours insulin pump cart,auto,BT,G6/7 (Omnipod 5 G6-G7 Pods (Gen 5) subcutaneous cartridge) Change pod every 48-72 hours insulin syringe-needle U-100 (Comfort EZ Insulin Syringe) To be used 4 times per day lancets (FreeStyle Lancets) 3 times daily lancing device As directed for use with free style lancets levonorgestrel (Mirena) 21 mcg intrauterine DIRECTED montelukast 10 mg PO BEDTIME 90 days pen needle, diabetic (BD Ultra-Fine Short Pen Needle) USE DIRECTED 4 TIMES A DAY HPI Comments Details: 29 YO Female who is seen in f/u for T1DM. 2023 low C-peptide 0.24, positive insulin auto antibodies, negative gada She is s/p bariatric surgery. She has a prior history of pancreatitis Had been on metformin in the past which was stopped and she does not remember the reason why. Failed trial of Jardiance 04/2024 due to side effects. Current regimen: Currently on Omnipod 5 pump with settings Basal rate(s) (units/hour) : 12 AM? to 12 AM 1.0 units / hr Bolus setting Insulin Carbohydrate Ratio (s) 12 AM? to 12 AM? 1:10 Correction Factor / Sensitivity Factor 12 AM? to 12 AM? 1:33 Active Insulin Time:? 3 hours Target(s): 12 AM? to 12 AM? 110 mg/dL Correction threshold: 12 AM? to 12 AM? 120 mg/dL She is using 79.4 units per day with 42% basal and 58% bolus. She has an automated mode 100% of the time. Total carbohydrates a 495.2. Sensor download shows average glucose to be 163 with 68% range, 31% hyperglycemia and 1% hypoglycemic. She is using the sensor 78.5% of the time. rare hypoglycemia Denies retinopathy: Has eyes checked yearly, last eye exam 10/2024 , scheduled for this October Denies neuropathy, last foot exam today in ENDO she does not see podiatry No nephropathy No recent lipid profile. [Denies] CAD. Diet: at times eats just once daily, very inconsistent with diet Weight:stable She denies numbness and tingling, cramping in legs. Denies cp Walks with her children but not daily [facility] screen Fibrosis-4 (Fib-4) Index for liver fibrosis (calculated on lab work done: 02/2024) [0.38 ] points Advanced fibrosis [n/a secondary to age ] Approximate Fibrosis stage Hansel [0-1 ] *Use with caution in patients <35 or >65 years old, as the score has been shown to be less reliable in these patients. Prior Imaging [] Action Plan: [] rescreen two years from date of screening labs[02/2026 ] Exercises on elliptical Hyperparathyroidism: She had lab evidence of secondary hyperparathyroidism. Has never had kidney stones. Has never broken a bone. No family history of nephrolithiasis. Labs revealed evidence of secondary hyperparathyroidism. Vitamin D has now been repleted since bariatric surgery and Calcium repeated has been normal. Recent vit d 20 PTH 79.3 PFSH Medical History Abnormal uterine bleeding Diabetes mellitus Insulin dependent type 2 diabetes mellitus Type 1 diabetes mellitus Low vitamin D level Goiter Goiter Hypertension History of blood transfusion Pre-op evaluation Well woman exam COVID-19 Vitamin B12 deficiency Vitamin D deficiency Vitamin A deficiency Binge eating disorder Anxiety GERD (gastroesophageal reflux disease) Morbid obesity Transaminitis Macromastia Secondary hyperparathyroidism Vitamin D deficiency HLD (hyperlipidemia) HTN (hypertension) Surgical History Hx of gastric bypass Presence of pancreatic duct stent Hx of cholecystectomy Family History Father Hypertension High cholesterol Mother Hypertension Diabetes High cholesterol Brother No problems noted. Brother No problems noted. Son No problems noted. Daughter No problems noted. 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 care specialist to a significant other at home: Yes (2 children) Do you presently have visiting nurse or other home services: No Alcohol intake: never Patient Tobacco Use Status: Never used Tobacco e-Cigarette/Vaping Use: Never Used Second Hand Smoke Exposure: No service: No Current occupational status: unemployed Cognitive needs: No Hearing needs: No Vision needs: Yes Female Reproductive History Menstrual Age of Menarche: 10 Physical Exam Vital Signs: Last Vital Signs BP 128/84 08/18/25 14:55 BMI result Body Mass Index 46.6 Const Other: Absence of Cushingoid features. Absence of acromegalic features. Neck exam reveals nl size thyroid about 15 gms. No thyroid nodules palpable. Heart S1 S2, Reg R/R. No M/R G. Skin exam reveals absence of vitiligo or acanthosis nigricans. Visual exam of foot performed. No ulcerations or open lesions. No inter digit maceration or fissuring. No onychomycosis, no callouses. Sensation intact to monofilament exam. Vibratory sensation is normal with 128 Hz tuning fork. Results AMB Hemoglobin A1c AMB Hemoglobin A1c 8.2 % Last Edit by SHAKIRA Tapia on 08/18/25 15:09 Results Reviewed Results Reviewed: Laboratory Last Values Glucose (Clinic) 134 mg/dL (60-115) H 08/18/25 14:59 Assessment & Plan Assessment & Plan (1) Type 1 diabetes mellitus: Code(s): E10.9 - Type 1 diabetes mellitus without complications Category: Medical Plan: This is a 29-year-old female with a history of type 1 diabetes being treated with Omnipod 5 pump with good improved glycemic control and no known m icrovascular or macrovascular complication The plan is to tighten the insulin: Carbohydrate to 1:9. We will have patient follow up with the certified adapted physical educator in next few weeks and with me in about 3 months Orders: Orders AMB Hemoglobin A1c Today E10.9 - Type 1 diabetes mellitus without complications Coding Level of Care Code Complex visit Add On G2211 Diagnoses Type 1 diabetes mellitus E10.9
[2025-08-18 14:55] VITALS: BP 128/84; BMI 46.6
[2025-08-18 15:03] LABS: Glucose, Whole Blood 134 mg/dL (60-115)
--- OUTSIDE RECORDS SUMMARY | 2025-08-18 20:59 | XMS_ITS | Encounter Summary ---
Demographics Address [address] [place] [address] Home Phone Preferred Language Pashto Marital Status Unknown Confucianism Affiliation Unknown Race Unknown Ethnic Group Unknown Author Organization [facility] Address [address] [place] [address] Phone Care Team Providers Care Turn Sewer Name Role Phone Miriam Unger MD Primary Care Provider Unavailabl e Encounter Details Date Type Department Care Team (Late st Contact Info) Description 06/17/2013 Conversion Encounter [facility] [address] [place] [address] Tigre Mckeon MD [address] [place] [address] Social History Tobacco Use Types Packs/Day Years [...] on filedocumented in this encounter Care Teams Turn Sewer Relationship Specialty Start Date End Date Miriam Unger MD PCP - General 04/20/17 documented as of this encounter
--- OUTSIDE RECORDS SUMMARY | 2025-08-18 20:59 | XMS_ITS | Encounter Summary ---
Demographics Address [address] [place] [address] Home Phone Preferred Language Bengali Marital Status Unknown Gnosticism Affiliation Unknown Race Unknown Ethnic Group Unknown Author Organization [facility] Address [address] [place], [place] [address] Phone Care Team Providers Care Piper Installer Name Role Phone Miriam Unger MD Primary Care Provider Unavailabl e Encounter Details Date Type Department Care Team (Late st Contact Info) Description 07/11/2013 Documentation EM Family Medicine [address] [place] [address] Family Medicine, Physician [address] [place] [address] Social History Tobacco Use Types Packs/Day Years [...] on filedocumented in this encounter Care Teams Piper Installer Relationship Specialty Start Date End Date Miriam Unger MD PCP - General 04/20/17 documented as of this encounter
--- OUTSIDE RECORDS SUMMARY | 2025-08-18 20:59 | XMS_ITS | Encounter Summary ---
Demographics Address [address] [facility] [place] [address] Home Phone Preferred Language Amharic Marital Status Unknown Hoahaoism Affiliation Unknown Race Unknown Ethnic Group Unknown Author Organization [facility] Address [address] [place], [place] [phone] Phone Care Team Providers Care Stucco Worker Name Role Phone Miriam Unger MD Primary Care Provider Unavailabl e Encounter Details Date Type Department Care Team (Late st Contact Info) Description 07/11/2013 Documentation EM Family Medicine [address] [place] [address] Family Medicine, Physician [address] [place] [address] Social History Tobacco Use Types Packs/Day Years [...] on filedocumented in this encounter Care Teams Stucco Worker Relationship Specialty Start Date End Date Miriam Unger MD PCP - General 04/20/17 documented as of this encounter
--- OUTSIDE RECORDS SUMMARY | 2025-08-18 21:00 | XMS_ITS | Encounter Summary ---
Demographics Address [address] [place] [address] Home Phone Preferred Language Korean Marital Status Unknown Caodaism Affiliation Unknown Race Unknown Ethnic Group Unknown Author Organization [facility] Address [address] [place], [place] [phone] Phone Care Team Providers Care Sandblaster Glass Name Role Phone Miriam Unger MD Primary Care Provider Unavailabl e Encounter Details Date Type Department Care Team (Late st Contact Info) Description 04/26/2017 Conversion Encounter [facility] - [address] [address] Social History Tobacco Use Types Packs/Day Years [...] on filedocumented in this encounter Care Teams Sandblaster Glass Relationship Specialty Start Date End Date Miriam Unger MD PCP - General 04/20/17 documented as of this encounter
--- OUTSIDE RECORDS SUMMARY | 2025-08-18 21:00 | XMS_ITS | Encounter Summary ---
Demographics Address [address] [facility] [place] [address] Home Phone Preferred Language Persian Marital Status Unknown Yazdanism Affiliation Unknown Race Unknown Ethnic Group Unknown Author Organization [facility] Address [address] [place], [place] [phone] Phone Care Team Providers Care Excelsior Machine Tender Name Role Phone Miriam Unger MD Primary Care Provider Unavailabl e Encounter Details Date Type Department Care Team (Late st Contact Info) Description 07/05/2011 Documentation [facility] [address] [place] [address] Family Medicine, Physician [address] [place] [address] Social History Tobacco Use Types Packs/Day Years [...] on filedocumented in this encounter Care Teams Excelsior Machine Tender Relationship Specialty Start Date End Date Miriam Unger MD PCP - General 04/20/17 documented as of this encounter
--- OUTSIDE RECORDS SUMMARY | 2025-08-18 21:00 | XMS_ITS | Encounter Summary ---
Author Organization [facility] Address [address] [place] [address] Phone Care Team Providers Care Community Development Worker Name Role Phone Charity Willingham MD Primary Care Provid er Encounter Details Date Type Department Care Team (Late st Contact Info) Description 11/26/2023 Transcribe Orders [facility] Specimen Processing [address] [place] [address] Charity Willingham MD [address] [place] [address] Social History Tobacco Use Types Packs/Day Years [...] on filedocumented in this encounter Care Teams Community Development Worker Relationship Specialty Start Date End Date Charity Willingham MD [address] [place] [address] PCP - General Internal Medicine 09/05/23 documented as of this encounter Additional Source Comments The information contained in this document represents components of the legal health record. It is not the complete legal health record.[facility]
--- OUTSIDE RECORDS SUMMARY | 2025-08-18 21:00 | XMS_ITS | Encounter Summary ---
Demographics Address [address] [place] [address] Home Phone Preferred Language Mongolian Marital Status Unknown Taoism Affiliation Unknown Race Unknown Ethnic Group Unknown Author Organization [facility] Address [address] [place], [place] [phone] Phone Care Team Providers Care Loss Prevention And Safety Manager Name Role Phone Miriam Unger MD Primary Care Provider Unavailabl e Encounter Details Date Type Department Care Team (Late st Contact Info) Description 03/27/2016 Documentation [facility] Family [facility] [address] [place] [address] Family Medicine, Physician [address] [place] [address] Social History Tobacco Use Types Packs/Day Years [...] on filedocumented in this encounter Care Teams Loss Prevention And Safety Manager Relationship Specialty Start Date End Date Miriam Unger MD PCP - General 04/20/17 documented as of this encounter
--- OUTSIDE RECORDS SUMMARY | 2025-08-18 21:00 | XMS_ITS | Encounter Summary ---
Demographics Address [address] [place] [address] Home Phone Preferred Language Ukrainian Marital Status Unknown Sikhism Affiliation Unknown Race Unknown Ethnic Group Unknown Author Organization [facility] Address [address] [place], [place] [phone] Phone Care Team Providers Care Vendor Management Associate Name Role Phone Miriam Unger MD Primary Care Provider Unavailabl e Encounter Details Date Type Department Care Team (Late st Contact Info) Description 11/22/2011 Documentation [facility] [address] [place] [address] Family Medicine, Physician [address] [place] [address] Social History Tobacco Use Types Packs/Day Years [...] on filedocumented in this encounter Care Teams Vendor Management Associate Relationship Specialty Start Date End Date Miriam Unger MD PCP - General 04/20/17 documented as of this encounter
--- OUTSIDE RECORDS SUMMARY | 2025-08-18 21:00 | XMS_ITS | Encounter Summary ---
Demographics Address [address] [place] [address] Home Phone Preferred Language Kyrgyz Marital Status Unknown Mormon Affiliation Unknown Race Unknown Ethnic Group Unknown Author Organization [facility] Address [address] [place], [place] [phone] Phone Care Team Providers Care Layboy Tender Name Role Phone Miriam Unger MD Primary Care Provider Unavailabl e Encounter Details Date Type Department Care Team (Late st Contact Info) Description 09/22/2013 Documentation [facility] [address] [place] [address] Family Medicine, Physician [address] [place], [place] [address] Social History Tobacco Use Types Packs/Day Years [...] on filedocumented in this encounter Care Teams Layboy Tender Relationship Specialty Start Date End Date Miriam Unger MD PCP - General 04/20/17 documented as of this encounter
--- OUTSIDE RECORDS SUMMARY | 2025-08-18 21:00 | XMS_ITS | Encounter Summary ---
Demographics Address [address] [place] [address] Home Phone Preferred Language Yi Marital Status Unknown Restorationist Affiliation Unknown Race Unknown Ethnic Group Unknown Author Organization [facility] Address [address] [place], [place] [phone] Phone Care Team Providers Care Vba Programmer Name Role Phone Miriam Unger MD Primary Care Provider Unavailabl e Encounter Details Date Type Department Care Team (Late st Contact Info) Description 03/23/2016 Documentation [facility] [address] [place] [address] Family Medicine, Physician [address] [place] [address] Social History Tobacco Use Types Packs/Day Years [...] on filedocumented in this encounter Care Teams Vba Programmer Relationship Specialty Start Date End Date Miriam Unger MD PCP - General 04/20/17 documented as of this encounter
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
--- OUTSIDE RECORDS SUMMARY | 2025-08-18 21:00 | XMS_ITS | Encounter Summary ---
Demographics Address [address] [facility] [place] [address] Home Phone Preferred Language Hebrew Marital Status Unknown Hindu Affiliation Unknown Race Unknown Ethnic Group Unknown Author Organization [facility] Address [address] [place], [place] [phone] Phone Care Team Providers Care Substance Addiction Coordinator Name Role Phone Miriam Unger MD Primary Care Provider Unavailabl e Encounter Details Date Type Department Care Team (Late st Contact Info) Description 04/24/2016 Documentation [facility] Family Medicine [address] [place] [address] Family Medicine, Physician [address] [place] [address] Social History Tobacco Use Types Packs/Day Years [...] on filedocumented in this encounter Care Teams Substance Addiction Coordinator Relationship Specialty Start Date End Date Miriam Unger MD PCP - General 04/20/17 documented as of this encounter
--- OUTSIDE RECORDS SUMMARY | 2025-08-18 21:00 | XMS_ITS | Clinical Summary ---
Author Organization [facility] Address [address] [place] [address] Phone Care Team Providers Care Crown Attacher Name Role Phone Charity Willingham MD Primary [...] is a blood test done randomly at [facility] that was low 200s, and advised that [...] Pap Test (10/17/2023 12:00 AM EST) Report [address] [address] Television Production Assistant: Kaylee Srinivasan MD [facility] Cytology Report FINAL DIAGNOSIS A. PAP SMEAR [...] : 1995 (Age: 28) Sex: F Institution: [facility] Location: [facility] Date of Collection: 10/17/2023 Date of Reported: 10/23/2023 09:55 Results to: Josee Franks MD [facility] Final Diagnosis A. PAP SMEAR (SUREPATH) CE: SPECIMEN ADEQUACY: Satisfactory for evaluation; transformation zone absent/insufficien t. INTERPRETATION: NEGATIVE FOR INTRAEPITHELIAL LESION OR MALIGNANCY. Fungal organisms morphologically consistent with Eva species. [facility] Conversion Type (Conversion Source) 10/17/2023 10/18/2023 10:00 AM EST us Josee Franks MD CYTOLOGY ORDERABLES Edited Resul t - Final Performing Organization Address [facility] Co de Phone Number [address] [address] * (ABNORMAL) Hemoglobin A1c (09/28/2023 11:47 AM EST) HEMOGLOBIN A1C 7.4(H) 4.3 - 5.8 % [facility] Blood 09/28/2023 11:4 7 AM EST 09/28/2023 11:51 AM EST us Josee Franks MD LAB BLOOD BKR ORDERABLES Final R esult Performing Organization Address City/[facility]/ZIP Co de Phone Number [address] [address] from Last 3 Months or Most Recently Relevant to Health Maintenance Insurance [facility] [employer] [place] [address] [place] [address] ACO [facility] ACO Care Teams Crown Attacher Relationship Specialty Start Date End Date Charity Willingham MD [address] [place] [address] PCP - General Internal Medicine 09/05/23 Additional Source Comments The information contained in this document represents components of the legal health record. It is not the complete legal health record.[facility]
--- OUTSIDE RECORDS SUMMARY | 2025-08-18 21:00 | XMS_ITS | Encounter Summary ---
Demographics Address [address] [facility] [place] [address] Home Phone Preferred Language Telugu Marital Status Unknown Zoroastrianism Affiliation Unknown Race Unknown Ethnic Group Unknown Author Organization [facility] Address [address] [place], [place] [phone] Phone Care Team Providers Care Community Service Representative Name Role Phone Miriam Unger MD Primary Care Provider Unavailabl e Encounter Details Date Type Department Care Team (Late st Contact Info) Description 12/31/2013 Documentation [facility] [address] [place] [address] Family Medicine, Physician [address] [place] [address] Social History Tobacco Use Types Packs/Day Years [...] filedocumented in this encounter Care Teams Community Service Representative Relationship Specialty Start Date End Date Miriam Unger MD PCP - General 04/20/17 documented as of this encounter
--- OUTSIDE RECORDS SUMMARY | 2025-08-18 21:00 | XMS_ITS | Encounter Summary ---
Demographics Address [address] [place] [address] Home Phone Preferred Language Portuguese Marital Status Unknown Mormon Affiliation Unknown Race Unknown Ethnic Group Unknown Author Organization [facility] Address [address] [place], [place] [address] Phone Care Team Providers Care Public Services Assistant Name Role Phone Miriam Unger MD Primary Care Provider Unavailabl e Encounter Details Date Type Department Care Team (Late st Contact Info) Description 06/28/2015 Documentation [facility] Family [facility] [address] [place] [address] Family Medicine, Physician [address] [place] [address] Social History Tobacco Use Types Packs/Day Years [...] on filedocumented in this encounter Care Teams Public Services Assistant Relationship Specialty Start Date End Date Miriam Unger MD PCP - General 04/20/17 documented as of this encounter
--- OUTSIDE RECORDS SUMMARY | 2025-08-18 21:00 | XMS_ITS | Encounter Summary ---
Demographics Address [address] [place] [address] Home Phone Preferred Language Khmer Marital Status Unknown Yazidi Affiliation Unknown Race Unknown Ethnic Group Unknown Author Organization [facility] Address [address] [place], [place] [phone] Phone Care Team Providers Care International Affairs Vice President Name Role Phone Miriam Unger MD Primary Care Provider Unavailabl e Encounter Details Date Type Department Care Team (Late st Contact Info) Description 12/17/2009 Documentation [facility] [address] [place] [address] Family Medicine, Physician [address] [place], [place] [address] Social History Tobacco Use Types Packs/Day Years [...] on filedocumented in this encounter Care Teams International Affairs Vice President Relationship Specialty Start Date End Date Miriam Unger MD PCP - General 04/20/17 documented as of this encounter
== END 2025-08-18 15:20 | disposition home or self-care (01) ==
LOC: HO.ENCR 14:50
PROVIDERS: PCP Internal Medicine; Visit Provider Internal Medicine Endocrinology, Diabetes & Metabolism
DX: E10.9 Type 1 diabetes mellitus without complications (principal)
CPT/HCPCS: 99213

== ENCOUNTER → 2025-08-18 14:50 | Outpatient (BNVA) | payer OTHER, SELFPAY | PROVIDERS: PCP Internal Medicine; Visit Provider Internal Medicine Endocrinology, Diabetes & Metabolism | DX: E10.9 Type 1 diabetes mellitus without complications (principal) | CPT/HCPCS: 82947; 99212 ==